=== PATIENT | female | born 1950 | race Caucasian/White ===

== ENCOUNTER 2017-08-03 01:41 | Emergency (ER) | payer MEDICARE, SELFPAY | END 2017-08-03 02:34 | disposition home or self-care (01) | PROVIDERS: Emergency Provider Emergency Medicine; Family Provider Family Medicine; Visit Provider Emergency Medicine | DX: R58 Hemorrhage, not elsewhere classified (principal); I83.892 Varicose veins of left lower extremity with other complications; I10 Essential (primary) hypertension | CPT/HCPCS: 12001; 99283 ==

== ENCOUNTER → 2017-08-07 | Outpatient (CLI) | payer MEDICARE, SELFPAY | PROVIDERS: Visit Provider Physician Assistant | DX: Z12.31 Encounter for screening mammogram for malignant neoplasm of breast (principal) | CPT/HCPCS: 77067; G0202 ==

== ENCOUNTER → 2018-08-25 15:16 | Outpatient (POV) | payer MEDICARE, SELFPAY | PROVIDERS: Visit Provider Dermatology | DX: Z00.00 Encounter for general adult medical examination without abnormal findings (principal) ==

== ENCOUNTER → 2018-10-20 08:19 | Outpatient (CLI) | payer MEDICARE, SELFPAY ==
--- NOTE | 2018-10-20 08:22 | MM_ITS ---
MM Dig screening mamm BI w/CAD CAD Screening COMPARISON: Digital mammograms with CAD 08/07/2017 and 08/01/2016 INDICATION: There is a history of breast cancer in patient's mother diagnosed after menopause. There has been previous biopsy left breast for benign disease. TECHNIQUE: Standard CC and MLO images were obtained. R2 CAD reviewed. FINDINGS: Moderate scattered fibroglandular densities are seen throughout both breasts. There are scattered benign-appearing microcalcifications in each breast. There is a possible area of architectural distortion right breast versus summation shadow. Recommend the patient return for spot compression views and ultrasound may be helpful as well. There is a biopsy clip left breast and there is a mole marker left breast. There are no suspicious microcalcifications. IMPRESSION: Moderate diffuse breast density with possible area of architectural distortion right breast BI-RADS Category: 0 Need Additional Imaging Evaluation RECOMMENDED FOLLOW-UP: IMM - IMMEDIATE FOLLOW-UP RECOMMENDED (A letter has been sent to the patient regarding results of the study.)
== END ==
PROVIDERS: PCP Physician Assistant; Visit Provider Physician Assistant
DX: Z12.31 Encounter for screening mammogram for malignant neoplasm of breast (principal)
CPT/HCPCS: 77067

== ENCOUNTER → 2018-11-17 13:46 | Outpatient (CLI) | payer MEDICARE, SELFPAY ==
--- NOTE | 2018-11-17 13:48 | US_ITS ---
US breast RT complete INDICATION: ORDERING PHYSICIAN: SHEELA Arana PATIENT AGE: 68 years COMPARISON: None NDICATION: Follow-up abnormal mammogram ORDERING PHYSICIAN: SHEELA Arana PATIENT AGE: 68 years COMPARISON: 10/20/2018, 08/07/2017 TECHNIQUE: Problem-solving views performed of the right breast along with right breast ultrasound FINDINGS: Multiple images performed of the right breast including spot compression views, rolled views, and focal spot compression views with smaller paddle is obtained. There was questionable persistent architectural distortion in the lateral aspect of the right breast with the larger field of view paddle . This area however appeared to dissipate with a smaller field of view paddle and was not readily apparent on the orthogonal plane or rolled views. Right breast ultrasound: No suspicious mass is apparent.. Small slightly hyperechoic nodule noted at 1:00 measuring 8 mm and may be due to small lipoma IMPRESSION: The area of asymmetric density is not reproducible on the focal spot compression views nor the ultrasound and may be due to an area of asymmetric fibroglandular tissue. Short-term follow-up is suggested however. Also please correlate with physical exam. BI-RADS Category: 3 Probably Benign Finding Short Term Follow-up RECOMMENDED FOLLOW-UP: 6M - 6 MONTH FOLLOW-UP (A letter has been sent to the patient regarding results of the study.)
== END ==
PROVIDERS: PCP Physician Assistant; Visit Provider Physician Assistant
DX: R92.8 Other abnormal and inconclusive findings on diagnostic imaging of breast (principal)
CPT/HCPCS: 76641; 77066

== ENCOUNTER → 2019-04-15 09:22 | Outpatient (CLI) | payer MEDICARE, SELFPAY ==
--- NOTE | 2019-04-15 09:34 | XR_ITS ---
PROCEDURE: XR FOOT LT MIN 3V CLINICAL INDICATION: PLANTAR FASCITIS Foot pain COMPARISON: FTL3 FOOT-LT-3 VIEWS from 12/19/2015 FINDINGS: Hammertoe deformity involves the 4th and 5th toes. Osteoarthritic changes are present at the metatarsal tarsal joints and at the talonavicular joint. There is pes planus with mild calcification noted along the lateral aspect of the hindfoot as seen on the AP view suggesting soft tissue calcification. There is a prominent os naviculare and there are osteoarthritic changes of the calcaneocuboid joint. Overall there has been no significant change compared to 12/19/2015. IMPRESSION: Osteoarthritic change with pes planus and hammertoe deformity. Prominent os naviculare. Calcification along the lateral aspect of the hindfoot possibly related to plantar calcification. Dictated by: Aleksandr Saenz MD 04/15/2019 11:17 Electronically signed by Aleksandr Saenz MD in [place] 04/15/2019 11:17
== END ==
PROVIDERS: PCP Physician Assistant; Visit Provider Physician Assistant
DX: M72.2 Plantar fascial fibromatosis (principal)
CPT/HCPCS: 73630

== ENCOUNTER 2019-06-01 09:00 | Outpatient (RCR) | payer MEDICARE, SELFPAY ==
--- NOTE | 2019-05-27 09:18 | HMH.PTOPWND ---
Rehab Outpt Wound Evaluation Rehab OP Wound Evaluation Start: 05/27/19 08:53 Freq: Status: Active Protocol: Document 05/27/19 09:09 MALIKA (Rec: 05/27/19 09:18 PHOLESTER [id number]) Electronically Signed By Carl Garduno, PT 05/27/19 09:09 Subjective/History History History Pt is 69 yowf who presents with several recent episodes of cellulitis and many yr hx of B LE edema, basically all my life. She reports no c/o pain at rest, but some intermittent pain in B LE. She also reports significant tenderness to palpation in certain areas. She presents with several small closed sores that are in various stages of healing, but none open. These sore have a clinical presentation that would suggest an underlying MRSA infection ans should be cultured if new sores arise. She has hx of intermittent vertigo, HTN, HL, morbid obesity, CCY, partial hysterectomy, L TKA x 1, and R TKA x 2 ( My first knee on the right wore out after 10 years ). She also shows clinical presentation of her edema that suggests Lipidema as her diagnosis. Subjective Subjective 0/10 pain at rest, 6/10 pain at worst. Lymphedema Eval Classification of Lymphedema Secondary Lymphedema Yes Other Lymphedema Cause Yes: Lipidema Stemmer's sign Stemmer's Sign no Stage of Lymphedema Lymphedema stages Stage II (Pitting edema, increased fibrosis w/ decreased pitting) Skin Changes Dry Skin Yes Skin Folds Yes Redness Yes Blisters Yes Discoloration of Skin Yes Other Changes Yes Pain Scale Pain Scale (0-10) 6 Affected Extremities Areas Affected by Lymphedema/Edema Abdomen,Right Lower Extremity, Left Lower Extremity Manual Lymphatic Drainage Treatment Area MLD Treatment Area Abdomen,Right Lower Extremity,
== END 2019-06-01 09:05 | disposition home or self-care (01) ==
LOC: PT 09:00
PROVIDERS: PCP Physician Assistant; Visit Provider Physician Assistant
DX: R60.0 Localized edema (principal); L03.90 Cellulitis, unspecified
CPT/HCPCS: 97140; 97162

== ENCOUNTER → 2019-06-08 14:30 | Outpatient (CLI) | payer MEDICARE, SELFPAY ==
--- NOTE | 2019-06-08 14:32 | MM_ITS ---
PROCEDURE: MM DIG MAMM DX UNILAT RT CAD CLINICAL INDICATION: 6 MO FU six-month follow-up abnormal mammogram and ultrasound COMPARISON: DMSB DIG MAMM-SCREEN FORD from 11/05/2013 DMDXUWAL DIG MAMM-DX UNI LT ADD VIEW from 11/24/2013 DMDXUL DIG MAMM-DX UNI-LT from 07/08/2014 [facility] DIG MAMM-SCREEN FORD from 07/21/2015 [facility]B DIG MAMM-SCREEN FORD from 08/01/2016 [facility] DIG MAMM-SCREEN FORD W/CAD from 08/07/2017 [facility] MM Dig screening mamm BI w/CAD from 10/20/2018 BREASTRT US breast RT complete from 11/17/2018 [facility] MM Dig mamm BI DX w/CAD from 11/17/2018 US BREAST RT COMPLETE from 06/08/2019 TECHNIQUE: Standard images performed along with spot compression views rolled views and right breast ultrasound. FINDINGS: There is average fibroglandular tissue. There is a persistent area of questionable architectural distortion in the outer aspect of the the right breast. There is some interspersed fat within this region and this area appears to partially efface with spot compression views. This does not appear significantly changed compared to the previous exam. Right breast ultrasound: On today's exam there is an area of heterogeneous echogenicity in the 9 o'clock region of the right breast which was not demonstrated on the previous exam. This area measures approximately 1.8 by 1.6 cm has a lobular contour with some posterior acoustical shadowing. This may correspond to the area of architectural distortion in the right breast. Ultrasound-guided mammotome biopsy recommended with clip placement with mammogram to follow to see if the sonographic and mammographic abnormalities are concordant IMPRESSION: BI-RAD Category: 4 Suspicious Abnormality - Biopsy Considered FOLLOW-UP: BIO Biopsy Recommended (A letter has been sent to the patient regarding results of the study.) The the the the the the the Dictated by: Aleksandr Saenz MD 06/15/2019 09:01 Electronically signed by Aleksandr Saenz MD in [place] 06/15/2019 09:01
--- NOTE | 2019-06-08 14:34 | US_ITS ---
PROCEDURE: US BREAST RT COMPLETE CLINICAL INDICATION: 6 MO FU Six-month follow-up COMPARISON: 11/17/2018 FINDINGS: BREASTRT US breast RT complete from 11/17/2018 FINDINGS: There is average fibroglandular tissue. There is a persistent area of questionable architectural distortion in the outer aspect of the the right breast. There is some interspersed fat within this region and this area appears to partially efface with spot compression views. This does not appear significantly changed compared to the previous exam. Right breast ultrasound: On today's exam there is an area of heterogeneous echogenicity in the 9 o'clock region of the right breast which was not demonstrated on the previous exam. This area measures approximately 1.8 by 1.6 cm has a lobular contour with some posterior acoustical shadowing. This may correspond to the area of architectural distortion in the right breast. Ultrasound-guided mammotome biopsy recommended with clip placement with mammogram to follow to see if the sonographic and mammographic abnormalities are concordant IMPRESSION: IMPRESSION: BI-RAD Category: 4 Suspicious Abnormality - Biopsy Considered FOLLOW-UP: BIO Biopsy Recommended (A letter has been sent to the patient regarding results of the study.) Dictated by: Aleksandr Saenz MD 06/15/2019 09:49 Electronically signed by Aleksandr Saenz MD in [place] 06/15/2019 09:49
== END ==
PROVIDERS: PCP Physician Assistant; Visit Provider Physician Assistant
DX: R92.8 Other abnormal and inconclusive findings on diagnostic imaging of breast (principal)
CPT/HCPCS: 76641; 77065

== ENCOUNTER → 2019-06-30 09:26 | Outpatient (CLI) | payer MEDICARE, SELFPAY | PROVIDERS: PCP Physician Assistant; Visit Provider Physician Assistant | DX: R92.8 Other abnormal and inconclusive findings on diagnostic imaging of breast (principal) ==

== ENCOUNTER → 2019-07-06 12:36 | Outpatient (CLI) | payer MEDICARE, SELFPAY ==
--- NOTE | 2019-07-06 12:39 | US_ITS ---
PROCEDURE: US MAMMOTOME BX RT CLINICAL INDICATION: RT BREAST ABNORMALITY Right breast mass COMPARISON: [facility] MM Dig mamm BI DX w/CAD from 11/17/2018 BREASTRT US breast RT complete from 11/17/2018 US BREAST RT COMPLETE from 06/08/2019 MM DIG MAMM DX UNILAT RT CAD from 06/08/2019 MM CLIP PLACEMENT RT from 07/06/2019 FINDINGS: Following obtaining informed consent and time-out procedure under aseptic conditions and local anesthesia with 1 percent buffered lidocaine and deeper anesthesia with lidocaine mixed with epinephrine, mammotome needle was inserted into the right breast at the 9 o'clock position and multiple mammotome cores obtained with sonographic guidance of the suspicious abnormality.. A non ferromagnetic clip was then placed the patient tolerated the procedure well without evidence of immediate complication.. Post biopsy mammogram demonstrates the clip in place within the outer aspect of the right breast at the 9 o'clock region.. Pathology: Invasive lobular carcinoma. Please see pathology report. Atypical lobular hyperplasia. IMPRESSION: Successful and uneventful ultrasound-guided mammotome biopsy of the right breast showing invasive lobular carcinoma as well as atypical lobular hyperplasia. Satisfactory clip placement. No immediate complications Dictated by: Aleksandr Saenz MD 07/20/2019 11:01 Electronically signed by Aleksandr Saenz MD in [place] 07/20/2019 11:01
== END ==
PROVIDERS: PCP Physician Assistant; Visit Provider Physician Assistant
DX: R92.8 Other abnormal and inconclusive findings on diagnostic imaging of breast (principal); N63.11 Unspecified lump in the right breast, upper outer quadrant; C50.911 Malignant neoplasm of unspecified site of right female breast; Z17.0 Estrogen receptor positive status [ER+]
CPT/HCPCS: 19083; 77065; 88305; 88342; 88360; C2618

== ENCOUNTER → 2019-08-18 15:19 | Outpatient (CLI) | payer MEDICARE, SELFPAY ==
--- NOTE | 2019-08-18 15:24 | XR_ITS ---
PROCEDURE: XR CHEST 2V CLINICAL HISTORY: SOA ON EXCERTION COMPARISON: No exams were available for comparison FINDINGS: The cardiomediastinal silhouette and pulmonary vascularity are within normal limits. There are slight increased markings in the right infrahilar region suggesting an area of infiltrate. This may be in the lower lobe. Left lung is clear. No acute bony abnormalities. IMPRESSION: Patchy right lower lobe infiltrate Dictated by: Aleksandr Saenz MD 08/18/2019 17:53 Electronically signed by Aleksandr Saenz MD in [place] 08/18/2019 17:53
--- NOTE | 2019-08-18 15:54 | ECG_ITS ---
APPROVED REPORT Exam: Resting ECG HR:88 bpm ECG Measurements Heart Rate 88 AXES QRSd 80 QRS -31 QT 380 T 52 QTc 459 <Conclusion> Atrial fibrillation Left axis deviation Low voltage QRS Inferior infarct, old Late r wave progression Abnormal ECG Electronically signed by : Ki Gonzalez, 08/18/2019 16:03:56
== END ==
PROVIDERS: PCP Physician Assistant; Visit Provider Physician Assistant
DX: Z01.818 Encounter for other preprocedural examination (principal)
CPT/HCPCS: 71046; 93005

== ENCOUNTER → 2019-08-19 13:56 | Outpatient (CLI) | payer MEDICARE, SELFPAY ==
[2019-08-19 14:36] LABS: Basophils # 0.1 K/mm3 (0-0.2); Basophils % 1.1 % (0.1-2.0); Eosinophils # 0.2 K/mm3 (0.0-0.4); Eosinophils % 3.2 % (0.1-12.0); Hematocrit 46.2 % (37.0-47.0); Hemoglobin 14.5 g/dL (12.2-16.2); Lymphocytes # 1.5 K/mm3 (0.7-4.5); Lymphocytes % 28.3 % (10-50); Mean Corpuscular HGB Conc 31.5 g/dL (31.8-35.4); Mean Corpuscular Hemoglobin 30.6 pg (27.0-31.2); Mean Corpuscular Volume 97.1 fl (81-99); Mean Platelet Volume 8.1 fl (7.4-10.4); Monocytes # 0.4 K/mm3 (0.1-1.0); Monocytes % 7.5 % (1.7-9.3); Neutrophils # 3.3 K/mm3 (1.8-7.8); Neutrophils % 59.9 % (37.0-80.0); Platelet Count 169 K/mm3 (142-424); Red Blood Count 4.76 M/mm3 (4.20-5.40); Red Cell Distribution Width 14.7 % (11.5-17.5); White Blood Count 5.4 K/mm3 (4.8-10.8)
[2019-08-19 15:39] LABS: Alanine Aminotransferase 15 U/L (12-78); Albumin Level 3.5 gm/dL (3.4-5.0); Albumin/Globulin Ratio 1.2 (1.1-1.8); Alkaline Phosphatase 83 U/L (46-116); Anion Gap 11.7 mEq/L (5-15); Aspartate Amino Transferase 19 U/L (15-37); Blood Urea Nitrogen 19 mg/dL (7-18); Calcium 8.9 mg/dL (8.5-10.1); Carbon Dioxide 28 mmol/L (21.0-32.0); Chloride 102 mmol/L (98-107); Creatinine,Serum 1.06 mg/dL (0.55-1.02); Estimated Glomerular Filt Rate 51 ml/min (>60); GFR (African American) 62 ML/MIN (>60); Glucose 119 mg/dL (74-106); Potassium 3.7 mmoL/L (3.5-5.1); Sodium 138 mmol/L (136-145); Thyroid Stimulating Hormone 2.33 uIU/ml (0.358-3.740); Total Protein,Serum 6.5 gm/dL (6.4-8.2)
== END ==
PROVIDERS: Visit Provider Physician Assistant
DX: I48.91 Unspecified atrial fibrillation (principal); R93.89 Abnormal findings on diagnostic imaging of other specified body structures
CPT/HCPCS: 36415; 80053; 84443; 85025

== ENCOUNTER → 2019-08-20 09:53 | Outpatient (CLI) | payer SELFPAY ==
--- NOTE | 2019-08-20 09:54 | CT_ITS ---
PROCEDURE: CT HEART W CALCIUM SCORE CLINICAL HISTORY: sob, pre op, new onset of a fib COMPARISON: No exams were available for comparison TECHNIQUE: Axial images obtained with sagittal and coronal reformats. All CT scans at the facility use one or more dose reduction, viz: automated exposure control, ma/kV adjustment per patient size (including targeted exams where dose is matched to indication, i.e. head), or iterative reconstruction technique. FINDINGS: Coronary artery calcium score is 506 indicating extensive calcific plaque burden with very high cardiovascular disease risk Incidental note is made degenerative changes of the thoracic spine and some mild aortic root calcification. Also mild calcification noted of the mitral valve annulus. There is a splenic artery aneurysm with peripheral calcification with aneurysm measuring 13 mm. IMPRESSION: 1. Very high cardiovascular disease risk with extensive calcific plaque burden. 2. 13 mm splenic artery aneurysm Dictated by: Aleksandr Saenz MD 08/20/2019 12:35 Electronically signed by Aleksandr Saenz MD in [place] 08/20/2019 12:35
== END ==
PROVIDERS: PCP Physician Assistant; Visit Provider Internal Medicine Cardiovascular Disease
DX: Z13.6 Encounter for screening for cardiovascular disorders (principal)
CPT/HCPCS: 75571

== ENCOUNTER → 2019-08-20 10:20 | Outpatient (CLI) | payer MEDICARE, SELFPAY ==
--- NOTE | 2019-08-20 10:25 | CA_ITS ---
APPROVED REPORT EXAM: Comprehensive 2D, Doppler, and color-flow Echocardiogram Floor Press Operator: Melanie Medrano RDCS Ht: 5 ft 7 in Wt: 378lbs BSA: 2.65 BP: 131/73 mmHg Indications: Obesity, Atrial Fibrillation (new onset), Hyperlipidemia, Hypertension/HDD M-Mode Dimensions RVDd 2.67 cm (0.9-2.6) LVDd 7.04 cm (3.5-5.7) LVDs 6.10 cm (3.5-5.7) IVSd 0.93 cm (0.6-1.1) PWd 1.06 cm (0.6-1.1) EF (Teich) 27.80% FS 13.40% EDV (Teich) 258.70 mL ESV (Teich) 186.90 mL Left Ventricle Left atrium is moderately enlarged, left ventricle is normal size, mild concentric left ventricular hypertrophy, visually estimated ejection fraction 55% with no regional wall motion abnormality. Endocardial surfaces are poorly visualized, diastolic parameters are inconclusive. Right Ventricle Right atrium and right ventricular mildly enlarged with normal contractility. Aortic Valve Aortic valve is thickened and calcified leaflet chordae display good mobility, there is no aortic stenosis or aortic insufficiency. Mitral Valve Mitral valve is grossly normal, there is mild mitral regurgitation. Tricuspid Valve Tricuspid valve is grossly normal, there is mild tricuspid regurgitation. Pulmonic Valve Pulmonic valve is poorly visualized. Great Vessels Aortic root is normal size. Pericardium No significant pericardial effusion noted. Conclusion 1. Biatrial enlargement, normal left ventricular size, mild concentric left ventricular hypertrophy, visually estimated ejection fraction 55% with no regional wall motion abnormality, diastolic parameters are inconclusive. 2. Mildly enlarged right ventricle with normal contractility. 3. Mild mitral and tricuspid regurgitation. 4. No significant pericardial effusion noted. Electronically signed by : Guanako Aldridge, 08/20/2019 14:42:19
== END ==
PROVIDERS: PCP Physician Assistant; Visit Provider Physician Assistant
DX: Z01.810 Encounter for preprocedural cardiovascular examination (principal); R06.00 Dyspnea, unspecified; I48.91 Unspecified atrial fibrillation
CPT/HCPCS: 93306

== ENCOUNTER → 2019-10-04 16:41 | Outpatient (CLI) | payer MEDICARE, SELFPAY ==
[2019-10-04 16:54] LABS: Basophils % 0.5 % (0.1-2.0); Eosinophils # 0.4 K/mm3 (0.0-0.4); Eosinophils % 6.4 % (0.1-12.0); Hematocrit 39.8 % (37.0-47.0); Hemoglobin 12.8 g/dL (12.2-16.2); Lymphocytes # 1.3 K/mm3 (0.7-4.5); Lymphocytes % 23.3 % (10-50); Mean Corpuscular HGB Conc 32.1 g/dL (31.8-35.4); Mean Corpuscular Hemoglobin 31.3 pg (27.0-31.2); Mean Corpuscular Volume 97.5 fl (81-99); Mean Platelet Volume 8.2 fl (7.4-10.4); Monocytes # 0.4 K/mm3 (0.1-1.0); Monocytes % 6.2 % (1.7-9.3); Neutrophils # 3.6 K/mm3 (1.8-7.8); Neutrophils % 63.6 % (37.0-80.0); Platelet Count 190 K/mm3 (142-424); Red Blood Count 4.08 M/mm3 (4.20-5.40); Red Cell Distribution Width 13.5 % (11.5-17.5); White Blood Count 5.7 K/mm3 (4.8-10.8)
[2019-10-04 17:02] LABS: Chloride 103 mmol/L (98-107); Potassium 3.9 mmoL/L (3.5-5.1); Sodium 138 mmol/L (136-145)
[2019-10-04 17:04] LABS: Blood Urea Nitrogen 15 mg/dl (7-17); Estimated Glomerular Filt Rate 49 ml/min (>60); GFR (African American) 59 ML/MIN (>60)
[2019-10-04 17:05] LABS: Alanine Aminotransferase 12 U/L (12-78); Albumin Level 3.5 g/dl (3.5-5.0); Albumin/Globulin Ratio 1.2 (1.1-1.8); Alkaline Phosphatase 73 U/L (38-126); Anion Gap 8.9 mEq/L (5-15); Aspartate Amino Transferase 25 U/L (14-36); Bilirubin,Total 1.4 mg/dl (0.2-1.3); Calcium 9.5 mg/dl (8.4-10.2); Carbon Dioxide 30 mmol/L (22.0-30.0); Globulin 2.9 g/dL (1.3-3.2); Glucose 111 mg/dl (74-100); Total Protein,Serum 6.4 g/dl (6.3-8.2)
== END ==
PROVIDERS: Visit Provider Internal Medicine Hematology & Oncology
DX: C50.911 Malignant neoplasm of unspecified site of right female breast (principal)
CPT/HCPCS: 36415; 80053; 85025

== ENCOUNTER → 2019-10-05 09:30 | Outpatient (CLI) | payer MEDICARE, SELFPAY ==
--- NOTE | 2019-10-05 09:35 | CT_ITS ---
PROCEDURE: CT CHEST W CON CLINCAL INDICATION: BREAST CANCER Breast cancer follow-up, staging evaluation COMPARISON: CT ABDOMEN PELVIS W CON from 10/05/2019 TECHNIQUE: IV Contrast: 75ml Optiray 350 Axial images obtained with sagittal and coronal reformats. All CT scans at the facility use one or more dose reduction, viz: automated exposure control, ma/kV adjustment per patient size (including targeted exams where dose is matched to indication, i.e. head), or iterative reconstruction technique. FINDINGS: HEART AND MEDIASTINAL STRUCTURES: There are coronary artery calcifications. There is normal heart size. No mediastinal or hilar mass or adenopathy is evident. There are coronary artery calcifications noted. Normal heart size. No evidence of pericardial effusion. LUNGS AND PLEURAL SPACES: No suspicious pulmonary nodules. There are minimal atelectatic or fibrotic changes in the left lung base. No central obstructing lesions. No pleural effusions. BONY STRUCTURES: There are degenerative changes of the thoracic spine. No bony destructive process. No lytic or blastic lesions. ADDITIONAL FINDINGS: Status post right mastectomy. A postsurgical drain is present in the mastectomy bed exiting in the lateral chest wall on the right. There is some increased soft tissue density in the subcutaneous tissues in may be related to spoke surgical fluid collection measuring approximately 4.6 x 1.4 cm. There is some stranding of the subcutaneous fat. No obvious axillary adenopathy. There is a fluid collection in the right axilla at approximately 3.4 cm consistent with postoperative seroma IMPRESSION: 1. Status post right mastectomy with postsurgical changes. Postoperative seroma noted in the right axillary region and in the mastectomy bed. 2. No convincing evidence of metastatic disease of the thorax. 3. Coronary artery calcifications Dictated by: Aleksandr Saenz MD 10/06/2019 06:25 Electronically signed by Aleksandr Saenz MD in [place] 10/06/2019 06:25
--- NOTE | 2019-10-05 09:35 | CT_ITS ---
PROCEDURE: CT ABDOMEN PELVIS W CON CLINICAL INDICATION: BREAST CANCER Follow-up breast cancer, evaluate for metastatic disease COMPARISON: ABDPELW CT ABD PELVIS W/ CONTRAST from 12/21/2015 TECHNIQUE: IV Contrast: 75ML OPTIRAY 350 Oral Contrast 450ml Redicat Axial images obtained with sagittal and coronal reformats. All CT scans at the facility use one or more dose reduction, viz: automated exposure control, ma/kV adjustment per patient size (including targeted exams where dose is matched to indication, i.e. head), or iterative reconstruction technique. FINDINGS: LOWER THORAX: Please see chest CT report ABDOMEN & PELVIS: There is some beam hardening artifact from the patient's arms. No obvious liver lesions. The liver, spleen, adrenal glands, have an unremarkable appearance. There is fatty infiltration of the pancreas. No obvious pancreatic mass. No renal or ureteral calculi or hydronephrosis. No renal mass. There is a small splenic artery aneurysm at 1.5 cm not significantly changed. No intra-abdominal mass or pelvic mass. No adenopathy apparent. There are post hysterectomy changes. Calcific density is present in the left pelvic region. This is not felt to be due to ureteral stone but likely vascular calcification as this was present on the previous study and unchanged. There is a small ventral abdominal wall hernia slightly to the left of midline containing fat not significantly changed the No bony destructive process. No lytic or blastic lesions evident. IMPRESSION: No acute finding. No evidence of metastatic disease. Dictated by: Aleksandr Saenz MD 10/06/2019 06:36 Electronically signed by Aleksandr Saenz MD in [place] 10/06/2019 06:36
== END ==
PROVIDERS: PCP Physician Assistant; Visit Provider Internal Medicine Hematology & Oncology
DX: C50.911 Malignant neoplasm of unspecified site of right female breast (principal); Z03.89 Encounter for observation for other suspected diseases and conditions ruled out
CPT/HCPCS: 71260; 74177; Q9967

== ENCOUNTER 2020-03-01 05:14 | Observation (INO) | payer MEDICARE, SELFPAY ==
[2020-03-01] VITALS (13 sets, daily range): BP systolic 96–128; BP diastolic 48–78; PULSE 63–99; RESP 16–20; TEMP 36.5–38.9; O2SAT 95–100; BMI 64.3; BMI 55.3
--- NOTE | 2020-03-01 05:24 | XR_ITS ---
PROCEDURE: XR CHEST PORTABLE CLINICAL HISTORY: fever COMPARISON: XR CHEST 2V from 08/18/2019 XR CHEST 2V from 08/23/2019 CT CHEST W CON from 10/05/2019 FINDINGS: Mild cardiomegaly with pulmonary venous congestion consistent with CHF. The lungs are clear without infiltrates, suspicious nodules, or pleural effusions. Surgical clips are present in the right axilla and over upper chest medially. No lobar consolidation or collapse. IMPRESSION: Mild CHF Dictated by: Aleksandr Saenz MD 03/01/2020 06:05 Electronically signed by Aleksandr Saenz MD in [facility] 03/01/2020 06:05
--- NOTE | 2020-03-01 05:25 | XR_ITS ---
PROCEDURE: XR KNEE LT 3V CLINICAL INDICATION: knee pain COMPARISON: No exams were available for comparison FINDINGS: Prior total knee replacement with good alignment and no acute fracture. Scattered soft tissue calcifications are present about the knee . No previous exams available for comparison. Other findings:None. IMPRESSION: Prior total knee replacement with nonspecific soft tissue calcifications Dictated by: Aleksandr Saenz MD 03/01/2020 06:07 Electronically signed by Aleksandr Saenz MD in [facility] 03/01/2020 06:07
[2020-03-01 06:19] LABS: Chloride 97 mmol/L (98-107); Potassium 3.6 mmoL/L (3.5-5.1); Sodium 136 mmol/L (136-145)
[2020-03-01 06:21] LABS: Microscopic, Urine URINE MICROSCOPIC (MICROSCOPIC)
[2020-03-01 06:22] LABS: Alanine Aminotransferase 15 U/L (12-78); Albumin Level 3.5 g/dl (3.5-5.0); Albumin/Globulin Ratio 1.1 (1.1-1.8); Alkaline Phosphatase 133 U/L (38-126); Anion Gap 12.6 mEq/L (5-15); Aspartate Amino Transferase 32 U/L (14-36); Basophils # 0.1 K/mm3 (0-0.2); Basophils % 0.8 % (0.1-2.0); Bilirubin,Total 1.9 mg/dl (0.2-1.3); Blood Urea Nitrogen 23 mg/dl (7-17); Carbon Dioxide 30 mmol/L (22.0-30.0); Creatinine Clearance Estimated 49 mL/min (50-200); Eosinophils # 0.2 K/mm3 (0.0-0.4); Eosinophils % 2.8 % (0.1-12.0); Estimated Glomerular Filt Rate 49 ml/min (>60); GFR (African American) 59 ML/MIN (>60); Globulin 3.3 g/dL (1.3-3.2); Hematocrit 33.9 % (37.0-47.0); Hemoglobin 12.1 g/dL (12.2-16.2); Lymphocytes # 0.9 K/mm3 (0.7-4.5); Lymphocytes % 14.9 % (10-50); Mean Corpuscular HGB Conc 35.7 g/dL (31.8-35.4); Mean Corpuscular Hemoglobin 32.9 pg (27.0-31.2); Mean Corpuscular Volume 92.2 fl (81-99); Mean Platelet Volume 8.5 fl (7.4-10.4); Monocytes # 0.5 K/mm3 (0.1-1.0); Monocytes % 8.4 % (1.7-9.3); Neutrophils # 4.5 K/mm3 (1.8-7.8); Neutrophils % 73.1 % (37.0-80.0); Platelet Count 141 K/mm3 (142-424); Red Blood Count 3.68 M/mm3 (4.20-5.40); Red Cell Distribution Width 13.8 % (11.5-17.5); Total Protein,Serum 6.8 g/dl (6.3-8.2); White Blood Count 6.1 K/mm3 (4.8-10.8)
[2020-03-01 06:23] LABS: Appearance,Urine CLEAR (Clear); Bilirubin,Urine Negative (Negative); Blood, Urine Negative (Negative); Calcium 9.2 mg/dl (8.4-10.2); Color,Urine YELLOW (Yellow); Glucose 134 mg/dl (74-100); Glucose,Urine (UA) Negative (Negative); Ketones,Urine Negative (Negative); Leukocyte Esterase,Urine Negative (Negative); Nitrate,Urine Negative (Negative); Protein,Urine Negative (Negative); Specific Gravity, Urine 1.025 (1.005-1.030)
[2020-03-01 06:25] LABS: Lactic Acid 1.2 mmol/L (0.7-2.1)
[2020-03-01 06:28] LABS: C-Reactive Protein 52.3 mg/L (0-4)
[2020-03-01 06:32] LABS: Bacteria,Urine Trace /lpf; RBC,Urine Occasional #/hpf (0-3)
[2020-03-01 06:33] LABS: Strep Scrn Group A (Rapid) Negative (Negative)
--- NOTE | 2020-03-01 06:59 | HMH.EDFEV ---
ED Disposition Clinical Impression: Febrile illness, acute, Renal insufficiency, Elevated C-reactive protein (CRP) Obesity Qualifiers: Obesity type: due to excess calories Obesity classification: adult class 3 (BMI >= 40) Serious obesity comorbidity presence: with serious comorbidity Body mass index: BMI 50.0-59.9 Qualified Code(s): E66.01 - Morbid (severe) obesity due to excess calories; Z68.43 - Body mass index (BMI) 50.0-59.9, adult Knee pain, acute Qualifiers: Laterality: right Qualified Code(s): M25.561 - Pain in right knee Disposition: Admitted as Observation Condition on Discharge: Good Referrals: Kalie Dobbs MD [Primary Care Provider] - - Critical Care Critical Care Time: No Attestation: On 03/01/20, the high probability of a clinically significant, sudden or life threatening deterioration of the following system(s) required my full and direct attention, intervention and personal management. The time I documented below is in addition to time spent performing reported procedures but includes the following listed in this critical care notation. Medical Decision Making - Medical Records Medical records reviewed: Yes: I reviewed the patient's medical records. - Richard Inquiry Pt receiving controlled substance: No Vital Signs: 03/01/20 05:25 03/01/20 07:14 Temperature 102.1 F H Temperature Source Oral Pulse Rate [Right Brachial] 81 87 Respiratory Rate 16 18 Blood Pressure [Right Arm] 119/52 L 113/60 Blood Pressure Mean [Right Arm] 74 77 Blood Pressure Source [Right Arm] Automatic Cuff Automatic Cuff Blood Pressure Position [Right Arm] Sitting Sitting 02 Sat by Pulse Oximetry 98 97 Oxygen Delivery Method Room Air Room Air - Lab Data Lab results reviewed: Yes: I reviewed the patient's lab results. Lab Results 03/01/20 05:18: WBC 6.1, RBC 3.68 L, Hgb 12.1 L, Hct 33.9 L, MCV 92.2, MCH 32.9 H, MCHC 35.7 H, RDW 13.8, Plt Count 141 L, MPV 8.5, Neut % (Auto) 73.1, Lymph % (Auto) 14.9, [place] % (Auto) 8.4, Eos % (Auto) 2.8, Baso % (Auto) 0.8, Neut # (Auto) 4.5, Lymph # (Auto) 0.9, [place] # (Auto) 0.5, Eos # (Auto) 0.2, Baso # (Auto) 0.1 03/01/20 05:18: Sodium 136, Potassium 3.6, Chloride 97 L, Carbon Dioxide 30, Anion Gap 12.6, BUN 23 H, Creatinine 1.10 H, Estimated Creat Clear 49, Estimated GFR 49 L, Est GFR ( Amer) 59, Glucose 134 H, Calcium 9.2, Total Bilirubin 1.9 H, AST 32, ALT 15, Alkaline Phosphatase 133 H, C-Reactive Protein 52.3 H, Total Protein 6.8, Albumin 3.5, Globulin 3.3 H, Albumin/Globulin Ratio 1.1 03/01/20 05:18: Urine Color Yellow, Urine Appearance Clear, Urine pH 6.0, Ur Specific [place] 1.025, Urine Protein Negative, Urine Glucose (UA) Negative, Urine Ketones Negative, Urine Blood Negative, Urine Nitrate Negative, Urine Bilirubin Negative, Urine Urobilinogen 1.0, Ur Leukocyte Esterase Negative, Urine RBC Occasional, Urine WBC 3-5, Ur Squamous Epith Cells 3-5, Urine Bacteria Trace 03/01/20 05:42: Lactate 1.2 03/01/20 05:42: Influenza Type A Ag Negative, Influenza Type B Ag Negative 03/01/20 05:42: Group A Strep Rapid Negative Result diagrams: 03/01/20 05:18 03/01/20 05:18 Orders (Tests/Meds): ORDERS Category Date Time Status Erythrocyte Sedimentation Rate Stat Lab 03/01/20 05:18 Received Rapid Coronavirus-19 IgG/IgM Stat Lab 03/01/20 05:18 Received Blood Culture Stat Micro 03/01/20 05:53 Received Strep Screen Confirmation Stat Micro 03/01/20 05:42 Received - Radiology Data #1 Image(s): Chest, Knee Image Reviewed: Yes I reviewed the patient's radiology image Preliminary Findings: No Fracture Seen - Physician Consults Physician Consulted: jessica Reason -: Admission Fever HPI - General Chief Complaint: Fever Stated Complaint: right knee pain Time Seen by Provider: 03/01/20 06:00 Mode of Arrival: EMS Source of Information: Patient, EMS, Medical Record Limitations: No Limitations Description of Symptoms (Recalled from ER Triage Doc. by RN): pt pre
--- NOTE | 2020-03-01 07:35 | PC.NURSE ---
Dr. Rinku stevens.
--- NOTE | 2020-03-01 07:39 | PC.NURSE ---
Dr. Jason speaking to Dr. Dobbs.
[2020-03-01 07:57] LABS: Coronavirus 19 IgG Antibody Negative (Negative); Coronavirus 19 IgM Antibody Negative (Negative)
[2020-03-01 08:07] LABS: Uric Acid 10.2 mg/dl (2.5-6.2)
[2020-03-01 08:07] LABS: Adenovirus,PCR Not Detected (NotDetected); Bordetella Pertussis Not Detected (NotDetected); Chlamydophila Pneumoniae, PCR Not Detected (NotDetected); Coronavirus 19, PCR Not Detected (NotDetected); Coronavirus 229E Not Detected (NotDetected); Coronavirus NL63 Not Detected (NotDetected); Coronavirus OC43 Not Detected (NotDetected); Coronovirus HKU1,PCR Not Detected (NotDetected); Human Metapneumovirus Not Detected (NotDetected); Influenza A, PCR Not Detected (NotDetected); Influenza AH1, 2009 Not Detected (NotDetected); Influenza AH1, PCR Not Detected (NotDetected); Influenza AH3,PCR Not Detected (NotDetected); Influenza B, PCR Not Detected (NotDetected); Mycoplasma Pneumoniae, PCR Not Detected (NotDected); Parainfluenza 1, PCR Not Detected (NotDetected); Parainfluenza 2, PCR Not Detected (NotDetected); Parainfluenza 3, PCR Not Detected (NotDetected); Parainfluenza 4, PCR Not Detected (NotDetected); Respiratory Syncytial Virus Not Detected (NotDetected); Rhinovirus/Enterovirus Not Detected (NotDetected)
--- NOTE | 2020-03-01 09:02 | PC.NURSE ---
awaiting results of covid test before getting patient admitted
--- NOTE | 2020-03-01 09:10 | PC.NURSE ---
called dietary for breakfast tray
--- NOTE | 2020-03-01 09:18 | PC.NURSE ---
pt eating breakfast
[2020-03-01 09:19] LABS: Erythrocyte Sedimentation Rate 58 mm/hr (0-30)
--- NOTE | 2020-03-01 10:36 | HMH.PHAVTE ---
[facility] Pharmacy VTE Monitoring - Patient Demographics Admission date: 03/01/20 Report Date: 03/01/20 Time: 10:36 Allergies/Adverse Reactions: Patient Allergies cephalexin [From KEFLEX] Allergy (Intermediate, Verified 03/01/20 10:16) I-RASH Sulfa (Sulfonamide Antibiotics) [SULFA (SULFONAMIDE ANTIBIOTICS)] Allergy (Intermediate, Verified 03/01/20 10:16) I-RASH doxycycline [DOXYCYCLINE] Allergy (Unknown, Verified 03/01/20 10:16) NA-NAUSEA Penicillins [PENICILLINS] Allergy (Unknown, Verified 03/01/20 10:16) LOCAL REACTION AT INJECTION SITE Height: 1.7 m Weight: 160.232 kg Patient Problems: Current Active Problems Febrile illness, acute (Acute) Obesity (Acute) Knee pain, acute (Acute) Renal insufficiency (Acute) Elevated C-reactive protein (CRP) (Acute) - VTE Risk Labs: VTE Related Lab Results Hgb 12.1 g/dL (12.2-16.2) L 03/01/20 05:18 Hct 33.9 % (37.0-47.0) L 03/01/20 05:18 Plt Count 141 K/mm3 (142-424) L 03/01/20 05:18 BUN 23 mg/dl (7-17) H 03/01/20 05:18 Creatinine 1.10 mg/dl (0.52-1.04) H 03/01/20 05:18 Estimated Creat Clear 49 mL/min (50-200) 03/01/20 05:18 - Prophylaxis VTE Prophylaxis Ordered?: Yes Types of VTE Prophylaxis: TEDS Knee High, Pharmacological Location of Applied Device: Bilateral Lower Extremeties Pharmacologic Type: Other (ELIQUIS) - VTE Diagnosis Confirmed Treatment or plan recommended: Continue Current Treatment
--- NOTE | 2020-03-01 10:58 | HMH.ACPN2 ---
Internal Medicine - PN: Subj *Date: 03/01/20 *Time: 10:58 Interval history: Admitted with severe right knee and ankle pain and fever. Normal WBC total. Hx breast Ca and mastectomy. URIC ACID 10.2. Exam Vital signs and Labs for Last 24 Hours: Temp Pulse Resp BP Pulse Ox 99.6 F 87 16 126/78 98 03/01/20 10:11 03/01/20 10:11 03/01/20 10:11 03/01/20 10:11 03/01/20 10:00 Laboratory Results - last 24 hr 03/01/20 05:18: WBC 6.1, RBC 3.68 L, Hgb 12.1 L, Hct 33.9 L, MCV 92.2, MCH 32.9 H, MCHC 35.7 H, RDW 13.8, Plt Count 141 L, MPV 8.5, Neut % (Auto) 73.1, Lymph % (Auto) 14.9, [place] % (Auto) 8.4, Eos % (Auto) 2.8, Baso % (Auto) 0.8, Neut # (Auto) 4.5, Lymph # (Auto) 0.9, [place] # (Auto) 0.5, Eos # (Auto) 0.2, Baso # (Auto) 0.1 03/01/20 05:18: Sodium 136, Potassium 3.6, Chloride 97 L, Carbon Dioxide 30, Anion Gap 12.6, BUN 23 H, Creatinine 1.10 H, Estimated Creat Clear 49, Estimated GFR 49 L, Est GFR ( Amer) 59, Glucose 134 H, Calcium 9.2, Total Bilirubin 1.9 H, AST 32, ALT 15, Alkaline Phosphatase 133 H, C-Reactive Protein 52.3 H, Total Protein 6.8, Albumin 3.5, Globulin 3.3 H, Albumin/Globulin Ratio 1.1 03/01/20 05:18: Urine Color Yellow, Urine Appearance Clear, Urine pH 6.0, Ur Specific [place] 1.025, Urine Protein Negative, Urine Glucose (UA) Negative, Urine Ketones Negative, Urine Blood Negative, Urine Nitrate Negative, Urine Bilirubin Negative, Urine Urobilinogen 1.0, Ur Leukocyte Esterase Negative, Urine RBC Occasional, Urine WBC 3-5, Ur Squamous Epith Cells 3-5, Urine Bacteria Trace 03/01/20 05:18: ESR 58 H 03/01/20 05:18: SARS-CoV-2 IgG Ab (Rapid) Negative, SARS-CoV-2 IgM Ab (Rapid) Negative 03/01/20 05:18: Uric Acid 10.2 H 03/01/20 05:42: Lactate 1.2 03/01/20 05:42: Influenza Type A Ag Negative, Influenza Type B Ag Negative 03/01/20 05:42: Group A Strep Rapid Negative 03/01/20 08:00: Chlamy pneumoniae PCR Not detected, Adenovirus (PCR) Not detected, B. pertussis DNA (PCR) Not detected, Coronavirus OC43 (PCR) Not detected, Coronavirus HKU1 (PCR) Not detected, Coronavirus 229E (PCR) Not detected, COVID-19 PCR Not detected, Coronavirus NL63 (PCR) Not detected, Human Metapneumovir PCR Not detected, Influenza A (H1) PCR Not detected, Influ A (H1N1/09) PCR Not detected, Influenza A (H3) PCR Not detected, Influenza Type A (PCR) Not detected, Influenza Type B (PCR) Not detected, M. pneumoniae (PCR) Not detected, Parainfluenza 1 (PCR) Not detected, Parainfluenza 2 (PCR) Not detected, Parainfluenza 3 (PCR) Not detected, Parainfluenza 4 (PCR) Not detected, RSV (PCR) Not detected, Entero/Rhino (PCR) Not detected I & O for Last 24 hours: Intake & Output 02/27/20 02/28/20 02/29/20 03/01/20 11:59 11:59 11:59 11:59 Weight 353 lb 4 oz Assessment and Plan (1) Ankle pain Current visit: Yes Status: Acute Category: Medical Code(s): M25.579 - Pain in unspecified ankle and joints of unspecified foot (2) Gout attack Current visit: Yes Status: Acute Category: Medical Code(s): M10.9 - Gout, unspecified - Assessment and plan all Dx Assessment and Plan for all problems:: IV Solumedrol, Ibuprofen ordered.
--- NOTE | 2020-03-01 12:57 | HMH.HP ---
*Admission Date: 03/01/20 *Chief complaint: right foot and knee pain *History of present illness: Ms Royal is a 70-year-old female with a history of hypertension, breast cancer, hypothyroidism and atrial fibrillation who presented to the Emergency room with complaints of right knee and foot pain. She states that the pain began last evening and she needed assistance with her bath. During the night she was unable to get out of bed even with assistance due to the pain and was brought to [facility] for evaluation. To note she does run a fever which she has done periodically since her mastectomy in August 2019. She has had a congested cough and was seen in the office of [facility] on 02/23/2020 at which time her chest was clear. Temp was 99.1 at this visit. She did have her Lasix increased due to persistent bilateral lower extremity edema. She has not had any direct covid exposure. She later states that she does sleep in a recliner every night. She awakened last night And her right leg was hanging off the recliner. With evaluation in the emergency room CBC showed a normal white blood cell count of 6100 with a hemoglobin of 12.1 and hematocrit of 33.9. ESR was elevated at 58. Blood chemistries revealed a BUN of 23 and the creatinine of 1.10; uric acid was elevated at 10.2: Alkaline phosphatase was elevated at 133. Urine was negative. COVID-19 PCR was also negative as was IgG and IgM. With evaluation in the emergency room x-ray of the right knee showed a prior total knee replacement with nonspecific soft tissue calcifications. Chest x-ray showed mild CHF. Temperature was found to be 102.1. She was then admitted for further evaluation and treatment. After admission she did receive 125 mg of Solu-Medrol which she says really did help her ankle/foot pain. Patient currently is resting in the bed and appears comfortable. States her foot is feeling much better. Temperature now is 99.6. [facility] History Medical History: Reports:: Atrial Fibrillation, Cancer (breast cancer), Depression, Gastroesophageal Reflux Disease(GERD), Hyperlipidemia, Hypertension Denies:: Internal Pacemaker, Seizures *Have you ever received a pneumonia vaccine?: Yes *Have you received a flu vaccine this season?: Yes Other Medical History: Reports: Fibromyalgia, Hypothyroidism, Thyroid Disease Laterality Cases: Right: Mastectomy, Bilateral: Tonsillectomy, Total Knee Replacement Other Surgeries: Yes: Cardiac Catheterization, Cholecystectomy, Dilation and Curettage, Hysterectomy-Partial, Tubal Ligation. No: Pacemaker Comment: hemorrhoidectomy - *Social History Last grade of school completed: High school graduate Smoking Status: Never smoker Alcohol Intake: never *Occupational Status:: retired, disabled Housing: house Household Members: spouse, family *Travel in the last 8 weeks: None - Psychiatric History Pschychiatric History:: Reports:: Depression Family Hx:: Cancer, Heart Attack, Hypertension, Alcoholism Review of Systems - Constitutional Reports fever(s) - Eyes Denies change in vision - ENT Denies ear pain, Denies sore throat - *Cardiovascular Reports shortness of breath with activity, Denies chest pain - *Respiratory Reports cough (Occasional), Denies coughing up blood - *Gastrointestinal Reports heartburn, Reports nausea (Rare), Denies abdominal pain, Denies change in bowel habits, Denies constipation, Denies vomiting - *Genitourinary Denies difficulty urinating, Denies painful urination - *Musculoskeletal Reports abnormal walking (Uses a cane for stability), Reports joint pain (Right knee and right ankle/foot), Reports limited joint movement - *Neurologic Denies abnormal speech, Denies localized weakness, Denies headache(s), Denies seizure-like activity, Denies dizziness Meds Home Medications Medication Instructions Recorded Confirmed Type Duloxetine HCl 30 mg PO DAILY 04/04/19 03/01/20 History Levothyroxine Sodium
--- NOTE | 2020-03-01 13:24 | HMH.PHAINT ---
MEDICATION RECONCILIATION COMPLETED ON PATIENT USING EXTERNAL FILL HISTORY FROM PHARMACY AND PATIENT'S OWN RX BOTTLES. -CHRISTOPHER IZAGUIRRED
--- NOTE | 2020-03-01 13:40 | XR_ITS ---
PROCEDURE: XR FOOT RT 2V CLINICAL INDICATION: right/ankle foot pain COMPARISON: FTL3 FOOT-LT-3 VIEWS from 12/19/2015 XR FOOT LT MIN 3V from 04/15/2019 XR ANKLE RT 2V from 03/01/2020 FINDINGS: No fracture or dislocation. No lytic or blastic change. There is normal mineralization. There osteoarthritic changes of the calcaneocuboid joint and of the talonavicular joint. There is a mildly prominent calcaneal spur. Other findings:None. IMPRESSION: Degenerative changes otherwise negative Dictated by: Aleksandr Saenz MD 03/01/2020 14:28 Electronically signed by Aleksandr Saenz MD in [place] 03/01/2020 14:30
--- NOTE | 2020-03-01 13:41 | XR_ITS ---
PROCEDURE: XR ANKLE RT 2V CLINICAL INDICATION: right foot/ankle pain COMPARISON: XR FOOT RT 2V from 03/01/2020 FINDINGS: No fracture or dislocation. No lytic or blastic change. There is normal mineralization. The joint spaces are well-preserved. No significant degenerative/arthritic changes. No erosive changes evident. Other findings:None. IMPRESSION: No acute findings. Dictated by: Aleksandr Saenz MD 03/01/2020 14:24 Electronically signed by Aleksandr Saenz MD in [place] 03/01/2020 14:27
--- NOTE | 2020-03-01 15:53 | PC.NURSE ---
pt has had c/o pain in right knee and foot. md aware of pain and warm to touch. iv patent. piña draining clear yellow urine. pt has been educated on new medications. call light in reach. will continue to monitor pt condition
--- NOTE | 2020-03-01 16:11 | PC.NURSE ---
Received report on pt from Azalea English RN
--- NOTE | 2020-03-01 19:08 | PC.NURSE ---
report given to ad
--- NOTE | 2020-03-02 03:07 | PC.NURSE ---
Dee Oliveros with pharmacy called and verified vancomycin for patient. Stated patient will need 3 grams in a 500mL NS over 3 hours every 24 hours. Repeated order. Faxed order over to pharmacy.
[2020-03-02 04:00] VITALS: BP 110/46; PULSE 62; RESP 18; TEMP 36.6; O2SAT 98
[2020-03-02 05:00] VITALS: BMI 55.4
--- NOTE | 2020-03-02 05:01 | PC.NURSE ---
A&OX4. PT HAS TOLERATED RA WELL THROUGHOUT SHIFT. RESPIRATIONS REGULAR AND UNLABORED. LUNG SOUNDS BILATERALLY CLEAR. NO COUGH NOTED. ACTIVE BOWEL SOUNDS HEARD IN ALL 4 QUADRANTS. SOFT AND NONTENDER ABDOMEN. NONPITTING +3 EDEMA NOTED TO BLE. FAMILY HAS REMAINED AT BEDSIDE THROUGHOUT SHIFT. NO REPORTS OF PAIN THROUGHOUT SHIFT. PT HAS REMAINED AFEBRILE. PT WAS PLACED IN CONTACT PRECAUTIONS AFTER BEING NOTIFIED OF PRELIMINARY RESULT OF STAPHYLOCOCOUS AUREUS MECA GRAM + COCCI. DR MOORE WAS NOTIFIED AND VANCOMYCIN WAS ORDERED. VANCOMYCIN IS CURRENTLY INFUSING AND PT IS TOLERATING WELL. PHARMACY WAS CONTACTED ON DOSAGE. VALDEZ CATH IN PLACE WITH YELLOW URINE FLOWING INTO DRAINAGE BAG. NO KINKS NOTED. HAND TURKEY PINNER EQUAL. PT IS RESTING IN BED AT THIS TIME. BED IN LOWEST POSITION. CALL LIGHT WITHIN REACH. VSS. NO CONCERNS AT THIS TIME. WILL CONTINUE TO MONITOR.
[2020-03-02 07:39] LABS: Basophils % 0.1 % (0.1-2.0); Eosinophils # 0.1 K/mm3 (0.0-0.4); Eosinophils % 1.3 % (0.1-12.0); Hematocrit 33.3 % (37.0-47.0); Hemoglobin 11.7 g/dL (12.2-16.2); Lymphocytes # 0.7 K/mm3 (0.7-4.5); Lymphocytes % 8.1 % (10-50); Mean Corpuscular HGB Conc 35.1 g/dL (31.8-35.4); Mean Corpuscular Hemoglobin 32.6 pg (27.0-31.2); Mean Corpuscular Volume 92.9 fl (81-99); Mean Platelet Volume 8.7 fl (7.4-10.4); Monocytes # 0.4 K/mm3 (0.1-1.0); Neutrophils # 7.6 K/mm3 (1.8-7.8); Neutrophils % 86.5 % (37.0-80.0); Platelet Count 130 K/mm3 (142-424); Red Blood Count 3.59 M/mm3 (4.20-5.40); Red Cell Distribution Width 13.7 % (11.5-17.5); White Blood Count 8.8 K/mm3 (4.8-10.8)
[2020-03-02 07:42] LABS: MANUAL DIFFERENTIAL MANUAL DIFFERENTIAL (MANUAL DIFF)
[2020-03-02 07:53] LABS: Chloride 103 mmol/L (98-107); Potassium 3.6 mmoL/L (3.5-5.1); Sodium 133 mmol/L (136-145)
[2020-03-02 07:56] LABS: Anion Gap 10.6 mEq/L (5-15); Blood Urea Nitrogen 31 mg/dl (7-17); Carbon Dioxide 23 mmol/L (22.0-30.0); Creatinine Clearance Estimated 40 mL/min (50-200); Estimated Glomerular Filt Rate 44 ml/min (>60); GFR (African American) 54 ML/MIN (>60)
[2020-03-02 07:57] LABS: Calcium 8.6 mg/dl (8.4-10.2); Glucose 153 mg/dl (74-100)
[2020-03-02 08:00] VITALS: BP 104/54; PULSE 63; RESP 18; TEMP 36.7; O2SAT 99
--- NOTE | 2020-03-02 08:15 | HMH.ACPN2 ---
Internal Medicine - PN: Subj *Date: 03/02/20 *Time: 08:15 Interval history: Patient states she has less pain in her foot and her knee today although they still hurt. She is able to move her knee slightly and can flex and extend her foot. The swelling has improved with the Solu-Medrol. She was able to sleep decently well last night and ate a good breakfast this morning. She is no longer running a fever. Exam Vital signs and Labs for Last 24 Hours: Temp Pulse Resp BP Pulse Ox 97.8 F 62 18 110/46 L 98 03/02/20 04:00 03/02/20 04:00 03/02/20 04:00 03/02/20 04:00 03/02/20 04:00 Laboratory Results - last 24 hr 03/01/20 05:18: ESR 58 H 03/01/20 08:00: Chlamy pneumoniae PCR Not detected, Adenovirus (PCR) Not detected, B. pertussis DNA (PCR) Not detected, Coronavirus OC43 (PCR) Not detected, Coronavirus HKU1 (PCR) Not detected, Coronavirus 229E (PCR) Not detected, COVID-19 PCR Not detected, Coronavirus NL63 (PCR) Not detected, Human Metapneumovir PCR Not detected, Influenza A (H1) PCR Not detected, Influ A (H1N1/09) PCR Not detected, Influenza A (H3) PCR Not detected, Influenza Type A (PCR) Not detected, Influenza Type B (PCR) Not detected, M. pneumoniae (PCR) Not detected, Parainfluenza 1 (PCR) Not detected, Parainfluenza 2 (PCR) Not detected, Parainfluenza 3 (PCR) Not detected, Parainfluenza 4 (PCR) Not detected, RSV (PCR) Not detected, Entero/Rhino (PCR) Not detected 03/02/20 07:28: WBC 8.8 D, RBC 3.59 L, Hgb 11.7 L, Hct 33.3 L, MCV 92.9, MCH 32.6 H, MCHC 35.1, RDW 13.7, Plt Count 130 L, MPV 8.7, Neut % (Auto) 86.5 H, Lymph % (Auto) 8.1 L, [place] % (Auto) 4.0, Eos % (Auto) 1.3, Baso % (Auto) 0.1, Neut # (Auto) 7.6, Lymph # (Auto) 0.7, [place] # (Auto) 0.4, Eos # (Auto) 0.1, Baso # (Auto) 0.0 03/02/20 07:28: Sodium 133 L, Potassium 3.6, Chloride 103, Carbon Dioxide 23 D, Anion Gap 10.6, BUN 31 H D, Creatinine 1.20 H, Estimated Creat Clear 40, Estimated GFR 44 L, Est GFR ( Amer) 54 L, Glucose 153 H, Calcium 8.6 I & O for Last 24 hours: Intake & Output 02/28/20 02/29/20 03/01/20 03/02/20 11:59 11:59 11:59 11:59 Intake Total 1282 / 1282 Output Total 200 / 200 Balance 1082 / 1082 Weight 353 lb 4 oz 353 lb 4 oz Microbiology Reports for the Last 24 Hours: Microbiology 03/01/20 05:42 Throat Group A Streptococcus Screen ([place]) - Final Negative for Group A Streptococcus. 03/01/20 05:53 Blood Blood Culture - Preliminary - Constitutional no acute distress - *Routine Respiratory Exam Present: CTA bilaterally - *Routine Cardiovascular Exam Present: RRR - *Routine Abdominal Exam Present: soft, normoactive bowel sounds. Absent: tenderness - *Routine Extremities Exam Present: edema (trace pretibial edema bilaterally, there is still some tenderness along the right calcaneous and along the right knee) - *Routine Skin Exam Present: warm. Absent: rash - *Routine Neurological Exam Present: alert, oriented X3 Assessment and Plan (1) Ankle pain Current visit: Yes Status: Acute Category: Medical Code(s): M25.579 - Pain in unspecified ankle and joints of unspecified foot (2) Gout attack Current visit: Yes Status: Acute Category: Medical Code(s): M10.9 - Gout, unspecified (3) Breast cancer Current visit: No Status: Chronic Qualifiers: Breast location: unspecified site of breast Estrogen receptor status: unspecified Patient sex: female Laterality: unspecified laterality Qualified Code(s): C50.919 - Malignant neoplasm of unspecified site of unspecified female breast Category: Medical Code(s): C50.919 - Malignant neoplasm of unspecified site of unspecified female breast (4) HTN (hypertension) Current visit: No Status: Chronic Qualifiers: Hypertension type: essential hypertension Qualified Code(s): I10 - Essential (primary) hypertension Category: Medical Code(s): I10 - Essential (primary) hypertension
[2020-03-02 08:20] LABS: Lymphocytes % 8 % (10-50); Monocytes % 1 % (2-9); Neutrophils % 90 % (42-76); Total Cells Counted 100
[2020-03-02 08:21] LABS: Platelet Estimate Normal; RBC Morphology Normal
--- NOTE | 2020-03-02 08:30 | HMH.PHACONS ---
- Pharmacy Consult Date: 03/02/20 Time: 08:30 Referring provider: DR. MOORE Reason for Consult:: VANCOMYCIN DOSING Allergies and ADEs:: Allergies Allergy/AdvReac Type Severity Reaction Status Date / Time cephalexin [From KEFLEX] Allergy Intermediate I-RASH Verified 03/01/20 10:16 Sulfa (Sulfonamide Allergy Intermediate I-RASH Verified 03/01/20 10:16 Antibiotics) [SULFA (SULFONAMIDE ANTIBIOTICS)] doxycycline [DOXYCYCLINE] Allergy Unknown NA-NAUSEA Verified 03/01/20 10:16 Penicillins [PENICILLINS] Allergy Unknown LOCAL Verified 03/01/20 10:16 REACTION AT INJECTION SITE Home Medications:: Home Medications Medication Instructions Recorded Confirmed Type Duloxetine HCl 30 mg PO DAILY 04/04/19 03/01/20 History Levothyroxine Sodium 75 mcg PO DAILY 04/04/19 03/01/20 History [Levothyroxine 75mcg (0.075mg) Tab] Lisinopril/Hydrochlorothiazide 1 tab PO DAILY 04/04/19 03/01/20 History [Lisinopril-Hctz 20-25 mg Tab] cholecalciferol (vitamin D3) 1,250 1,250 mcg PO HS 08/19/19 03/01/20 History mcg (50,000 unit) capsule furosemide 20 mg tablet 20 mg PO DAILY tab 08/19/19 03/01/20 History meclizine 25 mg chewable tablet 12.5 mg PO DAILY PRN tab 08/19/19 03/01/20 History oxybutynin chloride 5 mg tablet 5 mg PO BID tab 08/19/19 03/01/20 History pravastatin 20 mg tablet 20 mg PO HS tab 08/19/19 03/01/20 History Apixaban [Eliquis] 5 mg PO BID 03/01/20 03/01/20 History Dupilumab [Dupixent] 300 mg SQ DIRECTED 03/01/20 03/01/20 History Exemestane [Aromasin] 25 mg PO DAILY 03/01/20 03/01/20 History Metoprolol Succinate [Metoprolol 12.5 mg PO HS 03/01/20 03/01/20 History Succinate 25mg Tablet*] hydrOXYzine HCL [Hydroxyzine HCl] 25 mg PO Q6HP PRN 03/01/20 03/01/20 History Height: 1.7 m Weight: 160.232 kg Laboratory Results:: Laboratory Results - last 24 hr 03/01/20 05:18: ESR 58 H 03/01/20 08:00: Chlamy pneumoniae PCR Not detected, Adenovirus (PCR) Not detected, B. pertussis DNA (PCR) Not detected, Coronavirus OC43 (PCR) Not detected, Coronavirus HKU1 (PCR) Not detected, Coronavirus 229E (PCR) Not detected, COVID-19 PCR Not detected, Coronavirus NL63 (PCR) Not detected, Human Metapneumovir PCR Not detected, Influenza A (H1) PCR Not detected, Influ A (H1N1/09) PCR Not detected, Influenza A (H3) PCR Not detected, Influenza Type A (PCR) Not detected, Influenza Type B (PCR) Not detected, M. pneumoniae (PCR) Not detected, Parainfluenza 1 (PCR) Not detected, Parainfluenza 2 (PCR) Not detected, Parainfluenza 3 (PCR) Not detected, Parainfluenza 4 (PCR) Not detected, RSV (PCR) Not detected, Entero/Rhino (PCR) Not detected 03/02/20 07:28: WBC 8.8 D, RBC 3.59 L, Hgb 11.7 L, Hct 33.3 L, MCV 92.9, MCH 32.6 H, MCHC 35.1, RDW 13.7, Plt Count 130 L, MPV 8.7, Neut % (Auto) 86.5 H, Lymph % (Auto) 8.1 L, [place] % (Auto) 4.0, Eos % (Auto) 1.3, Baso % (Auto) 0.1, Neut # (Auto) 7.6, Lymph # (Auto) 0.7, [place] # (Auto) 0.4, Eos # (Auto) 0.1, Baso # (Auto) 0.0, Total Counted 100, Neutrophils % (Manual) 90 H, Band Neutrophils % 1.0, Lymphocytes % (Manual) 8 L, Monocytes % (Manual) 1 L, Platelet Estimate Normal, RBC Morphology Normal 03/02/20 07:28: Sodium 133 L, Potassium 3.6, Chloride 103, Carbon Dioxide 23 D, Anion Gap 10.6, BUN 31 H D, Creatinine 1.20 H, Estimated Creat Clear 40, Estimated GFR 44 L, Est GFR ( Amer) 54 L, Glucose 153 H, Calcium 8.6 Medical History: Reports:: Atrial Fibrillation, Cancer (breast cancer), Depression, Gastroesophageal Reflux Disease(GERD), Hyperlipidemia, Hypertension Denies:: Internal Pacemaker, Seizures Assessment and Plan (1) Ankle pain Current visit: Yes Status: Acute Category: Medical Code(s): M25.579 - Pain in unspecified ankle and joints of unspecified foot (2) Gout attack Current visit: Yes Status: Acute Category: Medical Code(s): M10.9 - Gout, unspecified (3) Breast cancer Current visit: No Status: Chronic Qualifiers: Breast location: unspeci
[2020-03-02 15:14] VITALS: BP 106/60; PULSE 60; RESP 18; TEMP 36.8; O2SAT 91
--- NOTE | 2020-03-02 17:12 | PC.NURSE ---
Pt has been stable all shift. No issues noted. Got OOB and to shower chair with 2 person assist. 3+ edema BLE. VSS.
[2020-03-02 20:00] VITALS: BP 120/72; PULSE 82; RESP 20; TEMP 36.6; O2SAT 99
[2020-03-02 21:45] VITALS: O2SAT 99
[2020-03-03 03:58] VITALS: BP 106/52; PULSE 76; RESP 18; TEMP 36.4; O2SAT 99
--- NOTE | 2020-03-03 04:47 | PC.NURSE ---
A&OX4. PT HAS TOLERATED ROOM AIR WELL THROUGHOUT SHIFT. RESPIRATIONS REGULAR AND UNLABORED. LUNG SOUNDS BILATERALLY CLEAR. NO COUGH NOTED. PT HAS BEEN IN CONTACT PRECAUTIONS THROUGHOUT SHIFT. ACTIVE BOWEL SOUNDS HEARD IN ALL 4 QUADRANTS. ABDOMEN SOFT AND NONTENDER. HAND CHEMICAL PROCESS ENGINEER EQUAL. NONPITTING EDEMA NOTED TO BLE. VALDEZ IN PLACE WITH YELLOW URINE FLOWUING FREELY INTO DRAINAGE BAG. NO KINKS NOTED. NO COMPLAINTS OF PAIN OR NAUSEA. PT HAS REMAINED AFEBRILE THROUGHOUT SHIFT. PT IS CURRENTLY RESTING IN BED WITH CALL LIGHT WITHIN REACH. BED IN LOWEST POSITION. VSS. NO CONCERNS AT THIS TIME. WILL CONTINUE TO MONITOR.
[2020-03-03 05:00] VITALS: BMI 55.4
--- NOTE | 2020-03-03 06:50 | PC.NURSE ---
BLOOD CULTURE SENSITIVITIES RESULTED MRSA, DOLORES PROVIDE PT WITH WRITTEN/VERBAL EDUCATION. CONTACT ISOLATION IS MAINTAINED. VANC IS NOTED PER MAR AND MRSA IS SENSITIVE TO THIS ANTIBIOTIC.
[2020-03-03 08:00] VITALS: BP 110/89; PULSE 78; RESP 18; TEMP 36.6; O2SAT 98
--- NOTE | 2020-03-03 08:30 | HMH.ACPN2 ---
Internal Medicine - PN: Subj *Date: 03/03/20 *Time: 08:30 Interval history: Patient is feeling better today. She states she had a difficult time sleeping last night and was restless. Her foot knee pain is improving slowly and she has better range of motion. She was able to stand up in the shower yesterday. She has remained afebrile but her cultures have grown out MRSA. Exam Vital signs and Labs for Last 24 Hours: Temp Pulse Resp BP Pulse Ox 97.5 F L 76 18 106/52 L 99 03/03/20 03:58 03/03/20 03:58 03/03/20 03:58 03/03/20 03:58 03/03/20 03:58 I & O for Last 24 hours: Intake & Output 02/29/20 03/01/20 03/02/20 03/03/20 11:59 11:59 11:59 11:59 Intake Total 1702 / 1702 720 / 720 Output Total 200 / 200 625 / 625 Balance 1502 / 1502 95 / 95 Weight 353 lb 4 oz 353 lb 4 oz 353 lb 4 oz Microbiology Reports for the Last 24 Hours: Microbiology 03/01/20 05:53 Blood Blood Culture - Preliminary Staphylococcus aureus 03/01/20 05:53 Blood Blood Culture - Preliminary NO GROWTH AFTER 48 HOURS 03/01/20 05:42 Throat Group A Streptococcus Screen ([place]) - Final Negative for Group A Streptococcus. - Constitutional no acute distress - *Routine Respiratory Exam Present: CTA bilaterally - *Routine Cardiovascular Exam Present: RRR - *Routine Abdominal Exam Present: soft, normoactive bowel sounds. Absent: tenderness - *Routine Extremities Exam Absent: cyanosis, clubbing, edema Comments: some tenderness along the calcaneous and dorsum of the foot, no edema or erythema, knee is less tender today - *Routine Skin Exam Present: warm. Absent: rash - *Routine Neurological Exam Present: alert, oriented X3 Assessment and Plan (1) Ankle pain Current visit: Yes Status: Acute Category: Medical Code(s): M25.579 - Pain in unspecified ankle and joints of unspecified foot (2) Gout attack Current visit: Yes Status: Acute Category: Medical Code(s): M10.9 - Gout, unspecified (3) Breast cancer Current visit: No Status: Chronic Qualifiers: Breast location: unspecified site of breast Estrogen receptor status: unspecified Patient sex: female Laterality: unspecified laterality Qualified Code(s): C50.919 - Malignant neoplasm of unspecified site of unspecified female breast Category: Medical Code(s): C50.919 - Malignant neoplasm of unspecified site of unspecified female breast (4) HTN (hypertension) Current visit: No Status: Chronic Qualifiers: Hypertension type: essential hypertension Qualified Code(s): I10 - Essential (primary) hypertension Category: Medical Code(s): I10 - Essential (primary) hypertension (5) Hypothyroidism Current visit: Yes Status: Chronic Category: Medical Code(s): E03.9 - Hypothyroidism, unspecified (6) MRSA bacteremia Current visit: Yes Status: Acute Category: Medical Code(s): R78.81 - Bacteremia; B95.62 - Methicillin resistant Staphylococcus aureus infection as the cause of diseases classified elsewhere - Assessment and plan all Dx Assessment and Plan for all problems:: Blood cultures have returned positive for MRSA. Patient is on vancomycin and is sensitive to this. Her gout is improving. Will discuss further care with Dr. Dobbs.
--- NOTE | 2020-03-03 11:58 | HMH.DCSUM ---
General - General Admission date:: 03/01/20 Discharge date: 03/03/20 HPI HPI: Ms Royal is a 70-year-old female with a history of hypertension, breast cancer, hypothyroidism and atrial fibrillation who presented to the Emergency room with complaints of right knee and foot pain. She states that the pain began last evening and she needed assistance with her bath. During the night she was unable to get out of bed even with assistance due to the pain and was brought to [facility] for evaluation. To note she does run a fever which she has done periodically since her mastectomy in August 2019. She has had a congested cough and was seen in the office of [facility] on 02/23/2020 at which time her chest was clear. Temp was 99.1 at this visit. She did have her Lasix increased due to persistent bilateral lower extremity edema. She has not had any direct covid exposure. She later states that she does sleep in a recliner every night. She awakened last night And her right leg was hanging off the recliner. With evaluation in the emergency room CBC showed a normal white blood cell count of 6100 with a hemoglobin of 12.1 and hematocrit of 33.9. ESR was elevated at 58. Blood chemistries revealed a BUN of 23 and the creatinine of 1.10; uric acid was elevated at 10.2: Alkaline phosphatase was elevated at 133. Urine was negative. COVID-19 PCR was also negative as was IgG and IgM. With evaluation in the emergency room x-ray of the right knee showed a prior total knee replacement with nonspecific soft tissue calcifications. Chest x-ray showed mild CHF. Temperature was found to be 102.1. She was then admitted for further evaluation and treatment. After admission she did receive 125 mg of Solu-Medrol which she says really did help her ankle/foot pain. Patient currently is resting in the bed and appears comfortable. States her foot is feeling much better. Temperature now is 99.6. Hospital Course Hospital Course: The patient was admitted and given 125 mg of Solu-Medrol, which did help her foot and ankle pain. Her temperature improved. She was started on ibuprofen 800 mg every 8 hours and colchicine twice a day. An x-ray was ordered of her right foot and ankle and she was saline locked due to mild CHF noted on a chest x-ray. Her knee x-ray showed a partial total knee replacement with some soft tissue calcifications but nothing acute. Her foot and ankle x-ray showed degenerative changes but was otherwise negative. The patient's pain continued to improve and she was able to get up and walk slowly to the bathroom. Her fever subsided. Her upper respiratory panel and Covid tests were both negative. One of her blood cultures did grow MRSA which was sensitive to vancomycin. She was started on vancomycin. PT was ordered and they felt home health would be beneficial. The patient was stable to be discharged home on Zyvox 600 mg twice daily with home health PT and she will follow-up in [facility] next week. Objective Vital signs: Temp Pulse Resp BP Pulse Ox 97.8 F 78 18 110/89 98 03/03/20 08:00 03/03/20 08:00 03/03/20 08:00 03/03/20 08:00 03/03/20 08:00 Narrative: - Constitutional no acute distress - *Routine HEENT Exam Head: Present: normocephalic, atraumatic Eye: Present: PERRL. Absent: conjunctival icterus, scleral injection ENT: Present: mucous membranes moist, oropharynx clear, dentition normal - *Routine Neck Exam Present: supple. Absent: carotid bruit, lymphadenopathy, thyromegaly - *Routine Respiratory Exam Present: CTA bilaterally (Anteriorly and posteriorly) - *Routine Cardiovascular Exam Present: RRR - *Routine Abdominal Exam Present: soft, normoactive bowel sounds, obese. Absent: tenderness, distended - *Routine Extremities Exam Present: edema. Absent: calf tenderness, palpable cord Comments: Tenderness over the heel. Right knee tender to palpation. - *Routine Neurological
[2020-03-03 11:59] LABS: Anion Gap 14.5 mEq/L (5-15); Blood Urea Nitrogen 47 mg/dl (7-17); Calcium 8.6 mg/dl (8.4-10.2); Carbon Dioxide 20 mmol/L (22.0-30.0); Chloride 104 mmol/L (98-107); Creatinine Clearance Estimated 25 mL/min (50-200); Estimated Glomerular Filt Rate 26 ml/min (>60); GFR (African American) 32 ML/MIN (>60); Glucose 145 mg/dl (74-100); Potassium 3.5 mmoL/L (3.5-5.1); Sodium 135 mmol/L (136-145)
--- NOTE | 2020-03-03 11:59 | HMH.PTEV ---
Physical Therapy Evaluation Rehab PT IP Evaluation Start: 03/03/20 09:12 Freq: ONCE Status: Active Protocol: Document 03/03/20 11:00 PHORNE (Rec: 03/03/20 11:58 PHORNE [id number]) Subjective/History History History 70 yowf adm to [facility] with significant LE pain and weakness, possible gout. Pt reports feeling much better, lives with family and has 6 steps to enter the home. At baseline, she ambulates independently with a cane. Subjective Subjective Pt with no c/o this am. Rehab PT IP Eval Objective Appearance Patient Behavior Appropriate Patient Orientation Person,Place,Time Difficulty following instructions none Speech Pattern Clear Ambulation Patient Able to Ambulate Yes Ambulation Observation IP General Gait Pattern Observation Wide Based Gait Ambulation Distance (feet) 25 Ambulation Assistive Device None Ambulation Ability Contact Guard/Hand Hold Balance Ability to Arise Able, uses arms to help Sitting Balance Steady, safe Standing Balance Steady, wide stance Dynamic Sitting Balance Ability Good Dynamic Standing Balance Ability Fair Transfers Bed Transfer Ability Contact Guard/Hand Hold Chair Transfer Ability Contact Guard/Hand Hold Sit to Stand Bed Transfer Ability Contact Guard/Hand Hold Sit to Stand Chair Transfer Ability Contact Guard/Hand Hold ROM All Extremities PT ROM Status WFL MMT All Extremities PT MMT WFL Rehab PT IP prob,goals,plan Problems Date of Evaluation: 03/03/20 PT IP Problems Bed Mobility,Transfers,Gait Rehab Potential Rehab Potential Good Equipment Needs Assistive Devices None / NA Plan PT Intervention Plan Bed Mobility,Transfers,Gait, Therapeutic Exercise PT Plan Frequency BID Duration LOS Discharge Goals Bed Transfer Ability Supervision/Stand by Sit to Stand Chair Transfer Ability Supervision/Stand by Ambulation Assistive Device Straight Cane Ambulation Distance (feet) 40 Discharge Plan PT Discharge Plan Pt is appropriate to return home once medically stable, may benefit from HH therapy. G -code Required No Eval Complexity Eval Charge Codes 75107 - Moderate Complexity PHYSICIAN CERTIFICATION: I certify the specified therapy service
--- NOTE | 2020-03-03 13:23 | SW/DCPLANNER ---
RECEIVED REFERRAL FOR THIS PATIENT FOR HOME HEALTH SERVICES: SPOKE WITH PATIENT AND SHE HAS DECLINED HOME HEALTH SERVICES AT THIS TIME STATING SHE DOES NOT WANT ANYONE IN HER HOME...DISCHARGE TO HOME WITH A FOLLOW UP WITH DR MOORE SET UP BY HER NURSE PRIOR TO DISCHARGE.
== END 2020-03-03 14:52 | disposition home health service (06) ==
LOC: ER 07:51 → 2ND 09:54
PROVIDERS: Admitting Provider Family Medicine; Emergency Provider Emergency Medicine; PCP Family Medicine; Visit Provider Family Medicine
DX: M10.9 Gout, unspecified (principal); M25.571 Pain in right ankle and joints of right foot; I48.91 Unspecified atrial fibrillation; I10 Essential (primary) hypertension; E03.9 Hypothyroidism, unspecified; Z88.0 Allergy status to penicillin; Z88.1 Allergy status to other antibiotic agents; Z88.2 Allergy status to sulfonamides; Z79.01 Long term (current) use of anticoagulants; Z79.899 Other long term (current) drug therapy; C50.911 Malignant neoplasm of unspecified site of right female breast; Z90.11 Acquired absence of right breast and nipple; R78.81 Bacteremia; Z96.651 Presence of right artificial knee joint
CPT/HCPCS: 36415; 71045; 73562; 73600; 73620; 80048; 80053; 81001; 83605; 84550; 85007; 85025; 85651; 86140; 86328; 87040; 87077; 87186; 87275; 87276; 87430; 87581; 87633; 87798; 97162; 99284; 99285; G0378; J3370

== ENCOUNTER → 2020-03-11 12:10 | Outpatient (CLI) | payer MEDICARE, SELFPAY ==
[2020-03-11 14:24] LABS: Chloride 98 mmol/L (98-107); Potassium 3.7 mmoL/L (3.5-5.1); Sodium 135 mmol/L (136-145)
[2020-03-11 14:27] LABS: Anion Gap 12.7 mEq/L (5-15); Blood Urea Nitrogen 31 mg/dl (7-17); Calcium 9.6 mg/dl (8.4-10.2); Carbon Dioxide 28 mmol/L (22.0-30.0); Estimated Glomerular Filt Rate 22 ml/min (>60); GFR (African American) 27 ML/MIN (>60); Glucose 98 mg/dl (74-100)
[2020-03-11 14:42] LABS: Uric Acid 12.3 mg/dl (2.5-6.2)
== END ==
PROVIDERS: Visit Provider Family Medicine
DX: N28.9 Disorder of kidney and ureter, unspecified (principal); M10.9 Gout, unspecified
CPT/HCPCS: 36415; 80048; 84550

== ENCOUNTER → 2020-03-13 14:57 | Outpatient (CLI) | payer MEDICARE, SELFPAY ==
--- NOTE | 2020-03-13 15:01 | CA_ITS ---
APPROVED REPORT Right Lower Extremity Venous Study for DVT. Roll Scale Man: QUENTNI AranaT Indications Lower Extremity Pain: Right Lower Extremity Edema: Right PAIN RT KNEE Risk Factors Obesity Medications PT ON ELIQUS Vein Imaging CFV (R): compressive, spontaneous, phasic, augmentation FEM (R): compressive, spontaneous, phasic, augmentation POP (R): compressive, spontaneous, phasic, augmentation PTV (R): Compressible GSV (R): Compressible Peroneals (R):Compressible GAS (R): Compressible Findings Study suggests no evidence of DVT of the right lower extremity. Study suggests no evidence of SVT of the right lower extremity. Conclusion Study suggests no evidence of DVT of the right lower extremity. Study suggests no evidence of SVT of the right lower extremity. Critical Notification Physician Notified Date: 03/13/2020 Time: 15:29 Physician Name: uCate Dobbs's office Electronically signed by : Aleksandr Saenz MD 03/15/2020 15:46:18
== END ==
PROVIDERS: PCP Family Medicine; Visit Provider Family Medicine
DX: M79.604 Pain in right leg (principal)
CPT/HCPCS: 93971

== ENCOUNTER 2020-04-22 02:47 | Observation (INO) | payer MEDICARE, SELFPAY ==
[2020-04-22] VITALS (9 sets, daily range): BP systolic 128–152; BP diastolic 54–68; PULSE 66–104; RESP 18–26; TEMP 36.6–37.1; O2SAT 98–100; BMI 58.7
--- NOTE | 2020-04-22 02:49 | XR_ITS ---
PROCEDURE: XR CHEST PORTABLE Referring Doctor: Silvia Lopez Patient Age:70Y CLINICAL HISTORY: cp. Nonsmoker. History of breast cancer with right mastectomy/radiation August 2019. Recent knee surgery 3 weeks ago COMPARISON: DX XR CHEST 2V from 08/18/2019 CR XR CHEST 2V from 08/23/[address] CHEST W CON from 10/05/2019 CR XR CHEST PORTABLE from 03/01/2020 FINDINGS: AP portable supine chest performed today, and compared to multiple previous chest films from this year Mild cardiomegaly again noted. Heart size perhaps slightly accentuated by the portable AP supine projection. As are the upper lobe vessels noted upper normal pulmonary vascularity.. . No pneumothorax, no pleural effusion.. No focal pneumonia Central line enters via the left subclavian at the distal most brachiocephalic vein and at its junction with with SVC.. What appears to be a vascular clip is noted to be projected over the medial RUL of this was evident anterior to the chest wall on September 2019 CT chest. More numerous vascular clips are again seen and more typical location towards right axilla related to previous right mastectomy. IMPRESSION: Lungs stable and clear with no active disease Mild cardiomegaly with upper normal pulmonary vascularity-accentuated by the portable supine projection . Central line enters from the left subclavian as in text Dictated by: Ghassan Shoemaker MD 04/22/2020 14:32 Ghassan Shoemaker MD in [place] 04/22/2020 14:32
--- NOTE | 2020-04-22 02:56 | HMH.EDGENADL ---
ED Disposition Clinical Impression: Dehydration, Intractable nausea and vomiting Disposition: Admitted As Inpatient Condition on Discharge: Good Referrals: Lisandro Dobbs [Referring] - - Critical Care Critical Care Time: No Attestation: On , the high probability of a clinically significant, sudden or life threatening deterioration of the following system(s) required my full and direct attention, intervention and personal management. The time I documented below is in addition to time spent performing reported procedures but includes the following listed in this critical care notation. Medical Decision Making - Medical Records Medical records reviewed: Yes: I reviewed the patient's medical records. - Richard Inquiry Pt receiving controlled substance: No Vital Signs: 04/22/20 02:51 04/22/20 03:20 04/22/20 04:00 Temperature 97.9 F Temperature Source Oral Pulse Rate [Right Brachial] 95 H 66 94 H Respiratory Rate 18 18 Blood Pressure [Right Arm] 145/59 H 128/54 L 139/67 Blood Pressure Mean [Right Arm] 87 78 91 Blood Pressure Source [Right Arm] Automatic Cuff Automatic Cuff Automatic Cuff Blood Pressure Position [Right Arm] Sitting Sitting Sitting 02 Sat by Pulse Oximetry 99 100 99 Oxygen Delivery Method Room Air Room Air 04/22/20 05:00 Temperature Temperature Source Pulse Rate [Right Brachial] 93 H Respiratory Rate 18 Blood Pressure [Right Arm] 152/68 H Blood Pressure Mean [Right Arm] 96 Blood Pressure Source [Right Arm] Automatic Cuff Blood Pressure Position [Right Arm] Sitting 02 Sat by Pulse Oximetry 100 Oxygen Delivery Method Room Air - Lab Data Lab Results 04/22/20 03:15: WBC 5.6, RBC 2.65 L, Hgb 8.0 L, Hct 24.6 L, MCV 92.7, MCH 30.3, MCHC 32.6, RDW 18.8 H, Plt Count 207, MPV 7.5, Neut % (Auto) 66.7, Lymph % (Auto) 19.8, Swisher % (Auto) 7.2, Eos % (Auto) 5.7, Baso % (Auto) 0.5, Neut # (Auto) 3.7, Lymph # (Auto) 1.1, Swisher # (Auto) 0.4, Eos # (Auto) 0.3, Baso # (Auto) 0.0 04/22/20 03:15: Sodium 136, Potassium 3.5, Chloride 101, Carbon Dioxide 29, Anion Gap 9.5, BUN 10, Creatinine 0.80, Estimated Creat Clear 50, Estimated GFR 71, Est GFR ( Amer) 86, Glucose 121 H, Calcium 8.8, Total Bilirubin 2.4 H, AST 45 H, ALT 12, Alkaline Phosphatase 201 H, Total Protein 5.8 L, Albumin 2.6 L, Globulin 3.2, Albumin/Globulin Ratio 0.8 L, Lipase 218 04/22/20 03:15: Lactate 1.6 04/22/20 03:15: Blood Type A Positive, Antibody Screen Negative 04/22/20 03:15: SARS-CoV-2 IgG Ab (Rapid) Negative, SARS-CoV-2 IgM Ab (Rapid) Negative Result diagrams: 04/22/20 03:15 04/22/20 03:15 Orders (Tests/Meds): ED MEDICATIONS Generic Name Dose Route Start Last Admin Trade Name Freq PRN Reason Stop Dose Admin Lactated Ringer's 1,000 mls @ 999 mls/hr 04/22/20 03:00 04/22/20 03:53 Lactated Ringer's 1000 Ml Bag IV 04/22/20 04:00 999 mls/hr .Q1H1M LARISSA Administration Discontinued Medications Generic Name Dose Route Start Last Admin Trade Name Freq PRN Reason Stop Dose Admin Ondansetron HCl 4 mg 04/22/20 02:50 04/22/20 03:54 Zofran 4mg/2ml Vial IV 04/22/20 02:51 4 mg ONCE ONE Administration Promethazine HCl 12.5 mg 04/22/20 04:59 Phenergan 25mg/Ml 1ml Vial IV 04/22/20 05:00 ONCE ONE Promethazine HCl 25 mg 04/22/20 05:03 04/22/20 05:22 Phenergan 25mg/Ml 1ml Vial IV 04/22/20 05:04 25 mg ONCE ONE Administration Sodium Chloride 25 ml 04/22/20 04:59 04/22/20 05:22 Sod Chlor 0.9% 25ml Bag IV 04/22/20 05:00 25 ml ONCE ONE Administration Sodium Chloride 25 ml 04/22/20 05:03 Sod Chlor 0.9% 25ml Bag IV 04/22/20 05:04 ONCE ONE ORDERS Category Date Time Status XR chest portable Stat Exams 04/22/20 02:49 Taken UA [Urinalysis and Microscopic] Stat Lab 04/22/20 02:51 Ordered Medical Decision Narrative: The patient is a 70 year old male with recent knee surgery for joint infection on IV abx who presents to the ED with N/V. She is awake, kathryn
--- NOTE | 2020-04-22 03:01 | PC.NURSE ---
lab called for blood work to be drawn.
[2020-04-22 03:28] LABS: Basophils % 0.5 % (0.1-2.0); Eosinophils # 0.3 K/mm3 (0.0-0.4); Eosinophils % 5.7 % (0.1-12.0); Lymphocytes # 1.1 K/mm3 (0.7-4.5); Lymphocytes % 19.8 % (10-50); Mean Corpuscular HGB Conc 32.6 g/dL (31.8-35.4); Mean Corpuscular Hemoglobin 30.3 pg (27.0-31.2); Mean Corpuscular Volume 92.7 fl (81-99); Mean Platelet Volume 7.5 fl (7.4-10.4); Monocytes # 0.4 K/mm3 (0.1-1.0); Monocytes % 7.2 % (1.7-9.3); Neutrophils # 3.7 K/mm3 (1.8-7.8); Neutrophils % 66.7 % (37.0-80.0); Platelet Count 207 K/mm3 (142-424); Red Blood Count 2.65 M/mm3 (4.20-5.40); Red Cell Distribution Width 18.8 % (11.5-17.5); White Blood Count 5.6 K/mm3 (4.8-10.8)
[2020-04-22 03:30] LABS: Hematocrit 24.6 % (37.0-47.0)
[2020-04-22 03:39] LABS: Alanine Aminotransferase 12 U/L (12-78); Albumin Level 2.6 g/dl (3.5-5.0); Albumin/Globulin Ratio 0.8 (1.1-1.8); Alkaline Phosphatase 201 U/L (38-126); Anion Gap 9.5 mEq/L (5-15); Aspartate Amino Transferase 45 U/L (14-36); Bilirubin,Total 2.4 mg/dl (0.2-1.3); Blood Urea Nitrogen 10 mg/dl (7-17); Calcium 8.8 mg/dl (8.4-10.2); Carbon Dioxide 29 mmol/L (22.0-30.0); Chloride 101 mmol/L (98-107); Creatinine Clearance Estimated 50 mL/min (50-200); Estimated Glomerular Filt Rate 71 ml/min (>60); GFR (African American) 86 ML/MIN (>60); Globulin 3.2 g/dL (1.3-3.2); Glucose 121 mg/dl (74-100); Lipase 218 U/L (23-300); Potassium 3.5 mmoL/L (3.5-5.1); Sodium 136 mmol/L (136-145); Total Protein,Serum 5.8 g/dl (6.3-8.2)
[2020-04-22 03:40] LABS: Lactic Acid 1.6 mmol/L (0.7-2.1)
[2020-04-22 03:51] LABS: Coronavirus 19 IgG Antibody Negative (Negative); Coronavirus 19 IgM Antibody Negative (Negative)
--- NOTE | 2020-04-22 06:51 | PC.NURSE ---
PT ARRIVED TO THE FLOOR VIA STRETCHER W/STAFF FROM ED AT 0650.
--- NOTE | 2020-04-22 06:55 | PC.NURSE ---
This RN brought pt from ER to unit and helped transfer to bed from stretcher. Daughter at bedside. Started IVF per mar. Gave report to Bela Aguayo RN at this time.
--- NOTE | 2020-04-22 09:35 | PC.NURSE ---
REPORT RECEIVED FROM NAPPING MACHINE OPERATOR RN. PATIENT HAD JUST RECENTLY BEEN ADMITTED TO FLOOR FROM ER. PATIENT IS ACCOMPANIED BY HER DAUGHTER. DAUGHTER STATES THAT SHE WILL BE LEAVING SOON TO GO HOME AND RETRIEVE PATIENTS MEDICATIONS PHARMACY CONTACTED AND AWARE. PATIENT IS HAVING MILD NAUSEA WITH NO VOMITING. NOT TIME FOR PRN PHENEGRAN AT THIS TIME WILL ADMINISTER WHEN ALLOWED. PATIENT STATES SHE HAS A HEADACHE AND IS REQUESTING MOTRIN, SAYS SHE CAN'T HAVE TYLENOL. PRN MOTRIN ADMIN PER MAR. PATIENT A&O. PATIENT HAS PICC TO [facility] DATED 04-19-2020 PATIENT RECEIVED PICC FROM [facility] FOR DAILY ABX THERAPY AT HOME-PICC IS CLAMPED STAFF IS NOT USING THIS ACCESS. PATIENT HAS A #20 TO LEFT WRIST WITH IVF INFUSING PER MAR. PATIENT AND DAUGHTER STATES THAT PT IS INCONTINENT OF URINE AND BOWEL, THE LAST TIME SHE WAS IN THE HOSPITAL SHE HAD A F/C. AN EXTERNAL F/C (PUREWICK SYSTEM) APPLIED TO PATIENT, DR MOORE AT BEDSIDE AND AWARE. SCDS/TEDS UNABLE TO BE PLACED TO PATIENTS BLE D/T UNAVAILABILITY OF SIZE NEEDED TO FIT PATIENT, MD ALSO AWARE OF THIS AND DOESNT WANT TO GO PHARMACOLOGICAL WAY INCASE OF POSSIBLE BLEEDING ULCER. PATIENT T&R, SAFETY MEASURES IN PLACE. NO ISSUES CURRENTLY. WILL CONTINUE TO MONITOR.
--- NOTE | 2020-04-22 09:49 | P.CONPHA_ITS ---
[facility] [place] Pharmacy VTE Monitoring - Patient Demographics Admission date: 04/22/20 Report Date: 04/22/20 Time: 09:49 Allergies/Adverse Reactions: Patient Allergies cephalexin [From KEFLEX] Allergy (Intermediate, Verified 04/22/20 02:57) I-RASH Sulfa (Sulfonamide Antibiotics) [SULFA (SULFONAMIDE ANTIBIOTICS)] Allergy (Intermediate, Verified 04/22/20 02:57) I-RASH doxycycline [DOXYCYCLINE] Allergy (Unknown, Verified 04/22/20 02:57) NA-NAUSEA Penicillins [PENICILLINS] Allergy (Unknown, Verified 04/22/20 02:57) LOCAL REACTION AT INJECTION SITE Height: 1.7 m Weight: 170.097 kg Patient Problems: Current Active Problems Dehydration (Acute) Intractable nausea and vomiting (Acute) - VTE Risk Labs: VTE Related Lab Results Hgb 8.0 g/dL (12.2-16.2) L 04/22/20 03:15 Hct 24.6 % (37.0-47.0) L 04/22/20 03:15 Plt Count 207 K/mm3 (142-424) 04/22/20 03:15 BUN 10 mg/dl (7-17) 04/22/20 03:15 Creatinine 0.80 mg/dl (0.52-1.04) 04/22/20 03:15 Estimated Creat Clear 50 mL/min (50-200) 04/22/20 03:15 Was VTE Risk Assessment Performed: Yes VTE Score: 5 VTE Risk Level: Low Risk - Prophylaxis Types of VTE Prophylaxis: IPCS Thigh High, IPCS Knee High (ICD'S ORDERED)
--- NOTE | 2020-04-22 09:56 | PC.NURSE ---
patient wishes to be a DNR daughter at bedside and agrees. DNR paper work filled out and DNR wrist band placed on patient
--- NOTE | 2020-04-22 10:59 | PC.NURSE ---
PATIENTS DAUGHTER BROUGHT HOME MEDS-RN GAVE MEDS TO PHARMACIST KAYLENE.
--- NOTE | 2020-04-22 13:05 | HMH.HP ---
*Admission Date: 04/22/20 *Chief complaint: Nausea and vomiting *History of present illness: 70 y.o. 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 Patient has been receiving antibiotic per PICC as outpatient. Since discharge fro hospital patient has experienced nausea and has had some vomiting of dark material. Dr. Dobbs was contacted yesterday by Dr. Servin's office stating that recent hgb was 6.9. Dr. Dobbs spoke with patient last night to arrange for follow-up 04/22 with possible transfusion. Patient, however, presented last night to ER with c/o of nausea and vomiting and was admitted. Patient was seen this AM and still suffers with N&V. In ER WBC was not elevated, electrolytes WNL. Afebrile. [facility] History Medical History: Reports:: Arrhythmia, Atrial Fibrillation, Cancer (breast cancer), Depression, Gastroesophageal Reflux Disease(GERD), Hyperlipidemia, Hypertension Denies:: Diabetes Mellitus Type 1, Diabetes Mellitus Type 2, Internal Pacemaker, Seizures *Have you ever received a pneumonia vaccine?: Yes *Have you received a flu vaccine this season?: No (not season) Other Medical History: Reports: Fibromyalgia, Hypothyroidism, Thyroid Disease Laterality Cases: Right: Mastectomy, Total Knee Replacement, Bilateral: Tonsillectomy Other Surgeries: Yes: Cardiac Catheterization, Cholecystectomy, Dilation and Curettage, Hysterectomy-Partial, Tubal Ligation. No: Pacemaker Amputation: No - *Social History Last grade of school completed: High school graduate Smoking Status: Never smoker Alcohol Intake: never *Occupational Status:: disabled Housing: house Household Members: spouse, children *Travel in the last 8 weeks: None - Psychiatric History Pschychiatric History:: Reports:: Depression Family Hx:: Cancer, Diabetes, Heart Attack, Hypertension, Thyroid Disorder, Substance abuse, Alcoholism, Mental illness Review of Systems - Constitutional Reports anorexia, Reports weakness, Denies fever(s) - Eyes Denies change in vision - ENT Denies nasal congestion - *Cardiovascular Denies chest pain, Denies rapid, pounding, or irregular heartbeat - *Respiratory Denies chest congestion - *Gastrointestinal Reports cramping, Reports nausea, Reports vomiting, Denies abdominal pain - *Genitourinary Denies painful urination - *Musculoskeletal Comments: as above - *Neurologic Denies abnormal speech - Hematologic/Lymphatic Reports easy bruising Meds Home Medications Medication Instructions Recorded Confirmed Type RX: Levothyroxine Sodium 75 mcg PO DAILY 04/04/19 04/22/20 History [Levothyroxine 75mcg (0.075mg) Tab] oxybutynin chloride 5 mg tablet 5 mg PO BID tab 08/19/19 04/22/20 History pravastatin 20 mg tablet 20 mg PO HS tab 08/19/19 04/22/20 History RX: Metoprolol Succinate 12.5 mg PO HS 03/01/20 04/22/20 History [Metoprolol Succinate 25mg Tablet*] Apixaban [Eliquis 5mg Tablet] 5 mg PO BID 04/22/20 04/22/20 History DAPTOmycin [Daptomycin] 500 mg IV DAILY 04/22/20 04/22/20 History Oxycodone HCl/Acetaminophen 1 each PO Q4HP PRN 04/22/20 04/22/20 History [Endocet 5-325 Tablet] RX: Acetaminophen 500 mg PO Q8 04/22/20 04/22/20 History RX: Docusate Sodium 100 mg PO BID 04/22/20 04/22/20 History RX: Duloxetine HCl 30 mg PO DAILY 04/22/20 04/22/20 History Allergies Allergy/AdvReac Type Severity Reaction Status Date / Time cephalexin [From KEFLEX] Allergy Intermediate I-RASH Verified 04/22/20 02:57 Sulfa (Sulfonamide Allergy Intermediate I-RASH Verified 04/22/20 02:57 Antibiotics) [SULFA (SULFONAMIDE ANTIBIOTICS)] doxycycline [DOXYCYCLINE] Allergy Unknown NA-NAUSEA Verified 04/22/20 02:57 Penicillins [PENICILLINS] Allergy Unknown LOCAL Verified 04/22/20 02:57 REACTION AT INJECTION SITE Exam Vital signs and Labs for Last 24 Hours: Temp Pulse Resp BP Pulse Ox 98.5
[2020-04-22 15:23] LABS: Microscopic, Urine URINE MICROSCOPIC (MICROSCOPIC)
[2020-04-22 15:34] LABS: Appearance,Urine CLOUDY (Clear); Blood, Urine 3+ (Negative); Color,Urine YELLOW (Yellow); Glucose,Urine (UA) Negative (Negative); Ketones,Urine TRACE (Negative); Leukocyte Esterase,Urine 2+ (Negative); Nitrate,Urine POSITIVE (Negative); PH,Urine 6.5 (5.0-8.5); Protein,Urine 1+ (Negative)
[2020-04-22 15:36] LABS: Bilirubin,Urine Negative (Negative)
[2020-04-22 15:42] LABS: Amorphous Sediment,Urine 1+ /lpf; Bacteria,Urine 4+ /lpf
[2020-04-22 16:41] LABS: Adenovirus F 40/41, stool Not Detected (NotDetected); Astrovirus Not Detected (NotDetected); Campylobacter Not Detected (NotDetected); Cryptosporidium Not Detected (NotDetected); Cyclospora Cayetanesis Not Detected (NotDetected); Entamoeba histolytica Not Detected (NotDetected); Enteroaggregative E coli Not Detected (NotDetected); Enteropathogenic E coli Not Detected (NotDetected); Enterotoxigenic E coli Not Detected (NotDetected); Giardia lamblia Not Detected (NotDetected); Norovirus Not Detected (NotDetected); Plesimonas Shigalloides, PCR Not Detected (NotDetected); Rotavirus A Not Detected (NotDetected); Salmonella, PCR Not Detected (NotDetected); Sapovirus Not Detected (NotDetected); Shiga-like toxin E coli Not Detected (NotDetected); Shigella Enterovasive E coli Not Detected (NotDetected); Vibrio Cholerae Not Detected (NotDetected); Vibrio, PCR Not Detected (NotDetected); Yersinia Entercolitica, PCR Not Detected (NotDetected)
--- NOTE | 2020-04-22 18:25 | PC.NURSE ---
Pt has had at least 4-5 loose dark bowel movements this shift. Did send an occult stool as well as a diarrhea panel to lab per protocol. CB in reach. Pt has refused to eat this shift and has drank very little. Have encouraged po fluids. Purewick in place and draining dark charles urine. Daughter at bedside. Pt in contact precautions at this time.
[2020-04-22 18:38] LABS: Clostridium Difficile A/B, PCR Detected (NotDetected)
--- NOTE | 2020-04-22 18:40 | PC.NURSE ---
PATIENT'S DAUGHTER INFORMED THIS RN THAT PATIENT RECEIVES DAPTOMYCIN NIGHTLY. THIS RN PAGED DR. MOORE TO NOTIFY MD THAT PATIENT HAS TESTED POSITIVE FOR C-DIFF AND FOR ORDERS.
[2020-04-22 19:16] LABS: Occult Blood,Stool Positive (Negative)
--- NOTE | 2020-04-22 19:25 | PC.NURSE ---
Did make RN in charge of pt of decreased u/o 50 ML- dark. Pt did also have at least one lg unmeasured void - incont.
[2020-04-22 19:40] LABS: Basophils # 0.1 K/mm3 (0-0.2); Basophils % 1.1 % (0.1-2.0); Eosinophils # 0.4 K/mm3 (0.0-0.4); Eosinophils % 4.5 % (0.1-12.0); Hematocrit 24.3 % (37.0-47.0); Hemoglobin 8.2 g/dL (12.2-16.2); Lymphocytes # 1.6 K/mm3 (0.7-4.5); Lymphocytes % 18.7 % (10-50); Mean Corpuscular HGB Conc 33.7 g/dL (31.8-35.4); Mean Corpuscular Hemoglobin 32.2 pg (27.0-31.2); Mean Corpuscular Volume 95.6 fl (81-99); Mean Platelet Volume 8.3 fl (7.4-10.4); Monocytes # 0.8 K/mm3 (0.1-1.0); Monocytes % 9.2 % (1.7-9.3); Neutrophils # 5.9 K/mm3 (1.8-7.8); Neutrophils % 67.6 % (37.0-80.0); Platelet Count 177 K/mm3 (142-424); Red Blood Count 2.54 M/mm3 (4.20-5.40); White Blood Count 8.8 K/mm3 (4.8-10.8)
[2020-04-23 04:00] VITALS: BP 138/50; PULSE 79; RESP 18; TEMP 36.8; O2SAT 98
[2020-04-23 05:00] VITALS: BMI 59.3
--- NOTE | 2020-04-23 06:43 | PC.NURSE ---
Pt is alert and oriented x4. Pt rested well this shift with eyes closed. No acute changes noted from previous shift. PERRLA. Bilateral hand toll bridge attendant noted equal and strong. Cap refill < 3 seconds. C/o mild nausea at beginning of shift. Pt drinking alexander kathryn and stated minimal relief. This RN offered Phenergan per oct to pt, refused at beginning of shift. States it's not that bad yet . Ice chips requested and given. No further c/o nausea or vomiting when asked t/o shift. Tolerated RA well with no c/o SOA. Bilateral lungs noted clear t/o upon auscultation. Active bowel sounds noted in all 4 quads. One episode of loose bm at beginning of shift, none since. Purwick in place for incontinence of urine. Urine noted dark yellow and cloudy in color this am. 150 ml out output noted total this shift. Edema noted to BLE, LLE noted with +2 pitting. VSS. Remains safe. Contact enteric precautions in place due to CDIFF and MRSA to RLE. Call light within reach. Will continue to monitor.
[2020-04-23 07:43] VITALS: BP 140/58; PULSE 89; RESP 17; TEMP 36.7; O2SAT 99
--- NOTE | 2020-04-23 13:14 | HMH.ACPN2 ---
Internal Medicine - PN: Alfonso *Date: 04/23/20 *Time: 13:14 Interval history: She is definitely feeling better. No diarrhea since last evening. PCR showed C. difficile and metronidazole has been initiated. She is not receiving daptomycin right now. Her regular medications were reordered with the exception of pravastatin which can cause some interaction with daptomycin. Exam Vital signs and Labs for Last 24 Hours: Temp Pulse Resp BP Pulse Ox 98.1 F 89 17 140/58 L 99 04/23/20 07:43 04/23/20 07:43 04/23/20 07:43 04/23/20 07:43 04/23/20 07:43 Laboratory Results - last 24 hr 04/22/20 15:05: Urine Color Yellow, Urine Appearance Cloudy, Urine pH 6.5, Ur Specific Terril 1.020, Urine Protein 1+, Urine Glucose (UA) Negative, Urine Ketones Trace, Urine Blood 3+, Urine Nitrate Positive, Urine Bilirubin Negative, Urine Urobilinogen 1.0, Ur Leukocyte Esterase 2+ A, Urine RBC 3-5, Urine WBC 5-10, Ur Squamous Epith Cells 10-20, Amorphous Sediment 1+, Urine Bacteria 4+ 04/22/20 16:21: Stool Occult Blood Positive A 04/22/20 16:21: Stl Aeromonas (PCR) Not detected, Stl C. cayetanensis PCR Not detected, Stool Rotavirus (PCR) Not detected, Stl Adenov F 40/41 PCR Not detected, Stool Astrovirus (PCR) Not detected, Stool Campylobacter PCR Not detected, Stl C.difficile Tox PCR Detected A, Stool Cryptosporidium PCR Not detected, Stl E.coli Shiga Tox PCR Not detected, Stool E coli O157 PCR Not detected, Stl Enterotoxigenic E PCR Not detected, Stool EPEC (PCR) Not detected, Stool EAEC (PCR) Not detected, Stl E. histolytica PCR Not detected, Stool Giardia Lamblia PCR Not detected, Stool Salmonella PCR Not detected, Stool Sapovirus (PCR) Not detected, Stl P. shigelloides PCR Not detected, Stl Shigella/EIEC PCR Not detected, St Y.enterocolitica PCR Not detected, Stool Vibrio (PCR) Not detected, Stl Vibrio cholerae PCR Not detected, Stl Norovirus GI/GII PCR Not detected 04/22/20 19:30: WBC 8.8 D, RBC 2.54 L, Hgb 8.2 L, Hct 24.3 L, MCV 95.6, MCH 32.2 H, MCHC 33.7, RDW 19.0 H, Plt Count 177, MPV 8.3, Neut % (Auto) 67.6, Lymph % (Auto) 18.7, [place] % (Auto) 9.2, Eos % (Auto) 4.5, Baso % (Auto) 1.1, Neut # (Auto) 5.9, Lymph # (Auto) 1.6, [place] # (Auto) 0.8, Eos # (Auto) 0.4, Baso # (Auto) 0.1 I & O for Last 24 hours: Intake & Output 04/21/20 04/22/20 04/23/20 04/24/20 11:59 11:59 11:59 11:59 Intake Total 1605 / 1605 240 / 240 Output Total 201 / 201 Balance - 1404 / 1404 240 / 240 Weight 375 lb 378 lb 4 oz Microbiology Reports for the Last 24 Hours: Microbiology 04/22/20 15:05 Urine,Clean Catch Urine Culture - Preliminary Gram Negative Rods - Constitutional no acute distress (Seems to feel better) - *Routine HEENT Exam Head: Present: normocephalic Eye: Present: PERRL ENT: Present: mucous membranes moist - *Routine Respiratory Exam Present: CTA bilaterally. Absent: respiratory distress - *Routine Cardiovascular Exam Present: irregular rhythm - *Routine Abdominal Exam Present: soft. Absent: normoactive bowel sounds (Hyperactive bowel sounds), tenderness - *Routine Extremities Exam Present: edema (The wound of the right knee is clean and without erythema) - *Routine Neurological Exam Present: alert, oriented X3 Assessment and Plan (1) Dehydration Current visit: Yes Status: Acute Category: Medical Code(s): E86.0 - Dehydration (2) Intractable nausea and vomiting Current visit: Yes Status: Acute Category: Medical Code(s): R11.2 - Nausea with vomiting, unspecified (3) Morbid obesity Current visit: No Status: Acute Category: Medical Code(s): E66.01 - Morbid (severe) obesity due to excess calories (4) Anemia Current visit: Yes Status: Acute Category: Medical Code(s): D64.9 - Anemia, unspecified (5) Atrial fibrillation Current visit: No Status: Chronic Qualifiers: Atrial fibrillation type: unspecified Qualified Code(s): I48.91
[2020-04-23 16:00] VITALS: BP 115/63; PULSE 87; RESP 18; TEMP 36.7; O2SAT 99
[2020-04-23 19:29] VITALS: BP 142/88; PULSE 90; RESP 18; TEMP 36.7; O2SAT 98
--- NOTE | 2020-04-23 19:49 | PC.NURSE ---
PATIENT A&O X4, LUNGS CLEAR, PULSES EQUAL. PATIENT ABLE TO EAT SMALL PIECE OF TOAST THIS AM. ABOUT 25% OF LUNCH AND WAS NOT HUNGRY FOR DINNER. PATIENT TOLERATED MEALS WELL, NO BOWEL MOVEMENT UNTIL THIS AFTERNOON. DURING AFTERNOON ASSESSMENT PATIENT INFORMED THIS RN THAT SHE NEEDED TO BE CLEANED UP AGAIN. THIS RN STATED OKAY LET ME GET HELP. PATIENT STATED NO, I DON'T WANT TO GET CLEANED UP UNTIL HE(SPOUSE)IS DONE EATING. THIS RN EXPLAINED THE IMPORTANCE OF NOT ALLOWING BOWEL TO SIT ON SKIN DUE TO BREAKDOWN. PATIENT STATED, IT IS OKAY, I WILL BE ALRIGHT.
[2020-04-24] VITALS (36 sets, daily range): BP systolic 104–146; BP diastolic 43–83; PULSE 81–100; RESP 16–22; TEMP 36.6–36.9; O2SAT 90–100; BMI 59.3; BMI 59.1
--- NOTE | 2020-04-24 03:52 | PC.NURSE ---
Pt is alert and oriented x4. Pt noted restless this shift thus far. No acute changes noted from previous shift. Denies pain when asked. PERRLA. Bilateral hand merchandise buyer noted equal and strong. Cap refill < 3 seconds. Tolerated RA well with no soa. Bilateral lung sounds noted clear t/o upon auscultation. Poor appetite noted. Multiple loose stools noted t/o shift. Adequate urine output noted per purwick catheter. Urine noted tea colored and cloudy. +2 pitting edema noted to LLE. BLE kept elevated on pillows. Encouraged pt to get OOB to chair this am. Pt states she doesn't want too, maybe tomorrow . VSS. Remains safe. Contact enteric precautions in place for CDIFF and MRSA. Call light within reach. Will continue to monitor.
[2020-04-24 06:38] LABS: Chloride 107 mmol/L (98-107); Potassium 3.2 mmoL/L (3.5-5.1); Sodium 136 mmol/L (136-145)
[2020-04-24 06:41] LABS: Alanine Aminotransferase 9 U/L (12-78); Albumin Level 1.9 g/dl (3.5-5.0); Albumin/Globulin Ratio 0.7 (1.1-1.8); Alkaline Phosphatase 125 U/L (38-126); Anion Gap 6.2 mEq/L (5-15); Aspartate Amino Transferase 26 U/L (14-36); Bilirubin,Total 1.3 mg/dl (0.2-1.3); Blood Urea Nitrogen 8 mg/dl (7-17); Carbon Dioxide 26 mmol/L (22.0-30.0); Creatinine Clearance Estimated 48 mL/min (50-200); Estimated Glomerular Filt Rate 82 ml/min (>60); GFR (African American) 100 ML/MIN (>60); Globulin 2.6 g/dL (1.3-3.2); Glucose 93 mg/dl (74-100); Total Protein,Serum 4.5 g/dl (6.3-8.2)
[2020-04-24 06:43] LABS: Basophils % 0.3 % (0.1-2.0); Eosinophils # 0.6 K/mm3 (0.0-0.4); Eosinophils % 10.9 % (0.1-12.0); Lymphocytes # 0.8 K/mm3 (0.7-4.5); Lymphocytes % 15.1 % (10-50); Mean Corpuscular HGB Conc 32.8 g/dL (31.8-35.4); Mean Corpuscular Hemoglobin 30.9 pg (27.0-31.2); Mean Corpuscular Volume 94.2 fl (81-99); Mean Platelet Volume 7.3 fl (7.4-10.4); Monocytes # 0.3 K/mm3 (0.1-1.0); Monocytes % 6.2 % (1.7-9.3); Neutrophils # 3.8 K/mm3 (1.8-7.8); Neutrophils % 67.6 % (37.0-80.0); Platelet Count 198 K/mm3 (142-424); White Blood Count 5.6 K/mm3 (4.8-10.8)
[2020-04-24 07:03] LABS: Hemoglobin 7.1 g/dL (12.2-16.2)
[2020-04-24 07:04] LABS: Hematocrit 21.7 % (37.0-47.0)
--- NOTE | 2020-04-24 08:17 | HMH.ACPN2 ---
Internal Medicine - PN: Subj *Date: 04/24/20 *Time: 08:31 Interval history: Patient states she does not feel well. She states she had diarrhea all night long. She denies vomiting but has some queasiness. He has no appetite and is not eating but is taking some fluids p.o. She has a pure wick. Denies chest pain and shortness of breath. She is worried about her left arm PICC line. Exam Vital signs and Labs for Last 24 Hours: Temp Pulse Resp BP Pulse Ox 98.3 F 84 17 112/52 L 99 04/24/20 07:53 04/24/20 07:53 04/24/20 07:53 04/24/20 07:53 04/24/20 07:53 Laboratory Results - last 24 hr 04/22/20 03:15: Crossmatch ([facility]) See Detail 04/24/20 05:48: WBC 5.6 D, RBC 2.30 L, Hgb 7.1 L*, Hct 21.7 L*, MCV 94.2, MCH 30.9, MCHC 32.8, RDW 19.0 H, Plt Count 198, MPV 7.3 L, Neut % (Auto) 67.6, Lymph % (Auto) 15.1, [place] % (Auto) 6.2, Eos % (Auto) 10.9, Baso % (Auto) 0.3, Neut # (Auto) 3.8, Lymph # (Auto) 0.8, [place] # (Auto) 0.3, Eos # (Auto) 0.6 H, Baso # (Auto) 0.0 04/24/20 05:48: Sodium 136, Potassium 3.2 L, Chloride 107, Carbon Dioxide 26, Anion Gap 6.2, BUN 8, Creatinine 0.70, Estimated Creat Clear 48, Estimated GFR 82, Est GFR ( Amer) 100, Glucose 93, Total Bilirubin 1.3, AST 26 D, ALT 9 L, Alkaline Phosphatase 125, Total Protein 4.5 L, Albumin 1.9 L, Globulin 2.6, Albumin/Globulin Ratio 0.7 L I & O for Last 24 hours: Intake & Output 04/21/20 04/22/20 04/23/20 04/24/20 11:59 11:59 11:59 11:59 Intake Total 1605 / 1605 1698 / 1698 Output Total 201 / 201 400 / 400 Balance - 1404 / 1404 1298 / 1298 Weight 375 lb 378 lb 4 oz 378 lb 1 oz Microbiology Reports for the Last 24 Hours: Microbiology 04/22/20 15:05 Urine,Clean Catch Urine Culture - Preliminary Gram Negative Rods - Constitutional no acute distress, cooperative - *Routine Respiratory Exam Present: CTA bilaterally (Anteriorly and posteriorly) - *Routine Cardiovascular Exam Present: RRR - *Routine Abdominal Exam Present: soft, normoactive bowel sounds, obese. Absent: tenderness - *Routine Extremities Exam Absent: calf tenderness Comments: Right knee postoperative wound is clean and healing. - *Routine Neurological Exam Present: alert, oriented X3 Assessment and Plan (1) Dehydration Current visit: Yes Status: Acute Category: Medical Code(s): E86.0 - Dehydration (2) Intractable nausea and vomiting Current visit: Yes Status: Acute Category: Medical Code(s): R11.2 - Nausea with vomiting, unspecified (3) Morbid obesity Current visit: No Status: Acute Category: Medical Code(s): E66.01 - Morbid (severe) obesity due to excess calories (4) Anemia Current visit: Yes Status: Acute Category: Medical Code(s): D64.9 - Anemia, unspecified (5) Atrial fibrillation Current visit: No Status: Chronic Qualifiers: Atrial fibrillation type: unspecified Qualified Code(s): I48.91 - Unspecified atrial fibrillation Category: Medical Code(s): I48.91 - Unspecified atrial fibrillation (6) Hypothyroidism Current visit: No Status: Chronic Category: Medical Code(s): E03.9 - Hypothyroidism, unspecified (7) Lymphedema Current visit: No Status: Chronic Category: Medical Code(s): I89.0 - Lymphedema, not elsewhere classified (8) C. difficile diarrhea Current visit: Yes Status: Acute Category: Medical Code(s): A04.72 - Enterocolitis due to Clostridium difficile, not specified as recurrent (9) H/O right knee surgery Current visit: Yes Status: Acute Category: Surgical Code(s): Z98.890 - Other specified postprocedural states - Assessment and plan all Dx Assessment and Plan for all problems:: GI to see patient today. Physical therapy consult. Continue treatment of C diff
[2020-04-24 09:27] LABS: Hematocrit 22.9 % (37.0-47.0); Hemoglobin 7.4 g/dL (12.2-16.2)
[2020-04-24 12:46] LABS: Calcium 7.6 mg/dl (8.4-10.2)
--- NOTE | 2020-04-24 15:21 | SUR.OPER ---
SEE ANESTHESIA RECORD FOR BLOOD VITALS. OCTAVIO BYRNE CRNA STOPPED BLOOD AT 1510 AND RESTARTED BLOOD AT 1521.
--- NOTE | 2020-04-24 15:24 | HMH.PROC ---
[facility] Procedure Note Procedure Note:: Upper Endoscopy Procedure Report: Esophagogastroduodenoscopy with cold biopsies Endoscopost: Liang Whaley II, MD Referring Physician: Kapil Dobbs MD Date of Procedure: April 24, 2020 Equipment: Olympus GIF 180 standard upper endoscope Sedation: MAC sedation Indications: Mrs. Royal is a 70-year-old female with diarrhea, nausea and vomiting. She has had weakness and failure to thrive. 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 Erwin Servin?[facility]). The patient was having diarrhea and her stool studies showed C. difficile. She is on metronidazole. The patient does have some ongoing diarrhea. She has had nausea. She reports no melena but does think that her stools have been dark. She reports no abdominal pain. Procedure: Prior to the procedure, a history and physical exam was performed, and patient's medications and allergies were reviewed. The risks, benefits and alternatives of the sedation and procedure were discussed with the patient. All questions were answered and informed consent was obtained. The patient was brought to the procedure room. Patient identification and proposed procedure were verified by the physician and the nurse. The patient was placed in a left lateral decubitus position and the scope was passed under direct vision. Throughout the procedure, the patient's blood pressure, pulse, and oxygen saturations were monitored continuously. The upper GI endoscopy was accomplished without difficulty. The patient tolerated the procedure well. Findings: The scope was passed directly into the upper esophagus and advanced to the third portion of the duodenum. The post bulbar duodenum and duodenal bulb were normal with normal mucosa and conniventes. Cold biopsies were taken from the post bulbar duodenum to rule out celiac disease. The scope was withdrawn through a normal duodenal bulb and pylorus into the stomach. There was some bile reflux with linear reactive gastropathy of the antrum and body of the stomach. The remainder of the antrum, body and fundus of the stomach were grossly normal. Upon retroflexion there was a small 2 cm hiatal hernia. 2 biopsies were taken in the antrum and along the lesser curvature for histology to rule out gastritis and/or H pylori. The scope was then withdrawn into the esophagus. There was an insignificant Schatzki's ring. There was no evidence of reflux esophagitis or Loera's. The remainder of the esophageal mucosa was normal. Impression: 1. Nonerosive GERD with small (2 cm) hiatal hernia and insignificant Schatzki's ring 2. Linear reactive gastropathy Plan: I will follow-up the biopsies. I would consider adding metoclopramide. Additionally, I would switch from metronidazole to vancomycin. Metronidazole is no longer a recommended primary therapy for C. difficile colitis because of the significant metronidazole resistance with Clostridium difficile. I would recommend vancomycin 125 mg by mouth 4 times daily for 14 days. I would also recommend a probiotic. If she fails to respond clinically, I would consider Dificid.
--- NOTE | 2020-04-24 18:59 | PC.NURSE ---
ALERT AND ORIENTED X4. FAMILY AT BEDSIDE. NO COMPLAINTS VOICED. VSS. LUNGS ARE CLEAR. O2 100 ON RA. ABDOMEN IS LARGE, ROUND, SOFT AND NON-TENDER WITH HYPERACTIVE BS IN ALL QUADS. PT HAS HAD SEVERAL EPISODES OF DIARRHEA. DIET CHANGED TO LOW FIBER BY DR MENDES FOR DINNER, PT HAD APPROXIMATELY 50%, NO COMPLAINTS OF N/V. PT REMAINS IN BED, REFUSED TO GET OOB OR USE BSC. PURWICK IN PLACE. WILL CONTINUE TO MONITOR
--- NOTE | 2020-04-24 19:13 | PC.NURSE ---
report given to yang
[2020-04-24 22:03] LABS: Hematocrit 28.1 % (37.0-47.0)
[2020-04-24 22:16] LABS: Hemoglobin 9.5 g/dL (12.2-16.2)
--- NOTE | 2020-04-25 03:06 | PC.NURSE ---
A&OX4. PT TOLERATING RA WELL. PT FINISHED RECEIVING BLOOD THIS SHIFT, TOLERATED WELL. PT HAS HAD X1 EPISODE OF LOOSE STOOL THUS FAR. PT BELEN AREA VERY RED AND TENDER. AREA CLEANED AND KEPT DRY T/O SHIFT. PT IN CONTACT ENTERIC PRECAUTIONS. PT HAS BEEN ENCOURAGED TO MOVE LEGS AND FEET WHILE LAYING IN BED. PT DEMONSTRATES BEING ABLE TO DO SO. PT HAS REMAINED IN BED T/O SHIFT, NEEDING X2-3 ASSISTANCE MOVING IN BED. PT HAS C/O HER STOMACH CRAMPING AT TIMES TOWARDS BEGINNING OF SHIFT. NO MORE C/O AFTER ADMINISTRATION OF ORDERED MEDS. BOWEL SOUNDS ACTIVE IN ALL QUADRANTS. PT HAS HAD NO OTHER C/O THUS FAR. VSS WILL CONTINUE TO MONITOR.
[2020-04-25 05:00] VITALS: BMI 59.5
[2020-04-25 05:26] VITALS: BP 132/51; PULSE 94; RESP 16; TEMP 36.7; O2SAT 97
[2020-04-25 06:44] LABS: Basophils % 0.4 % (0.1-2.0); Eosinophils # 0.5 K/mm3 (0.0-0.4); Eosinophils % 9.5 % (0.1-12.0); Hematocrit 26.5 % (37.0-47.0); Hemoglobin 8.7 g/dL (12.2-16.2); Lymphocytes # 0.6 K/mm3 (0.7-4.5); Lymphocytes % 11.3 % (10-50); Mean Corpuscular HGB Conc 32.7 g/dL (31.8-35.4); Mean Corpuscular Hemoglobin 31.2 pg (27.0-31.2); Mean Corpuscular Volume 95.4 fl (81-99); Mean Platelet Volume 7.7 fl (7.4-10.4); Monocytes # 0.4 K/mm3 (0.1-1.0); Monocytes % 7.8 % (1.7-9.3); Neutrophils # 3.8 K/mm3 (1.8-7.8); Platelet Count 168 K/mm3 (142-424); Red Blood Count 2.77 M/mm3 (4.20-5.40); Red Cell Distribution Width 18.3 % (11.5-17.5); White Blood Count 5.3 K/mm3 (4.8-10.8)
[2020-04-25 06:48] LABS: Chloride 106 mmol/L (98-107); Potassium 3.6 mmoL/L (3.5-5.1); Sodium 135 mmol/L (136-145)
--- NOTE | 2020-04-25 06:54 | PC.NURSE ---
PT HAD ONE MORE LARGE, DARK BROWN AND SEEDY BM THIS MORNING. PT KEPT CLEAN AND DRY AFTER BM. WILL CONTINUE TO MONITOR.
[2020-04-25 07:50] VITALS: BP 129/60; PULSE 69; RESP 18; TEMP 36.5; O2SAT 92
[2020-04-25 08:02] LABS: Anion Gap 7.6 mEq/L (5-15); Blood Urea Nitrogen 7 mg/dl (7-17); Carbon Dioxide 25 mmol/L (22.0-30.0); Creatinine Clearance Estimated 48 mL/min (50-200); Estimated Glomerular Filt Rate 82 ml/min (>60); GFR (African American) 100 ML/MIN (>60); Glucose 92 mg/dl (74-100)
--- NOTE | 2020-04-25 08:17 | HMH.ACPN2 ---
Internal Medicine - PN: Subj *Date: 04/25/20 *Time: 08:17 Interval history: Patient feels about the same today. She did have diarrhea during the night. Is trying to eat a little bit more. She had an EGD by Dr. Whaley yesterday who noted nonerosive GERD with small 2 cm hiatal hernia. Metronidazole was changed to p.o. vancomycin and she was started on IV Reglan. She was also started on IV Levaquin for Klebsiella UTI yesterday as recommended by pharmacist. Daptomycin was restarted as well which she was on for MR ANDREW in her right being area as per infectious disease MD. Laboratory data this morning noted potassium normal at 3.6, sodium at 135, and normal renal function. H&H after receiving blood 01/05.1. CBC this morning revealed hemoglobin of 8.7 and hematocrit of 26.5. Exam Vital signs and Labs for Last 24 Hours: Temp Pulse Resp BP Pulse Ox 97.7 F 69 18 129/60 92 L 04/25/20 07:50 04/25/20 07:50 04/25/20 07:50 04/25/20 07:50 04/25/20 07:50 Laboratory Results - last 24 hr 04/22/20 03:15: Blood Type A Positive, Antibody Screen Negative, Crossmatch ([facility]) See Detail 04/24/20 05:48: Calcium 7.6 L D 04/24/20 09:12: Hgb 7.4 L*, Hct 22.9 L* 04/24/20 11:20: Blood Type Confirm A Positive 04/24/20 21:49: Hgb 9.5 L D, Hct 28.1 L 04/25/20 06:30: WBC 5.3, RBC 2.77 L, Hgb 8.7 L, Hct 26.5 L, MCV 95.4, MCH 31.2, MCHC 32.7, RDW 18.3 H, Plt Count 168, MPV 7.7, Neut % (Auto) 71.0, Lymph % (Auto) 11.3, [place] % (Auto) 7.8, Eos % (Auto) 9.5, Baso % (Auto) 0.4, Neut # (Auto) 3.8, Lymph # (Auto) 0.6 L, [place] # (Auto) 0.4, Eos # (Auto) 0.5 H, Baso # (Auto) 0.0 04/25/20 06:30: Sodium 135 L, Potassium 3.6, Chloride 106, Carbon Dioxide 25, Anion Gap 7.6, BUN 7, Creatinine 0.70, Estimated Creat Clear 48, Estimated GFR 82, Est GFR ( Amer) 100, Glucose 92, Calcium 8.0 L I & O for Last 24 hours: Intake & Output 04/22/20 04/23/20 04/24/20 04/25/20 11:59 11:59 11:59 11:59 Intake Total 1605 / 1605 1698 / 1698 1182 / 1182 Output Total 201 / 201 400 / 400 Balance - 1404 / 1404 1298 / 1298 1181 / 1181 Weight 375 lb 378 lb 4 oz 376 lb 15.847 oz 379 lb 1 oz Microbiology Reports for the Last 24 Hours: Microbiology 04/22/20 15:05 Urine,Clean Catch Urine Culture - Final Klebsiella pneumoniae - Constitutional no acute distress, morbidly obese - *Routine Respiratory Exam Present: CTA bilaterally (Anteriorly and posteriorly) - *Routine Cardiovascular Exam Present: RRR - *Routine Abdominal Exam Present: soft, normoactive bowel sounds, obese. Absent: tenderness - *Routine Extremities Exam Present: edema (Of bilateral ankle). Absent: calf tenderness - *Routine Neurological Exam Present: alert, oriented X3 Assessment and Plan (1) Dehydration Current visit: Yes Status: Acute Category: Medical Code(s): E86.0 - Dehydration (2) Intractable nausea and vomiting Current visit: Yes Status: Acute Category: Medical Code(s): R11.2 - Nausea with vomiting, unspecified (3) Morbid obesity Current visit: No Status: Acute Category: Medical Code(s): E66.01 - Morbid (severe) obesity due to excess calories (4) Anemia Current visit: Yes Status: Acute Category: Medical Code(s): D64.9 - Anemia, unspecified (5) Atrial fibrillation Current visit: No Status: Chronic Qualifiers: Atrial fibrillation type: unspecified Qualified Code(s): I48.91 - Unspecified atrial fibrillation Category: Medical Code(s): I48.91 - Unspecified atrial fibrillation (6) Hypothyroidism Current visit: No Status: Chronic Category: Medical Code(s): E03.9 - Hypothyroidism, unspecified (7) Lymphedema Current visit: No Status: Chronic Category: Medical Code(s): I89.0 - Lymphedema, not elsewhere classified (8) C. difficile diarrhea Current visit: Yes Status: Acute Category: Medical Code(s): A04.72 - Enterocolitis due to Clostridium difficile,
--- NOTE | 2020-04-25 12:33 | HMH.PTEV ---
Physical Therapy Evaluation Rehab PT IP Evaluation Start: 04/24/20 08:30 Freq: ONCE Status: Active Protocol: Document 04/25/20 12:17 ADAMS (Rec: 04/25/20 12:33 ADAMS [id number]) Subjective/History History History 70 y.o. 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 Servin [place]. Patient has been receiving antibiotic per PICC as outpatient. Since discharge fro hospital patient has experienced nausea and has had some vomiting of dark material. Subjective Subjective Pt. reports that everytime she moves she has a bowel movement . She also reported that she was able to ambulate 3 steps prior to admission with home health PT. Rehab PT IP Eval Objective Appearance Patient Behavior Appropriate,Cooperative Patient Orientation Person,Place,Time,Name, Birthday Difficulty following instructions none Speech Pattern Clear,Appropriate,Coherent Ambulation Patient Able to Ambulate No Balance Ability to Arise Able, uses arms to help Sitting Balance Steady, safe Standing Balance Unsteady Dynamic Sitting Balance Ability Fair Dynamic Standing Balance Ability Poor Transfers Bed Transfer Ability Contact Guard/Hand Hold Sit to Stand Bed Transfer Ability Moderate x 2 (50% assist) ROM RLE PT ROM Status ABN Abnormal ROM Comment Limitation due to knee imobilizer. MMT RLE PT MMT ABN Abnormal MMT Grade 3/5 gross LE Rehab PT IP prob,goals,plan Problems Date of Evaluation: 04/25/20 PT IP Problems Bed Mobility,Transfers,Gait, Balance Rehab Potential Rehab Potential Fair Equipment Needs Assistive Devices Standard Walker,Rolling / Wheeled Walker Plan PT Intervention Plan Bed Mobility,Transfers,Gait, Balance,Therapeutic Exercise PT Plan Frequency BID Duration LOS Discharge Goals Bed Transfer Ability Contact Guard/Hand Hold Sit to Stand Chair Transfer Ability Minimal x
--- NOTE | 2020-04-25 12:58 | SW/DCPLANNER ---
Addendum entered by Jackie Coleman 04/28/20 11:15: I have spoke with Lashaun with [facility] to confirm patient information was received and services will begin tomorrow for this patient. I will inform patient at this time. Addendum entered by Jackie Coleman 04/28/20 09:37: Order was faxed to [facility] for rolling walker and Samra with [facility] has confirmed patient information has been received and walker will be delivered to patients home once she returns home. I have also faxed patient information and order to resume home health services to [facility]. I will follow up with [facility] once patient information is reviewed. Central Intake Central Intake Addendum entered by Jackie Coleman 04/27/20 14:10: Patient is with [facility] [phone] and patient is receiving [facility] (same phone number). Addendum entered by Jackie Coleman 04/27/20 14:05: Magalie from [facility] has stated they can not accept this patient at this time due to insurance not approving acute side and they do not have beds on [facility] side. Anayeli with [facility] has also followed up with me to inform me referral is still being reviewed however with cost of antibiotics they may not be able to accept. Currently waiting air support operations operator back from Anayeli. I have spoke with patient regarding issues with placement. Patient stated that if she needed to return home with home health services that is an option. Patient stated that she has a hospital bed, BSC, wheel chair but would need an oversized walker. I have spoke with Samra at [facility] that stated patient would qualify for this walker. I will follow up with Anayeli prior to speak with home health services regarding resumption and ordering a rolling walker. Discharge date is unknown at this time. Home Health worker Avelina: [phone] Addendum entered by Jackie Coleman 04/27/20 11:21: Patient information has also been faxed to Magalie at [facility]. Patient is aware of plan. I have also informed patient that due to expensive IV antibiotic placement could be difficult. Addendum entered by Jackie Coleman 09/17/20 10:53: [facility] in [place] is currently reviewing patient information. Addendum entered by Jackie Coleman 04/27/20 09:47: I have followed up with this patient regarding placement again this morning. Patient has expressed that she is now interested in [facility] and if no beds the [facility]. Patient also stated a facility on [facility] in [place] which I am unable to find but will ask patient for the name. Patient information has been faxed to Meena at [facility]: [facility] has no beds but will work up referral for [place] facility. Addendum entered by Gwen Mitchell 04/26/20 13:28: PATIENT WAS DECLINED AT [facility] PER EDGAR, SHE STATED THE BED WAS OFFERED TO SOMEONE ELSE BEFORE THIS REFERRAL AND FAMILY ELECTED TO TAKE IT SO THEY DO NOT HAVE A BED. Addendum entered by Gwen Mitchell 04/26/20 09:41: FOLLOWED UP WITH EDGAR AND WAITING ON HER TO CONFIRM TO WHETHER OR NOT SHE IS GOING TO ACCEPT HER....PATIENT IS NOT READY TODAY BUT COULD BE SOON [facility]..(TH) Addendum entered by Jackie Coleman 04/25/20 17:17: Deepthi from [place] has stated they are unable to accept this patient at this time. Patient is not interested in [facility]. I did speak with patient again after she spoke with her family and she expressed an interest in [facility]. [facility] stated she may have a bed open and referral has been faxed. CM will follow up with [facility] and patient tomorrow. Patient had no other needs at this time. Original Note: I have spoke with this patient regarding discharge plans. Patient stated that prior to [facility] admission she was receiving services from [facility] for IV antibiotics and PT. Patient stated that her and daughter ass
[2020-04-25 14:54] VITALS: BP 120/64; PULSE 97; RESP 18; TEMP 36.7; O2SAT 95
[2020-04-25 20:00] VITALS: BP 163/67; PULSE 88; RESP 17; TEMP 36.6; O2SAT 97
--- NOTE | 2020-04-25 20:37 | PC.NURSE ---
A&O x 4 and able to make needs known. RR even and unlabored. No complaints. BS x 4. has continued to have loose bms this shift. S1,S2. No acute changes. Lungs cta. VSS. CB in reach.
--- NOTE | 2020-04-26 03:00 | PC.NURSE ---
Pt is alert and oriented x4. Pt rested well with eyes closed this shift. No acute changes noted from previous shift. PERRLA. Bilateral hand pv installer tech noted equal and strong. Cap refill < 3 seconds. Pt's skin noted pallor/light pink. Bilateral breath sounds noted clear t/o upon auscultation. Tolerated RA well with no c/o SOA. Hyperactive bowel sounds noted in all 4 quads upon auscultation. Continues to have loose watery stools. Remains incontinent of bowel and bladder. Refuses to get OOB with assistance of staff and walker when offered. Pt able to shift herself while lying in bed independently. Pitting edema noted to LLE. Elevated BLE on pillows while lying in bed. Remains in contact enteric precautions. VSS. Call light within reach. Remains safe. Will continue to monitor.
[2020-04-26 04:00] VITALS: BP 135/62; PULSE 84; RESP 19; TEMP 36.9; O2SAT 96
[2020-04-26 05:00] VITALS: BMI 59.7
[2020-04-26 06:23] LABS: Basophils % 0.7 % (0.1-2.0); Eosinophils # 0.5 K/mm3 (0.0-0.4); Eosinophils % 11.4 % (0.1-12.0); Hematocrit 25.7 % (37.0-47.0); Hemoglobin 8.3 g/dL (12.2-16.2); Lymphocytes # 0.8 K/mm3 (0.7-4.5); Lymphocytes % 17.1 % (10-50); Mean Corpuscular HGB Conc 32.3 g/dL (31.8-35.4); Mean Corpuscular Hemoglobin 30.7 pg (27.0-31.2); Mean Corpuscular Volume 94.9 fl (81-99); Monocytes # 0.4 K/mm3 (0.1-1.0); Monocytes % 8.7 % (1.7-9.3); Neutrophils # 2.8 K/mm3 (1.8-7.8); Platelet Count 172 K/mm3 (142-424); Red Blood Count 2.71 M/mm3 (4.20-5.40); Red Cell Distribution Width 18.4 % (11.5-17.5); White Blood Count 4.4 K/mm3 (4.8-10.8)
[2020-04-26 06:28] LABS: Chloride 107 mmol/L (98-107); Potassium 3.4 mmoL/L (3.5-5.1); Sodium 136 mmol/L (136-145)
[2020-04-26 06:31] LABS: Anion Gap 6.4 mEq/L (5-15); Blood Urea Nitrogen 7 mg/dl (7-17); Carbon Dioxide 26 mmol/L (22.0-30.0); Creatinine Clearance Estimated 48 mL/min (50-200); Estimated Glomerular Filt Rate 82 ml/min (>60); GFR (African American) 100 ML/MIN (>60)
[2020-04-26 06:32] LABS: Glucose 103 mg/dl (74-100)
--- NOTE | 2020-04-26 07:58 | HMH.ACPN2 ---
<Genoveva Nunes - Last Filed: 04/26/20 07:58> Internal Medicine - PN: Subj *Date: 04/26/20 *Time: 07:58 Interval history: Patient states she slept at intervals between diarrhea stools. She states she had about 5 stools for small to larger amounts. She is somewhat nauseated this morning. She was able to eat a little breakfast. She denies abdominal pain, chest pain, and shortness of breath. She did work with physical therapy yesterday and was able to stand at the bedside. Patient's labs this morning reveal potassium of 3.4. Hemoglobin is 8.3 and hematocrit of 25.2. White blood cell count is 4.4. Exam Vital signs and Labs for Last 24 Hours: Temp Pulse Resp BP Pulse Ox 98.4 F 84 19 135/62 96 04/26/20 04:00 04/26/20 04:00 04/26/20 04:00 04/26/20 04:00 04/26/20 04:00 Laboratory Results - last 24 hr 04/25/20 06:30: Carbon Dioxide 25, Anion Gap 7.6, BUN 7, Creatinine 0.70, Estimated Creat Clear 48, Estimated GFR 82, Est GFR ( Amer) 100, Glucose 92, Calcium 8.0 L 04/26/20 06:08: WBC 4.4 L, RBC 2.71 L, Hgb 8.3 L, Hct 25.7 L, MCV 94.9, MCH 30.7, MCHC 32.3, RDW 18.4 H, Plt Count 172, MPV 8.0, Neut % (Auto) 62.0, Lymph % (Auto) 17.1, [place] % (Auto) 8.7, Eos % (Auto) 11.4, Baso % (Auto) 0.7, Neut # (Auto) 2.8, Lymph # (Auto) 0.8, [place] # (Auto) 0.4, Eos # (Auto) 0.5 H, Baso # (Auto) 0.0 04/26/20 06:08: Sodium 136, Potassium 3.4 L, Chloride 107, Carbon Dioxide 26, Anion Gap 6.4, BUN 7, Creatinine 0.70, Estimated Creat Clear 48, Estimated GFR 82, Est GFR ( Amer) 100, Glucose 103 H, Calcium 8.0 L I & O for Last 24 hours: Intake & Output 04/23/20 04/24/20 04/25/20 04/26/20 11:59 11:59 11:59 11:59 Intake Total 1605 / 1605 1698 / 1698 1182 / 1182 2054 Output Total 201 / 201 400 / 400 4 / 4 2 / 2 Balance 1404 / 1404 1298 / 1298 1178 / 1178 2052 Weight 378 lb 4 oz 376 lb 15.847 oz 379 lb 1 oz 380 lb 7 oz - Constitutional no acute distress, obese - *Routine Respiratory Exam Present: CTA bilaterally - *Routine Cardiovascular Exam Present: RRR - *Routine Abdominal Exam Present: soft, normoactive bowel sounds, obese. Absent: tenderness - *Routine Extremities Exam Present: edema (Trace to 1+.) Comments: Right knee postoperative wound clean and healing - *Routine Neurological Exam Present: alert, oriented X3 Assessment and Plan (1) Dehydration Current visit: Yes Status: Acute Category: Medical Code(s): E86.0 - Dehydration (2) Intractable nausea and vomiting Current visit: Yes Status: Acute Category: Medical Code(s): R11.2 - Nausea with vomiting, unspecified (3) Morbid obesity Current visit: No Status: Acute Category: Medical Code(s): E66.01 - Morbid (severe) obesity due to excess calories (4) Anemia Current visit: Yes Status: Acute Category: Medical Code(s): D64.9 - Anemia, unspecified (5) Atrial fibrillation Current visit: No Status: Chronic Qualifiers: Atrial fibrillation type: unspecified Qualified Code(s): I48.91 - Unspecified atrial fibrillation Category: Medical Code(s): I48.91 - Unspecified atrial fibrillation (6) Hypothyroidism Current visit: No Status: Chronic Category: Medical Code(s): E03.9 - Hypothyroidism, unspecified (7) Lymphedema Current visit: No Status: Chronic Category: Medical Code(s): I89.0 - Lymphedema, not elsewhere classified (8) C. difficile diarrhea Current visit: Yes Status: Acute Category: Medical Code(s): A04.72 - Enterocolitis due to Clostridium difficile, not specified as recurrent (9) H/O right knee surgery Current visit: Yes Status: Acute Category: Surgical Code(s): Z98.890 - Other specified postprocedural states - Assessment and plan all Dx Assessment and Plan for all problems:: Diarrhea persists. Potassium has decreased and will increase p.o. potassium. Physical therapy will continue to work with patient. Patient started on probiotic. We
[2020-04-26 08:00] VITALS: BP 113/51; PULSE 80; RESP 17; TEMP 36.9; O2SAT 97
--- NOTE | 2020-04-26 09:55 | DIET.NUTRFU ---
Pt continues with poor intakes dt decreased appetite/nausea-25%. Denies offer snacks/supplements but encouraged to request if desired. Weight is stable. Pt has received diet edu for C.diff (bland, low fiber diet) and encouraged to follow up with any questions post dc.
[2020-04-26 16:00] VITALS: BP 86/59; PULSE 95; RESP 17; TEMP 36.9; O2SAT 93
--- NOTE | 2020-04-26 17:45 | PC.NURSE ---
PATIENT A&O X4, LUNGS CLEAR, PULSES EQUAL. PATIENT HAS HAD NO COMPLAINT OF PAIN OR NAUSEA THUS FAR. PATIENT RECEIVED SHOWER TODAY, WHEN DONE, PATIENT STATED THAT SHE COULD NOT GET UP OUT OF SHOWER CHAIR, THAT SHE WAS TOO WEAK. THIS RN ALONG WITH SRNA ENCOURAGED PATIENT TO TRY. PATIENT WAS ABLE TO STAND UP AND SIT ON BED. PATIENT DID NOT EAT DINNER, THIS RN INQUIRED TO WHY. PATIENT STATED THAT SHE DID NOT LIKE THE FOOD. THIS RN OFFERED OTHER VARIETIES, PATIENT CONTINUED TO REFUSE.
[2020-04-26 17:51] VITALS: BP 100/58
--- NOTE | 2020-04-26 19:11 | PC.NURSE ---
report given to ad
[2020-04-26 20:00] VITALS: BP 108/54; PULSE 89; RESP 18; TEMP 36.9; O2SAT 98
--- NOTE | 2020-04-27 03:09 | PC.NURSE ---
Pt is alert and oriented x4. Pt rested well this shift with eyes closed and no complaints. No acute changes noted from previous shift. Denies pain when asked. PERRLA. Bilateral hand design release engineer noted equal and strong. Cap refill < 3 seconds. Bilateral breath sounds noted clear t/o upon auscultation. Tolerated RA well with no c/o SOA. Active bowel sounds noted in all 4 quads upon auscultation. Denies nausea and vomiting. States her appetite has been poor since lunch yesterday due to decrease in hunger. Frequent diarrhea noted t/o shift. Remains incontinent of bowel and bladder. +2 pitting edema noted to LLE. +2 non-pitting edema noted to RLE. Kept BLE elevated on pillows while lying in bed. VSS. Remains safe. Call light within reach. Will continue to monitor.
[2020-04-27 03:49] VITALS: BP 108/54; PULSE 94; RESP 18; TEMP 37.2; O2SAT 95
--- NOTE | 2020-04-27 04:20 | PC.NURSE ---
Spoke with MD Clair mergers and acquisitions consultant. Pt states she has eczema and has generalized itching, requesting Benadryl as she takes this when at home with flareups. New order given for Benadryl 25 mg PO tab Q6H PRN for itching.
[2020-04-27 05:00] VITALS: BMI 60.2
[2020-04-27 06:44] LABS: Basophils % 0.3 % (0.1-2.0); Eosinophils # 0.5 K/mm3 (0.0-0.4); Eosinophils % 12.3 % (0.1-12.0); Hematocrit 25.1 % (37.0-47.0); Hemoglobin 8.3 g/dL (12.2-16.2); Lymphocytes # 0.8 K/mm3 (0.7-4.5); Lymphocytes % 17.3 % (10-50); Mean Corpuscular Hemoglobin 31.2 pg (27.0-31.2); Mean Corpuscular Volume 94.4 fl (81-99); Mean Platelet Volume 7.9 fl (7.4-10.4); Monocytes # 0.3 K/mm3 (0.1-1.0); Monocytes % 7.8 % (1.7-9.3); Neutrophils # 2.8 K/mm3 (1.8-7.8); Neutrophils % 62.2 % (37.0-80.0); Platelet Count 173 K/mm3 (142-424); Red Blood Count 2.66 M/mm3 (4.20-5.40); Red Cell Distribution Width 18.6 % (11.5-17.5); White Blood Count 4.4 K/mm3 (4.8-10.8)
[2020-04-27 06:49] LABS: Anion Gap 7.7 mEq/L (5-15); Blood Urea Nitrogen 6 mg/dl (7-17); Calcium 8.2 mg/dl (8.4-10.2); Carbon Dioxide 26 mmol/L (22.0-30.0); Chloride 105 mmol/L (98-107); Creatinine Clearance Estimated 48 mL/min (50-200); Estimated Glomerular Filt Rate 99 ml/min (>60); GFR (African American) 119 ML/MIN (>60); Glucose 99 mg/dl (74-100); Potassium 3.7 mmoL/L (3.5-5.1); Sodium 135 mmol/L (136-145)
--- NOTE | 2020-04-27 07:02 | PC.NURSE ---
Pt c/o edema to left hand and arm below PICC line with SOA. RA noted at 97% at this time. No respiratory distress noted. Paused IVF and elevated LUE on pillow. Notified MD concrete finishing machine operator, Clair. Gave okay to pause IVF until Sae rounds this am for further evaluation. Keep LUE elevated. Will continue to monitor.
[2020-04-27 08:00] VITALS: BP 122/47; PULSE 100; RESP 22; TEMP 36.9; O2SAT 96
--- NOTE | 2020-04-27 08:10 | HMH.ACPN2 ---
Internal Medicine - PN: Subj *Date: 04/27/20 *Time: 08:10 Interval history: Pt is resting in bed. She reports some SOBOE this morning. She has continued with diarrheal stools overnight. She denies any pain, nausea, or vomiting. Exam Vital signs and Labs for Last 24 Hours: Temp Pulse Resp BP Pulse Ox 98.9 F 94 H 18 108/54 L 95 04/27/20 03:49 04/27/20 03:49 04/27/20 03:49 04/27/20 03:49 04/27/20 03:49 Laboratory Results - last 24 hr 04/27/20 06:00: WBC 4.4 L, RBC 2.66 L, Hgb 8.3 L, Hct 25.1 L, MCV 94.4, MCH 31.2, MCHC 33.0, RDW 18.6 H, Plt Count 173, MPV 7.9, Neut % (Auto) 62.2, Lymph % (Auto) 17.3, [place] % (Auto) 7.8, Eos % (Auto) 12.3 H, Baso % (Auto) 0.3, Neut # (Auto) 2.8, Lymph # (Auto) 0.8, [place] # (Auto) 0.3, Eos # (Auto) 0.5 H, Baso # (Auto) 0.0 04/27/20 06:00: Sodium 135 L, Potassium 3.7, Chloride 105, Carbon Dioxide 26, Anion Gap 7.7, BUN 6 L, Creatinine 0.60, Estimated Creat Clear 48, Estimated GFR 99, Est GFR ( Amer) 119, Glucose 99, Calcium 8.2 L I & O for Last 24 hours: Intake & Output 04/24/20 04/25/20 04/26/20 04/27/20 11:59 11:59 11:59 11:59 Intake Total 1698 / 1698 1182 / 1182 2054 1155 / 1155 Output Total 400 / 400 4 / 4 2 / Balance 1298 / 1298 1178 / 1178 2052 1155 / 1155 Weight 376 lb 15.847 oz 379 lb 1 oz 380 lb 7 oz 384 lb - Constitutional no acute distress, morbidly obese - *Routine HEENT Exam Head: Present: normocephalic ENT: Present: mucous membranes moist - *Routine Respiratory Exam Present: CTA bilaterally - *Routine Cardiovascular Exam Present: RRR - *Routine Abdominal Exam Present: soft, normoactive bowel sounds, obese. Absent: tenderness, distended, guarding, rigid - *Routine Extremities Exam Present: pulses intact Comments: right anterior knee surgical incision healing without erythema or warmth; trace BLE edema; trace LUE edema - *Routine Neurological Exam Present: alert, oriented X3, normal speech Assessment and Plan (1) Dehydration Current visit: Yes Status: Acute Category: Medical Code(s): E86.0 - Dehydration (2) Intractable nausea and vomiting Current visit: Yes Status: Acute Category: Medical Code(s): R11.2 - Nausea with vomiting, unspecified (3) Morbid obesity Current visit: No Status: Acute Category: Medical Code(s): E66.01 - Morbid (severe) obesity due to excess calories (4) Anemia Current visit: Yes Status: Acute Category: Medical Code(s): D64.9 - Anemia, unspecified (5) Atrial fibrillation Current visit: No Status: Chronic Qualifiers: Atrial fibrillation type: unspecified Qualified Code(s): I48.91 - Unspecified atrial fibrillation Category: Medical Code(s): I48.91 - Unspecified atrial fibrillation (6) Hypothyroidism Current visit: No Status: Chronic Category: Medical Code(s): E03.9 - Hypothyroidism, unspecified (7) Lymphedema Current visit: No Status: Chronic Category: Medical Code(s): I89.0 - Lymphedema, not elsewhere classified (8) C. difficile diarrhea Current visit: Yes Status: Acute Category: Medical Code(s): A04.72 - Enterocolitis due to Clostridium difficile, not specified as recurrent (9) H/O right knee surgery Current visit: Yes Status: Acute Category: Surgical Code(s): Z98.890 - Other specified postprocedural states (10) Hypokalemia Current visit: Yes Status: Acute Category: Medical Code(s): E87.6 - Hypokalemia - Assessment and plan all Dx Assessment and Plan for all problems:: H&H stable. Potassium has normalized. Will continue current treatment. Further per Dr. Quevedo/Dr. Dobbs.
--- NOTE | 2020-04-27 09:19 | PC.NURSE ---
during med passing, pt explains that she brought her bottle of Aromasin 25mg tab with her to hospital and that it's locked in the drawer. She takes 1tab daily for hx breast cancer and has not been getting it while here. Called pharmacy ([facility]) and explained things to him. He asked that I contact Dr. Dobbs. Called Dr. Dobbs's office ([place]) and gave update. She will notify Dr. Dobbs of the need to reorder this med, if this is his wish. Update pt.
--- NOTE | 2020-04-27 09:33 | PC.NURSE ---
during my assessment, LR @ 50mL/hr is infusing in left PICC line. Nightshift RN informed me that she had stopped it during her shift around 0630 due to edema in that extremity. I stopped LR and saline locked PICC. PICC line has great blood return and flushes great. No edema noted in left arm. Called Dr. Dobbs's office ([place]) and updated her on PICC line. She will update Dr. Dobbs and call back with orders. Dr. Dobbs rounded this AM and encouraged PIV insertion based on nightshift RN relaying that left arm had edema last night. This AM, left arm is without edema, redness or pain. It appears that PICC line was not the issue. Pt reports that she does have swelling @ times secondary to her hx of breast cancer.
--- NOTE | 2020-04-27 09:42 | PC.NURSE ---
received call back from Tabitha in Dr. Dobbs's office. She relays that Dr. Dobbs has ordered a CXR to confirm placement of PICC line and to restart home med of Aromasin 25mg tab daily. Tabitha informs me that I will have to enter orders on his behalf.
--- NOTE | 2020-04-27 10:08 | XR_ITS ---
PROCEDURE: XR CHEST PORTABLE PICC PLAC CLINICAL HISTORY: confirmation of PICC line COMPARISON: CR XR CHEST 2V from 08/23/[address] CHEST W CON from 10/05/2019 CR XR CHEST PORTABLE from 03/01/2020 CR XR CHEST PORTABLE from 04/22/2020 FINDINGS: Left upper extremity PICC line has been inserted. The tip is at the region of the junction of the left brachiocephalic vein and SVC.. Unremarkable cardiovascular structures with clear lungs. Multiple surgical clips are present in the right axillary region. IMPRESSION: PICC line tip in good position at the junction of the left brachiocephalic vein and SVC Dictated by: Aleksandr Saenz MD 04/27/2020 12:08 Aleksandr Saenz MD in [facility] 04/27/2020 12:08
--- NOTE | 2020-04-27 11:25 | HMH.ACPN ---
Internal Medicine - PN: Subj *Date: 04/27/20 *Time: 11:25 Exam Vital signs and Labs for Last 24 Hours: Temp Pulse Resp BP Pulse Ox 98.5 F 100 H 22 122/47 L 96 04/27/20 08:00 04/27/20 08:00 04/27/20 08:00 04/27/20 08:00 04/27/20 08:00 Laboratory Results - last 24 hr 04/27/20 06:00: WBC 4.4 L, RBC 2.66 L, Hgb 8.3 L, Hct 25.1 L, MCV 94.4, MCH 31.2, MCHC 33.0, RDW 18.6 H, Plt Count 173, MPV 7.9, Neut % (Auto) 62.2, Lymph % (Auto) 17.3, [place] % (Auto) 7.8, Eos % (Auto) 12.3 H, Baso % (Auto) 0.3, Neut # (Auto) 2.8, Lymph # (Auto) 0.8, [place] # (Auto) 0.3, Eos # (Auto) 0.5 H, Baso # (Auto) 0.0 04/27/20 06:00: Sodium 135 L, Potassium 3.7, Chloride 105, Carbon Dioxide 26, Anion Gap 7.7, BUN 6 L, Creatinine 0.60, Estimated Creat Clear 48, Estimated GFR 99, Est GFR ( Amer) 119, Glucose 99, Calcium 8.2 L I & O for Last 24 hours: Intake & Output 04/24/20 04/25/20 04/26/20 04/27/20 23:59 23:59 23:59 23:59 Intake Total 1578 / 1578 2021 1095 / 1095 1115 / 1115 Output Total 400 / 400 6 / 6 Balance 1178 / 1178 2015 1095 / 1095 1115 / 1115 Weight 171 kg 171.94 kg 172.564 kg 174.179 kg Assessment and Plan (1) Dehydration Current visit: Yes Status: Acute Category: Medical Code(s): E86.0 - Dehydration (2) Intractable nausea and vomiting Current visit: Yes Status: Acute Category: Medical Code(s): R11.2 - Nausea with vomiting, unspecified (3) Morbid obesity Current visit: No Status: Acute Category: Medical Code(s): E66.01 - Morbid (severe) obesity due to excess calories (4) Anemia Current visit: Yes Status: Acute Category: Medical Code(s): D64.9 - Anemia, unspecified (5) Atrial fibrillation Current visit: No Status: Chronic Qualifiers: Atrial fibrillation type: unspecified Qualified Code(s): I48.91 - Unspecified atrial fibrillation Category: Medical Code(s): I48.91 - Unspecified atrial fibrillation (6) Hypothyroidism Current visit: No Status: Chronic Category: Medical Code(s): E03.9 - Hypothyroidism, unspecified (7) Lymphedema Current visit: No Status: Chronic Category: Medical Code(s): I89.0 - Lymphedema, not elsewhere classified (8) C. difficile diarrhea Current visit: Yes Status: Acute Category: Medical Code(s): A04.72 - Enterocolitis due to Clostridium difficile, not specified as recurrent (9) H/O right knee surgery Current visit: Yes Status: Acute Category: Surgical Code(s): Z98.890 - Other specified postprocedural states (10) Hypokalemia Current visit: Yes Status: Acute Category: Medical Code(s): E87.6 - Hypokalemia The patient's infection will respond to the chosen ABx?: Yes Is the patient receiving the right drug, dose, and route?: Yes Could a more targeted ABx be ordered?: No (VANCOMYCIN PO - C. DIFF, LEVAQUIN SENSITIVE TO KLEBSIELLA IN URINE)
--- NOTE | 2020-04-27 13:55 | HMH.OTEV ---
OT Inpatient Evaluation Rehab OT IP Evaluation Start: 04/27/20 11:21 Freq: ONCE Status: Complete Protocol: Document 04/27/20 13:50 [facility] (Rec: 04/27/20 13:55 [facility] [id number]) Rehab OT IP Assessment Subjective History Pt was oriented x 3 on arrival . Pt agreeable to engage in evaluation. 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 Pt was admitted via ED on 04.22.20 due to nausea and vomiting. Pt has a past medical history of A-fib, breast CA, GERD, Hyperlipidemia, and HTN. Prior to having surgery she lived at home with her . Pt claims she was independent with all ADL's and IADL's. Pt did not require a walker during ambulation. Subjective I was doing good. Objective Patient Orientation Person,Place,Birthday Upper Extremity Gross ROM WFL Bed Mobility bed mobility-scooting,bed mobility - supine/sit,bed mobility - rolling Assist Level Minimal x 2 (25% assist) Rehab OT IP prob,goals,plan Problems Date of Evaluation: 04/27/20 OT IP Problems Bed Mobility,Transfers,Gait, Balance,Self care,Safety Rehab Potential Rehab Potential Good Equipment Needs Assistive Devices Rolling / Wheeled Walker Plan OT intervention Plan Bed Mobility,Transfers,Gait, Balance,Self care,Safety, Therapeutic Exercise OT Plan Frequency Daily Duration LOS Discharge Goals Bed Mobility Ability Standby Assistance Sit to Stand Chair Transfer Ability Minimal x 2 (25% assist) Chair Transfer Ability Minimal x 2 (25% assist) Chair Transfer Technique Sit to/from Ambulatory Chair Transfer Assistive Devices Rolling Walker Feeding Ability Independent Lower Body Dressing Ability Assistance X1 Upper Body Dressing Ability Standby Assistance Bathing Ability Assistance x1 Performing Toilet Hygiene
--- NOTE | 2020-04-27 15:24 | PC.NURSE ---
pt will need a rolling walker rather than a cane due to gait immobility issues
[2020-04-27 15:40] VITALS: BP 142/52; PULSE 90; RESP 20; TEMP 36.7; O2SAT 97
--- NOTE | 2020-04-27 17:11 | PC.NURSE ---
pt has had multiple episodes of diarrhea today. Is incontinent of B and B. Redness/excoriation noted in groin and vaginal/labia area. Barrier cream has been applied with every change. Pt is unable to reposition herself in bed. Is a 2 person assist. Remains in contact enteric isoloation secondary to Cdiff, MRSA, CRE and Klebsiella. No vomiting episodes today. Appetite remains poor. CXR confirmed left arm PICC line is in correct place. LR infusing @ 50mL/hr. Left arm without edema this shift.
[2020-04-27 19:53] VITALS: BP 133/64; PULSE 85; RESP 19; TEMP 37.2; O2SAT 98
[2020-04-27 20:00] VITALS: RESP 19; O2SAT 98
[2020-04-27 22:00] VITALS: PULSE 90; PULSE 94
--- NOTE | 2020-04-28 03:00 | PC.NURSE ---
Pt is A&Ox4 and has turned and repositioned several times during shift and pt tolerated well. Wheezing t/o on lung auscultation and audible wheezes noted. Pt also reports to have been SOB several times today. It is also noted pt needs to take a break after speaking several words. Contacted on-call MD Quevedo and received new order for 1x dose of Albuterol neb tx. Pt reported it did make her feel a little anxious but it quickly subsided, wheezing and SOB improved on reassessment. Pt is on room air with SaO2 98% t/o shift. ABD is soft, non-tender with active BS t/o. Pt has had 2 loose BM's thus far. Pt is also incontinent of bladder and chux/brief are utilized. Redness and light excoriation noted to nina-area, generous barrier cream applied each chux/brief change. No pitting edema noted, although edema to LUE was present from previous shift and L arm elevated on pillow. At this time, edema is greatly improved to LUE. PICC in place to MILES, patent and infusing LR @ 50ml/hr. Contact/Enteric precautions in place and utilized during whole shift. VSS, call light within reach, will continue to monitor.
[2020-04-28 04:05] VITALS: BP 120/59; PULSE 86; RESP 19; TEMP 36.6; O2SAT 99
[2020-04-28 04:52] VITALS: BMI 59.2
[2020-04-28 07:47] VITALS: BP 132/68; PULSE 91; RESP 20; TEMP 36.9; O2SAT 95
[2020-04-28 08:00] VITALS: O2SAT 95
--- NOTE | 2020-04-28 08:12 | HMH.ACPN2 ---
Internal Medicine - PN: Subj *Date: 04/28/20 *Time: 08:12 Interval history: Pt is feeling better this morning. She reports resting very well overnight after receiving a breathing treatment. She was able to eat some breakfast. She denies any nausea or vomiting. She denies pain or SOB. Her bowel movements have decreased in frequency and remain loose. Her weight is down 7lbs after lasix dose yesterday. Exam Vital signs and Labs for Last 24 Hours: Temp Pulse Resp BP Pulse Ox 98.4 F 91 H 20 132/68 95 04/28/20 07:47 04/28/20 07:47 04/28/20 07:47 04/28/20 07:47 04/28/20 07:47 I & O for Last 24 hours: Intake & Output 04/25/20 04/26/20 04/27/20 04/28/20 11:59 11:59 11:59 11:59 Intake Total 1182 / 1182 2054 1355 / 1355 1210 / 1210 Output Total 4 / 4 2 / 2 Balance 1178 / 1178 2052 1355 / 1355 1210 / 1210 Weight 379 lb 1 oz 380 lb 7 oz 384 lb 377 lb 4 oz - Constitutional no acute distress, morbidly obese - *Routine HEENT Exam Head: Present: normocephalic ENT: Present: mucous membranes moist - *Routine Respiratory Exam Comments: CTAB A&P - *Routine Cardiovascular Exam Present: RRR - *Routine Abdominal Exam Present: soft, normoactive bowel sounds, obese. Absent: tenderness, guarding, firm - *Routine Extremities Exam Present: pulses intact. Absent: calf tenderness Comments: trace BLE edema; right anterior knee surgical incision healing well without erythema or warmth - *Routine Neurological Exam Present: alert, oriented X3, normal speech Assessment and Plan (1) Dehydration Current visit: Yes Status: Acute Category: Medical Code(s): E86.0 - Dehydration (2) Intractable nausea and vomiting Current visit: Yes Status: Acute Category: Medical Code(s): R11.2 - Nausea with vomiting, unspecified (3) Morbid obesity Current visit: No Status: Acute Category: Medical Code(s): E66.01 - Morbid (severe) obesity due to excess calories (4) Anemia Current visit: Yes Status: Acute Category: Medical Code(s): D64.9 - Anemia, unspecified (5) Atrial fibrillation Current visit: No Status: Chronic Qualifiers: Atrial fibrillation type: unspecified Qualified Code(s): I48.91 - Unspecified atrial fibrillation Category: Medical Code(s): I48.91 - Unspecified atrial fibrillation (6) Hypothyroidism Current visit: No Status: Chronic Category: Medical Code(s): E03.9 - Hypothyroidism, unspecified (7) Lymphedema Current visit: No Status: Chronic Category: Medical Code(s): I89.0 - Lymphedema, not elsewhere classified (8) C. difficile diarrhea Current visit: Yes Status: Acute Category: Medical Code(s): A04.72 - Enterocolitis due to Clostridium difficile, not specified as recurrent (9) H/O right knee surgery Current visit: Yes Status: Acute Category: Surgical Code(s): Z98.890 - Other specified postprocedural states (10) Hypokalemia Current visit: Yes Status: Acute Category: Medical Code(s): E87.6 - Hypokalemia - Assessment and plan all Dx Assessment and Plan for all problems:: Further per Dr. Dobbs
--- NOTE | 2020-04-28 10:35 | HMH.ACPN ---
Internal Medicine - PN: Subj *Date: 04/28/20 *Time: 10:35 Exam Vital signs and Labs for Last 24 Hours: Temp Pulse Resp BP Pulse Ox 98.4 F 91 H 20 132/68 95 04/28/20 07:47 04/28/20 07:47 04/28/20 07:47 04/28/20 07:47 04/28/20 07:47 I & O for Last 24 hours: Intake & Output 04/25/20 04/26/20 04/27/20 04/28/20 23:59 23:59 23:59 23:59 Intake Total 2021 1095 / 1095 2084 / 2084 240 / 240 Output Total Balance 2015 1095 / 1095 2084 240 / 240 Weight 171.94 kg 172.564 kg 174.179 kg 171.118 kg Assessment and Plan (1) Dehydration Current visit: Yes Status: Acute Category: Medical Code(s): E86.0 - Dehydration (2) Intractable nausea and vomiting Current visit: Yes Status: Acute Category: Medical Code(s): R11.2 - Nausea with vomiting, unspecified (3) Morbid obesity Current visit: No Status: Acute Category: Medical Code(s): E66.01 - Morbid (severe) obesity due to excess calories (4) Anemia Current visit: Yes Status: Acute Category: Medical Code(s): D64.9 - Anemia, unspecified (5) Atrial fibrillation Current visit: No Status: Chronic Qualifiers: Atrial fibrillation type: unspecified Qualified Code(s): I48.91 - Unspecified atrial fibrillation Category: Medical Code(s): I48.91 - Unspecified atrial fibrillation (6) Hypothyroidism Current visit: No Status: Chronic Category: Medical Code(s): E03.9 - Hypothyroidism, unspecified (7) Lymphedema Current visit: No Status: Chronic Category: Medical Code(s): I89.0 - Lymphedema, not elsewhere classified (8) C. difficile diarrhea Current visit: Yes Status: Acute Category: Medical Code(s): A04.72 - Enterocolitis due to Clostridium difficile, not specified as recurrent (9) H/O right knee surgery Current visit: Yes Status: Acute Category: Surgical Code(s): Z98.890 - Other specified postprocedural states (10) Hypokalemia Current visit: Yes Status: Acute Category: Medical Code(s): E87.6 - Hypokalemia The patient's infection will respond to the chosen ABx?: Yes Is the patient receiving the right drug, dose, and route?: Yes Could a more targeted ABx be ordered?: No (MD INDICATES CONTINUING DAPTOMYCIN FOR 6 WEEKS DUE TO KNEE JOINT INFECTION.)
--- NOTE | 2020-04-30 08:34 | HMH.DCSUM ---
General - General Admission date:: 04/22/20 Discharge date: 04/28/20 HPI HPI: 70 y.o. 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 Patient had been receiving antibiotic per PICC as outpatient. Since discharge from the hospital patient experienced nausea and had some vomiting of dark material. Dr. Dobbs was contacted yesterday by Dr. Servin's office stating that recent hgb was 6.9. Dr. Dobbs spoke with patient to arrange for follow-up 04/22 for possible transfusion. The patient, however, presented last night to the ER with c/o of nausea and vomiting and was admitted. Patient was seen the following AM and continued with N&V. In ER WBC was not elevated, and electrolytes were WNL. She was afebrile. Hospital Course Hospital Course: On admission patient's H&H was 7.1 and 21.7. She initially required 2 units of packed red blood cells but then required an additional 2 units after which H&H stabilized at 8.3?25.1. Patient did initially feel better but continued with diarrhea. PCR showed C. difficile and metronidazole was initiated and then changed to p.o. vancomycin. She was seen by Dr. Ayala who performed an EGD with cold biopsies which revealed nonerosive GERD with 2 centimeter hiatal hernia and linear reactive gastropathy. She was started on a probiotic. She also had a Klebsiella UTI which required the addition of Levaquin due to sensitivities. PICC line remained intact and she was started back on her daptomycin for her MRSA in her knee. She received p.o. potassium. She was incontinent of stool and urine. Physical therapy was consulted and eventually patient was gotten out of the bed. She was very weak and even had difficulty with changing her position in the bed. She had a very poor appetite due to ongoing nausea and ate very little. She did deny abdominal pain She did have some difficulty with shortness of breath which resolved with a DuoNeb treatment. She was also given 20 mg of Lasix due to her weight gain and some peripheral edema. Dr. Dobbs did talk with her infectious disease MD, Dr. Delgado. He stated she would need 6 total weeks of IV daptomycin. Care management worked on disposition and after much planning in consultation with several rehab facilities, patient decided to go home with home health. On 04/28 her bowel movements had decreased in frequency. Her weight was down 7 pounds after the Lasix dose. She was stable to be discharged. 04/28/2020,Patient was discharged home in stable and satisfactory condition. She was to continue with IV daptomycin and the p.o. vancomycin as well as home meds. [facility] was to provide services for the patient to include administration of her IV antibiotics. A rolling walker was obtained for the patient. Diet was to be continued as in the hospital. Medications as per medication reconciliation sheet. She was to follow-up with Dr. Dobbs on 05/03/2020 Objective Vital signs: Temp Pulse Resp BP Pulse Ox 98.4 F 91 H 20 132/68 95 04/28/20 07:47 04/28/20 07:47 04/28/20 07:47 04/28/20 07:47 04/28/20 08:00 Narrative: Exam Vital signs and Labs for Last 24 Hours: Temp Pulse Resp BP Pulse Ox 98.4 F 91 H 20 132/68 95 04/28/20 07:47 04/28/20 07:47 04/28/20 07:47 04/28/20 07:47 04/28/20 07:47 I & O for Last 24 hours: Intake & Output 04/25/20 04/26/20 04/27/20 04/28/20 11:59 11:59 11:59 11:59 Intake Total 1182 / 1182 2054 1355 / 1355 1210 / 1210 Output Total 4 / 4 2 / 2 Balance 1178 / 1178 2052 1355 / 1355 1210 / 1210 Weight 379 lb 1 oz 380 lb 7 oz 384 lb 377 lb 4 oz - Constitutional no acute distress, morbidly obese - *Routine HEENT Exam Head: Present: normocephalic ENT: Present: mucous membranes moist - *Routine Respiratory Exam Comments: CTAB A&P - *Routine Cardiovascular Exam
== END 2020-04-28 13:12 | disposition home health service (06) ==
LOC: ER 03:06 → 2ND 06:12
PROVIDERS: Internal Medicine Gastroenterology; Nurse Practitioner Family; Admitting Provider Family Medicine; Emergency Provider Emergency Medicine; PCP Family Medicine; Visit Provider Family Medicine
PROC: 0DJ08ZZ Inspection of Upper Intestinal Tract, Via Natural or Artificial Opening Endoscopic (ICD-10-PCS; CPT 43235; principal; 2020-04-24 14:30)
DX: E86.0 Dehydration (principal); A04.72 Enterocolitis due to Clostridium difficile, not specified as recurrent; E03.9 Hypothyroidism, unspecified; I48.91 Unspecified atrial fibrillation; I89.0 Lymphedema, not elsewhere classified; Z70.1 Counseling related to patient's sexual behavior and orientation; Z79.899 Other long term (current) drug therapy; E66.01 Morbid (severe) obesity due to excess calories; Z68.43 Body mass index [BMI] 50.0-59.9, adult; I10 Essential (primary) hypertension; R11.2 Nausea with vomiting, unspecified; K31.9 Disease of stomach and duodenum, unspecified; N39.0 Urinary tract infection, site not specified; B96.1 Klebsiella pneumoniae [K. pneumoniae] as the cause of diseases classified elsewhere; D64.9 Anemia, unspecified; Z85.3 Personal history of malignant neoplasm of breast
CPT/HCPCS: 36430; 43239; 36415; 71045; 80048; 80053; 81001; 82272; 83605; 83690; 85014; 85018; 85025; 86328; 86850; 87086; 87088; 87186; 87507; 88305; 88342; 94640; 96365; 96375; 97110; 97161; 97166; 97530; 97535; 99284; G0328; G0378; J0878; J1956; J2405; J3370; P9016

== ENCOUNTER → 2020-08-08 10:00 | Outpatient (CLI) | payer MEDICARE, SELFPAY ==
--- NOTE | 2020-08-08 10:04 | MM_ITS ---
PROCEDURE: MM DIG SC MAMM UNILAT LT CAD Digital Breast Tomosynthesis Included CLINICAL INDICATION: SCREENING There has been a previous right mastectomy. There is a history of breast cancer patient's mother diagnosed in her 40s. COMPARISON: MG DXBI MM Dig mamm BI DX w/CAD from 11/17/2018 MG MM DIG MAMM DX UNILAT RT CAD from 06/08/2019 MG MM CLIP PLACEMENT RT from 07/06/2019 TECHNIQUE: Standard CC and MLO images and 3D Tomosynthesis was obtained. R2 CAD reviewed. FINDINGS: Fibroglandular densities are seen the central portion of the breast. There are few scattered benign-appearing microcalcifications. There are couple of benign-appearing nodular densities upper outer quadrant. There is no suspicious lesion and no suspicious microcalcifications. IMPRESSION: Moderate diffuse breast density with no suspicious lesions seen BI-RAD Category: 2 Benign Finding(s) FOLLOW-UP: 1YR 1 Year Follow-up (A letter has been sent to the patient regarding results of the study.) Dictated by: Dr. Wagner Chaparro MD 08/19/2020 21:54 Dr. Wagner Chaparro MD in [place] 08/19/2020 21:54
== END ==
PROVIDERS: PCP Family Medicine; Visit Provider Family Medicine
DX: Z12.31 Encounter for screening mammogram for malignant neoplasm of breast (principal)
CPT/HCPCS: 77063; 77067

== ENCOUNTER → 2020-11-07 18:03 | Outpatient (CLI) | payer MEDICARE, SELFPAY ==
[2020-11-07 18:30] LABS: Basophils % 0.7 % (0.1-2.0); Eosinophils # 0.3 K/mm3 (0.0-0.4); Eosinophils % 5.9 % (0.1-12.0); Hematocrit 41.4 % (37.0-47.0); Hemoglobin 12.8 g/dL (12.2-16.2); Lymphocytes # 1.1 K/mm3 (0.7-4.5); Lymphocytes % 22.3 % (10-50); Mean Corpuscular HGB Conc 30.9 g/dL (31.8-35.4); Mean Corpuscular Hemoglobin 28.8 pg (27.0-31.2); Mean Corpuscular Volume 93.3 fl (81-99); Mean Platelet Volume 8.4 fl (7.4-10.4); Monocytes # 0.4 K/mm3 (0.1-1.0); Neutrophils # 3.1 K/mm3 (1.8-7.8); Platelet Count 152 K/mm3 (142-424); Red Blood Count 4.44 M/mm3 (4.20-5.40); Red Cell Distribution Width 16.5 % (11.5-17.5); White Blood Count 4.8 K/mm3 (4.8-10.8)
[2020-11-07 19:33] LABS: Erythrocyte Sedimentation Rate 31 mm/hr (0-30)
[2020-11-07 19:36] LABS: Alanine Aminotransferase 12 U/L (12-78); Albumin Level 3.1 g/dl (3.5-5.0); Alkaline Phosphatase 199 U/L (38-126); Aspartate Amino Transferase 39 U/L (14-36); Bilirubin,Total 1.6 mg/dl (0.2-1.3); Blood Urea Nitrogen 17 mg/dl (7-17); Calcium 9.3 mg/dl (8.4-10.2); Carbon Dioxide 27 mmol/L (22.0-30.0); Chloride 106 mmol/L (98-107); Estimated Glomerular Filt Rate 62 ml/min (>60); GFR (African American) 75 ML/MIN (>60); Glucose 103 mg/dl (74-100); Sodium 138 mmol/L (136-145); Total Protein,Serum 6.1 g/dl (6.3-8.2)
[2020-11-07 19:41] LABS: C-Reactive Protein 6.1 mg/L (0-4)
== END ==
PROVIDERS: Visit Provider Internal Medicine Infectious Disease
DX: D72.819 Decreased white blood cell count, unspecified (principal); Z88.1 Allergy status to other antibiotic agents; A04.72 Enterocolitis due to Clostridium difficile, not specified as recurrent; A41.02 Sepsis due to Methicillin resistant Staphylococcus aureus; B95.62 Methicillin resistant Staphylococcus aureus infection as the cause of diseases classified elsewhere; T84.53XD Infection and inflammatory reaction due to internal right knee prosthesis, subsequent encounter
CPT/HCPCS: 36415; 80053; 85025; 85651; 86140

== ENCOUNTER → 2021-02-17 13:14 | Outpatient (CLI) | payer MEDICARE, SELFPAY ==
[2021-02-17 14:26] LABS: Erythrocyte Sedimentation Rate 14 mm/hr (0-30)
[2021-02-17 15:11] LABS: C-Reactive Protein 4.7 mg/L (0-4)
== END ==
PROVIDERS: Visit Provider Orthopaedic Surgery
DX: M25.561 Pain in right knee (principal); Z96.651 Presence of right artificial knee joint; L03.115 Cellulitis of right lower limb
CPT/HCPCS: 85651; 86140

== ENCOUNTER → 2021-08-06 16:12 | Outpatient (CLI) | payer MEDICARE, SELFPAY | PROVIDERS: PCP Family Medicine; Visit Provider Nurse Practitioner | DX: Z20.822 Contact with and (suspected) exposure to COVID-19 (principal) | CPT/HCPCS: C9803; U0003; U0005 ==

== ENCOUNTER → 2021-09-04 16:08 | Outpatient (CLI) | payer MEDICARE, SELFPAY ==
--- NOTE | 2021-09-04 16:14 | MM_ITS ---
PROCEDURE INFORMATION: Exam: MG Left Screening 3D Mammography Exam date and time: 09/04/2021 4:14 PM Age: 71 years old Clinical indication: Encounter for screening mammogram for malignant neoplasm of breast . Strong family history of premenopausal breast carcinoma. TECHNIQUE: Imaging protocol: Left Screening tomosynthesis and 2D mammography including computer-aided detection (CAD) when performed. COMPARISON: 1. MG MM DIG SC MAMM UNILAT LT CAD 08/08/2020 10:20 AM 2. MG DXBI MM Dig mamm BI DX w/CAD 11/17/2018 2:02 PM 3. MG SCBI MM Dig screening mamm BI w/CAD 10/20/2018 8:38 AM FINDINGS: MAMMOGRAPHY: Breast composition: The breasts are heterogeneously dense, which may obscure small masses. Mass: No suspicious masses. Architectural distortion: No suspicious distortion. Calcifications: No suspicious calcifications. Asymmetric density: None. Skin thickening: None. Axillary adenopathy: None. IMPRESSION: No mammographic evidence of malignancy. Annual screening is recommended unless otherwise clinically indicated. Given the reported risk factors coupled with the patient's breast density, a breast cancer risk assessment may prove useful for further evaluation. ASSESSMENT: BI-RADS Category 1: Negative
== END ==
PROVIDERS: PCP Family Medicine; Visit Provider Family Medicine
DX: Z12.31 Encounter for screening mammogram for malignant neoplasm of breast (principal)
CPT/HCPCS: 77063; 77067

== ENCOUNTER → 2021-11-17 10:59 | Outpatient (CLI) | payer MEDICARE, SELFPAY ==
--- NOTE | 2021-11-17 11:05 | XR_ITS ---
PROCEDURE INFORMATION: Exam: XR Lumbosacral Spine Exam date and time: 11/17/2021 11:07 AM Age: 71 years old Clinical indication: Low back pain and sciatica; Bilateral; Additional info: Acute sciatica pain TECHNIQUE: Imaging protocol: XR of the lumbosacral spine. Views: 2 or 3 views. COMPARISON: CT ABDOMEN PELVIS W CON 10/05/2019 9:54 AM FINDINGS: Bones/joints: No acute fracture or malalignment. Trace degenerative retrolisthesis of L1 on L2. Moderate to severe degenerative disc disease in the lumbar spine, worst at L4-L5. Moderate facet hypertrophy at L3-L4, L4-L5 and L5-S1. Osteopenia. Soft tissues: Unremarkable. IMPRESSION: 1. No acute fracture or malalignment. 2. Moderate to severe degenerative changes as detailed above.
== END ==
PROVIDERS: PCP Family Medicine; Visit Provider Family Medicine
DX: M54.50 Low back pain, unspecified (principal)
CPT/HCPCS: 72100

== ENCOUNTER 2022-04-12 14:29 | Emergency (ER) | payer MEDICARE, SELFPAY ==
[2022-04-12 15:25] VITALS: BP 146/89; PULSE 83; RESP 24; TEMP 36.7; O2SAT 98; BMI 56.3
--- NOTE | 2022-04-12 15:29 | XR_ITS ---
PROCEDURE INFORMATION: Exam: XR Chest Exam date and time: 04/12/2022 3:26 PM Age: 72 years old Clinical indication: Shortness of breath; Additional info: Congestion and SOB TECHNIQUE: Imaging protocol: Radiologic exam of the chest. Views: 2 views. COMPARISON: CR XR CHEST PORTABLE PICC PLAC 04/27/2020 12:03 PM FINDINGS: Tubes, catheters and devices: There are surgical clips projected over the right chest and axilla. Lungs: No consolidation. Pleural spaces: No pleural effusion. No pneumothorax. Heart/Mediastinum: No cardiomegaly. Bones/joints: There are degenerative changes of the spine. IMPRESSION: No evidence of active pulmonary disease.
--- NOTE | 2022-04-12 15:49 | EXP.UTC ---
Discharge Plan Disposition Patient Disposition: Home, Self-Care Condition: Good Prescriptions Prescriptions: New levofloxacin 500 mg tablet 500 mg PO DAILY 7 Days Qty: 7 0RF No Action potassium chloride 20 mEq tablet,ER particles/crystals 20 meq PO ONCE doxepin 10 mg capsule 10 mg PO TID PRN meclizine 12.5 mg tablet 12.5 mg PO BID triamcinolone acetonide 0.1 % cream TP furosemide 20 mg tablet 20 mg PO DAILY exemestane 25 mg tablet 25 mg PO DAILY metoprolol succinate 25 mg tablet extended release 24 hr 25 mg PO DAILY Qty: 90 2RF Eliquis 5 mg tablet See Rx Instructions .ROUTE .COMPLEX Qty: 180 1RF Dose Instruction: TAKE 1 TABLET TWICE DAILY Rx Instructions: TAKE 1 TABLET TWICE DAILY atorvastatin 20 mg tablet See Rx Instructions .ROUTE .COMPLEX Qty: 90 2RF Dose Instruction: TAKE 1 TABLET EVERY DAY Rx Instructions: TAKE 1 TABLET EVERY DAY duloxetine 30 MG capsule,delayed release(DR/EC) 30 mg PO DAILY pantoprazole 40 MG tablet,delayed release (DR/EC) 40 mg PO DAILY Qty: 30 3RF acetaminophen 500 mg tablet 500 mg PO Q8 PRN (Reason: Pain) levothyroxine 75 MCG tablet 75 mcg PO DAILY oxybutynin chloride 5 mg tablet 5 mg PO BID Referrals Follow up/Referrals: Kalie Dobbs MD [Primary Care Provider] - See instructions Activity Restrictions/Add. Instructions Additional Instructions/Restrictions: Start antibiotic today. Be sure to complete entire prescription even if feeling better Monitor temp. Tylenol every 4 hours as needed and / or ibuprofen every 6 hours as needed ( As long as your primary care physician has told you that it ok to take both. For fever/aches/pains ER if no less than 101 despite Tylenol or Motrin Humidifier/vaporizer or hot steamy shower Inhaler every 4-6 hours as needed like we discussed. If unsure how to use it, ask pharmacist to demonstrate how. Should help open airways and improve cough, wheezing, and shortness of breath Continue cough medication as prescribed Follow up IMMEDIATELY for new or worsening of symptoms OR no noticeable improvement over the next 48-72 hours. 911 immediately for any life threatening symptoms such as chest pain or difficulty breathing Clinical Impressions Clinical Impression: Bronchitis Instructions Patient Instructions: Acute Bronchitis, Levofloxacin Discharge ED Provider: Juanita Hernandez [facility] [place] HPI General Stated complaint: cough Mode of Arrival: Ambulatory Source of Information: Patient Limitations: No Limitations Time Seen by Provider: 04/12/22 15:49 Description of Symptoms (Recalled from Triage Doc. by RN): PATIENT C/O COUGH, CONGESTION, AND SOA SINCE FRIDAY HEENT Symptoms (Recalled from RN notes): No Resp Symptoms (Recalled from RN notes): Yes Skin Symptoms (Recalled from RN notes): No MS Symptoms (Recalled from RN notes): No Functional Status (Recalled from RN notes): WNL History of Present Illness Provider Complaint: Patient states that she has been having cough and congestion for about a week States that it has continued to get worse States that she isnt coughing anything up but feels like it is in her chest/ throat area States that she gets a little SOA after coughing at times Denies fever Related Data Home Medications Medication Instructions Recorded Confirmed levothyroxine 75 mcg tablet 75 mcg PO DAILY THYROID 04/04/19 02/18/22 oxybutynin chloride 5 mg tablet 5 mg PO BID BLADDER 08/19/19 02/18/22 duloxetine 30 mg capsule,delayed 30 mg PO DAILY Depression 04/22/20 02/18/22 release acetaminophen 500 mg tablet 500 mg PO Q8 PRN Pain 11/28/20 02/18/22 doxepin 10 mg capsule 10 mg PO TID PRN 06/18/21 02/18/22 potassium chloride 20 mEq 20 meq PO ONCE 06/18/21 02/18/22 tablet,extended release(part/cryst) exemestane 25 mg tablet 25 mg PO DAILY 02/18/22
[2022-04-12 16:19] VITALS: BP 146/89; PULSE 83; RESP 24; TEMP 36.7; O2SAT 98
== END 2022-04-12 16:53 | disposition home or self-care (01) ==
PROVIDERS: Emergency Provider Nurse Practitioner; PCP Family Medicine
DX: R06.02 Shortness of breath (principal); R05.9 Cough, unspecified; R94.31 Abnormal electrocardiogram [ECG] [EKG]; I10 Essential (primary) hypertension; I25.119 Atherosclerotic heart disease of native coronary artery with unspecified angina pectoris; I48.91 Unspecified atrial fibrillation; K21.9 Gastro-esophageal reflux disease without esophagitis; E78.5 Hyperlipidemia, unspecified; E66.9 Obesity, unspecified; Z79.01 Long term (current) use of anticoagulants; Z79.1 Long term (current) use of non-steroidal anti-inflammatories (NSAID); Z79.899 Other long term (current) drug therapy; Z88.0 Allergy status to penicillin; Z88.2 Allergy status to sulfonamides; Z88.8 Allergy status to other drugs, medicaments and biological substances; Z68.43 Body mass index [BMI] 50.0-59.9, adult; Z85.3 Personal history of malignant neoplasm of breast
CPT/HCPCS: 71046; 96372; 99213; G0463

== ENCOUNTER → 2022-07-05 12:53 | Outpatient (CLI) | payer MEDICARE, SELFPAY ==
--- NOTE | 2022-07-05 13:04 | XR_ITS ---
FINAL REPORT CLINICAL HISTORY: WHEEZING, COUGH X SEVERAL MONTHS COMPARISON: 04/12/2022 FINDINGS: 2 views of the chest were obtained. The heart size is enlarged. There is stable, mild pulmonary vascular congestion. There is no acute pulmonary abnormality. There are no pleural effusions. There is no pneumothorax. There is no acute osseous abnormality. IMPRESSION: Mild pulmonary vascular congestion, stable. Reviewed, Interpreted and Dictated by Lionel Judd III, MD Transcribed by Oly Montgomery Authenticated and [facility]
[2022-07-05 13:50] LABS: Basophils # 0.1 K/mm3 (0-0.2); Basophils % 1.1 % (0.1-2.0); Eosinophils # 0.2 K/mm3 (0.0-0.4); Eosinophils % 5.3 % (0.1-12.0); Hematocrit 44.4 % (37.0-47.0); Hemoglobin 13.6 g/dL (12.2-16.2); Lymphocytes # 1.3 K/mm3 (0.7-4.5); Lymphocytes % 29.4 % (10-50); Mean Corpuscular HGB Conc 30.6 g/dL (31.8-35.4); Mean Corpuscular Hemoglobin 28.8 pg (27.0-31.2); Mean Platelet Volume 8.1 fl (7.4-10.4); Monocytes # 0.3 K/mm3 (0.1-1.0); Neutrophils # 2.5 K/mm3 (1.8-7.8); Neutrophils % 57.2 % (37.0-80.0); Platelet Count 166 K/mm3 (142-424); Red Blood Count 4.72 M/mm3 (4.20-5.40); Red Cell Distribution Width 14.5 % (11.5-17.5); White Blood Count 4.3 K/mm3 (4.8-10.8)
== END ==
PROVIDERS: PCP Physician Assistant; Visit Provider Physician Assistant
DX: J06.9 Acute upper respiratory infection, unspecified (principal); R06.2 Wheezing
CPT/HCPCS: 36415; 71046; 85025

== ENCOUNTER → 2022-07-16 15:14 | Outpatient (CLI) | payer MEDICARE, SELFPAY ==
[2022-07-16 17:59] LABS: Erythrocyte Sedimentation Rate 19 mm/hr (0-30)
[2022-07-16 19:45] LABS: C-Reactive Protein 5.2 mg/L (0-4)
== END ==
PROVIDERS: PCP Family Medicine; Referring Provider Orthopaedic Surgery; Visit Provider Nurse Practitioner Family
DX: E66.01 Morbid (severe) obesity due to excess calories (principal); E78.2 Mixed hyperlipidemia; I10 Essential (primary) hypertension; I25.10 Atherosclerotic heart disease of native coronary artery without angina pectoris; I48.20 Chronic atrial fibrillation, unspecified; R06.09 Other forms of dyspnea; R60.9 Edema, unspecified; R94.31 Abnormal electrocardiogram [ECG] [EKG]; Z68.43 Body mass index [BMI] 50.0-59.9, adult
CPT/HCPCS: 36415; 85651; 86140

== ENCOUNTER → 2022-09-06 15:34 | Outpatient (CLI) | payer MEDICARE, SELFPAY ==
--- NOTE | 2022-09-06 15:37 | MM_ITS ---
PROCEDURE INFORMATION: Exam: MG Left Screening 3D Mammography Exam date and time: 09/06/2022 3:28 PM Age: 72 years old Clinical indication: Screening. Personal history of right breast cancer, status post right mastectomy. TECHNIQUE: Imaging protocol: Left Screening tomosynthesis and 2D mammography including computer-aided detection (CAD) when performed. COMPARISON: 1. MG MM DIG SC MAMM UNILAT LT CAD 09/04/2021 4:26 PM 2. MG MM DIG SC MAMM UNILAT LT CAD 08/08/2020 10:20 AM 3. MG DXBI MM Dig mamm BI DX w/CAD 11/17/2018 2:02 PM 4. MG SCBI MM Dig screening mamm BI w/CAD 10/20/2018 8:38 AM FINDINGS: MAMMOGRAPHY: Breast composition: The breast is heterogeneously dense, which may obscure small masses. Mass: No suspicious mass Architectural distortion: None. Calcifications: No suspicious calcifications. Asymmetric density: None. Skin thickening: None. Axillary adenopathy: None. IMPRESSION: No mammographic evidence of malignancy. Annual screening is recommended unless otherwise clinically indicated. ASSESSMENT: BI-RADS Category 1: Negative
== END ==
PROVIDERS: PCP Physician Assistant; Visit Provider Family Medicine
DX: Z12.31 Encounter for screening mammogram for malignant neoplasm of breast (principal)
CPT/HCPCS: 77063; 77067

== ENCOUNTER → 2022-11-11 16:37 | Outpatient (CLI) | payer MEDICARE, SELFPAY ==
[2022-11-11 16:57] LABS: Basophils # 0.2 K/mm3 (0-0.2); Basophils % 3.6 % (0.1-2.0); Eosinophils # 0.2 K/mm3 (0.0-0.4); Eosinophils % 3.8 % (0.1-12.0); Hematocrit 46.1 % (37.0-47.0); Hemoglobin 14.9 g/dL (12.2-16.2); Lymphocytes # 1.2 K/mm3 (0.7-4.5); Mean Corpuscular HGB Conc 32.4 g/dL (31.8-35.4); Mean Corpuscular Hemoglobin 29.8 pg (27.0-31.2); Mean Corpuscular Volume 91.9 fl (81-99); Mean Platelet Volume 8.2 fl (7.4-10.4); Monocytes # 0.4 K/mm3 (0.1-1.0); Monocytes % 7.9 % (1.7-9.3); Neutrophils # 3.1 K/mm3 (1.8-7.8); Neutrophils % 61.7 % (37.0-80.0); Platelet Count 180 K/mm3 (142-424); Red Blood Count 5.02 M/mm3 (4.20-5.40); Red Cell Distribution Width 14.5 % (11.5-17.5)
[2022-11-11 17:03] LABS: Chloride 107 mmol/L (98-107); Potassium 4.4 mmoL/L (3.5-5.1); Sodium 139 mmol/L (136-145)
[2022-11-11 17:05] LABS: Blood Urea Nitrogen 16 mg/dl (7-17); Estimated Glomerular Filt Rate 61 ml/min (>60); GFR (African American) 74 ML/MIN (>60)
[2022-11-11 17:06] LABS: Alanine Aminotransferase 17 U/L (12-78); Alkaline Phosphatase 142 U/L (38-126); Anion Gap 10.4 mEq/L (5-15); Aspartate Amino Transferase 33 U/L (14-36); Bilirubin,Total 2.1 mg/dl (0.2-1.3); Calcium 8.8 mg/dl (8.4-10.2); Carbon Dioxide 26 mmol/L (22.0-30.0); Glucose 141 mg/dl (74-100); Total Protein,Serum 6.4 g/dl (6.3-8.2)
[2022-11-11 17:54] LABS: Albumin Level 3.8 g/dl (3.5-5.0); Albumin/Globulin Ratio 1.5 (1.1-1.8); Globulin 2.6 g/dL (1.3-3.2)
== END ==
PROVIDERS: PCP Physician Assistant; Visit Provider Internal Medicine Hematology & Oncology
DX: C50.911 Malignant neoplasm of unspecified site of right female breast (principal)
CPT/HCPCS: 36415; 80053; 85025

== ENCOUNTER → 2023-03-22 08:47 | Outpatient (CLI) | payer MEDICARE, SELFPAY ==
[2023-03-22 10:03] LABS: Basophils # 0.1 K/mm3 (0-0.2); Basophils % 1.2 % (0.1-2.0); Eosinophils # 0.1 K/mm3 (0.0-0.4); Eosinophils % 2.4 % (0.1-12.0); Hematocrit 47.8 % (37.0-47.0); Hemoglobin 15.2 g/dL (12.2-16.2); Lymphocytes # 1.7 K/mm3 (0.7-4.5); Lymphocytes % 32.4 % (10-50); Mean Corpuscular HGB Conc 31.8 g/dL (31.8-35.4); Mean Corpuscular Hemoglobin 29.5 pg (27.0-31.2); Mean Corpuscular Volume 92.7 fl (81-99); Mean Platelet Volume 8.4 fl (7.4-10.4); Monocytes # 0.4 K/mm3 (0.1-1.0); Monocytes % 7.4 % (1.7-9.3); Neutrophils % 56.6 % (37.0-80.0); Platelet Count 168 K/mm3 (142-424); Red Blood Count 5.15 M/mm3 (4.20-5.40); Red Cell Distribution Width 14.6 % (11.5-17.5); White Blood Count 5.3 K/mm3 (4.8-10.8)
[2023-03-22 10:11] LABS: Hemoglobin A1C 5.7 % (4.0-6.0)
[2023-03-22 10:16] LABS: Chloride 106 mmol/L (98-107); Sodium 141 mmol/L (136-145)
[2023-03-22 10:17] LABS: Potassium 4.2 mmoL/L (3.5-5.1)
[2023-03-22 10:19] LABS: Alanine Aminotransferase 17 U/L (12-78); Albumin Level 3.6 g/dl (3.5-5.0); Albumin/Globulin Ratio 1.3 (1.1-1.8); Alkaline Phosphatase 148 U/L (38-126); Anion Gap 11.2 mEq/L (5-15); Aspartate Amino Transferase 30 U/L (14-36); Blood Urea Nitrogen 17 mg/dl (7-17); Carbon Dioxide 28 mmol/L (22.0-30.0); Cholesterol 107 mg/dl (140-200); Estimated Glomerular Filt Rate 61 ml/min (>60); GFR (African American) 74 ML/MIN (>60); Globulin 2.7 g/dL (1.3-3.2); Total Protein,Serum 6.3 g/dl (6.3-8.2); Triglycerides 92 mg/dl (30-150); VLDL Cholesterol 18 mg/dL (0-40)
[2023-03-22 10:20] LABS: Calcium 9.6 mg/dl (8.4-10.2); Chol/HDL Ratio 2.8 (1-3.5); Glucose 101 mg/dl (74-100); HDL Cholesterol 38 mg/dl (40-60)
[2023-03-22 10:32] LABS: Direct LDL Cholesterol 53.51 mg/dL (100-129)
[2023-03-22 10:36] LABS: Free T4 (Free Thyroxine) 0.94 ng/dl (0.78-2.19)
[2023-03-22 10:51] LABS: Thyroid Stimulating Hormone 4.23 uIU/mL (0.465-4.68)
[2023-03-22 11:04] LABS: 25-OH Vitamin D, Total 44.4 ng/mL (30-100)
== END ==
PROVIDERS: PCP Internal Medicine; Visit Provider Internal Medicine
DX: I20.8 Other forms of angina pectoris (principal); I48.20 Chronic atrial fibrillation, unspecified; L03.115 Cellulitis of right lower limb; Z00.00 Encounter for general adult medical examination without abnormal findings; E66.01 Morbid (severe) obesity due to excess calories; Z68.43 Body mass index [BMI] 50.0-59.9, adult; Z79.899 Other long term (current) drug therapy
CPT/HCPCS: 36415; 80053; 80061; 82306; 83036; 84439; 84443; 85025

== ENCOUNTER → 2023-04-15 16:51 | Outpatient (CLI) | payer MEDICARE, SELFPAY ==
[2023-04-15 16:37] LABS: Microscopic, Urine URINE MICROSCOPIC (MICROSCOPIC)
[2023-04-15 19:36] LABS: Appearance,Urine SL CLOUDY (Clear); Bilirubin,Urine Negative (Negative); Blood, Urine 2+ (Negative); Color,Urine YELLOW (Yellow); Glucose,Urine (UA) Negative (Negative); Ketones,Urine Negative (Negative); Leukocyte Esterase,Urine 2+ (Negative); Nitrate,Urine Negative (Negative); Protein,Urine 1+ (Negative)
[2023-04-15 19:45] LABS: Bacteria,Urine 1+ /lpf
== END ==
PROVIDERS: PCP Internal Medicine; Visit Provider Internal Medicine
DX: R30.0 Dysuria (principal); N39.0 Urinary tract infection, site not specified; B96.29 Other Escherichia coli [E. coli] as the cause of diseases classified elsewhere
CPT/HCPCS: 81001; 87086; 87088; 87186

== ENCOUNTER → 2023-07-28 10:55 | Outpatient (CLI) | payer MEDICARE, SELFPAY ==
[2023-07-28 12:05] LABS: Erythrocyte Sedimentation Rate 6 mm/hr (0-30)
[2023-07-28 12:43] LABS: C-Reactive Protein 2.4 mg/L (0-4)
== END ==
PROVIDERS: PCP Internal Medicine; Visit Provider Orthopaedic Surgery
DX: T84.84XA Pain due to internal orthopedic prosthetic devices, implants and grafts, initial encounter (principal); T84.53XA Infection and inflammatory reaction due to internal right knee prosthesis, initial encounter
CPT/HCPCS: 36415; 85651; 86140

== ENCOUNTER 2023-09-02 13:39 | Emergency (ER) | payer MEDICARE, SELFPAY ==
[2023-09-02] VITALS (7 sets, daily range): BP systolic 117–144; BP diastolic 64–83; PULSE 77–92; RESP 18–20; TEMP 36.9; O2SAT 97–100; BMI 58.7
--- NOTE | 2023-09-02 13:41 | HMH.EDGENADL ---
Discharge Plan Disposition Patient Disposition: Home, Self-Care Chief Complaint: Fall Prescriptions Prescriptions: No Action Dupixent Pen 300 mg/2 mL pen injector 300 mg SQ Q2W doxepin 10 mg capsule 10 mg PO TID PRN exemestane 25 mg tablet 25 mg PO DAILY meclizine 12.5 mg tablet 12.5 mg PO BID PRN triamcinolone acetonide 0.1 % cream 1 applic TP DAILY Eliquis 5 mg tablet 5 mg PO BID bumetanide 1 mg tablet 1 mg PO DAILY Qty: 90 0RF Ozempic 0.25 mg or 0.5 mg (2 mg/3 mL) pen injector 0.25 mg SQ WEEKLY Qty: 3 0RF Rx Instructions: for 4 weeks metoprolol succinate 25 mg tablet extended release 24 hr See Rx Instructions .ROUTE .COMPLEX Qty: 90 1RF Dose Instruction: TAKE 1 TABLET EVERY DAY Rx Instructions: TAKE 1 TABLET EVERY DAY nitrofurantoin macrocrystal 100 mg capsule 100 mg PO BID Qty: 10 0RF Rx Instructions: must administer with a meal/food oxybutynin chloride 5 mg tablet 5 mg PO BID Qty: 180 1RF potassium chloride 20 mEq tablet,ER particles/crystals 20 meq PO DAILY Qty: 90 1RF levothyroxine 75 mcg tablet 75 mcg PO DAILY Qty: 90 1RF atorvastatin 20 mg tablet 20 mg PO DAILY Qty: 90 1RF duloxetine 30 mg capsule,delayed release(DR/EC) 30 mg PO DAILY Qty: 90 1RF pantoprazole 40 mg tablet,delayed release (DR/EC) 40 mg PO DAILY Qty: 90 3RF acetaminophen 500 mg tablet 500 mg PO Q8 PRN (Reason: Pain) Referrals Follow up/Referrals: Brennan Calloway DO [Primary Care Provider] - See instructions Activity Restrictions/Add. Instructions Additional Instructions/Restrictions: Call your family doctor to establish care for this visit to the emergency department and schedule follow-up within 48 hours to ensure improvement. If you have any worsening of your condition or any other concerning signs or symptoms, return to the emergency department or your primary care doctor for further evaluation. Clinical Impressions Clinical Impression: Fall, Lower extremity pain, right Discharge ED Provider: Jonathan Beasley General Adult HPI <Zulma Bell DO - Last Filed: 09/02/23 15:33> General Chief complaint: Fall Stated complaint: Fall Time Seen by Provider: 09/02/23 13:47 Mode of Arrival: EMS Source of Information: Patient Limitations: No Limitations Description of Symptoms (Recalled from ER Triage Doc. by RN): Patient fell at home 1 hour ago, was standing up from chair and tripped over her feet. Patient denies LOC. Patient reports pain 8/10 in right leg. History of Present Illness HPI narrative: This patient is a 73-year-old female with a history of morbid obesity, lymphedema, CAD, chronic right lower extremity neuropathy, ambulatory difficulty, hypertension, hypothyroidism, and renal insufficiency presenting to the emergency department for evaluation with concern for fall. Patient reports that she frequently falls because of her neuropathy to her right leg. After her fall, she has had pain from her right knee down. She states she was feeling well prior to the fall and simply tripped over her feet. She did not hit her head or lose consciousness. She denies any other concerns or complaints at this time. Of note, she is on Eliquis. Related Data Home Medications Medication Instructions Recorded Confirmed acetaminophen 500 mg tablet 500 mg PO Q8 PRN Pain 11/28/20 03/25/23 doxepin 10 mg capsule 10 mg PO TID PRN 06/18/21 03/25/23 exemestane 25 mg tablet 25 mg PO DAILY 02/18/22 03/25/23 dupilumab 300 mg/2 mL subcutaneous 300 mg SQ Q2W 06/18/22 03/25/23 pen injector (Dupixent) apixaban 5 mg tablet (Eliquis) 5 mg PO BID 03/14/23 03/25/23 meclizine 12.5 mg tablet 12.5 mg PO BID PRN 03/14/23 03/25/23 triamcinolone acetonide 0.1 % 1 applic topical DAILY 03/14/23 03/25/23 topical cream Previous Rx's Medication Instructions Recorded bumetanide 1 mg tablet 1 mg PO DAILY #90 tabs 03/14/23 semaglutide 0.25 mg or 0.5 mg (2 0.25 mg (0.368 mL) SQ WEEKLY #3 mL 03/26/23 mg/3 mL) subcutaneous pen injector (Ozempic) metoprolol succinate 25 mg See Rx Instructions .Route 04/07/23 tablet,extended release 24 hr .COMPLEX #90 tabs nitrofurantoin macrocrystal 100 mg 100 mg PO BID #10 caps 04/15/23 capsule atorvastatin 20 mg tablet 20 mg PO DAILY #90 tabs 07/23/23 duloxetine 30 mg capsule,delayed 30 mg PO DAILY Depression #90 caps 07/23/23 release levothyroxine 75 mcg tablet 75 mcg PO DAILY THYROID #90 tabs 07/23/23 oxybutynin chloride 5 mg tablet 5 mg PO BID BLADDER #180 tabs 07/23/23 pantoprazole 40 mg tablet,delayed 40 mg PO DAILY #90 tabs 07/23/23 release potassium chloride 20 mEq 20 meq PO DAILY #90 tabs 07/23/23 tablet,extended release(part/cryst) Allergies Allergy/AdvReac Type Severity Reaction Status Date / Time cephalexin [From KEFLEX] Allergy Intermediate I-RASH Verified 03/25/23 14:41 Sulfa (Sulfonamide Allergy Intermediate I-RASH Verified 03/25/23 14:41 Antibiotics) [SULFA (SULFONAMIDE ANTIBIOTICS)] doxycycline [DOXYCYCLINE] Allergy Unknown NA-NAUSEA Verified 03/25/23 14:41 Penicillins [PENICILLINS] Allergy Unknown LOCAL Verified 03/25/23 14:41 REACTION AT INJECTION SITE PFS <Zulma Bell DO - Last Filed: 09/02/23 15:33> [facility] Disclaimer: The information contained in this section may have been updated after the patient was seen, as this information can be updated by other users. Medical History (Updated 09/02/23 @ 15:33 by Zulma Bell DO) Abnormal EKG Atrial fibrillation Atypical angina Breast cancer Dyspnea Edema Elevated coronary artery calcium score History of gastroesophageal reflux (GERD) HTN (hypertension) Hyperlipidemia Metabolic syndrome Morbid obesity Preoperative clearance Thyroid disease Urinary tract infection Surgical History History of colonoscopy History of knee surgery History of mastectomy Family History Father Heart attack Social History Smoking Status: Never smoker second hand exposure: No alcohol intake: never current occupational status: disabled Travel in the last 8 weeks: None household members: spouse and children housing: house <Zulma Bell DO - Last Filed: 09/02/23 15:33> ROS Obtained: Yes All systems reviewed & no additional complaints except as documented Physical Exam <Zulma Bell DO - Last Filed: 09/02/23 15:33> General General appearance: alert and in no apparent distress Head Head exam: atraumatic and normocephalic Eye Eye exam: Present normal appearance, PERRL and EOMI ENT ENT exam: Present normal exam, normal oropharynx, mucous membranes moist and normal external ear exam Neck Neck exam: Present normal inspection, full ROM and trachea midline; Absent tenderness Chest Chest inspection: Present normal inspection and symmetric chest wall rise; Absent tenderness Respiratory Respiratory exam: Present normal lung sounds bilaterally; Absent respiratory distress, wheezes, stridor or accessory muscle use Cardiovascular Cardiovascular exam: Present regular rate and normal rhythm Abdominal Exam Abdominal exam: Present soft; Absent distention, tenderness or guarding Extremities Exam Extremities exam: Present full ROM, tenderness (R lower leg tenderness, all compartments soft, NVI aside from chronic neuropathy) and normal capillary refill; Absent edema Back Exam Back exam: Present normal inspection and full ROM; Absent tenderness Neurological Exam Neurological exam: Present alert, oriented X3, CN II-XII intact and normal gait; Absent motor sensory deficit Psychiatric Psychiatric exam: Present normal affect and normal mood Skin Skin exam: Present warm and dry Medical Decision Making <Zulma Bell DO - Last Filed: 09/02/23 15:33> Medical Records Medical records reviewed: Yes I reviewed the patient's medical records. Richard Inquiry Pt receiving controlled substance: No Vital Signs: 09/02/23 13:36 09/02/23 14:01 09/02/23 15:01 Temperature 98.5 F Temperature Source Oral Pulse Rate 78 78 Pulse Rate [Right Radial] 82 Respiratory Rate 20 20 18 Blood Pressure 134/83 133/68 Blood Pressure [Right Arm] 140/74 Blood Pressure Mean 90 92 Blood Pressure Mean [Right Arm] 96 Blood Pressure Source [Right Arm] Automatic Cuff Blood Pressure Position [Right Arm] Sitting 02 Sat by Pulse Oximetry 100 97 99 Oxygen Delivery Method Room Air 09/02/23 15:31 09/02/23 16:01 09/02/23 16:31 Temperature Temperature Source Pulse Rate 77 82 79 Pulse Rate [Right Radial] Respiratory Rate 20 20 20 Blood Pressure 144/78 H 118/71 117/64 Blood Pressure [Right Arm] Blood Pressure Mean 93 86 83 Blood Pressure Mean [Right Arm] Blood Pressure Source [Right Arm] Blood Pressure Position [Right Arm] 02 Sat by Pulse Oximetry 99 100 99 Oxygen Delivery Method Lab Data Lab results reviewed: Yes I reviewed the patient's lab results. Orders (Tests/Meds): ED MEDICATIONS Discontinued Medications Generic Name Dose Route Start Last Admin Trade Name Deniz PRN Reason Stop Dose Admin Acetaminophen 1,000 mg 09/02/23 14:17 09/02/23 14:23 Acetaminophen 500mg Tab PO 09/02/23 14:18 1,000 mg ONCE ONE Administration ORDERS Category Date Time Status CT cervical spine wo con Stat Cat Scan 09/02/23 14:[address] head/brain wo con Stat Cat Scan 09/02/23 14:02 Completed XR ankle RT min 3V Stat Exams 09/02/23 14:02 Completed XR femur RT 2V Stat Exams 09/02/23 14:02 Completed XR knee RT 3V Stat Exams 09/02/23 14:02 Completed XR tibia fibula RT 2V Stat Exams 09/02/23 14:02 Completed Medical Decision Narrative: In summary, this patient is a 73-year-old female presenting to the Emergency Department for evaluation of right lower leg pain after mechanical ground-level fall. Differential diagnoses considered include but are not limited to fracture, contusion, strain/sprain, polytrauma. Ruling out the most morbid conditions drove assessment. On exam, the patient is well-appearing with no obvious deformities. She does have mild tenderness of the right lower leg. Given her age, CTs of the head and C-spine as well as x-rays of the injured right lower extremity were ordered. For pain, Tylenol was administered orally. Patient care signed out to the oncoming provider, Dr. Beasley, pending results and disposition. <Jonathan Beasley MD - Last Filed: 09/02/23 16:48> Vital Signs: 09/02/23 13:36 09/02/23 14:01 09/02/23 15:01 Temperature 98.5 F Temperature Source Oral Pulse Rate 78 78 Pulse Rate [Right Radial] 82 Respiratory Rate 20 20 18 Blood Pressure 134/83 133/68 Blood Pressure [Right Arm] 140/74 Blood Pressure Mean 90 92 Blood Pressure Mean [Right Arm] 96 Blood Pressure Source [Right Arm] Automatic Cuff Blood Pressure Position [Right Arm] Sitting 02 Sat by Pulse Oximetry 100 97 99 Oxygen Delivery Method Room Air 09/02/23 15:31 09/02/23 16:01 09/02/23 16:31 Temperature Temperature Source Pulse Rate 77 82 79 Pulse Rate [Right Radial] Respiratory Rate 20 20 20 Blood Pressure 144/78 H 118/71 117/64 Blood Pressure [Right Arm] Blood Pressure Mean 93 86 83 Blood Pressure Mean [Right Arm] Blood Pressure Source [Right Arm] Blood Pressure Position [Right Arm] 02 Sat by Pulse Oximetry 99 100 99 Oxygen Delivery Method Orders (Tests/Meds): ED MEDICATIONS Discontinued Medications Generic Name Dose Route Start Last Admin Trade Name Ambroseq PRN Reason Stop Dose Admin Acetaminophen 1,000 mg 09/02/23 14:17 09/02/23 14:23 Acetaminophen 500mg Tab PO 09/02/23 14:18 1,000 mg ONCE ONE Administration ORDERS Category Date Time Status CT cervical spine wo con Stat Cat Scan 09/02/23 14:[address] head/brain wo con Stat Cat Scan 09/02/23 14:02 Completed XR ankle RT min 3V Stat Exams 09/02/23 14:02 Completed XR femur RT 2V Stat Exams 09/02/23 14:02 Completed XR knee RT 3V Stat Exams 09/02/23 14:02 Completed XR tibia fibula RT 2V Stat Exams 09/02/23 14:02 Completed Medical Decision Narrative: In summary, this patient is a 73-year-old female presenting to the Emergency Department for evaluation of right lower leg pain after mechanical ground-level fall. Differential diagnoses considered include but are not limited to fracture, contusion, strain/sprain, polytrauma. Ruling out the most morbid conditions drove assessment. On exam, the patient is well-appearing with no obvious deformities. She does have mild tenderness of the right lower leg. Given her age, CTs of the head and C-spine as well as x-rays of the injured right lower extremity were ordered. For pain, Tylenol was administered orally. Patient care signed out to the oncoming provider, Dr. Beasley, pending results and disposition. Gale: I assume primary responsibility for this patient after signout from previous physician. Independent interpretation of results demonstrated negative CT head and CT C-spine. Patient also had no acute findings on imaging of the right lower extremity. Because patient at baseline without signs or symptoms of clinical decompensation, deemed appropriate for discharge. Results were relayed to patient who voiced understanding and were agreeable to outpatient management and follow up. At the time of discharge the patient was hemodynamically stable, tolerating PO, and mobilizing appropriately. Critical Care <Zulma Bell, DO - Last Filed: 09/02/23 15:33> Critical Care Time Critical Care Time: No
--- NOTE | 2023-09-02 14:02 | CT_ITS ---
FINAL REPORT TECHNIQUE: Axial images were obtained of the cervical spine by computed tomography. Coronal and sagittal reconstruction process performed. This study was performed with techniques to keep radiation doses as low as reasonably achievable (ALARA). Individualized dose reduction techniques using automated exposure control or adjustment of mA and/or kV according to the patient''s size were employed. CLINICAL HISTORY: fall, age >65 COMPARISON: None FINDINGS: Cervical vertebrae show normal height. There is moderate degenerative disc disease present from the C4-5 level through the C6-7 level. There are prominent posterior osteophytes present at the C5-6 level. On axial images there is moderate canal compromise secondary to the prominent posterior osteophytes at the C5-6 level, best seen on images #30 and 31 of series 6. At the C6-7 level there is mild endplate hypertrophy, with mild to moderate bilateral neural foraminal narrowing. No acute bony abnormality is identified, specifically no evidence of fracture or dislocation is seen. IMPRESSION: No acute bony abnormality identified. Moderate degenerative change in the lower cervical spine as described. Reviewed, Interpreted and Dictated by Jordon Moser MD Transcribed by Riya Bradford Authenticated and [facility]
--- NOTE | 2023-09-02 14:02 | XR_ITS ---
FINAL REPORT CLINICAL HISTORY: fall, pain FINDINGS: Right knee Three views were obtained. There is no acute fracture or dislocation. Total knee prosthesis is identified. No soft tissue abnormality is identified. IMPRESSION: No acute process. Reviewed, Interpreted and Dictated by Jordon Moser MD Transcribed by Genoveva Ahuja Authenticated and [facility]
--- NOTE | 2023-09-02 14:02 | XR_ITS ---
FINAL REPORT CLINICAL HISTORY: fall, pain FINDINGS: Right ankle Three views were obtained. There is no acute fracture or dislocation. The joint spaces appear normal. The mortise is intact. There is prominent soft tissue at the level of the ankle. IMPRESSION: Prominent soft tissue without acute bony abnormality. Reviewed, Interpreted and Dictated by Jordon Moser MD Transcribed by Genoveva Ahuja Authenticated and [facility]
--- NOTE | 2023-09-02 14:02 | XR_ITS ---
FINAL REPORT CLINICAL HISTORY: fall, pain FINDINGS: Right femur Two views were obtained. There is no acute fracture or dislocation. There is mild to moderate hip joint space narrowing. There are hypertrophic changes at the acetabular margin. Total knee prosthesis is identified. No soft tissue abnormality is identified. IMPRESSION: No acute process. Reviewed, Interpreted and Dictated by Jordon Moser MD Transcribed by Genoveva Ahuja Authenticated and [facility]
--- NOTE | 2023-09-02 14:02 | CT_ITS ---
FINAL REPORT TECHNIQUE: multiple axial CT images were performed from the foramen magnum to the vertex without enhancement. CLINICAL HISTORY: fall, age >65 COMPARISON: None FINDINGS: There is diffuse moderate atrophy. There is periventricular white matter change likely related to moderate small vessel disease. There is no evidence of hemorrhage. No masses are identified. No extra-axial fluid is seen. There is a retention cyst or polyp present in the medial aspect of the right maxillary sinus. IMPRESSION: Atrophy and chronic changes without acute process. Reviewed, Interpreted and Dictated by Jordon Moser MD Transcribed by Riya Bradford Authenticated and . [facility]
--- NOTE | 2023-09-02 14:02 | XR_ITS ---
FINAL REPORT CLINICAL HISTORY: fall, pain FINDINGS: Right tibia fibula Two views were obtained. There is no acute fracture or dislocation. Total knee prosthesis is identified. No soft tissue abnormality is identified. IMPRESSION: No acute process. Reviewed, Interpreted and Dictated by Jordon Moser MD Transcribed by Genoveva Ahuja Authenticated and [facility]
[2023-09-02] MEDS: ACETAMINOPHEN 500MG TAB 1000 MG PO (14:23)
== END 2023-09-02 17:35 | disposition home or self-care (01) ==
PROVIDERS: Emergency Provider Emergency Medicine; PCP Internal Medicine
DX: M79.604 Pain in right leg (principal); I25.118 Atherosclerotic heart disease of native coronary artery with other forms of angina pectoris; G62.9 Polyneuropathy, unspecified; I10 Essential (primary) hypertension; E03.9 Hypothyroidism, unspecified; N28.9 Disorder of kidney and ureter, unspecified; R29.6 Repeated falls; I48.91 Unspecified atrial fibrillation; E78.5 Hyperlipidemia, unspecified; W01.0XXA Fall on same level from slipping, tripping and stumbling without subsequent striking against object, initial encounter
CPT/HCPCS: 70450; 72125; 73552; 73562; 73590; 73610; 99285

== ENCOUNTER 2023-10-21 14:28 | Emergency (ER) | payer MEDICARE, SELFPAY ==
[2023-10-21] VITALS (7 sets, daily range): BP systolic 110–153; BP diastolic 60–107; PULSE 70–92; RESP 16; TEMP 36.7–36.9; O2SAT 98–100; BMI 57.2
--- NOTE | 2023-10-21 14:34 | [facility].EDGENADL ---
Discharge Plan Disposition Patient Disposition: Home, Self-Care Condition: Good Prescriptions Prescriptions: New nitrofurantoin monohyd/m-cryst 100 mg capsule 100 mg PO BID 5 Days Qty: 10 0RF Rx Instructions: must administer with a meal/food oxycodone 5 mg tablet 5 mg PO .q6 prn PRN (Reason: pain) 1 Days Qty: 3 0RF No Action omeprazole 20 mg capsule,delayed release(DR/EC) PO doxepin 10 mg capsule 10 mg PO TID PRN exemestane 25 mg tablet 25 mg PO DAILY meclizine 12.5 mg tablet 12.5 mg PO BID PRN triamcinolone acetonide 0.1 % cream 1 applic TP DAILY bumetanide 1 mg tablet 1 mg PO DAILY Qty: 90 0RF metoprolol succinate 25 mg tablet extended release 24 hr See Rx Instructions .ROUTE .COMPLEX Qty: 90 1RF Dose Instruction: TAKE 1 TABLET EVERY DAY Rx Instructions: TAKE 1 TABLET EVERY DAY nitrofurantoin macrocrystal 100 mg capsule 100 mg PO BID Qty: 10 0RF Rx Instructions: must administer with a meal/food oxybutynin chloride 5 mg tablet 5 mg PO BID Qty: 180 1RF potassium chloride 20 mEq tablet,ER particles/crystals 20 meq PO DAILY Qty: 90 1RF levothyroxine 75 mcg tablet 75 mcg PO DAILY Qty: 90 1RF atorvastatin 20 mg tablet 20 mg PO DAILY Qty: 90 1RF duloxetine 30 mg capsule,delayed release(DR/EC) 30 mg PO DAILY Qty: 90 1RF pantoprazole 40 mg tablet,delayed release (DR/EC) 40 mg PO DAILY Qty: 90 3RF Eliquis 5 mg tablet 5 mg PO BID Qty: 60 3RF acetaminophen 500 mg tablet 500 mg PO Q8 PRN (Reason: Pain) Referrals Follow up/Referrals: Brennan Calloway DO [Primary Care Provider] - See instructions Activity Restrictions/Add. Instructions Additional Instructions/Restrictions: Please follow-up with your primary care doctor for your elevated bilirubin. Please call make an appointment tomorrow. Return to the ER for any change in level of consciousness or worsening signs or symptoms. Clinical Impressions Clinical Impression: Hyperbilirubinemia Fall Qualifiers: Encounter type: initial encounter Qualified Code(s): W19.XXXA - Unspecified fall, initial encounter Urinary tract infectious disease Qualifiers: Urinary tract infection type: site unspecified Hematuria presence: with hematuria Qualified Code(s): N39.0 - Urinary tract infection, site not specified Discharge ED Provider: Xavi Vang General Adult HPI <SHEELA Sanchez - Last Filed: 10/21/23 16:55> General Chief complaint: Fall Stated complaint: fall Time Seen by Provider: 10/21/23 14:34 History of Present Illness HPI narrative: Patient presents for an unwitnessed fall at her home. Patient states that she has difficulty walking at baseline and sometimes stumbles over her carpet. That indeed happened today and she landed flat on her back striking the back of her head. She did not lose consciousness. She denies chest pain shortness of breath fever chills hemoptysis hematochezia melena nausea vomiting diarrhea double vision. Patient complains of pain across my low back and pain to the back of her head. Related Data Home Medications Medication Instructions Recorded Confirmed acetaminophen 500 mg tablet 500 mg PO Q8 PRN Pain 11/28/20 09/30/23 doxepin 10 mg capsule 10 mg PO TID PRN 06/18/21 09/30/23 exemestane 25 mg tablet 25 mg PO DAILY 02/18/22 09/30/23 meclizine 12.5 mg tablet 12.5 mg PO BID PRN 03/14/23 09/30/23 triamcinolone acetonide 0.1 % 1 applic topical DAILY 03/14/23 09/30/23 topical cream omeprazole 20 mg capsule,delayed mg PO 09/30/23 09/30/23 release Previous Rx's Medication Instructions Recorded bumetanide 1 mg tablet 1 mg PO DAILY #90 tabs 03/14/23 metoprolol succinate 25 mg See Rx Instructions .Route 04/07/23 tablet,extended release 24 hr .COMPLEX #90 tabs nitrofurantoin macrocrystal 100 mg 100 mg PO BID #10 caps 04/15/23 capsule atorvastatin 20 mg tablet 20 mg PO DAILY #90 tabs 07/23/23 duloxetine 30 mg capsule,delayed 30 mg PO DAILY Depression #90 caps 07/23/23 release levothyroxine 75 mcg tablet 75 mcg PO DAILY THYROID #90 tabs 07/23/23 oxybutynin chloride 5 mg tablet 5 mg PO BID BLADDER #180 tabs 07/23/23 pantoprazole 40 mg tablet,delayed 40 mg PO DAILY #90 tabs 07/23/23 release potassium chloride 20 mEq 20 meq PO DAILY #90 tabs 07/23/23 tablet,extended release(part/cryst) apixaban 5 mg tablet (Eliquis) 5 mg PO BID #60 tabs 10/17/23 nitrofurantoin 100 mg PO BID 5 days #10 caps 10/21/23 monohydrate/macrocrystals 100 mg capsule oxycodone 5 mg tablet 5 mg PO .q6 prn PRN pain 1 day #3 10/21/23 tabs Allergies Allergy/AdvReac Type Severity Reaction Status Date / Time cephalexin [From KEFLEX] Allergy Intermediate I-RASH Verified 09/30/23 15:09 Sulfa (Sulfonamide Allergy Intermediate I-RASH Verified 09/30/23 15:09 Antibiotics) [SULFA (SULFONAMIDE ANTIBIOTICS)] doxycycline [DOXYCYCLINE] Allergy Unknown NA-NAUSEA Verified 09/30/23 15:09 Penicillins [PENICILLINS] Allergy Unknown LOCAL Verified 09/30/23 15:09 REACTION AT INJECTION SITE PFSH <SHEELA Sanchez - Last Filed: 10/21/23 16:55> FOR[facility], LAT[facility] Disclaimer: The information contained in this section may have been updated after the patient was seen, as this information can be updated by other users. Medical History Abnormal EKG Atrial fibrillation Atypical angina Breast cancer Dyspnea Edema Elevated coronary artery calcium score History of gastroesophageal reflux (GERD) HTN (hypertension) Hyperlipidemia Metabolic syndrome Morbid obesity Preoperative clearance Thyroid disease Urinary tract infection Surgical History History of colonoscopy History of knee surgery History of mastectomy Family History Father Heart attack Social History Smoking Status: Never smoker second hand exposure: No alcohol intake: never current occupational status: disabled Travel in the last 8 weeks: None household members: spouse and children housing: house <SHEELA Sanchez - Last Filed: 10/21/23 16:55> ROS Obtained: Yes Systems reviewed as appropriate & no additional complaints except as documented Physical Exam <SHEELA Sanchez - Last Filed: 10/21/23 16:55> General General appearance: alert, in no apparent distress and other (Patient is morbidly obese with a BMI of 57 but otherwise is in no acute distress) Head Head exam: normocephalic, normal inspection and other (Patient has tenderness to palpation at the occiput however no bony deformity is noted. No hematoma or laceration is noted.) Eye Eye exam: Present normal appearance, PERRL and EOMI ENT ENT exam: Present normal exam, normal oropharynx and mucous membranes moist Neck Neck exam: Present normal inspection, full ROM and trachea midline; Absent tenderness or lymphadenopathy Chest Chest inspection: Present normal inspection and symmetric chest wall rise Respiratory Respiratory exam: Present normal lung sounds bilaterally; Absent respiratory distress, wheezes, stridor or accessory muscle use Cardiovascular Cardiovascular exam: Present irregular rhythm and other (Patient has an irregularly irregular controlled rate and rhythm about murmurs gallops rubs or thrills.) Abdominal Exam Abdominal exam: Present soft (Grossly obese) and normal bowel sounds; Absent tenderness, guarding or rebound Extremities Exam Extremities exam: Present normal inspection, full ROM, tenderness, edema (Patient has bilateral lower extremity lymphedema without evidence of redness swelling or infection.) and other (Bilateral lower extremities are tender to palpation in the circumferentially but no palpable cords.) Back Exam Back exam: Present normal inspection and other (Patient has no tenderness of the entire dorsal spine including CT and L-spine however she is tender to palpation in the lumbar spine musculature bilaterally) Neurological Exam Neurological exam: Present alert, oriented X3, CN II-XII intact, reflexes normal and other (Glascow coma score is 15); Absent normal gait (Antalgic gait) or motor sensory deficit Psychiatric Psychiatric exam: Present normal affect and normal mood Skin Skin exam: Present warm, dry and normal color Medical Decision Making <SHEELA Sanchez - Last Filed: 10/21/23 16:55> Medical Records Medical records reviewed: Yes I reviewed the patient's medical records. Richard Inquiry Pt receiving controlled substance: No Vital Signs: 10/21/23 14:29 10/21/23 14:45 10/21/23 15:30 Temperature 98.0 F Temperature Source Oral Pulse Rate 81 92 H Pulse Rate [Radial] 86 Respiratory Rate 16 Blood Pressure 130/107 H Blood Pressure [Right Arm] 110/60 Blood Pressure Mean 113 Blood Pressure Mean [Right Arm] 76 Blood Pressure Source [Right Arm] Automatic Cuff Blood Pressure Position [Right Arm] Supine 02 Sat by Pulse Oximetry 98 100 100 Oxygen Delivery Method Room Air 10/21/23 16:00 10/21/23 16:30 10/21/23 17:00 Temperature Temperature Source Pulse Rate 79 79 71 Pulse Rate [Radial] Respiratory Rate Blood Pressure 153/90 H 144/93 H 145/80 H Blood Pressure [Right Arm] Blood Pressure Mean Blood Pressure Mean [Right Arm] Blood Pressure Source [Right Arm] Blood Pressure Position [Right Arm] 02 Sat by Pulse Oximetry 100 100 100 Oxygen Delivery Method Room Air Room Air Room Air 10/21/23 17:39 Temperature 98.4 F Temperature Source Pulse Rate 70 Pulse Rate [Radial] Respiratory Rate 16 Blood Pressure 145/80 H Blood Pressure [Right Arm] Blood Pressure Mean Blood Pressure Mean [Right Arm] Blood Pressure Source [Right Arm] Blood Pressure Position [Right Arm] 02 Sat by Pulse Oximetry Oxygen Delivery Method Room Air Lab Data Lab results reviewed: Yes I reviewed the patient's lab results. Lab Results 10/21/23 14:50: WBC 4.5 L, RBC 4.94, Hgb 15.8, Hct 48.5 H, MCV 98.1, MCH 32.0 H, MCHC 32.6, RDW 14.1, Plt Count 145, MPV 8.4, Neut % (Auto) 63.0, Lymph % (Auto) 25.8, [place] % (Auto) 7.7, Eos % (Auto) 2.1, Baso % (Auto) 1.4, Neut # (Auto) 2.8, Lymph # (Auto) 1.2, [place] # (Auto) 0.3, Eos # (Auto) 0.1, Baso # (Auto) 0.1, PT 12.6 H, INR 1.18 H, APTT 25.6, Sodium 138, Potassium 3.9, Chloride 106, Carbon Dioxide 28, Anion Gap 7.9, BUN 15, Creatinine 0.90, Estimated Creat Clear 48, Estimated GFR 61, Est GFR ( Amer) 74, Glucose 133 H, Calcium 9.2, Magnesium 2.1, Total Bilirubin 3.8 H, AST 44 H, ALT 27, Alkaline Phosphatase 147 H, Troponin I < 0.01, Total Protein 6.2 L, Albumin 3.5, Globulin 2.7, Albumin/Globulin Ratio 1.3 10/21/23 15:53: Urine Color Yellow, Urine Appearance Clear, Urine pH 6.5, Ur Specific [place] 1.020, Urine Protein Negative, Urine Glucose (UA) Negative, Urine Ketones Negative, Urine Blood 1+, Urine Nitrate Positive, Urine Bilirubin Negative, Urine Urobilinogen 2.0, Ur Leukocyte Esterase 2+ A, Urine RBC 3-5, Urine WBC 3-5, Ur Squamous Epith Cells Occasional, Urine Bacteria 4+ 10/21/23 14:50 10/21/23 14:50 Orders (Tests/Meds): ED MEDICATIONS Discontinued Medications Generic Name Dose Route Start Last Admin Trade Name Freq PRN Reason Stop Dose Admin Acetaminophen 1,000 mg 10/21/23 14:35 10/21/23 15:02 Acetaminophen 1,000mg/100ml Vial IV 10/21/23 14:36 1,000 mg ONCE ONE Administration Ketorolac Tromethamine 15 mg 10/21/23 14:35 10/21/23 15:02 Ketorolac 30mg/Ml Vial IV 10/21/23 14:36 15 mg ONCE ONE Administration Sodium Chloride 10 ml 10/21/23 14:35 Sodium Chloride 0.9% 10ml Flush Syringe IV 11/20/23 14:34 NEEDED PRN Maintain IV Site ORDERS Category Date Time Status CT bony pelvis Stat Cat Scan 10/21/23 14:[address] cervical spine wo con Stat Cat Scan 10/21/23 14:[address] head/brain wo con Stat Cat Scan 10/21/23 14:[address] lumbar spine wo con Stat Cat Scan 10/21/23 14:[address] thoracic spine wo con Stat Cat Scan 10/21/23 14:37 Completed XR chest portable Stat Exams 10/21/23 14:36 Completed XR pelvis 1-2V Stat Exams 10/21/23 14:36 Completed Activated Partial Thrombo Time Stat Lab 10/21/23 14:50 Completed CBC w/Auto Diff [Complete Blood Count Auto Diff] Stat Lab 10/21/23 14:50 Completed CMP [Comprehensive Metabolic Panel] Stat Lab 10/21/23 14:50 Completed INR [Prothrombin Time INR] Stat Lab 10/21/23 14:50 Completed Magnesium Stat Lab 10/21/23 14:50 Completed Trop I [Troponin I] Stat Lab 10/21/23 14:50 Completed UA [Urinalysis and Microscopic] Stat Lab 10/21/23 15:53 Completed Urine Culture Stat Micro 10/21/23 15:53 Received Medical Decision Narrative: In summary patient is a 73-year-old female who presents to the emergency department for evaluation of accidental fall. Patient is on Eliquis for atrial fibrillation. Patient is hemodynamically stable upon arrival, and afebrile. Physical exam shows a morbidly obese, with a BMI 57, 73-year-old female who otherwise is in no acute distress. Patient is tender to palpation in the posterior occiput, lumbar spinal musculature, dorsal spine is nontender to palpation and no bony deformity noted, pelvis is stable but tender to compression, lower extremity long bones are intact with no deformity but she does have bilateral lower extremity tenderness to palpation of the soft tissues however patient reports this is chronic. The remainder of the patient's physical exam reveals no other trauma and no other focal findings. Differential diagnosis includes intracranial hemorrhage versus bony fracture of the skull spine or pelvis etc. Initial workup will be conducted with twelve-lead EKG, plain film imaging and CT imaging and hematologic labs. Initial interventions include Tylenol and Toradol. Initial workup reviewed by me significant for labs that show bilirubin of 3.8, urinary tract infection and my informal interpretation of her plain film x-rays and CT scan shows no acute bony fracture or other acute process.. Upon repeat evaluation patient has full range of motion although she is very tender from landing on her back. Via shared decision making I discussed with the patient whether she had the support she would need at home and if she felt like she was safe enough to go home. Patient verbalized that she was and did have the support that she needed. Given this patient is appropriate for discharge home with close follow-up with her PCP for recheck of her bilirubin. I have sent in a prescription for nitrofurantoin for her urinary tract infection. Patient to take Tylenol or Motrin alternating every 4 hours for her constitutional symptoms. Patient to return to ER for any change in mental status headache change in level of consciousness. Patient verbalized understanding and agreement. EKG independently interpreted and demonstrated low voltage QRS A-fib [address] or T wave changes concerning for acute ischemia. QR mass and QT intervals within normal limits leftward axis. I was consulted by the LUCIANA, and we discussed the complexity of the problems being addressed. I approved the treatment and management plan for this patient?s care in the Emergency Department, thus performing a substantive portion of the medical decision making. Xavi Vang DO <Jonathan Beasley MD - Last Filed: 10/21/23 15:39> Vital Signs: 10/21/23 14:29 10/21/23 14:45 10/21/23 15:30 Temperature 98.0 F Temperature Source Oral Pulse Rate 81 92 H Pulse Rate [Radial] 86 Respiratory Rate 16 Blood Pressure 130/107 H Blood Pressure [Right Arm] 110/60 Blood Pressure Mean 113 Blood Pressure Mean [Right Arm] 76 Blood Pressure Source [Right Arm] Automatic Cuff Blood Pressure Position [Right Arm] Supine 02 Sat by Pulse Oximetry 98 100 100 Oxygen Delivery Method Room Air 10/21/23 16:00 10/21/23 16:30 10/21/23 17:00 Temperature Temperature Source Pulse Rate 79 79 71 Pulse Rate [Radial] Respiratory Rate Blood Pressure 153/90 H 144/93 H 145/80 H Blood Pressure [Right Arm] Blood Pressure Mean Blood Pressure Mean [Right Arm] Blood Pressure Source [Right Arm] Blood Pressure Position [Right Arm] 02 Sat by Pulse Oximetry 100 100 100 Oxygen Delivery Method Room Air Room Air Room Air 10/21/23 17:39 Temperature 98.4 F Temperature Source Pulse Rate 70 Pulse Rate [Radial] Respiratory Rate 16 Blood Pressure 145/80 H Blood Pressure [Right Arm] Blood Pressure Mean Blood Pressure Mean [Right Arm] Blood Pressure Source [Right Arm] Blood Pressure Position [Right Arm] 02 Sat by Pulse Oximetry Oxygen Delivery Method Room Air Lab Data Lab Results 10/21/23 14:50: WBC 4.5 L, RBC 4.94, Hgb 15.8, Hct 48.5 H, MCV 98.1, MCH 32.0 H, MCHC 32.6, RDW 14.1, Plt Count 145, MPV 8.4, Neut % (Auto) 63.0, Lymph % (Auto) 25.8, [place] % (Auto) 7.7, Eos % (Auto) 2.1, Baso % (Auto) 1.4, Neut # (Auto) 2.8, Lymph # (Auto) 1.2, [place] # (Auto) 0.3, Eos # (Auto) 0.1, Baso # (Auto) 0.1, PT 12.6 H, INR 1.18 H, APTT 25.6, Sodium 138, Potassium 3.9, Chloride 106, Carbon Dioxide 28, Anion Gap 7.9, BUN 15, Creatinine 0.90, Estimated Creat Clear 48, Estimated GFR 61, Est GFR ( Amer) 74, Glucose 133 H, Calcium 9.2, Magnesium 2.1, Total Bilirubin 3.8 H, AST 44 H, ALT 27, Alkaline Phosphatase 147 H, Troponin I < 0.01, Total Protein 6.2 L, Albumin 3.5, Globulin 2.7, Albumin/Globulin Ratio 1.3 10/21/23 15:53: Urine Color Yellow, Urine Appearance Clear, Urine pH 6.5, Ur Specific [place] 1.020, Urine Protein Negative, Urine Glucose (UA) Negative, Urine Ketones Negative, Urine Blood 1+, Urine Nitrate Positive, Urine Bilirubin Negative, Urine Urobilinogen 2.0, Ur Leukocyte Esterase 2+ A, Urine RBC 3-5, Urine WBC 3-5, Ur Squamous Epith Cells Occasional, Urine Bacteria 4+ Orders (Tests/Meds): ED MEDICATIONS Discontinued Medications Generic Name Dose Route Start Last Admin Trade Name Freq PRN Reason Stop Dose Admin Acetaminophen 1,000 mg 10/21/23 14:35 10/21/23 15:02 Acetaminophen 1,000mg/100ml Vial IV 10/21/23 14:36 1,000 mg ONCE ONE Administration Ketorolac Tromethamine 15 mg 10/21/23 14:35 10/21/23 15:02 Ketorolac 30mg/Ml Vial IV 10/21/23 14:36 15 mg ONCE ONE Administration Sodium Chloride 10 ml 10/21/23 14:35 Sodium Chloride 0.9% 10ml Flush Syringe IV 11/20/23 14:34 NEEDED PRN Maintain IV Site ORDERS Category Date Time Status CT bony pelvis Stat Cat Scan 10/21/23 14:[address] cervical spine wo con Stat Cat Scan 10/21/23 14:[address] head/brain wo con Stat Cat Scan 10/21/23 14:[address] lumbar spine wo con Stat Cat Scan 10/21/23 14:[address] thoracic spine wo con Stat Cat Scan 10/21/23 14:37 Completed XR chest portable Stat Exams 10/21/23 14:36 Completed XR pelvis 1-2V Stat Exams 10/21/23 14:36 Completed Activated Partial Thrombo Time Stat Lab 10/21/23 14:50 Completed CBC w/Auto Diff [Complete Blood Count Auto Diff] Stat Lab 10/21/23 14:50 Completed CMP [Comprehensive Metabolic Panel] Stat Lab 10/21/23 14:50 Completed INR [Prothrombin Time INR] Stat Lab 10/21/23 14:50 Completed Magnesium Stat Lab 10/21/23 14:50 Completed Trop I [Troponin I] Stat Lab 10/21/23 14:50 Completed UA [Urinalysis and Microscopic] Stat Lab 10/21/23 15:53 Completed Urine Culture Stat Micro 10/21/23 15:53 Received Medical Decision Narrative: In summary patient is a [age, sex] who presents to the emergency department for evaluation of [complaint]. Patient is [hemodynamically stable/unstable] upon arrival, [febrile/afebrile]. [Unremarkable physical exam, nonfocal exam versus focal remarkable exam]. Differential diagnosis includes [DDx]. Initial workup will be conducted with [hematologic labs, imaging, respiratory swab, describe workup]. Initial interventions include [crystalloid bolus, medications, p.o. challenge, etc.] initial workup reviewed by me [hematologic labs are remarkable for... Imaging remarkable for... Urinalysis remarkable for]. Upon repeat evaluation [patient had acceptable resolution of symptoms, had persistent pain for which additional interventions were conducted (describe interventions), tolerated p.o., was ambulatory, etc.]. Given this [patient is appropriate for discharge at this time and will be discharged with a prescription for... The case was discussed with hospital medicine regarding management and they will admit the patient their service for continued evaluation at this time... Etc.] Places where you can increase complexity: I informally interpreted the patient's chest x-ray or CT read and is remarkable for... Documenting what the monitoring engineer shows with rate and rhythm Consideration of test but deferring. Ex: I considered chest x-ray on this patient however given that they have no oxygen requirement and are clear to auscultation all lung alexander will be deferred. Social determinants of health: Given that patient is undomiciled increases complexity. Given that patient has polysubstance abuse compounds all aspects of care EKG independently interpreted and demonstrated low voltage QRS A-fib [address] or T wave changes concerning for acute ischemia. QR mass and QT intervals within normal limits leftward axis. I was consulted by the LUCIANA, and we discussed the complexity of the problems being addressed. I approved the treatment and management plan for this patient?s care in the Emergency Department, thus performing a substantive portion of the medical decision making. Xavi Vang MD <Xavi Vang, DO - Last Filed: 10/22/23 15:39> Vital Signs: 10/21/23 14:29 10/21/23 14:45 10/21/23 15:30 Temperature 98.0 F Temperature Source Oral Pulse Rate 81 92 H Pulse Rate [Radial] 86 Respiratory Rate 16 Blood Pressure 130/107 H Blood Pressure [Right Arm] 110/60 Blood Pressure Mean 113 Blood Pressure Mean [Right Arm] 76 Blood Pressure Source [Right Arm] Automatic Cuff Blood Pressure Position [Right Arm] Supine 02 Sat by Pulse Oximetry 98 100 100 Oxygen Delivery Method Room Air 10/21/23 16:00 10/21/23 16:30 10/21/23 17:00 Temperature Temperature Source Pulse Rate 79 79 71 Pulse Rate [Radial] Respiratory Rate Blood Pressure 153/90 H 144/93 H 145/80 H Blood Pressure [Right Arm] Blood Pressure Mean Blood Pressure Mean [Right Arm] Blood Pressure Source [Right Arm] Blood Pressure Position [Right Arm] 02 Sat by Pulse Oximetry 100 100 100 Oxygen Delivery Method Room Air Room Air Room Air 10/21/23 17:39 Temperature 98.4 F Temperature Source Pulse Rate 70 Pulse Rate [Radial] Respiratory Rate 16 Blood Pressure 145/80 H Blood Pressure [Right Arm] Blood Pressure Mean Blood Pressure Mean [Right Arm] Blood Pressure Source [Right Arm] Blood Pressure Position [Right Arm] 02 Sat by Pulse Oximetry Oxygen Delivery Method Room Air Lab Data Lab Results 10/21/23 14:50: WBC 4.5 L, RBC 4.94, Hgb 15.8, Hct 48.5 H, MCV 98.1, MCH 32.0 H, MCHC 32.6, RDW 14.1, Plt Count 145, MPV 8.4, Neut % (Auto) 63.0, Lymph % (Auto) 25.8, [place] % (Auto) 7.7, Eos % (Auto) 2.1, Baso % (Auto) 1.4, Neut # (Auto) 2.8, Lymph # (Auto) 1.2, [place] # (Auto) 0.3, Eos # (Auto) 0.1, Baso # (Auto) 0.1, PT 12.6 H, INR 1.18 H, APTT 25.6, Sodium 138, Potassium 3.9, Chloride 106, Carbon Dioxide 28, Anion Gap 7.9, BUN 15, Creatinine 0.90, Estimated Creat Clear 48, Estimated GFR 61, Est GFR ( Amer) 74, Glucose 133 H, Calcium 9.2, Magnesium 2.1, Total Bilirubin 3.8 H, AST 44 H, ALT 27, Alkaline Phosphatase 147 H, Troponin I < 0.01, Total Protein 6.2 L, Albumin 3.5, Globulin 2.7, Albumin/Globulin Ratio 1.3 10/21/23 15:53: Urine Color Yellow, Urine Appearance Clear, Urine pH 6.5, Ur Specific [place] 1.020, Urine Protein Negative, Urine Glucose (UA) Negative, Urine Ketones Negative, Urine Blood 1+, Urine Nitrate Positive, Urine Bilirubin Negative, Urine Urobilinogen 2.0, Ur Leukocyte Esterase 2+ A, Urine RBC 3-5, Urine WBC 3-5, Ur Squamous Epith Cells Occasional, Urine Bacteria 4+ Orders (Tests/Meds): ED MEDICATIONS Discontinued Medications Generic Name Dose Route Start Last Admin Trade Name Freq PRN Reason Stop Dose Admin Acetaminophen 1,000 mg 10/21/23 14:35 10/21/23 15:02 Acetaminophen 1,000mg/100ml Vial IV 10/21/23 14:36 1,000 mg ONCE ONE Administration Ketorolac Tromethamine 15 mg 10/21/23 14:35 10/21/23 15:02 Ketorolac 30mg/Ml Vial IV 10/21/23 14:36 15 mg ONCE ONE Administration Sodium Chloride 10 ml 10/21/23 14:35 Sodium Chloride 0.9% 10ml Flush Syringe IV 11/20/23 14:34 NEEDED PRN Maintain IV Site ORDERS Category Date Time Status CT bony pelvis Stat Cat Scan 10/21/23 14:[address] cervical spine wo con Stat Cat Scan 10/21/23 14:[address] head/brain wo con Stat Cat Scan 10/21/23 14:[address] lumbar spine wo con Stat Cat Scan 10/21/23 14:[address] thoracic spine wo con Stat Cat Scan 10/21/23 14:37 Completed XR chest portable Stat Exams 10/21/23 14:36 Completed XR pelvis 1-2V Stat Exams 10/21/23 14:36 Completed Activated Partial Thrombo Time Stat Lab 10/21/23 14:50 Completed CBC w/Auto Diff [Complete Blood Count Auto Diff] Stat Lab 10/21/23 14:50 Completed CMP [Comprehensive Metabolic Panel] Stat Lab 10/21/23 14:50 Completed INR [Prothrombin Time INR] Stat Lab 10/21/23 14:50 Completed Magnesium Stat Lab 10/21/23 14:50 Completed Trop I [Troponin I] Stat Lab 10/21/23 14:50 Completed UA [Urinalysis and Microscopic] Stat Lab 10/21/23 15:53 Completed Urine Culture Stat Micro 10/21/23 15:53 Received Medical Decision Narrative: In summary patient is a [age, sex] who presents to the emergency department for evaluation of [complaint]. Patient is [hemodynamically stable/unstable] upon arrival, [febrile/afebrile]. [Unremarkable physical exam, nonfocal exam versus focal remarkable exam]. Differential diagnosis includes [DDx]. Initial workup will be conducted with [hematologic labs, imaging, respiratory swab, describe workup]. Initial interventions include [crystalloid bolus, medications, p.o. challenge, etc.] initial workup reviewed by me [hematologic labs are remarkable for... Imaging remarkable for... Urinalysis remarkable for]. Upon repeat evaluation [patient had acceptable resolution of symptoms, had persistent pain for which additional interventions were conducted (describe interventions), tolerated p.o., was ambulatory, etc.]. Given this [patient is appropriate for discharge at this time and will be discharged with a prescription for... The case was discussed with hospital medicine regarding management and they will admit the patient their service for continued evaluation at this time... Etc.] Places where you can increase complexity: I informally interpreted the patient's chest x-ray or CT read and is remarkable for... Documenting what the monitoring engineer shows with rate and rhythm Consideration of test but deferring. Ex: I considered chest x-ray on this patient however given that they have no oxygen requirement and are clear to auscultation all lung alexander will be deferred. Social determinants of health: Given that patient is undomiciled increases complexity. Given that patient has polysubstance abuse compounds all aspects of care EKG independently interpreted and demonstrated low voltage QRS A-fib [address] or T wave changes concerning for acute ischemia. QR mass and QT intervals within normal limits leftward axis. I was consulted by the LUCIANA, and we discussed the complexity of the problems being addressed. I approved the treatment and management plan for this patient?s care in the Emergency Department, thus performing a substantive portion of the medical decision making. Xavi Vang, DO Critical Care <SHEELA Sanchez - Last Filed: 10/21/23 16:55> Critical Care Time Critical Care Time: Yes Attestation: On 10/21/23, the high probability of a clinically significant, sudden or life threatening deterioration of the following system(s) required my full and direct attention, intervention and personal management. The time I documented below is in addition to time spent performing reported procedures but includes the following listed in this critical care notation. Total Time Total Critical Care Time: 30
--- NOTE | 2023-10-21 14:36 | XR_ITS ---
FINAL REPORT CLINICAL HISTORY: Fall COMPARISON: None FINDINGS: SINGLE VIEW PELVIS: A single view of the pelvis was obtained. Suboptimal radiograph. There is no definite acute fracture or dislocation. There is degenerative change of the spine and hips. Soft tissues are unremarkable. IMPRESSION: No definite acute bony abnormality. If pain persist or is severe, CT may be helpful. Reviewed, Interpreted and Dictated by Lionel Judd III, MD Transcribed by Gwen Weinberg Authenticated and [facility]
--- NOTE | 2023-10-21 14:36 | XR_ITS ---
FINAL REPORT CLINICAL HISTORY: Fall COMPARISON: None FINDINGS: A single portable view of the chest was obtained. Cardiomegaly is noted. Pulmonary vascularity is within normal limits. The mediastinum is within normal limits. There is mild linear atelectasis or scar at the left lung base. There is postoperative change in the right chest wall. There is degenerative change of the right shoulder. IMPRESSION: Mild linear atelectasis or scar left lung base. No acute cardiopulmonary process. Reviewed, Interpreted and Dictated by Lionel Judd III, MD Transcribed by Gwen Weinberg Authenticated and [facility][1]
--- NOTE | 2023-10-21 14:37 | CT_ITS ---
PROCEDURE INFORMATION: Exam: CT Pelvis Without Contrast; Skeletal Exam date and time: 10/21/2023 3:14 PM Age: 73 years old Clinical indication: Injury or trauma; Fall; Additional info: Trauma, critical injury suspected TECHNIQUE: Imaging protocol: Computed tomography of the pelvis without contrast. Exam focused on the skeleton. Radiation optimization: All CT scans at this facility use at least one of these dose optimization techniques: automated exposure control; mA and/or kV adjustment per patient size (includes targeted exams where dose is matched to clinical indication); or iterative reconstruction. COMPARISON: CR XR PELVIS 1-2V 10/21/2023 2:54 PM FINDINGS: Reproductive: Hysterectomy. Vasculature: Atherosclerosis. Bones/joints: Osteopenia. Mild osteoarthritis and moderate spondylosis. Chronic ossifications adjacent to both greater trochanters. No acute fracture or subluxation. If there is continued unexplained symptomatology consider MRI to assess for stress response. Soft tissues: Small midline ventral hernias containing fat. IMPRESSION: No acute fracture or subluxation. If there is continued unexplained symptomatology consider MRI to assess for stress response.
--- NOTE | 2023-10-21 14:37 | CT_ITS ---
PROCEDURE INFORMATION: Exam: CT Lumbar Spine Without Contrast Exam date and time: 10/21/2023 3:12 PM Age: 73 years old Clinical indication: Injury or trauma; Fall; Additional info: Trauma, critical injury suspected TECHNIQUE: Imaging protocol: Computed tomography of the lumbar spine without contrast. Radiation optimization: All CT scans at this facility use at least one of these dose optimization techniques: automated exposure control; mA and/or kV adjustment per patient size (includes targeted exams where dose is matched to clinical indication); or iterative reconstruction. COMPARISON: CR XR LUMBAR SPINE 2-3V 11/17/2021 11:07 AM FINDINGS: Bones/joints: Osteopenia. No lumbar fracture or subluxation. Moderate facet arthropathy and spondylosis. No CT evidence of critical central canal stenosis. Soft tissues: Duodenal diverticulum. Calcified 12 mm splenic artery aneurysm. IMPRESSION: No lumbar fracture or subluxation.
--- NOTE | 2023-10-21 14:37 | CT_ITS ---
PROCEDURE INFORMATION: Exam: CT Head Without Contrast Exam date and time: 10/21/2023 3:04 PM Age: 73 years old Clinical indication: Injury or trauma; Fall; Additional info: Trauma, critical injury suspected TECHNIQUE: Imaging protocol: Computed tomography of the head without contrast. Radiation optimization: All CT scans at this facility use at least one of these dose optimization techniques: automated exposure control; mA and/or kV adjustment per patient size (includes targeted exams where dose is matched to clinical indication); or iterative reconstruction. COMPARISON: CT HEAD/BRAIN WO CON 09/02/2023 2:28 PM FINDINGS: Limitations: The study is mildly limited due to patient motion artifact. Brain: There is no acute intracranial hemorrhage, cerebral edema, or midline shift. Chronic microvascular ischemic changes are seen in the periventricular white matter. Age-related cerebral and cerebellar volume loss is present. Cerebral ventricles: No hydrocephalus. Paranasal sinuses: There is no acute sinusitis. A tiny mucous retention cyst is present in the right maxillary sinus. Mastoid air cells: The mastoid air cells are clear. Orbital cavities: The included orbital structures are unremarkable. Bones/joints: No acute fracture. Soft tissues: A right parietal scalp hematoma is noted. Vasculature: Atherosclerotic calcifications are seen involving the cavernous carotid arteries. IMPRESSION: 1. No acute intracranial abnormality. 2. Atrophy and chronic deep white matter ischemic changes.
--- NOTE | 2023-10-21 14:37 | CT_ITS ---
PROCEDURE INFORMATION: Exam: CT Cervical Spine Without Contrast Exam date and time: 10/21/2023 3:07 PM Age: 73 years old Clinical indication: Injury or trauma; Fall; Additional info: Trauma, critical injury suspected TECHNIQUE: Imaging protocol: Computed tomography of the cervical spine without contrast. Radiation optimization: All CT scans at this facility use at least one of these dose optimization techniques: automated exposure control; mA and/or kV adjustment per patient size (includes targeted exams where dose is matched to clinical indication); or iterative reconstruction. COMPARISON: CT CERVICAL SPINE WO CON 09/02/2023 2:28 PM FINDINGS: Bones/joints: No acute cervical spine fracture is identified. There is mild reversal of the normal cervical lordosis. Moderate degenerative changes of the cervical spine are present. 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 This is causing moderate/severe spinal canal stenosis at this level. Lungs: The lung apices are clear. Soft tissues: Unremarkable. IMPRESSION: 1. No acute abnormality. 2. Chronic findings as discussed above.
--- NOTE | 2023-10-21 14:37 | CT_ITS ---
PROCEDURE INFORMATION: Exam: CT Thoracic Spine Without Contrast Exam date and time: 10/21/2023 3:09 PM Age: 73 years old Clinical indication: Injury or trauma; Fall; Additional info: Trauma, critical injury suspected TECHNIQUE: Imaging protocol: Computed tomography of the thoracic spine without contrast. Radiation optimization: All CT scans at this facility use at least one of these dose optimization techniques: automated exposure control; mA and/or kV adjustment per patient size (includes targeted exams where dose is matched to clinical indication); or iterative reconstruction. COMPARISON: CT CERVICAL SPINE WO CON 10/21/2023 3:07 PM FINDINGS: Bones/joints: No thoracic fracture or subluxation. Limited degenerative change thoracic spine with primarily anterior osteophytosis. No critical stenosis. Soft tissues: Unremarkable. Vasculature: Heavily calcified 12 mm splenic artery aneurysm. IMPRESSION: No thoracic fracture or subluxation.
--- NOTE | 2023-10-21 14:50 | ECG_ITS ---
APPROVED REPORT Exam: Resting ECG HR:84 bpm ECG Measurements Heart Rate 84 AXES QRSd 86 QRS -45 QT 369 T 54 QTc 410 Conclusion ATRIAL FIBRILLATION POSSIBLE ANTERIOR MYOCARDIAL INFARCTION , PROBABLY OLD [30 ms Q WAVE IN V3/V4, OR R < 0.2 mV IN V4] INFERIOR MYOCARDIAL INFARCTION , PROBABLY OLD [40+ ms Q WAVE AND/OR ST/T ABNORMALITY IN II/aVF] ABNORMAL ECG UNCONFIRMED REPORT Electronically signed by : SANDER CARRERA, 10/21/2023 23:48:27
--- NOTE | 2023-10-21 14:58 | PC.NURSE ---
pt gone to ct scan
[2023-10-21] MEDS: KETOROLAC 30MG/ML VIAL 15 MG IV (15:02)
[2023-10-21] MEDS: ACETAMINOPHEN 1,000MG/100ML VIAL 1000 MG IV (15:02)
[2023-10-21 15:10] LABS: Chloride 106 mmol/L (98-107); Potassium 3.9 mmoL/L (3.5-5.1); Sodium 138 mmol/L (136-145)
[2023-10-21 15:12] LABS: Blood Urea Nitrogen 15 mg/dl (7-17)
[2023-10-21 15:13] LABS: Alanine Aminotransferase 27 U/L (12-78); Albumin Level 3.5 g/dl (3.5-5.0); Albumin/Globulin Ratio 1.3 (1.1-1.8); Alkaline Phosphatase 147 U/L (38-126); Anion Gap 7.9 mEq/L (5-15); Aspartate Amino Transferase 44 U/L (14-36); Bilirubin,Total 3.8 mg/dl (0.2-1.3); Calcium 9.2 mg/dl (8.4-10.2); Carbon Dioxide 28 mmol/L (22.0-30.0); Creatinine Clearance Estimated 48 mL/min (50-200); Estimated Glomerular Filt Rate 61 ml/min (>60); GFR (African American) 74 ML/MIN (>60); Globulin 2.7 g/dL (1.3-3.2); Glucose 133 mg/dl (74-100); Total Protein,Serum 6.2 g/dl (6.3-8.2)
--- NOTE | 2023-10-21 15:13 | PC.NURSE ---
pt arrived back to room from ct
[2023-10-21 15:14] LABS: Basophils # 0.1 K/mm3 (0-0.2); Basophils % 1.4 % (0.1-2.0); Eosinophils # 0.1 K/mm3 (0.0-0.4); Eosinophils % 2.1 % (0.1-12.0); Hematocrit 48.5 % (37.0-47.0); Hemoglobin 15.8 g/dL (12.2-16.2); Lymphocytes # 1.2 K/mm3 (0.7-4.5); Lymphocytes % 25.8 % (10-50); Mean Corpuscular HGB Conc 32.6 g/dL (31.8-35.4); Mean Corpuscular Volume 98.1 fl (81-99); Mean Platelet Volume 8.4 fl (7.4-10.4); Monocytes # 0.3 K/mm3 (0.1-1.0); Monocytes % 7.7 % (1.7-9.3); Neutrophils # 2.8 K/mm3 (1.8-7.8); Platelet Count 145 K/mm3 (142-424); Red Blood Count 4.94 M/mm3 (4.20-5.40); Red Cell Distribution Width 14.1 % (11.5-17.5); White Blood Count 4.5 K/mm3 (4.8-10.8)
[2023-10-21 15:16] LABS: Activated Partial Thrombo Time 25.6 seconds (22.8-30.6); INR 1.18 (0.9-1.1); Prothrombin Time 12.6 seconds (10.1-12.5)
[2023-10-21 15:22] LABS: Magnesium 2.1 mg/dl (1.6-2.3)
--- NOTE | 2023-10-21 15:24 | PC.NURSE ---
Rounded on patient no needs at this time.
[2023-10-21 15:34] LABS: Troponin I < 0.01 ng/ml (0.00-0.034)
[2023-10-21 15:57] LABS: Microscopic, Urine URINE MICROSCOPIC (MICROSCOPIC)
[2023-10-21 16:00] LABS: Appearance,Urine CLEAR (Clear); Bilirubin,Urine Negative (Negative); Blood, Urine 1+ (Negative); Color,Urine YELLOW (Yellow); Glucose,Urine (UA) Negative (Negative); Ketones,Urine Negative (Negative); Leukocyte Esterase,Urine 2+ (Negative); Nitrate,Urine POSITIVE (Negative); PH,Urine 6.5 (5.0-8.5); Protein,Urine Negative (Negative)
--- NOTE | 2023-10-21 16:09 | PC.NURSE ---
Rounded on pt to see if they had any needs. No needs at this time.
[2023-10-21 16:40] LABS: Bacteria,Urine 4+ /lpf; Squamous Epithelial Cell,Urine Occasional #/hpf (0-5)
--- NOTE | 2023-10-26 07:55 | PC.NURSE ---
Reviewed urine culture results with , pt dc with nitrofurantoin, NTD
== END 2023-10-21 17:42 | disposition home or self-care (01) ==
PROVIDERS: Physician Assistant; Emergency Provider Emergency Medicine; PCP Internal Medicine
DX: S09.90XA Unspecified injury of head, initial encounter (principal); N39.0 Urinary tract infection, site not specified; R51.9 Headache, unspecified; M54.50 Low back pain, unspecified; E80.6 Other disorders of bilirubin metabolism; W19.XXXA Unspecified fall, initial encounter; I48.91 Unspecified atrial fibrillation; I20.9 Angina pectoris, unspecified; I10 Essential (primary) hypertension; E78.5 Hyperlipidemia, unspecified; E07.9 Disorder of thyroid, unspecified; Z85.3 Personal history of malignant neoplasm of breast; Z79.01 Long term (current) use of anticoagulants
CPT/HCPCS: 70450; 71045; 72125; 72128; 72131; 72170; 72192; 80053; 81001; 83735; 84484; 85025; 85610; 85730; 87086; 93005; 96374; 96375; 99285; J0131

== ENCOUNTER 2023-11-03 15:43 | Observation (INO) | payer MEDICARE, SELFPAY ==
[2023-11-03] VITALS (11 sets, daily range): BP systolic 100–174; BP diastolic 45–85; PULSE 1–92; RESP 16–18; TEMP 36.3–37.4; O2SAT 96–98; BMI 56.8; BMI 54.4
--- NOTE | 2023-11-03 15:51 | PC.NURSE ---
I called the pts daughter, Armida to notify of the pts arrival.
--- NOTE | 2023-11-03 16:11 | ED_ITS ---
Discharge Plan Disposition Patient Disposition: Admitted Condition: Fair Clinical Impressions Clinical Impression: Multiple falls, Adult failure to thrive Discharge ED Provider: Sergey Bravo General Adult HPI <SHEELA Sanchez - Last Filed: 11/03/23 23:06> General Chief complaint: Fall Stated complaint: Fall Time Seen by Provider: 11/03/23 16:10 Mode of Arrival: EMS Source of Information: Patient Limitations: No Limitations Description of Symptoms (Recalled from ER Triage Doc. by RN): pt states her foot came out from under her when she was walking out of the bathroom. pt states her R shoulder is hurting slightly more than her baseline pain. pt denies LOC. History of Present Illness HPI narrative: Presents after a ground-level fall at her home. Patient has dropfoot of the right foot and frequently has falls. I last evaluated her on 10/22/2023 for similar complaints. At that time she suffered no acute bony injury and had multiple contusions. Patient again had a tripping episode with her right foot this time she landed face forward slightly on her right side. She cannot arise from from the floor. Patient did not lose consciousness or suffer head trauma. On arrival patient complains of neck pain right hip pain right knee pain but denies chest pain loss of consciousness fever chills hemoptysis hematochezia melena nausea vomit diarrhea. Related Data Home Medications Medication Instructions Recorded Confirmed acetaminophen 500 mg tablet 500 mg PO Q8 PRN Pain 11/28/20 11/03/23 doxepin 10 mg capsule 10 mg PO TID PRN Anxiety 06/18/21 09/30/23 exemestane 25 mg tablet 25 mg PO DAILY 02/18/22 11/03/23 meclizine 12.5 mg tablet 12.5 mg PO BID PRN 03/14/23 09/30/23 triamcinolone acetonide 0.1 % 1 applic topical DAILY 03/14/23 09/30/23 topical cream omeprazole 20 mg capsule,delayed 20 mg PO DAILY 09/30/23 11/03/23 release cholecalciferol (vitamin D3) 125 125 mcg PO DAILY 11/03/23 11/03/23 mcg (5,000 unit) tablet (Vitamin D3) metoprolol succinate 25 mg 25 mg PO DAILY 11/03/23 11/03/23 tablet,extended release 24 hr oxybutynin chloride 5 mg tablet 5 mg PO TID BLADDER 11/03/23 11/03/23 Previous Rx's Medication Instructions Recorded bumetanide 1 mg tablet 1 mg PO DAILY #90 tabs 03/14/23 atorvastatin 20 mg tablet 20 mg PO DAILY #90 tabs 07/23/23 duloxetine 30 mg capsule,delayed 30 mg PO DAILY Depression #90 caps 07/23/23 release levothyroxine 75 mcg tablet 75 mcg PO DAILY THYROID #90 tabs 07/23/23 pantoprazole 40 mg tablet,delayed 40 mg PO DAILY #90 tabs 07/23/23 release potassium chloride 20 mEq 20 meq PO DAILY #90 tabs 07/23/23 tablet,extended release(part/cryst) apixaban 5 mg tablet (Eliquis) 5 mg PO BID #60 tabs 10/17/23 oxycodone 5 mg tablet 5 mg PO .q6 prn PRN pain 1 day #3 10/21/23 tabs Allergies Allergy/AdvReac Type Severity Reaction Status Date / Time cephalexin [From KEFLEX] Allergy Intermediate I-RASH Verified 11/03/23 16:05 Sulfa (Sulfonamide Allergy Intermediate I-RASH Verified 11/03/23 16:05 Antibiotics) [SULFA (SULFONAMIDE ANTIBIOTICS)] doxycycline [DOXYCYCLINE] Allergy Unknown NA-NAUSEA Verified 11/03/23 16:05 Penicillins [PENICILLINS] Allergy Unknown LOCAL Verified 11/03/23 16:05 REACTION AT INJECTION SITE [facility] <SHEELA Sanchez - Last Filed: 11/03/23 23:06> [facility] Disclaimer: The information contained in this section may have been updated after the patient was seen, as this information can be updated by other users. Medical History Metabolic syndrome Thyroid disease Urinary tract infection History of gastroesophageal reflux (GERD) Hyperlipidemia Atrial fibrillation Morbid obesity Atypical angina Breast cancer Edema HTN (hypertension) Elevated coronary artery calcium score Abnormal EKG Preoperative clearance Dyspnea Surgical History History of colonoscopy History of mastectomy History of knee surgery Family History Father Heart attack Social History (Updated 11/03/23 @ 21:52 by Sofia Nichols RN) Smoking Status: Never smoker second hand exposure: No alcohol intake: never current occupational status: disabled Travel in the last 8 weeks: None household members: spouse and children housing: house <SHEELA Sanchez - Last Filed: 11/03/23 23:06> ROS Obtained: Yes Systems reviewed as appropriate & no additional complaints except as documented Physical Exam <SHEELA Sanchez - Last Filed: 11/03/23 23:06> General General appearance: alert, in no apparent distress and other (Morbidly obese with a BMI of 57) Head Head exam: atraumatic and normal inspection Eye Eye exam: Present normal appearance, PERRL and EOMI ENT ENT exam: Present normal exam, normal oropharynx and mucous membranes moist Neck Neck exam: Present normal inspection, full ROM, trachea midline and tenderness (Has posterior cervical tenderness without any bony deformity contusions edema erythema.); Absent lymphadenopathy Chest Chest inspection: Present normal inspection and symmetric chest wall rise; Absent tenderness Respiratory Respiratory exam: Present normal lung sounds bilaterally; Absent respiratory distress Cardiovascular Cardiovascular exam: Present regular rate, normal rhythm and normal heart sounds; Absent +S1 or +S2 Abdominal Exam Abdominal exam: Present soft (Morbidly obese) and normal bowel sounds (Distant but normal); Absent tenderness, guarding or rebound Extremities Exam Extremities exam: Present normal inspection; Absent full ROM or tenderness (Has tenderness of both lower extremities to palpation however body habitus prevents true assessment of bony deformity on palpation.) Back Exam Back exam: Present normal inspection Neurological Exam Neurological exam: Present alert, oriented X3 and CN II-XII intact Psychiatric Psychiatric exam: Present normal affect and normal mood Skin Skin exam: Present warm, dry and normal color Lymphatic Lymphatic Findings: no adenopathy Medical Decision Making <SHEELA Sanchez - Last Filed: 11/03/23 23:06> Medical Records Medical records reviewed: Yes I reviewed the patient's medical records. Richard Inquiry Pt receiving controlled substance: No Vital Signs: 11/03/23 15:45 11/03/23 15:58 11/03/23 16:00 Temperature 99.4 F Temperature Source Oral Pulse Rate 91 H 92 H Pulse Rate [Left] 64 Respiratory Rate 16 Blood Pressure 111/45 L 114/85 Blood Pressure [Right Arm] 111/45 L Blood Pressure Mean Blood Pressure Mean [Right Arm] 67 Blood Pressure Source [Right Arm] 02 Sat by Pulse Oximetry 96 96 96 Oxygen Delivery Method Room Air Room Air Room Air 11/03/23 16:31 11/03/23 17:19 11/03/23 18:12 Temperature Temperature Source Pulse Rate 81 79 84 Pulse Rate [Left] Respiratory Rate Blood Pressure 174/83 H 116/63 100/60 L Blood Pressure [Right Arm] Blood Pressure Mean Blood Pressure Mean [Right Arm] Blood Pressure Source [Right Arm] 02 Sat by Pulse Oximetry 96 96 97 Oxygen Delivery Method Room Air Room Air Room Air 11/03/23 18:31 11/03/23 19:00 11/03/23 19:30 Temperature Temperature Source Pulse Rate 83 67 80 Pulse Rate [Left] Respiratory Rate 18 18 Blood Pressure 134/64 133/54 L 134/63 Blood Pressure [Right Arm] Blood Pressure Mean 80 Blood Pressure Mean [Right Arm] Blood Pressure Source [Right Arm] 02 Sat by Pulse Oximetry 96 97 98 Oxygen Delivery Method Room Air Room Air Room Air 11/03/23 20:50 Temperature 97.4 F L Temperature Source Oral Pulse Rate Pulse Rate [Left] 73 Respiratory Rate 17 Blood Pressure Blood Pressure [Right Arm] 121/68 Blood Pressure Mean Blood Pressure Mean [Right Arm] 85 Blood Pressure Source [Right Arm] Automatic Cuff 02 Sat by Pulse Oximetry 98 Oxygen Delivery Method Lab Data Lab results reviewed: Yes I reviewed the patient's lab results. Lab Results 11/03/23 17:00: WBC 10.2, RBC 4.65, Hgb 15.0, Hct 44.5, MCV 95.7, MCH 32.2 H, MCHC 33.7, RDW 14.1, Plt Count 147, MPV 8.2, Neut % (Auto) 87.9 H, Lymph % (Auto) 5.3 L, Cuming % (Auto) 5.0, Eos % (Auto) 1.0, Baso % (Auto) 0.7, Neut # (Auto) 9.0 H, Lymph # (Auto) 0.6 L, Cuming # (Auto) 0.5, Eos # (Auto) 0.1, Baso # (Auto) 0.1, Total Counted 100, Neutrophils % (Manual) 87 H, Band Neutrophils % 1.0, Lymphocytes % (Manual) 11, Monocytes % (Manual) 1 L, Platelet Estimate Slight decrease, RBC Morphology Normal, Sodium 136, Potassium 4.0, Chloride 105, Carbon Dioxide 26, Anion Gap 9.0, BUN 17, Creatinine 0.80, Estimated Creat Clear 48, Estimated GFR 70, Est GFR ( Amer) 85, Glucose 136 H, Calcium 9.3 11/03/23 17:00 11/03/23 17:00 Orders (Tests/Meds): ED MEDICATIONS Generic Name Dose Route Start Last Admin Trade Name Deniz PRN Reason Stop Dose Admin Acetaminophen 650 mg 11/03/23 20:46 Acetaminophen 325mg Tab PO 12/03/23 20:45 Q4HP PRN Fever or Mild Pain (1-3) Al Hydrox/Mg Hydrox/Simethicone 30 ml 11/03/23 20:46 Aluminum/Magnesium/Simethicone 30ml Udc PO 12/03/23 20:45 QIDP PRN Dyspepsia Docusate Sodium 100 mg 11/03/23 21:00 11/03/23 21:24 Docusate Sodium 100 Mg Capsule PO 12/03/23 20:59 Not Given DAILY LARISSA Heparin Sodium (Porcine) 5,000 unit 11/03/23 21:00 11/03/23 21:19 Heparin Sodium 5,000 Unit/Ml Vial SQ 12/03/23 20:59 5,000 unit Q8H LARISSA Administration Morphine Sulfate 2 mg 11/03/23 20:46 Morphine 2mg/Ml Syringe IV 12/03/23 20:45 Q2HP PRN Severe Pain (7-10) Ondansetron HCl 4 mg 11/03/23 20:46 Ondansetron 4mg/2ml Vial IV 12/03/23 20:45 Q8HP PRN Nausea Discontinued Medications Generic Name Dose Route Start Last Admin Trade Name Deniz PRN Reason Stop Dose Admin Acetaminophen 1,000 mg 11/03/23 16:36 11/03/23 16:58 Acetaminophen 1,000mg/100ml Vial IV 11/03/23 16:37 1,000 mg ONCE ONE Administration Iopamidol 100 ml 11/03/23 18:20 11/03/23 18:22 Iopamidol-370 (76%);100ml Bottle IV 11/03/23 18:21 100 ml ONCE ONE Administration Ketorolac Tromethamine 15 mg 11/03/23 16:36 11/03/23 16:58 Ketorolac 30mg/Ml Vial IV 11/03/23 16:37 15 mg ONCE ONE Administration Sodium Chloride 50 ml 11/03/23 18:20 11/03/23 18:21 0.9 % Sodium Chloride 50 Ml Vial IV 11/03/23 18:21 50 ml ONCE ONE Administration Sodium Chloride 10 ml 11/03/23 18:20 11/03/23 18:22 Sodium Chloride 0.9% 10ml Syr (Rad Only) IV 12/03/23 18:19 10 ml NEEDED PRN Administration Maintain IV Site ORDERS Category Date Time Status CT angio abdomen pelvis Stat Cat Scan 11/03/23 16:[address] angio chest - dissection Stat Cat Scan 11/03/23 16:[address] bony pelvis Stat Cat Scan 11/03/23 16:[address] cervical spine wo con Stat Cat Scan 11/03/23 16:[address] head/brain wo con Stat Cat Scan 11/03/23 16:[address] lumbar spine wo con Stat Cat Scan 11/03/23 16:[address] thoracic spine wo con Stat Cat Scan 11/03/23 16:47 Taken Shoulder XR right miminum 2 views [XR shoulder RT min Exams 11/03/23 16:51 Completed 2V] Stat BMP [Basic Metabolic Panel] Stat Lab 11/03/23 17:00 Completed CBC w/Auto Diff [Complete Blood Count Auto Diff] Stat Lab 11/03/23 17:00 Completed Complete Blood Count Auto Diff AMLAB Lab 11/04/23 06:00 Ordered Comprehensive Metabolic Panel AMLAB Lab 11/04/23 06:00 Ordered Magnesium AMLAB Lab 11/04/23 06:00 Ordered Medical Decision Narrative: In summary patient is a 73-year-old female who presents to the emergency department for evaluation of ground-level fall. Patient is hemodynamically stable upon arrival, febrile. Physical exam is remarkable for pain in multiple locations including the neck right hip right knee chest without evidence of contusions abrasions ecchymosis or bony deformity. Patient is morbidly obese and body habitus precludes a reliable physical exam for bony deformity.. Differential diagnosis includes contusion versus fracture versus PE versus bleed given the patient is on Eliquis etc. Initial workup will be conducted with hematologic labs and a trauma CT trauma scan series minus CT angio of the head and neck. Initial interventions include Toradol Tylenol. Initial workup reviewed by me shows nonactionable hematologic labs and my informal review of her CT scan imaging and plain film imaging shows no acute fractures. Upon repeat evaluation patient reports that she is unable to ambulate due to pain, has chronic right-sided dropfoot which predisposes her to falls, and family is unable to get the patient in the house under their own assistance and likely will be unable to follow-up closely with her PCP in the a.m. Given this I discussed admission with hospital medicine and patient management of same. Patient likely needs PT OT evaluation for acute rehab versus long-term placement and will be admitted by hospital medicine for further workup. <Sergey Bravo MD - Last Filed: 11/04/23 00:41> Vital Signs: 11/03/23 15:45 11/03/23 15:58 11/03/23 16:00 Temperature 99.4 F Temperature Source Oral Pulse Rate 91 H 92 H Pulse Rate [Left] 64 Respiratory Rate 16 Blood Pressure 111/45 L 114/85 Blood Pressure [Right Arm] 111/45 L Blood Pressure Mean Blood Pressure Mean [Right Arm] 67 Blood Pressure Source [Right Arm] 02 Sat by Pulse Oximetry 96 96 96 Oxygen Delivery Method Room Air Room Air Room Air 11/03/23 16:31 11/03/23 17:19 11/03/23 18:12 Temperature Temperature Source Pulse Rate 81 79 84 Pulse Rate [Left] Respiratory Rate Blood Pressure 174/83 H 116/63 100/60 L Blood Pressure [Right Arm] Blood Pressure Mean Blood Pressure Mean [Right Arm] Blood Pressure Source [Right Arm] 02 Sat by Pulse Oximetry 96 96 97 Oxygen Delivery Method Room Air Room Air Room Air 11/03/23 18:31 11/03/23 19:00 11/03/23 19:30 Temperature Temperature Source Pulse Rate 83 67 80 Pulse Rate [Left] Respiratory Rate 18 18 Blood Pressure 134/64 133/54 L 134/63 Blood Pressure [Right Arm] Blood Pressure Mean 80 Blood Pressure Mean [Right Arm] Blood Pressure Source [Right Arm] 02 Sat by Pulse Oximetry 96 97 98 Oxygen Delivery Method Room Air Room Air Room Air 11/03/23 20:50 Temperature 97.4 F L Temperature Source Oral Pulse Rate Pulse Rate [Left] 73 Respiratory Rate 17 Blood Pressure Blood Pressure [Right Arm] 121/68 Blood Pressure Mean Blood Pressure Mean [Right Arm] 85 Blood Pressure Source [Right Arm] Automatic Cuff 02 Sat by Pulse Oximetry 98 Oxygen Delivery Method Lab Data Lab Results 11/03/23 17:00: WBC 10.2, RBC 4.65, Hgb 15.0, Hct 44.5, MCV 95.7, MCH 32.2 H, MCHC 33.7, RDW 14.1, Plt Count 147, MPV 8.2, Neut % (Auto) 87.9 H, Lymph % (Auto) 5.3 L, Cuming % (Auto) 5.0, Eos % (Auto) 1.0, Baso % (Auto) 0.7, Neut # (Auto) 9.0 H, Lymph # (Auto) 0.6 L, Cuming # (Auto) 0.5, Eos # (Auto) 0.1, Baso # (Auto) 0.1, Total Counted 100, Neutrophils % (Manual) 87 H, Band Neutrophils % 1.0, Lymphocytes % (Manual) 11, Monocytes % (Manual) 1 L, Platelet Estimate Slight decrease, RBC Morphology Normal, Sodium 136, Potassium 4.0, Chloride 105, Carbon Dioxide 26, Anion Gap 9.0, BUN 17, Creatinine 0.80, Estimated Creat Clear 48, Estimated GFR 70, Est GFR ( Amer) 85, Glucose 136 H, Calcium 9.3 Orders (Tests/Meds): ED MEDICATIONS Generic Name Dose Route Start Last Admin Trade Name Freq PRN Reason Stop Dose Admin Acetaminophen 650 mg 11/03/23 20:46 Acetaminophen 325mg Tab PO 12/03/23 20:45 Q4HP PRN Fever or Mild Pain (1-3) Al Hydrox/Mg Hydrox/Simethicone 30 ml 11/03/23 20:46 Aluminum/Magnesium/Simethicone 30ml Udc PO 12/03/23 20:45 QIDP PRN Dyspepsia Docusate Sodium 100 mg 11/03/23 21:00 11/03/23 21:24 Docusate Sodium 100 Mg Capsule PO 12/03/23 20:59 Not Given DAILY LARISSA Heparin Sodium (Porcine) 5,000 unit 11/03/23 21:00 11/03/23 21:19 Heparin Sodium 5,000 Unit/Ml Vial SQ 12/03/23 20:59 5,000 unit Q8H LARISSA Administration Morphine Sulfate 2 mg 11/03/23 20:46 Morphine 2mg/Ml Syringe IV 12/03/23 20:45 Q2HP PRN Severe Pain (7-10) Ondansetron HCl 4 mg 11/03/23 20:46 Ondansetron 4mg/2ml Vial IV 12/03/23 20:45 Q8HP PRN Nausea Discontinued Medications Generic Name Dose Route Start Last Admin Trade Name Freq PRN Reason Stop Dose Admin Acetaminophen 1,000 mg 11/03/23 16:36 11/03/23 16:58 Acetaminophen 1,000mg/100ml Vial IV 11/03/23 16:37 1,000 mg ONCE ONE Administration Iopamidol 100 ml 11/03/23 18:20 11/03/23 18:22 Iopamidol-370 (76%);100ml Bottle IV 11/03/23 18:21 100 ml ONCE ONE Administration Ketorolac Tromethamine 15 mg 11/03/23 16:36 11/03/23 16:58 Ketorolac 30mg/Ml Vial IV 11/03/23 16:37 15 mg ONCE ONE Administration Sodium Chloride 50 ml 11/03/23 18:20 11/03/23 18:21 0.9 % Sodium Chloride 50 Ml Vial IV 11/03/23 18:21 50 ml ONCE ONE Administration Sodium Chloride 10 ml 11/03/23 18:20 11/03/23 18:22 Sodium Chloride 0.9% 10ml Syr (Rad Only) IV 12/03/23 18:19 10 ml NEEDED PRN Administration Maintain IV Site ORDERS Category Date Time Status CT angio abdomen pelvis Stat Cat Scan 11/03/23 16:[address] angio chest - dissection Stat Cat Scan 11/03/23 16:[address] bony pelvis Stat Cat Scan 11/03/23 16:[address] cervical spine wo con Stat Cat Scan 11/03/23 16:[address] head/brain wo con Stat Cat Scan 11/03/23 16:[address] lumbar spine wo con Stat Cat Scan 11/03/23 16:[address] thoracic spine wo con Stat Cat Scan 11/03/23 16:47 Taken Shoulder XR right miminum 2 views [XR shoulder RT min Exams 11/03/23 16:51 Completed 2V] Stat BMP [Basic Metabolic Panel] Stat Lab 11/03/23 17:00 Completed CBC w/Auto Diff [Complete Blood Count Auto Diff] Stat Lab 11/03/23 17:00 Completed Complete Blood Count Auto Diff AMLAB Lab 11/04/23 06:00 Ordered Comprehensive Metabolic Panel AMLAB Lab 11/04/23 06:00 Ordered Magnesium AMLAB Lab 11/04/23 06:00 Ordered Medical Decision Narrative: In summary patient is a 73-year-old female who presents to the emergency department for evaluation of ground-level fall. Patient is hemodynamically stable upon arrival, febrile. Physical exam is remarkable for pain in multiple locations including the neck right hip right knee chest without evidence of contusions abrasions ecchymosis or bony deformity. Patient is morbidly obese and body habitus precludes a reliable physical exam for bony deformity.. Differential diagnosis includes contusion versus fracture versus PE versus bleed given the patient is on Eliquis etc. Initial workup will be conducted with hematologic labs and a trauma CT trauma scan series minus CT angio of the head and neck. Initial interventions include Toradol Tylenol. Initial workup reviewed by me shows nonactionable hematologic labs and my informal review of her CT scan imaging and plain film imaging shows no acute fractures. Upon repeat evaluation patient reports that she is unable to ambulate due to pain, has chronic right-sided dropfoot which predisposes her to falls, and family is unable to get the patient in the house under their own assistance and likely will be unable to follow-up closely with her PCP in the a.m. Given this I discussed admission with hospital medicine and patient management of same. Patient likely needs PT OT evaluation for acute rehab versus long-term placement and will be admitted by hospital medicine for further workup. Sergey Bravo: Above is LUCIANA documentation. I agree with the above. Patient unfortunately has significant lymphedema precluding her from completing her activities of daily living. Patient is unable to get transferred to her vehicle to even make her family doctor appointment in the morning. Given this she likely requires evaluation for placement and is unsafe to go home. Patient is appropriate for admission I was consulted by the LUCIANA, and we discussed the complexity of the problems being addressed. I approved the treatment and management plan for this patient's care in the emergency department, thus performing a substantive portion of the medical decision making. Sergey Bravo MD. Critical Care <SHEELA Sanchez - Last Filed: 11/03/23 23:06> Critical Care Time Critical Care Time: No
--- NOTE | 2023-11-03 16:47 | CT_ITS ---
PROCEDURE INFORMATION: Exam: CT Lumbar Spine Without Contrast Exam date and time: 11/03/2023 5:55 PM Age: 73 years old Clinical indication: Injury or trauma; Fall; Blunt trauma (contusions or hematomas); Additional info: Trauma, critical injury suspected TECHNIQUE: Imaging protocol: Computed tomography of the lumbar spine without contrast. Total images: 325 Radiation optimization: All CT scans at this facility use at least one of these dose optimization techniques: automated exposure control; mA and/or kV adjustment per patient size (includes targeted exams where dose is matched to clinical indication); or iterative reconstruction. COMPARISON: CT LUMBAR SPINE WO CON 10/21/2023 3:12 PM FINDINGS: Bones/joints: 5 mm retrolisthesis of L5 on S1. The lumbar spine demonstrates moderate degenerative changes at multiple levels. 3 mm retrolisthesis L1 on L2. Disc space narrowing and bilateral neural foraminal narrowing noted at all visualized levels. No evidence of acute fracture. Sclerotic density present within the left iliac crest. Vasculature: Mild atherosclerotic disease. Soft tissues: Unremarkable. IMPRESSION: 1. 5 mm retrolisthesis of L5 on S1. 2. The lumbar spine demonstrates moderate degenerative changes at multiple levels. 3. 3 mm retrolisthesis L1 on L2. 4. No evidence of acute fracture.
--- NOTE | 2023-11-03 16:47 | CT_ITS ---
PROCEDURE INFORMATION: Exam: CT Cervical Spine Without Contrast Exam date and time: 11/03/2023 5:48 PM Age: 73 years old Clinical indication: Injury or trauma; Fall; Additional info: Trauma, critical injury suspected TECHNIQUE: Imaging protocol: Computed tomography of the cervical spine without contrast. Total images: 280 Radiation optimization: All CT scans at this facility use at least one of these dose optimization techniques: automated exposure control; mA and/or kV adjustment per patient size (includes targeted exams where dose is matched to clinical indication); or iterative reconstruction. COMPARISON: CT CERVICAL SPINE WO CON 10/21/2023 3:07 PM FINDINGS: Bones/joints: The cervical spine demonstrates mild degenerative changes at multiple levels. There is a nonspecific reversal of the normal cervical lordosis. No evidence of acute fracture. Disc space narrowing and bilateral neural foraminal narrowing noted C4-C5, C5-C6 and C6-C7. 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 Prevertebral and retropharyngeal spaces: Prevertebral soft tissues are within normal limits. Lungs: Lung apices are normal. Soft tissues: Unremarkable. IMPRESSION: 1. The cervical spine demonstrates mild degenerative changes at multiple levels. 2. There is a nonspecific reversal of the normal cervical lordosis. 3. No evidence of acute fracture. 4. Prevertebral soft tissues are within normal limits.
--- NOTE | 2023-11-03 16:47 | CT_ITS ---
PROCEDURE INFORMATION: Exam: CT Pelvis Without Contrast; Skeletal Exam date and time: 11/03/2023 5:57 PM Age: 73 years old Clinical indication: Injury or trauma; Fall; Blunt trauma (contusions or hematomas); Bilateral; Pelvic region; Additional info: Trauma, critical injury suspected TECHNIQUE: Imaging protocol: Computed tomography of the pelvis without contrast. Exam focused on the skeleton. Total images: 1122 Radiation optimization: All CT scans at this facility use at least one of these dose optimization techniques: automated exposure control; mA and/or kV adjustment per patient size (includes targeted exams where dose is matched to clinical indication); or iterative reconstruction. COMPARISON: CT BONY PELVIS 10/21/2023 3:14 PM FINDINGS: Bones/joints: [id number] degenerative changes of both hips. No evidence of acute fracture. Degenerative changes of the lower lumbar spine. Soft tissues: No soft tissue swelling. IMPRESSION: 1. [id number] degenerative changes of both hips. 2. No evidence of acute fracture.
--- NOTE | 2023-11-03 16:47 | CT_ITS ---
PROCEDURE INFORMATION: Exam: CT Thoracic Spine Without Contrast Exam date and time: 11/03/2023 5:51 PM Age: 73 years old Clinical indication: Injury or trauma; Fall; Blunt trauma (contusions or hematomas); Additional info: Trauma, critical injury suspected TECHNIQUE: Imaging protocol: Computed tomography of the thoracic spine without contrast. Total images: 409 Radiation optimization: All CT scans at this facility use at least one of these dose optimization techniques: automated exposure control; mA and/or kV adjustment per patient size (includes targeted exams where dose is matched to clinical indication); or iterative reconstruction. COMPARISON: CT THORACIC SPINE WO CON 10/21/2023 3:09 PM FINDINGS: Bones/joints: No evidence of acute fracture. 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 Soft tissues: Unremarkable. IMPRESSION: 1. No evidence of acute fracture. 2. 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
--- NOTE | 2023-11-03 16:47 | CT_ITS ---
PROCEDURE INFORMATION: Exam: CT Head Without Contrast Exam date and time: 11/03/2023 5:46 PM Age: 73 years old Clinical indication: Injury or trauma; Fall; Additional info: Trauma, critical injury suspected TECHNIQUE: Imaging protocol: Computed tomography of the head without contrast. Total images: 294 Radiation optimization: All CT scans at this facility use at least one of these dose optimization techniques: automated exposure control; mA and/or kV adjustment per patient size (includes targeted exams where dose is matched to clinical indication); or iterative reconstruction. COMPARISON: CT HEAD/BRAIN WO CON 10/21/2023 3:04 PM FINDINGS: Brain: Age-related atrophy and chronic white matter ischemic changes, with no evidence of an acute intracranial abnormality. No hemorrhage, mass effect or midline shift. Cerebral ventricles: No ventriculomegaly. Paranasal sinuses: Mucosal thickening right maxillary sinus. Small mucous retention cyst right maxillary sinus. Mastoid air cells: Visualized mastoid air cells are well aerated. Bones/joints: No acute fracture. Soft tissues: No acute changes Vasculature: Mild atherosclerotic disease. IMPRESSION: 1. Age-related atrophy and chronic white matter ischemic changes, with no evidence of an acute intracranial abnormality. 2. No hemorrhage, mass effect or midline shift.
--- NOTE | 2023-11-03 16:47 | CT_ITS ---
PROCEDURE INFORMATION: Exam: CTA Chest With Contrast Exam date and time: 11/03/2023 6:01 PM Age: 73 years old Clinical indication: Injury or trauma; Fall; Blunt trauma (contusions or hematomas); Additional info: Trauma, critical injury suspected TECHNIQUE: Imaging protocol: Computed tomographic angiography of the chest with contrast. Exam focused on the arteries. 3D rendering (Not supervised by radiologist): MIP and/or 3D reconstructed images were created by the technologist. Total images: 400 Radiation optimization: All CT scans at this facility use at least one of these dose optimization techniques: automated exposure control; mA and/or kV adjustment per patient size (includes targeted exams where dose is matched to clinical indication); or iterative reconstruction. Contrast material: ISOVUE; Contrast volume: 100 ml; Contrast route: INTRAVENOUS (IV); COMPARISON: CT CHEST W CON 10/05/2019 9:54 AM FINDINGS: Pulmonary arteries: No evidence of pulmonary embolism. Aorta: No evidence of aortic dissection. Lungs: Unremarkable. No consolidation. No masses. Pleural spaces: No focal pneumonia or pneumothorax. No pleural effusions. Heart: Unremarkable. No cardiomegaly. No pericardial effusion. Coronary arteries: There is mild atherosclerotic calcification of the coronary arteries. Lymph nodes: Unremarkable. No enlarged lymph nodes. Diaphragm: There is nonspecific elevation of the right hemidiaphragm. Bones/joints: The thoracic spine demonstrates mild degenerative changes at multiple levels. Soft tissues: Unremarkable. IMPRESSION: 1. No evidence of pulmonary embolism. 2. No evidence of aortic dissection. 3. No focal pneumonia or pneumothorax. 4. No pleural effusions.
--- NOTE | 2023-11-03 16:47 | CT_ITS ---
PROCEDURE INFORMATION: Exam: CTA Abdomen and Pelvis With Contrast Exam date and time: 11/03/2023 6:01 PM Age: 73 years old Clinical indication: Injury or trauma; Fall; Blunt trauma; Lower abdominal or back area; Bilateral; Additional info: Trauma, critical injury suspected TECHNIQUE: Imaging protocol: Computed tomographic angiography of the abdomen and pelvis with contrast. Exam focused on the arteries. 3D rendering (Not supervised by radiologist): MIP and/or 3D reconstructed images were created by the technologist. Total images: 400 Radiation optimization: All CT scans at this facility use at least one of these dose optimization techniques: automated exposure control; mA and/or kV adjustment per patient size (includes targeted exams where dose is matched to clinical indication); or iterative reconstruction. Contrast material: ISOVUE; Contrast volume: 100 ml; Contrast route: INTRAVENOUS (IV); COMPARISON: CT BONY PELVIS 11/03/2023 5:57 PM FINDINGS: Aorta: No aortic aneurysm. No aortic dissection. Celiac trunk and mesenteric arteries: No occlusion or significant stenosis. Renal arteries: No occlusion or significant stenosis. Right iliac arteries: No occlusion or significant stenosis. Left iliac arteries: No occlusion or significant stenosis. Liver: No mass. Gallbladder and bile ducts: Status post cholecystectomy. Pancreas: Unremarkable. No mass. No ductal dilation. Spleen: Unremarkable. No splenomegaly. Adrenal glands: Unremarkable. No mass. Kidneys and ureters: Punctate calcification within the left kidney without obstructive uropathy. Stomach and bowel: Moderate diverticulosis is present in the distal colon. Large amount of stool is present throughout the colon. Appendix: No evidence of appendicitis. Intraperitoneal space: Unremarkable. No free air. No significant fluid collection. Lymph nodes: Unremarkable. No enlarged lymph nodes. Urinary bladder: Unremarkable. No mass. Reproductive: Hysterectomy noted. Bones/joints: The lumbar spine demonstrates moderate degenerative changes at multiple levels. Soft tissues: Unremarkable. IMPRESSION: 1. Moderate diverticulosis is present in the distal colon. 2. Punctate calcification within the left kidney without obstructive uropathy. 3. The lumbar spine demonstrates moderate degenerative changes at multiple levels. 4. Large amount of stool is present throughout the colon.
--- NOTE | 2023-11-03 16:51 | XR_ITS ---
PROCEDURE INFORMATION: Exam: XR Right Shoulder Exam date and time: 11/03/2023 6:02 PM Age: 73 years old Clinical indication: Injury or trauma; Fall; Blunt trauma (contusions or hematomas); Shoulder; Right; Additional info: Ground level fall TECHNIQUE: Imaging protocol: Radiologic exam of the right shoulder. Views: 2 or more views. Total images: 3 COMPARISON: CT ANGIO CHEST 11/03/2023 6:01 PM FINDINGS: Bones/joints: Degenerative changes of the glenohumeral and acromioclavicular joints. No evidence of acute fracture or dislocation. Soft tissues: Soft tissues are within normal limits. Surgical clips noted within the right axilla. IMPRESSION: 1. Degenerative changes of the glenohumeral and acromioclavicular joints. 2. No evidence of acute fracture or dislocation.
[2023-11-03] MEDS: ACETAMINOPHEN 1,000MG/100ML VIAL 1000 MG IV (16:58)
[2023-11-03] MEDS: KETOROLAC 30MG/ML VIAL 15 MG IV (16:58)
[2023-11-03 17:12] LABS: Basophils # 0.1 K/mm3 (0-0.2); Basophils % 0.7 % (0.1-2.0); Eosinophils # 0.1 K/mm3 (0.0-0.4); Hematocrit 44.5 % (37.0-47.0); Lymphocytes # 0.6 K/mm3 (0.7-4.5); Lymphocytes % 5.3 % (10-50); Mean Corpuscular HGB Conc 33.7 g/dL (31.8-35.4); Mean Corpuscular Hemoglobin 32.2 pg (27.0-31.2); Mean Corpuscular Volume 95.7 fl (81-99); Mean Platelet Volume 8.2 fl (7.4-10.4); Monocytes # 0.5 K/mm3 (0.1-1.0); Neutrophils % 87.9 % (37.0-80.0); Platelet Count 147 K/mm3 (142-424); Red Blood Count 4.65 M/mm3 (4.20-5.40); Red Cell Distribution Width 14.1 % (11.5-17.5); White Blood Count 10.2 K/mm3 (4.8-10.8)
[2023-11-03 17:18] LABS: Chloride 105 mmol/L (98-107); Sodium 136 mmol/L (136-145)
[2023-11-03 17:21] LABS: Blood Urea Nitrogen 17 mg/dl (7-17); Calcium 9.3 mg/dl (8.4-10.2); Carbon Dioxide 26 mmol/L (22.0-30.0); Creatinine Clearance Estimated 48 mL/min (50-200); Estimated Glomerular Filt Rate 70 ml/min (>60); GFR (African American) 85 ML/MIN (>60); Glucose 136 mg/dl (74-100)
[2023-11-03 17:30] LABS: MANUAL DIFFERENTIAL MANUAL DIFFERENTIAL (MANUAL DIFF)
[2023-11-03 17:57] LABS: Lymphocytes % 11 % (10-50); Monocytes % 1 % (2-9); Neutrophils % 87 % (42-76); Platelet Estimate Slight Decrease; RBC Morphology Normal; Total Cells Counted 100
[2023-11-03] MEDS: 0.9 % SODIUM CHLORIDE 50 ML VIAL IV (18:21)
[2023-11-03] MEDS: IOPAMIDOL-370 (76%);100ML BOTTLE 100 ML IV (18:22)
[2023-11-03] MEDS: SODIUM CHLORIDE 0.9% 10ML SYR (RAD ONLY) 10 ML IV (18:22)
--- NOTE | 2023-11-03 20:20 | PC.NURSE ---
Report to [facility]; awaiting bed to be cleaned and transport will be here
--- NOTE | 2023-11-03 20:48 | PC.NURSE ---
Patient arrived to floor via stretcher from ED at 20:47.
--- NOTE | 2023-11-03 20:49 | EXP.HP ---
History of Present Illness *Admission Date: 11/03/23 *Reason for visit:: fall. shoulder pain *History of present illness: This is a 73 F morbid obese, with multiples comorbidities. Presents after a ground-level fall at her home. Patient has dropfoot of the right foot and has recurrent falls, with frequent ED visit for evaluation. Last visit earlier this month. At that time she suffered no acute bony injury and had multiple contusions. Patient again had a tripping episode with her right foot this time she landed face forward slightly on her right side. She cannot arise from from the floor. Patient did not lose consciousness or suffer head trauma. On arrival patient complains of neck pain right hip pain right knee pain but denies chest pain loss of consciousness fever chills hemoptysis hematochezia melena nausea vomit diarrhea. admitted for further management. [facility] Disclaimer: The information contained in this section may have been updated after the patient was seen, as this information can be updated by other users. Medical History (Updated 11/04/23 @ 05:52 by Moreno King APRN) Metabolic syndrome Thyroid disease Urinary tract infection History of gastroesophageal reflux (GERD) Hyperlipidemia Atrial fibrillation Morbid obesity Atypical angina Breast cancer Edema HTN (hypertension) Elevated coronary artery calcium score Abnormal EKG Preoperative clearance Dyspnea Surgical History History of colonoscopy History of mastectomy History of knee surgery Family History Father Heart attack Social History (Updated 11/03/23 @ 21:52 by Sofia Nichols RN) Smoking Status: Never smoker second hand exposure: No alcohol intake: never current occupational status: disabled Travel in the last 8 weeks: None household members: spouse and children housing: house Review of Systems Review of Systems Review of systems:: pertinent systems reviewed and negative unless documented below Meds Home Medications and Allergies Home Medications Medication Instructions Recorded Confirmed Type acetaminophen 500 mg tablet 500 mg PO Q8 PRN Pain 11/28/20 11/03/23 History doxepin 10 mg capsule 10 mg PO TID PRN Anxiety 06/18/21 11/04/23 History exemestane 25 mg tablet 25 mg PO DAILY 02/18/22 11/03/23 History bumetanide 1 mg tablet 1 mg PO DAILY #90 tabs 03/14/23 11/04/23 Rx meclizine 12.5 mg tablet 12.5 mg PO BID PRN Nausea 03/14/23 11/04/23 History triamcinolone acetonide 0.1 % 1 applic topical DAILY 03/14/23 11/04/23 History topical cream atorvastatin 20 mg tablet 20 mg PO DAILY #90 tabs 07/23/23 11/03/23 Rx duloxetine 30 mg capsule,delayed 30 mg PO DAILY Depression #90 caps 07/23/23 11/03/23 Rx release levothyroxine 75 mcg tablet 75 mcg PO DAILY THYROID #90 tabs 07/23/23 11/03/23 Rx pantoprazole 40 mg tablet,delayed 40 mg PO DAILY #90 tabs 07/23/23 11/03/23 Rx release potassium chloride 20 mEq 20 meq PO DAILY #90 tabs 07/23/23 11/03/23 Rx tablet,extended release(part/cryst) apixaban 5 mg tablet (Eliquis) 5 mg PO BID #60 tabs 10/17/23 11/03/23 Rx cholecalciferol (vitamin D3) 125 125 mcg PO DAILY 11/03/23 11/03/23 History mcg (5,000 unit) tablet (Vitamin D3) metoprolol succinate 25 mg 25 mg PO DAILY 11/03/23 11/03/23 History tablet,extended release 24 hr oxybutynin chloride 5 mg tablet 5 mg PO BID BLADDER 11/03/23 11/04/23 History New Prescriptions to Start Prescriptions: Allergies Allergy/AdvReac Type Severity Reaction Status Date / Time cephalexin [From [facility]] Allergy Intermediate I-RASH Verified 11/03/23 16:05 Sulfa (Sulfonamide Allergy Intermediate I-RASH Verified 11/03/23 16:05 Antibiotics) [SULFA (SULFONAMIDE ANTIBIOTICS)] doxycycline [DOXYCYCLINE] Allergy Unknown NA-NAUSEA Verified 11/03/23 16:05 Penicillins [PENICILLINS] Allergy Unknown LOCAL Verified 11/03/23 16:05 REACTION AT INJECTION SITE Exam Data for Last 24 hours Vital signs and Labs for Last 24 Hours: Temp Pulse Resp BP Pulse Ox O2 Del Method 99.4 F 80 18 134/63 98 Room Air 11/03/23 15:58 11/03/23 19:30 11/03/23 19:30 11/03/23 19:30 11/03/23 19:30 11/03/23 19:30 Laboratory Results - last 24 hr 11/03/23 17:00: WBC 10.2, RBC 4.65, Hgb 15.0, Hct 44.5, MCV 95.7, MCH 32.2 H, MCHC 33.7, RDW 14.1, Plt Count 147, MPV 8.2, Neut % (Auto) 87.9 H, Lymph % (Auto) 5.3 L, [place] % (Auto) 5.0, Eos % (Auto) 1.0, Baso % (Auto) 0.7, Neut # (Auto) 9.0 H, Lymph # (Auto) 0.6 L, [place] # (Auto) 0.5, Eos # (Auto) 0.1, Baso # (Auto) 0.1, Total Counted 100, Neutrophils % (Manual) 87 H, Band Neutrophils % 1.0, Lymphocytes % (Manual) 11, Monocytes % (Manual) 1 L, Platelet Estimate Slight decrease, RBC Morphology Normal, Sodium 136, Potassium 4.0, Chloride 105, Carbon Dioxide 26, Anion Gap 9.0, BUN 17, Creatinine 0.80, Estimated Creat Clear 48, Estimated GFR 70, Est GFR ( Amer) 85, Glucose 136 H, Calcium 9.3 I & O for Last 24 hours: Intake & Output 10/31/23 11/01/23 11/02/23 11/03/23 23:59 23:59 23:59 23:59 Weight 164.654 kg Constitutional Constitutional: moderate distress, morbidly obese and cooperative *Routine HEENT Exam Head: Present normocephalic Eye: Present EOMI and PERRL ENT: Present mucous membranes moist *Routine Neck Exam Neck: Present supple; Absent lymphadenopathy *Routine Respiratory Exam Respiratory: Present CTA bilaterally *Routine Cardiovascular Exam Cardiovascular: Present RRR *Routine Abdominal Exam Abdominal: Present soft and normoactive bowel sounds; Absent tenderness *Routine Rectal Exam Rectal:: deferred *Routine Genitalia Exam Genitalia:: deferred *Routine Extremities Exam Extremities: Absent cyanosis, clubbing or edema *Routine Skin Exam Skin: Present warm; Absent rash *Routine Neurological Exam Neurological: Present alert and oriented X3 H&P: Result Imaging and Cardiology EKG: Status: image reviewed by me, Preliminary report and final report Shoulder X ray: Status: image reviewed by me, Preliminary report and final report CT scan - head: Status: image reviewed by me and Preliminary report Assessment and Plan *Assessment and plan (1) Multiple falls: Status: Acute Category: Medical Code(s): R29.6 - Repeated falls (2) Lymphedema: Status: Chronic Category: Medical Code(s): I89.0 - Lymphedema, not elsewhere classified (3) H/O right knee surgery: Status: Acute Category: Surgical Code(s): Z98.890 - Other specified postprocedural states (4) HLD (hyperlipidemia): Status: Acute Qualifiers: Hyperlipidemia type: mixed hyperlipidemia Qualified Code(s): E78.2 - Mixed hyperlipidemia Category: Medical Code(s): E78.5 - Hyperlipidemia, unspecified (5) Atrial fibrillation: Status: Chronic Qualifiers: Atrial fibrillation type: unspecified chronic Qualified Code(s): I48.20 - Chronic atrial fibrillation, unspecified Category: Medical Code(s): I48.91 - Unspecified atrial fibrillation (6) CAD (coronary artery disease): Status: Chronic Qualifiers: Associated angina: without angina Coronary Disease-Associated Artery/Lesion type: [place] artery [place] vs. transplanted heart: [place] heart Qualified Code(s): I25.10 - Atherosclerotic heart disease of [place] coronary artery without angina pectoris Category: Medical Code(s): I25.10 - Atherosclerotic heart disease of [place] coronary artery without angina pectoris (7) HTN (hypertension): Status: Chronic Qualifiers: Hypertension type: essential hypertension Qualified Code(s): I10 - Essential (primary) hypertension Category: Medical Code(s): I10 - Essential (primary) hypertension (8) Hypothyroidism: Status: Chronic Qualifiers: Hypothyroidism type: unspecified Qualified Code(s): E03.9 - Hypothyroidism, unspecified Category: Medical Code(s): E03.9 - Hypothyroidism, unspecified (9) Morbid obesity: Status: Acute Category: Medical Code(s): E66.01 - Morbid (severe) obesity due to excess calories Plan 73 F morbid obese, with multiples comorbidities. Presents after a ground-level fall at her home. Patient has dropfoot of the right foot and has recurrent falls, with frequent ED visit for evaluation. Due to excessive body weight, patient is unable to ambulate by herself. On arrival to ED, she was complaining of shoulder pain. Head to toe trauma screening was conducted. There were negative for acute process. Patient unable to walk due to pain and weakness associated with her large BMI. Of note, patient has been sure about for long period of time, being continuously declining. Findings discussed with the ED. agree with information. Medicine agreed to admit for further management. Patient will need an comprehensive physical therapy evaluation for treatment and management. Plan as follow: -Multiple fall, in the setting of excessive BMI, due to chronic lymphedema and versus excessive calorie intake: History of chronic right knee pain and right foot drop, that predisposes impaired her mobility: Admit patient for further management and treatment. Patient will need a comprehensive physical therapy evaluation, being chair bound at least for the last 3 months Physical deconditioning, generalized muscle wasting. Currently patient is unable to transfer by herself. Plan discussed with patient and family about permanent placement versus 24-hour nursing care with the assistance of equipments for transfer. -All insidious comorbidities include: Hypertension A-fib hyperlipidemia coronary artery disease hypothyroidism This condition was reviewed and seems to be stable. Resume and reconcile home medication Heparin every 8 for DVT prophylaxis. On Protonix Full code Rounded on patient after nurse practitioner. Personally examined and interviewed patient. Agree with exam findings and care plan as documented.
[2023-11-03] MEDS: HEPARIN SODIUM 5,000 UNIT/ML VIAL 5000 UNIT SQ (21:19)
[2023-11-04 04:00] VITALS: BP 159/83; PULSE 71; RESP 16; TEMP 36.6; O2SAT 98; BMI 54.6
[2023-11-04] MEDS: MORPHINE 2MG/ML SYRINGE 2 MG IV ×2 (04:18→22:12)
[2023-11-04] MEDS: HEPARIN SODIUM 5,000 UNIT/ML VIAL 5000 UNIT SQ (05:43)
[2023-11-04 07:24] LABS: Basophils # 0.1 K/mm3 (0-0.2); Basophils % 1.8 % (0.1-2.0); Eosinophils # 0.1 K/mm3 (0.0-0.4); Eosinophils % 1.1 % (0.1-12.0); Hematocrit 42.4 % (37.0-47.0); Lymphocytes # 0.8 K/mm3 (0.7-4.5); Lymphocytes % 17.2 % (10-50); Mean Corpuscular HGB Conc 33.1 g/dL (31.8-35.4); Mean Corpuscular Hemoglobin 31.7 pg (27.0-31.2); Monocytes # 0.5 K/mm3 (0.1-1.0); Neutrophils # 3.4 K/mm3 (1.8-7.8); Neutrophils % 69.9 % (37.0-80.0); Platelet Count 131 K/mm3 (142-424); Red Blood Count 4.42 M/mm3 (4.20-5.40); Red Cell Distribution Width 14.1 % (11.5-17.5); White Blood Count 4.9 K/mm3 (4.8-10.8)
[2023-11-04 07:45] VITALS: BP 131/65; PULSE 83; RESP 18; TEMP 36.6; O2SAT 96
[2023-11-04 07:50] LABS: Alanine Aminotransferase 19 U/L (12-78); Albumin/Globulin Ratio 1.2 (1.1-1.8); Alkaline Phosphatase 155 U/L (38-126); Anion Gap 8.6 mEq/L (5-15); Aspartate Amino Transferase 34 U/L (14-36); Bilirubin,Total 4.5 mg/dl (0.2-1.3); Blood Urea Nitrogen 19 mg/dl (7-17); Calcium 9.1 mg/dl (8.4-10.2); Carbon Dioxide 25 mmol/L (22.0-30.0); Chloride 105 mmol/L (98-107); Creatinine Clearance Estimated 46 mL/min (50-200); Estimated Glomerular Filt Rate 70 ml/min (>60); GFR (African American) 85 ML/MIN (>60); Globulin 2.5 g/dL (1.3-3.2); Glucose 102 mg/dl (74-100); Magnesium 2.1 mg/dl (1.6-2.3); Potassium 3.6 mmoL/L (3.5-5.1); Sodium 135 mmol/L (136-145); Total Protein,Serum 5.5 g/dl (6.3-8.2)
[2023-11-04] MEDS: DOCUSATE SODIUM 100 MG CAPSULE PO (07:56)
--- NOTE | 2023-11-04 08:23 | HMH.PHAINT1 ---
Pharmacy Intervention Comments: home medications verified via outside pharmacy/office visit
--- NOTE | 2023-11-04 08:44 | PC.NURSE ---
Pt denied any needs or questions/concerns at this time. Friend at bedside.
--- NOTE | 2023-11-04 09:50 | HMH.OTEV ---
OT Inpatient Evaluation Rehab OT IP Evaluation Start: 11/03/23 22:59 Freq: ONCE Status: Active Protocol: Document 11/04/23 09:45 [facility] (Rec: 11/04/23 09:49 [facility] [id number]) Rehab OT IP Assessment Subjective History Pt oriented x 3 on arrival. Pt agreeable to engage in therapy evaluation. Pt admitted on 11/03/23 due to fall at home and impaired mobility. History and physical report: This is a 73 F morbid obese, with multiples comorbidities. Presents after a ground-level fall at her home. Patient has dropfoot of the right foot and has recurrent falls, with frequent ED visit for evaluation. Last visit earlier this month. At that time she suffered no acute bony injury and had multiple contusions. Patient again had a tripping episode with her right foot this time she landed face forward slightly on her right side. She cannot arise from from the floor. Patient did not lose consciousness or suffer head trauma. On arrival patient complains of neck pain right hip pain right knee pain but denies chest pain loss of consciousness fever chills hemoptysis hematochezia melena nausea vomit diarrhea. admitted for further management. Subjective I am going to need help. Prior to being in the hospital , pt lived at home with her , daughter, and grandson. Pt claims normally she is independent with ADLS such as dressing, sponge baths , and feeding. However, she is dependent upon family for completion of all IADLs. Pt does use a rolling walker during functional transfers. Objective Patient Orientation Person,Place,Birthday Right Upper Extremity Gross ROM WFL Left Upper Extremity Gross ROM WFL Bed Mobility bed mobility-scooting,bed mobility - supine/sit Assist Level Maximum x 2 (75% assist) Transfer Training Sit/Stand Transfer Assist Level Moderate x 2 (50% assist) Rehab OT IP prob,goals,plan Problems Date of Evaluation: 11/04/23 OT IP Problems Bed Mobility,Transfers,Balance ,Self care,Safety Rehab Potential Rehab Potential Good Equipment Needs Assistive Devices Rolling / Wheeled Walker Plan OT intervention Plan Bed Mobility,Transfers,Balance ,Self care,Safety,Therapeutic Exercise OT Plan Frequency Daily Duration LOS Discharge Goals Bed Mobility Ability Assistance x1 Sit to Stand Chair Transfer Ability Moderate x 1 (50% assist) Chair Transfer Ability Moderate x 1 (50% assist) Chair Transfer Technique Sit to/from Ambulatory Chair Transfer Assistive Devices Rolling Walker Feeding Ability Assist with Tray Set Up Lower Body Dressing Ability Moderate Assistance Upper Body Dressing Ability Minimal Assistance Bathing Ability Moderate Assistance Performing Toilet Hygiene Ability Moderate Assistance Overall Commode/Toilet Transfer Ability Moderate Assistance Commode/Toilet Transfer Technique Sit to/from Ambulatory Commode/Toilet Transfer Assistive Grab Bars Devices Oral Care Assist Minimal Assistance Decrease in Endurance Yes Discharge Plan OT Discharge Plan Pt will continue to be seen for OT services while at [facility]. Pt would benefit most from short term rehab at SNF following discharge from hospital. Continued skilled therapy is important for patient to improve strength, safety, endurance, ADL independence, and functional transfers to reach PLOF and PLOI. Eval Complexity Eval Charge Codes 65762 - High Complexity PHYSICIAN CERTIFICATION: I certify the specified therapy services for Hannah Royal are required, authorized, and reviewed every 30 days.
--- NOTE | 2023-11-04 10:16 | SW/DCPLANNER ---
Addendum entered by [facility] 11/05/23 14:35: Meena w/ [facility] stated this patient has been approved SNF level of care. Patient will discharge to [facility] today. Addendum entered by [facility] 11/05/23 11:57: Patient prefers [facility] rather than [facility]. Addendum entered by [facility] 11/05/23 07:40: Meena chen/ [facility] stated that precert was started later yesterday afternoon. Addendum entered by [facility] 11/04/23 15:35: I am waiting to hear back from Meena at [facility]: she did an onsite evaluation this afternoon. Zulma w/ [facility] is able to accept patient and start a precert. Patient is not interested in [facility] after speaking w/ her other daughter this afternoon. Original Note: I spoke w/ this patient and her daughter regarding plans once medically stable for discharge. PT/OT evaluated patient and recommended SNF level of care. Patient is agreeable to short term placement at this time and prefers [facility], [facility] or [facility]. I will fax patient information once available in computer and continue to follow up w/ patient and facilities. Discharge date is unknown at this time.
--- NOTE | 2023-11-04 10:29 | XR_ITS ---
FINAL REPORT CLINICAL HISTORY: pain in right knee, previous replacement COMPARISON: 09/02/2023 FINDINGS: There is no acute fracture or dislocation. The patient has undergone a prior right knee arthroplasty. There is no evidence of resorption or loosening of the orthopedic hardware. The patella is not seen on this examination and may have been surgically resected. No acute bony abnormality is identified. No significant changes noted since the prior films of September 02. IMPRESSION: No acute fracture Right knee arthroplasty, with no evidence of resorption or loosening of the orthopedic hardware. Reviewed, Interpreted and Dictated by Jordon Moser MD Transcribed by Riya Bradford Authenticated and [facility]
--- NOTE | 2023-11-04 10:32 | CA_ITS ---
FINAL REPORT TECHNIQUE: extremity venous duplex was performed with augmentation and compression. CLINICAL HISTORY: eval for DVT, cellulitits COMPARISON: None FINDINGS: RIGHT LOWER LEG VENOUS DOPPLER: Proper flow is seen throughout the deep venous system. There is no evidence of deep venous thrombosis. IMPRESSION: No deep venous thrombosis right lower extremity. Reviewed, Interpreted and Dictated by Jordon Moser MD Transcribed by Riya Bradford Authenticated and [facility]
--- NOTE | 2023-11-04 11:30 | HMH.PTEV ---
Physical Therapy Evaluation Rehab PT IP Evaluation Start: 11/03/23 22:59 Freq: ONCE Status: Active Protocol: Document 11/04/23 11:24 BOBBY (Rec: 11/04/23 11:30 BOBBY [email or web address]) Subjective/History History History Per H&P: This is a 73 F morbid obese, with multiples comorbidities. Presents after a ground-level fall at her home. Patient has dropfoot of the right foot and has recurrent falls, with frequent ED visit for evaluation. Last visit earlier this month. At that time she suffered no acute bony injury and had multiple contusions. Patient again had a tripping episode with her right foot this time she landed face forward slightly on her right side. She cannot arise from from the floor. Patient did not lose consciousness or suffer head trauma. On arrival patient complains of neck pain right hip pain right knee pain but denies chest pain loss of consciousness fever chills hemoptysis hematochezia melena nausea vomit diarrhea. admitted for further management. Subjective Subjective PLOF per pt report: Ambulating using rollator. Living with daughter, , and grandson in single story home with no ALIYAH. IND with dressing and mobility. Takes sponge baths. New diagnosis of cancer in past 12 No months? Rehab PT IP Eval Objective Appearance Patient Behavior Appropriate,Cooperative Patient Orientation Person,Place Difficulty following instructions none Speech Pattern Clear Ambulation Patient Able to Ambulate No Balance Ability to Arise Unable Sitting Balance Steady, safe Standing Balance Unsteady Transfers Bed Transfer Ability Moderate x 2 (50% assist) Sit to Stand Bed Transfer Ability Moderate x 2 (50% assist) Rehab PT IP prob,goals,plan Problems Date of Evaluation: 11/04/23 PT IP Problems Bed Mobility,Transfers,Gait, Balance,Self care,Safety Rehab Potential Rehab Potential Good Equipment Needs Assistive Devices Rolling / Wheeled Walker Plan PT Intervention Plan Bed Mobility,Transfers,Gait, Balance,Safety,Therapeutic Exercise Other Intervention Plan 1-2 times daily PT Plan Frequency Daily Duration LOS Discharge Goals Bed Transfer Ability Moderate x 1 (50% assist) Sit to Stand Chair Transfer Ability Moderate x 1 (50% assist) Discharge Plan PT Discharge Plan Pt not safe to return home at this time d/t current level of functional mobility. PT recommending short-term rehabilitation stay upon d/c from [facility]. Pt would benefit from skilled PT while at [facility] to prevent further functional decline and maximize safety with mobility. Eval Complexity Eval Charge Codes 06804 - High Complexity PHYSICIAN CERTIFICATION: I certify the specified therapy services for Hannah Royal are required, authorized, and reviewed every 30 days.
[2023-11-04] MEDS: BUMETANIDE 1 MG TABLET PO (11:46)
[2023-11-04] MEDS: LEVOTHYROXINE 75MCG (0.075MG) TAB 75 MCG PO (11:46)
[2023-11-04] MEDS: OXYBUTYNIN 5MG TAB 5 MG PO ×2 (11:46→21:45)
[2023-11-04] MEDS: PANTOPRAZOLE 40MG TABLET 40 MG PO (11:46)
[2023-11-04] MEDS: POTASSIUM CHLORIDE 20MEQ TAB 20 MEQ PO (11:47)
[2023-11-04] MEDS: DULOXETINE 30MG CAPSULE.DR 30 MG PO (11:47)
[2023-11-04] MEDS: DOXEPIN HCL 10 MG CAPSULE PO (11:47)
[2023-11-04] MEDS: METOPROLOL SUCCINATE XL 25MG TABLET 25 MG PO (11:47)
[2023-11-04] MEDS: APIXABAN 5MG TABLET 5 MG PO (11:47)
[2023-11-04 13:27] VITALS: BMI 54.6
[2023-11-04 16:00] VITALS: BP 123/59; PULSE 76; RESP 18; TEMP 36.5; O2SAT 97
--- NOTE | 2023-11-04 18:45 | P.PN_ITS ---
Subjective *Date: 11/04/23 *Time: 18:45 Interval history: No acute events overnight. Family at bedside. Stable on room. Therapy. Has chest pain, nausea, vomiting or diarrhea. Complaining of right knee pain. Medical Exam Vital signs and Labs for Last 24 Hours: Vital Signs Temp Pulse Pulse Resp BP BP Pulse Ox 11/04/23 18:20 11/04/23 17:00 11/04/23 16:00 97.7 F 76 18 123/59 L 97 11/04/23 15:00 11/04/23 13:00 11/04/23 11:00 11/04/23 09:00 11/04/23 08:00 11/04/23 07:45 97.9 F 83 18 131/65 96 11/04/23 06:42 11/04/23 05:00 11/04/23 04:00 97.9 F 71 16 159/83 H 98 11/04/23 03:00 11/04/23 01:00 11/03/23 23:51 11/03/23 23:00 11/03/23 21:12 98.2 F 1 L 17 121/68 11/03/23 21:00 11/03/23 20:50 97.4 F L 73 17 121/68 98 11/03/23 19:30 80 18 134/63 98 11/03/23 19:00 67 18 133/54 L 97 O2 Del Method 11/04/23 18:20 Room Air 11/04/23 17:00 Room Air 11/04/23 16:00 Room Air 11/04/23 15:00 Room Air 11/04/23 13:00 Room Air 11/04/23 11:00 Room Air 11/04/23 09:00 Room Air 11/04/23 08:00 Room Air 11/04/23 07:45 Room Air 11/04/23 06:42 Room Air 11/04/23 05:00 Room Air 11/04/23 04:00 Room Air 11/04/23 03:00 Room Air 11/04/23 01:00 Room Air 11/03/23 23:51 Room Air 11/03/23 23:00 Room Air 11/03/23 21:12 Room Air 11/03/23 21:00 Room Air 11/03/23 20:50 11/03/23 19:30 Room Air 11/03/23 19:00 Room Air Intake and Output 11/04/23 11/04/23 11/04/23 07:59 15:59 23:59 Intake Total 440 / 680 240 / 680 Output Total 400 / 700 300 / 700 0 / 700 Balance -400 / -20 140 / -20 240 / -20 Intake: Intake, Oral Amount 440 / 680 240 / 680 Output: Output, Urine Amount 400 / 700 300 / 700 0 / 700 Other: Number of Unmeasured Voids 0 0 0 Weight 157.896 kg 157.89 kg Patient Weight 11/04/23 23:59 Weight 157.89 kg Laboratory Results - last 24 hr 11/04/23 07:05: WBC 4.9 D, RBC 4.42, Hgb 14.0, Hct 42.4, MCV 96.0, MCH 31.7 H, MCHC 33.1, RDW 14.1, Plt Count 131 L, MPV 8.0, Neut % (Auto) 69.9, Lymph % (Auto) 17.2, [place] % (Auto) 10.0 H, Eos % (Auto) 1.1, Baso % (Auto) 1.8, Neut # (Auto) 3.4, Lymph # (Auto) 0.8, [place] # (Auto) 0.5, Eos # (Auto) 0.1, Baso # (Auto) 0.1, Sodium 135 L, Potassium 3.6, Chloride 105, Carbon Dioxide 25, Anion Gap 8.6, BUN 19 H, Creatinine 0.80, Estimated Creat Clear 46, Estimated GFR 70, Est GFR ( Amer) 85, Glucose 102 H D, Calcium 9.1, Magnesium 2.1, Total Bilirubin 4.5 H, AST 34, ALT 19, Alkaline Phosphatase 155 H, Total Protein 5.5 L , Albumin 3.0 L, Globulin 2.5, Albumin/Globulin Ratio 1.2 I & O for Labs for Last 24 Hours: Intake & Output 11/01/23 11/02/23 11/03/23 11/04/23 23:59 23:59 23:59 23:59 Intake Total 680 / 680 Output Total 0 / 0 700 / 700 Balance 0 / 0 -20 / -20 Weight 157.351 kg 157.89 kg Constitutional: Present no acute distress, morbidly obese, chronically ill appearing and cooperative Head: Present atraumatic and normocephalic ENT: Present normal exam Neck: Present normal inspection Respiratory: Present distant breath sounds and normal respiratory effort; Absent rhonchi, wheezes or crackles Cardiac: Present Reg Rate and Rhythm GI: Present soft and normal bowel sounds; Absent distention or tenderness Extremities: Present normal inspection, full ROM and edema (Chronic lymphedema, nonpitting) Comment:: Bilateral scars from knee replacement, right knee tender to palpation. No warmth or redness. Skin: Present intact; Absent erythema Neuro: Present Grossly Intact, alert, awake, oriented x 3 and moves all extremities Assessment and Plan *Assessment and plan (1) Multiple falls: Status: Acute Category: Medical Code(s): R29.6 - Repeated falls (2) Lymphedema: Status: Chronic Category: Medical Code(s): I89.0 - Lymphedema, not elsewhere classified (3) H/O right knee surgery: Status: Acute Category: Surgical Code(s): Z98.890 - Other specified postprocedural states (4) HLD (hyperlipidemia): Status: Acute Qualifiers: Hyperlipidemia type: mixed hyperlipidemia Qualified Code(s): E78.2 - Mixed hyperlipidemia Category: Medical Code(s): E78.5 - Hyperlipidemia, unspecified (5) Atrial fibrillation: Status: Chronic Qualifiers: Atrial fibrillation type: unspecified chronic Qualified Code(s): I48.20 - Chronic atrial fibrillation, unspecified Category: Medical Code(s): I48.91 - Unspecified atrial fibrillation (6) CAD (coronary artery disease): Status: Chronic Qualifiers: Associated angina: without angina Coronary Disease-Associated Artery/Lesion type: [place] artery [place] vs. transplanted heart: [place] heart Qualified Code(s): I25.10 - Atherosclerotic heart disease of [place] coronary artery without angina pectoris Category: Medical Code(s): I25.10 - Atherosclerotic heart disease of [place] coronary artery without angina pectoris (7) HTN (hypertension): Status: Chronic Qualifiers: Hypertension type: essential hypertension Qualified Code(s): I10 - Essential (primary) hypertension Category: Medical Code(s): I10 - Essential (primary) hypertension (8) Hypothyroidism: Status: Chronic Qualifiers: Hypothyroidism type: unspecified Qualified Code(s): E03.9 - Hypoth yroidism, unspecified Category: Medical Code(s): E03.9 - Hypothyroidism, unspecified (9) Morbid obesity: Status: Acute Category: Medical Code(s): E66.01 - Morbid (severe) obesity due to excess calories Plan 73 F morbid obese, with multiples comorbidities. Presents after a ground-level fall at her home. Patient has dropfoot of the right foot and has recurrent falls, with frequent ED visit for evaluation. Due to excessive body weight, patient is unable to ambulate by herself. On arrival to ED, she was complaining of shoulder pain. Head to toe trauma screening was conducted. There were negative for acute process. Patient unable to walk due to pain and weakness associated with her large BMI. Of note, patient has been sure about for long period of time, being continuously declining. Findings discussed with the ED. agree with information. Patient will need an comprehensive physical therapy evaluation for treatment and management. Plan as follow: -Multiple fall, in the setting of excessive BMI, due to chronic lymphedema and versus excessive calorie intake: History of chronic right knee pain and right foot drop, that predisposes impaired her mobility: X-ray of right knee obtained, no effusion on personal review. Venous Doppler obtained bilateral lower extremities, on personal review, vessels appear c ompressible. Awaiting formal read. Evaluated by physical therapy and Occupational Therapy, would benefit from placement for rehab and to work on ambulation and transferring. Patient is a functional paraplegic as she is essentially bedbound or chair bound and has use of only her arms. Labs show normal white count 4.9, hemoglobin 14. Kidney function normal with BUN 19, creatinine 0.8. Chronic conditions: Continue Bumex 1 mg daily for edema Continue docusate 100 mg daily for constipation Continue doxepin 10 mg 3 times a day as needed for anxiety along with Cymbalta 30 mg daily. Continue levothyroxine 75 mcg daily for hypothyroid Continue oxybutynin 5 mg twice daily for overactive bladder Continue metoprolol 25 mg daily for hypertension Continue Eliquis 5 mg twice daily for history of blood clots. Eliquis twice daily On Protonix Regular diet Full code
[2023-11-04 20:00] VITALS: BP 135/73; PULSE 76; RESP 17; TEMP 36.6; O2SAT 99
[2023-11-04] MEDS: PT OWN MED *ELIQUIS 5 MG TAB 1 EACH PO (21:45)
[2023-11-05] MEDS: ALUMINUM/MAGNESIUM/SIMETHICONE 30ML UDC 30 ML PO (02:07)
[2023-11-05] MEDS: ONDANSETRON 4MG/2ML VIAL 4 MG IV (02:08)
[2023-11-05] MEDS: MORPHINE 2MG/ML SYRINGE 2 MG IV (02:08)
[2023-11-05 04:00] VITALS: BP 116/66; PULSE 83; RESP 16; TEMP 36.6; O2SAT 99; BMI 55.0
[2023-11-05] MEDS: LEVOTHYROXINE 75 MCG 1 EACH PO (06:58)
[2023-11-05 07:34] LABS: Basophils # 0.1 K/mm3 (0-0.2); Basophils % 1.4 % (0.1-2.0); Chloride 104 mmol/L (98-107); Eosinophils # 0.1 K/mm3 (0.0-0.4); Eosinophils % 2.9 % (0.1-12.0); Hematocrit 44.3 % (37.0-47.0); Hemoglobin 14.4 g/dL (12.2-16.2); Lymphocytes # 1.4 K/mm3 (0.7-4.5); Lymphocytes % 32.9 % (10-50); Mean Corpuscular HGB Conc 32.5 g/dL (31.8-35.4); Mean Corpuscular Hemoglobin 31.4 pg (27.0-31.2); Mean Corpuscular Volume 96.7 fl (81-99); Mean Platelet Volume 7.9 fl (7.4-10.4); Monocytes # 0.4 K/mm3 (0.1-1.0); Monocytes % 9.4 % (1.7-9.3); Neutrophils # 2.2 K/mm3 (1.8-7.8); Neutrophils % 53.4 % (37.0-80.0); Platelet Count 140 K/mm3 (142-424); Potassium 4.2 mmoL/L (3.5-5.1); Red Blood Count 4.58 M/mm3 (4.20-5.40); Red Cell Distribution Width 14.1 % (11.5-17.5); Sodium 136 mmol/L (136-145); White Blood Count 4.1 K/mm3 (4.8-10.8)
[2023-11-05 07:37] LABS: Alanine Aminotransferase 21 U/L (12-78); Albumin Level 3.1 g/dl (3.5-5.0); Albumin/Globulin Ratio 1.2 (1.1-1.8); Alkaline Phosphatase 163 U/L (38-126); Anion Gap 3.2 mEq/L (5-15); Aspartate Amino Transferase 40 U/L (14-36); Bilirubin,Total 3.1 mg/dl (0.2-1.3); Blood Urea Nitrogen 18 mg/dl (7-17); Calcium 8.9 mg/dl (8.4-10.2); Carbon Dioxide 33 mmol/L (22.0-30.0); Creatinine Clearance Estimated 46 mL/min (50-200); Estimated Glomerular Filt Rate 61 ml/min (>60); GFR (African American) 74 ML/MIN (>60); Globulin 2.6 g/dL (1.3-3.2); Glucose 97 mg/dl (74-100); Total Protein,Serum 5.7 g/dl (6.3-8.2)
[2023-11-05 07:38] LABS: Magnesium 2.1 mg/dl (1.6-2.3)
[2023-11-05 08:00] VITALS: BP 112/60; PULSE 79; RESP 18; TEMP 36.7; O2SAT 98
[2023-11-05] MEDS: PT OWN MED *ELIQUIS 5 MG TAB 1 EACH PO (08:34)
[2023-11-05] MEDS: METOPROLOL SUCC 25 MG 1 EACH PO (08:35)
[2023-11-05] MEDS: POTASSIUM CL 20 MEQ 1 EACH PO (08:35)
[2023-11-05] MEDS: DULOXETINE 30 MG 1 EACH PO (08:35)
[2023-11-05] MEDS: PT OWN MED *PANTOPRAZOLE DR 40 MG TAB 1 EACH PO (08:35)
[2023-11-05] MEDS: OXYBUTYNIN 5MG TAB 5 MG PO (08:36)
[2023-11-05] MEDS: DOCUSATE SODIUM 100 MG CAPSULE PO (08:36)
[2023-11-05] MEDS: BUMETANIDE 1 MG TABLET PO (08:36)
--- NOTE | 2023-11-05 14:56 | P.DS_ITS ---
General Admission date:: 11/03/23 Discharge date: 11/05/23 HPI HPI HPI: This is a 73 F morbid obese, with multiples comorbidities. Presents after a ground-level fall at her home. Patient has dropfoot of the right foot and has recurrent falls, with frequent ED visit for evaluation. Last visit earlier this month. At that time she suffered no acute bony injury and had multiple contusions. Patient again had a tripping episode with her right foot this time she landed face forward slightly on her right side. She cannot arise from from the floor. Patient did not lose consciousness or suffer head trauma. On arrival patient complains of neck pain right hip pain right knee pain but denies chest pain loss of consciousness fever chills hemoptysis hematochezia melena nausea vomit diarrhea. admitted for further management. Hospital Course Hospital Course Hospital Course: 73 F morbid obese, with multiples comorbidities. Presents after a ground-level fall at her home. Patient has dropfoot of the right foot and has recurrent falls, with frequent ED visit for evaluation. Due to excessive body weight, [place] is unable to ambulate by herself. On arrival to ED, she was complaining of shoulder pain. Head to toe trauma screening was conducted. There were negative for acute process. Patient unable to walk due to pain and weakness associated with her BMI and debility from her knees. Medicine admitted for further management. Patient was evaluated by PT. Recommend placement due to her debility. [place] graciously accepted for further management. Problems addressed as follows: -Multiple fall, in the setting of excessive BMI, due to chronic lymphedema and versus excessive calorie intake: History of chronic right knee pain and right foot drop, that predisposes impaired her mobility: X-ray of right knee obtained, no effusion on personal review. Venous Doppler obtained bilateral lower extremities, on personal review, vessels appear compressible. Evaluated by physical therapy and Occupational Therapy, would benefit from placement for rehab and to work on ambulation and transferring. Patient is a functional paraplegic as she is essentially bedbound or chair bound and has use of only her arms. Labs during admission showed clinical stability with white count of 4.1, hemoglobin 14.4. Electrolytes stable with appropriate kidney function with BUN of 18 and creatinine of 0.9. Chronic conditions: Continue Bumex 1 mg daily for edema Continue docusate 100 mg daily for constipation Continue doxepin 10 mg 3 times a day as needed for anxiety along with Cymbalta 30 mg daily. Continue levothyroxine 75 mcg daily for hypothyroid Continue oxybutynin 5 mg twice daily for overactive bladder Continue metoprolol 25 mg daily for hypertension Continue Eliquis 5 mg twice daily for history of blood clots. History of breast cancer: Continue suppressive therapy with exemestane Total time spent on discharge 32 minutes in counseling, documentation, chart review, and direct care with patient. Exam Data for Last 24 hours Vital signs and Labs for Last 24 Hours: Temp Pulse Resp BP Pulse Ox O2 Del Method 98.0 F 79 18 112/60 98 Room Air 11/05/23 08:00 11/05/23 08:00 11/05/23 08:00 11/05/23 08:00 11/05/23 08:00 11/05/23 13:15 Laboratory Results - last 24 hr 11/05/23 07:10: WBC 4.1 L, RBC 4.58, Hgb 14.4, Hct 44.3, MCV 96.7, MCH 31.4 H, MCHC 32.5, RDW 14.1, Plt Count 140 L, MPV 7.9, Neut % (Auto) 53.4, Lymph % (A uto) 32.9, [place] % (Auto) 9.4 H, Eos % (Auto) 2.9, Baso % (Auto) 1.4, Neut # (Auto) 2.2, Lymph # (Auto) 1.4, [place] # (Auto) 0.4, Eos # (Auto) 0.1, Baso # (Auto) 0.1, Sodium 136, Potassium 4.2, Chloride 104, Carbon Dioxide 33 H, Anion Gap 3.2 L, BUN 18 H, Creatinine 0.90, Estimated Creat Clear 46, Estimated GFR 61, Est GFR ( Amer) 74, Glucose 97, Calcium 8.9, Magnesium 2.1, Total Bilirubin 3.1 H, AST 40 H, ALT 21, Alkaline Phosphatase 163 H, Total Protein 5.7 L, Albumin 3.1 L, Globulin 2.6, Albumin/Globulin Ratio 1.2 I & O for Last 24 hours: Intake & Output 11/02/23 11/03/23 11/04/23 11/05/23 23:59 23:59 23:59 23:59 Intake Total 680 / 920 480 / 480 Output Total 0 / 0 1600 / 1600 850 / 850 Balance 0 / 0 -920 / -680 -370 / -370 Weight 157.351 kg 157.89 kg 159.029 kg Constitutional Constitutional: no acute distress, morbidly obese and cooperative *Routine HEENT Exam Head: Present normocephalic Eye: Present EOMI and PERRL ENT: Present mucous membranes moist *Routine Neck Exam Neck: Present supple; Absent lymphadenopathy *Routine Respiratory Exam Respiratory: Present CTA bilaterally, distant breath sounds and diminished air movement; Absent rhonchi, wheezes or crackles *Routine Cardiovascular Exam Cardiovascular: Present RRR *Routine Abdominal Exam Abdominal: Present soft and normoactive bowel sounds; Absent tenderness *Routine Rectal Exam Patient deferred: visual exam *Routine Exam Patient deferred: external exam *Routine Extremities Exam Extremities: Present edema (Chronic lymphedema); Absent cyanosis or clubbing *Routine Skin Exam Skin: Present intact, warm and rash (Lesions on lower legs, no active concern for infection.) *Routine Neurological Exam Neurological: Present alert, oriented X3 and moving all extremities; Absent altered mental status Comments: Limited strength in bilateral lower extremities Routine Psychiatric Exam Psychiatric: Present normal affect Results Data Completed and Pending Labs on day of discharge: Labs from last 24 hours 11/05/23 07:10 WBC 4.1 L RBC 4.58 Hgb 14.4 Hct 44.3 MCV 96.7 MCH 31.4 H MCHC 32.5 RDW 14.1 Plt Count 140 L MPV 7.9 Neut % (Auto) 53.4 Lymph % (Auto) 32.9 [place] % (Auto) 9.4 H Eos % (Auto) 2.9 Baso % (Auto) 1.4 Neut # (Auto) 2.2 Lymph # (Auto) 1.4 [place] # (Auto) 0.4 Eos # (Auto) 0.1 Baso # (Auto) 0.1 Sodium 136 Potassium 4.2 Chloride 104 Carbon Dioxide 33 H Anion Gap 3.2 L BUN 18 H Creatinine 0.90 Estimated Creat Clear 46 Estimated GFR 61 Est GFR ( Amer) 74 Glucose 97 Calcium 8.9 Magnesium 2.1 Total Bilirubin 3.1 H AST 40 H ALT 21 Alkaline Phosphatase 163 H Total Protein 5.7 L Albumin 3.1 L Globulin 2.6 Albumin/Globulin Ratio 1.2 DS: Diagnosis Discharge Diagnosis (1) Multiple falls: Status: Acute Code(s): R29.6 - Repeated falls (2) Lymphedema: Status: Chronic Code(s): I89.0 - Lymphedema, not elsewhere classified (3) H/O right knee surgery: Status: Acute Code(s): Z98.890 - Other specified postprocedural states (4) HLD (hyperlipidemia): Status: Acute Code(s): E78.5 - Hyperlipidemia, unspecified Qualifiers: Hyperlipidemia type: mixed hyperlipidemia Qualified Code(s): E78.2 - Mixed hyperlipidemia (5) Atrial fibrillation: Status: Chronic Code(s): I48.91 - Unspecified atrial fibrillation Qualifiers: Atrial fibrillation type: unspecified chronic Qualified Code(s): I48.20 - Chronic atrial fibrillation, unspecified (6) CAD (coronary artery disease): Status: Chronic Code(s): I25.10 - Atherosclerotic heart disease of [place] coronary artery without angina pectoris Qualifiers: Associated angina: without angina Coronary Disease-Associated Artery/Lesion type: [place] artery [place] vs. transplanted heart: [place] heart Qualified Code(s): I25.10 - Atherosclerotic heart disease of [place] coronary artery without angina pectoris (7) HTN (hypertension): Status: Chronic Code(s): I10 - Essential (primary) hypertension Qualifiers: Hypertension type: essential hypertension Qualified Code(s): I10 - Essential (primary) hypertension (8) Hypothyroidism: Status: Chronic Code(s): E03.9 - Hypothyroidism, unspecified Qualifiers: Hypothyroidism type: unspecified Qualified Code(s): E03.9 - Hypothyroidism, unspecified (9) Morbid obesity: Status: Acute Code(s): E66.01 - Morbid (severe) obesity due to excess calories Meds Home Medications and Allergies Home Medications Medication Instructions Recorded Confirmed Type acetaminophen 500 mg tablet 500 mg PO Q8 PRN Pain 11/28/20 11/03/23 History doxepin 10 mg capsule 10 mg PO TID PRN Anxiety 06/18/21 11/04/23 History exemestane 25 mg tablet 25 mg PO DAILY 02/18/22 11/03/23 History bumetanide 1 mg tablet 1 mg PO DAILY #90 tabs 03/14/23 11/04/23 Rx triamcinolone acetonide 0.1 % 1 applic topical DAILY 03/14/23 11/04/23 History topical cream atorvastatin 20 mg tablet 20 mg PO DAILY #90 tabs 07/23/23 11/03/23 Rx duloxetine 30 mg capsule,delayed 30 mg PO DAILY Depression #90 caps 07/23/23 11/03/23 Rx release levothyroxine 75 mcg tablet 75 mcg PO DAILY THYROID #90 tabs 07/23/23 11/03/23 Rx pantoprazole 40 mg tablet,delayed 40 mg PO DAILY #90 tabs 07/23/23 11/03/23 Rx release potassium chloride 20 mEq 20 meq PO DAILY #90 tabs 07/23/23 11/03/23 Rx tablet,extended release(part/cryst) apixaban 5 mg tablet (Eliquis) 5 mg PO BID #60 tabs 10/17/23 11/03/23 Rx cholecalciferol (vitamin D3) 125 125 mcg PO DAILY 11/03/23 11/03/23 History mcg (5,000 unit) tablet (Vitamin D3) metoprolol succinate 25 mg 25 mg PO DAILY 11/03/23 11/03/23 History tablet,extended release 24 hr oxybutynin chloride 5 mg tablet 5 mg PO BID BLADDER 11/03/23 11/04/23 History docusate sodium 100 mg capsule 100 mg PO DAILY #0 caps 11/05/23 Rx New Prescriptions to Start Prescriptions: Allergies Allergy/AdvReac Type Severity Reaction Status Date / Time cephalexin [From KEFLEX] Allergy Intermediate I-RASH Verified 11/03/23 16:05 Sulfa (Sulfonamide Allergy Intermediate I-RASH Verified 11/03/23 16:05 Antibiotics) [SULFA (SULFONAMIDE ANTIBIOTICS)] doxycycline [DOXYCYCLINE] Allergy Unknown NA-NAUSEA Verified 11/03/23 16:05 Penicillins [PENICILLINS] Allergy Unknown LOCAL Verified 11/03/23 16:05 REACTION AT INJECTION SITE Discharge Plan Disposition Patient Disposition: [facility] Condition: Fair Discharge Order Discharge Orders: Discharge Order (Routine); Ordered 11/05/23 Ordered By: Lenny Jules Follow up Plan Prescriptions/Medication Reconciliation: New docusate sodium 100 mg Capsule 100 mg PO DAILY Qty: 0 0RF Continued doxepin 10 mg capsule 10 mg PO TID PRN (Reason: Anxiety) exemestane 25 mg tablet 25 mg PO DAILY triamcinolone acetonide 0.1 % cream 1 applic TP DAILY bumetanide 1 mg tablet 1 mg PO DAILY Qty: 90 0RF potassium chloride 20 mEq tablet,ER particles/crystals 20 meq PO DAILY Qty: 90 1RF levothyroxine 75 mcg tablet 75 mcg PO DAILY Qty: 90 1RF atorvastatin 20 mg tablet 20 mg PO DAILY Qty: 90 1RF duloxetine 30 mg capsule,delayed release(DR/EC) 30 mg PO DAILY Qty: 90 1RF pantoprazole 40 mg tablet,delayed release (DR/EC) 40 mg PO DAILY Qty: 90 3RF Eliquis 5 mg tablet 5 mg PO BID Qty: 60 3RF acetaminophen 500 mg tablet 500 mg PO Q8 PRN (Reason: Pain) cholecalciferol (vitamin D3) [Vitamin D3] 125 mcg (5,000 unit) Tablet 125 mcg PO DAILY metoprolol succinate 25 mg tablet extended release 24 hr 25 mg PO DAILY oxybutynin chloride 5 mg tablet 5 mg PO BID Discontinued meclizine 12.5 mg tablet 12.5 mg PO BID PRN (Reason: Nausea) Problem Reconciliation Problems Reviewed?: Yes Patient Discharge Instructions ACTIVITY: Continue current activity DIET: continue same diet Patient Instructions: How to Prevent Falls, DI for Failure to Thrive, DI for Muscle Weakness Providers Primary Care Provider: Brennan Calloway Admit Provider: Lenny Jules Attending Provider: Lenny Jules
== END 2023-11-05 17:31 ==
LOC: ER 20:05 → 2ND 20:17 → ER 21:29
PROVIDERS: Nurse Practitioner Family; Physician Assistant; Admitting Provider Internal Medicine Adolescent Medicine; Emergency Provider Emergency Medicine; PCP Internal Medicine; Visit Provider Internal Medicine Adolescent Medicine
DX: M21.371 Foot drop, right foot (principal); M25.561 Pain in right knee; R29.6 Repeated falls; I89.0 Lymphedema, not elsewhere classified; Z98.890 Other specified postprocedural states; E78.2 Mixed hyperlipidemia; I48.20 Chronic atrial fibrillation, unspecified; I25.10 Atherosclerotic heart disease of native coronary artery without angina pectoris; I10 Essential (primary) hypertension; E03.9 Hypothyroidism, unspecified; E66.01 Morbid (severe) obesity due to excess calories; Z74.09 Other reduced mobility; Z68.43 Body mass index [BMI] 50.0-59.9, adult; Z79.899 Other long term (current) drug therapy; E88.810 Metabolic syndrome; F44.4 Conversion disorder with motor symptom or deficit; M79.604 Pain in right leg
CPT/HCPCS: 36415; 70450; 71275; 72125; 72128; 72131; 72192; 73030; 73560; 74174; 80048; 80053; 83735; 85007; 85025; 85027; 93971; 97110; 97163; 97167; 97530; 99285; G0378; J0131; J2405; Q9967

== ENCOUNTER 2023-12-01 13:08 | Emergency (ER) | payer MEDICARE, SELFPAY ==
[2023-12-01 13:09] VITALS: BP 143/58; PULSE 92; RESP 20; TEMP 36.7; O2SAT 98; BMI 65.7
--- NOTE | 2023-12-01 13:17 | PC.NURSE ---
pure wick placed on pt for urine collection
[2023-12-01 13:31] VITALS: BP 126/74; PULSE 73; O2SAT 100
--- NOTE | 2023-12-01 13:50 | PC.NURSE ---
SPOKE WITH LAURNE IN CM. ADVISED LILIAM WOULD BE DOWN TO SEE PT.
--- NOTE | 2023-12-01 13:54 | ED_ITS ---
Discharge Plan Disposition Patient Disposition: Still a Patient Prescriptions Prescriptions: No Action doxepin 10 mg capsule 10 mg PO TID PRN (Reason: Anxiety) exemestane 25 mg tablet 25 mg PO DAILY triamcinolone acetonide 0.1 % cream 1 applic TP DAILY bumetanide 1 mg tablet 1 mg PO DAILY Qty: 90 0RF potassium chloride 20 mEq tablet,ER particles/crystals 20 meq PO DAILY Qty: 90 1RF levothyroxine 75 mcg tablet 75 mcg PO DAILY Qty: 90 1RF atorvastatin 20 mg tablet 20 mg PO DAILY Qty: 90 1RF duloxetine 30 mg capsule,delayed release(DR/EC) 30 mg PO DAILY Qty: 90 1RF pantoprazole 40 mg tablet,delayed release (DR/EC) 40 mg PO DAILY Qty: 90 3RF Eliquis 5 mg tablet 5 mg PO BID Qty: 60 3RF metoprolol succinate 25 mg tablet extended release 24 hr See Rx Instructions .ROUTE .COMPLEX Qty: 90 3RF Dose Instruction: TAKE 1 TABLET EVERY DAY Rx Instructions: TAKE 1 TABLET EVERY DAY acetaminophen 500 mg tablet 500 mg PO Q8 PRN (Reason: Pain) cholecalciferol (vitamin D3) [Vitamin D3] 125 mcg (5,000 unit) Tablet 125 mcg PO DAILY oxybutynin chloride 5 mg tablet 5 mg PO BID docusate sodium 100 mg Capsule 100 mg PO DAILY Qty: 0 0RF Referrals Follow up/Referrals: Brennan Calloway DO [Primary Care Provider] - See instructions Activity Restrictions/Add. Instructions Additional Instructions/Restrictions: After discussion with her physical therapist occupational therapist case management and financial team it was deemed that you are safe to go home with home health. Please return to the emergency department with any significant worsening of your symptoms. Clinical Impressions Clinical Impression: Morbid obesity, Unable to care for self, Generalized weakness Discharge ED Provider: Chance Isaacs General Adult HPI General Chief complaint: Weakness Stated complaint: weakness Time Seen by Provider: 12/01/23 13:32 Mode of Arrival: EMS Source of Information: Patient and EMS Limitations: No Limitations Description of Symptoms (Recalled from ER Triage Doc. by RN): Patient arrived via EMS. EMS reports they were called due to patient being unable to get off toilet by herself. When they arrived home health nurse there and states patients blood pressure was elevated and she may have a UTI so she recommended her to come to ER for evaluation. Patient states she was just released from rehab on Friday but doesn't feel like it helped her. patient denies pain and any other symptoms at this time. History of Present Illness HPI narrative: Patient is a 73-year-old female who is morbidly obese who presents today with inability to get herself off of her toilet. Her home health provider actually found her and called 911. Specifically her home health provider stated that she should not be trying to care for herself at home. The patient does have a at home but states that he is not in any condition to help anyone else either. The patient was recently in the hospital about a month ago for similar reasons was ultimately discharged to a rehab facility, [place] where she and the family states she did not have any improvement and ultimately sent home with home health. She states she cannot care for herself and wishes to be in a halfway. Related Data Home Medications Medication Instructions Recorded Confirmed acetaminophen 500 mg tablet 500 mg PO Q8 PRN Pain 11/28/20 11/03/23 doxepin 10 mg capsule 10 mg PO TID PRN Anxiety 06/18/21 11/04/23 exemestane 25 mg tablet 25 mg PO DAILY 02/18/22 11/03/23 triamcinolone acetonide 0.1 % 1 applic topical DAILY 03/14/23 11/04/23 topical cream cholecalciferol (vitamin D3) 125 125 mcg PO DAILY 11/03/23 11/03/23 mcg (5,000 unit) tablet (Vitamin D3) oxybutynin chloride 5 mg tablet 5 mg PO BID BLADDER 11/03/23 11/04/23 Previous Rx's Medication Instructions Recorded bumetanide 1 mg tablet 1 mg PO DAILY #90 tabs 03/14/23 atorvastatin 20 mg tablet 20 mg PO DAILY #90 tabs 07/23/23 duloxetine 30 mg capsule,delayed 30 mg PO DAILY Depression #90 caps 07/23/23 release levothyroxine 75 mcg tablet 75 mcg PO DAILY THYROID #90 tabs 07/23/23 pantoprazole 40 mg tablet,delayed 40 mg PO DAILY #90 tabs 07/23/23 release potassium chloride 20 mEq 20 meq PO DAILY #90 tabs 07/23/23 tablet,extended release(part/cryst) apixaban 5 mg tablet (Eliquis) 5 mg PO BID #60 tabs 10/17/23 docusate sodium 100 mg capsule 100 mg PO DAILY #0 caps 11/05/23 metoprolol succinate 25 mg See Rx Instructions .Route 12/01/23 tablet,extended release 24 hr .COMPLEX #90 tabs Allergies Allergy/AdvReac Type Severity Reaction Status Date / Time cephalexin [From KEFLEX] Allergy Intermediate I-RASH Verified 11/03/23 16:05 Sulfa (Sulfonamide Allergy Intermediate I-RASH Verified 11/03/23 16:05 Antibiotics) [SULFA (SULFONAMIDE ANTIBIOTICS)] doxycycline [DOXYCYCLINE] Allergy Unknown NA-NAUSEA Verified 11/03/23 16:05 Penicillins [PENICILLINS] Allergy Unknown LOCAL Verified 11/03/23 16:05 REACTION AT INJECTION SITE [facility] Disclaimer: The information contained in this section may have been updated after the patient was seen, as this information can be updated by other users. Medical History (Updated 12/01/23 @ 15:04 by Chance Isaacs MD) MRSA bacteremia Staphylococcus aureus bacteremia Gout attack Metabolic syndrome Thyroid disease Urinary tract infection History of gastroesophageal reflux (GERD) Hyperlipidemia Atrial fibrillation Morbid obesity Atypical angina Breast cancer Edema HTN (hypertension) Elevated coronary artery calcium score Abnormal EKG Preoperative clearance Dyspnea Surgical History (Updated 11/09/23 @ 00:00 by Lashay Weeks) History of colonoscopy History of mastectomy History of knee surgery Family History Father Heart attack Social History (Updated 11/03/23 @ 21:52 by Sofia Nichols RN) Smoking Status: Never smoker second hand exposure: No alcohol intake: never current occupational status: disabled Travel in the last 8 weeks: None household members: spouse and children housing: house ROS Obtained: Yes All systems reviewed & no additional complaints except as documented Physical Exam General General appearance: alert Respiratory Respiratory exam: Present normal lung sounds bilaterally and respiratory distress Cardiovascular Cardiovascular exam: Present regular rate Neurological Exam Neurological exam: Present alert and oriented X3 Medical Decision Making Richard Inquiry Pt receiving controlled substance: No Vital Signs: 12/01/23 13:09 12/01/23 13:31 12/01/23 14:01 Temperature 98.1 F Temperature Source Oral Pulse Rate 73 75 Pulse Rate [Right] 92 H Respiratory Rate 20 Blood Pressure 126/74 123/60 Blood Pressure [Right Arm] 143/58 H Blood Pressure Mean [Right Arm] 86 Blood Pressure Source [Right Arm] Automatic Cuff 02 Sat by Pulse Oximetry 98 100 99 Oxygen Delivery Method Room Air Room Air Room Air Medical Decision Narrative: 73-year-old female morbidly obese with above history and physical. She has no acute injuries or no other symptoms just progressive decline in overall function and inability to care for herself at home. Will get a PT OT evaluation and case management see this patient. At the moment it does not appear that she can go home in the current state with the resources she has that she is unable to walk and even get herself up off the toilet at this point. She also states that her is unable to do help her. And that her daughters to work are unable to help regularly. Will reassess after these evaluations are performed. PT OT evaluated the patient and deemed that she was actually able to stand without any significant problems and has all the resources at home that she needs at the moment does not need to be admitted to rehab facility. Additionally she has used all of her skilled days and does not want to do self- pay. Our pillowcase cutter was actively involved in the case and also spoke with our financial team to see if she could be a candidate for Medicaid. At that point more resources would be opened up. The patient's daughter and [id number] are at the bedside and everyone is in agreement for her to go back home. No other emergent medical condition identified. Critical Care Critical Care Time Critical Care Time: No
[2023-12-01 14:01] VITALS: BP 123/60; PULSE 75; O2SAT 99
--- NOTE | 2023-12-01 14:01 | PC.NURSE ---
Nigel in rehab aware of ot/pt leida
[2023-12-01 14:31] VITALS: BP 107/48; PULSE 66; O2SAT 100
--- NOTE | 2023-12-01 14:42 | PC.NURSE ---
PT/OT AT BEDSIDE ALONG WITH CARE MANAGEMENT
--- NOTE | 2023-12-01 14:49 | PC.NURSE ---
Jackie in [place] is at bs with family
[2023-12-01 15:00] VITALS: BP 130/67; PULSE 71; O2SAT 100
--- NOTE | 2023-12-01 15:16 | SW/DCPLANNER ---
I spoke w/ patient, daughter, daughter in law, ER MD and PT/OT. Patient was discharged from [facility] level of care on Friday11/28/23. Patient was not able to stand up from toilet this AM and contacted EMS for assistance. Patient is currently established w/ [facility]. I discussed different discharge plans w/ patient and family: placement under private pay ([facility] w/ [facility] is verifying that she used all skilled days) or returning home w/ home health services/private sitters/family assistance. Patient is not interested in placement under private pay at this time. Patient and family stated that patient does have the following DME at home: rolling walker, rollator and BSC. PT/OT stated that patient did well and could either do placement or home w/ home health. Patient has decided to return home w/ home health services. I will contact [facility] regarding discharge from ED. I have provided patient w/ a private sitters list. I have also spoke w/ Financial Counselor (Anayeli) and she will speak w/ patient while in ED regarding Medicaid application. Patient/family did not have any further questions at this time.
--- NOTE | 2023-12-01 15:38 | HMH.OTEV ---
OT Inpatient Evaluation Rehab OT IP Evaluation Start: 12/01/23 13:53 Freq: ONCE Status: Active [facility]: [facility]Rec[facility] 12[facility]01/23 15:37 [facility] [id number]) Rehab OT IP Assessment Subjective History Pt oriented x 3 on arrival. Pt agreeable to engage in therapy evaluation. Pt's daughter's present during therapy evaluation. Pt came to [facility] ER due to inability to get up off the toilet; EMS was called. History and Physical report: Patient is a 73-year-old female who is morbidly obese who presents today with inability to get herself off of her toilet. Her home health provider actually found her and called 911. Specifically her home health provider stated that she should not be trying to care for herself at home. The patient does have a at home but states that he is not in any condition to help anyone else either. The patient was recently in the hospital about a month ago for similar reasons was ultimately discharged to a rehab facility, [place] where she and the family states she did not have any improvement and ultimately sent home with home health. She states she cannot care for herself and wishes to be in a usp. Subjective I can't get my legs out of the bed by myself. Pt was recently discharged from SNF this past friday. Pt claims since she has been home she has been independent with most ADLs such as dressing, feeding, and sponge bathing. Pt used a rolling walker during functional transfers. Pt does live with her , but he is unable to assist her because he is not in good health. Objective Patient Orientation Person,Place,Birthday Right Upper Extremity Gross ROM WFL Left Upper Extremity Gross ROM WFL Bed Mobility bed mobility-scooting,bed mobility - supine/sit Assist Level Minimal x 2 (25% assist) Transfer Training Sit/Stand Transfer Assist Level Contact Guard/Hand Hold Rehab OT IP prob,goals,plan Problems Date of Evaluation: 12/01/23 OT IP Problems Bed Mobility,Transfers,Balance ,Self care,Safety Rehab Potential Rehab Potential Good Equipment Needs Assistive Devices Rolling / Wheeled Walker Plan OT intervention Plan Bed Mobility,Transfers,Balance ,Self care,Safety,Therapeutic Exercise OT Plan Frequency Daily Duration LOS Discharge Goals Bed Mobility Ability Assistance x1 Sit to Stand Chair Transfer Ability Supervision/Stand by Chair Transfer Ability Supervision/Stand by Chair Transfer Technique Sit to/from Ambulatory Chair Transfer Assistive Devices Rolling Walker Feeding Ability Assist with Tray Set Up Lower Body Dressing Ability Minimal Assistance Upper Body Dressing Ability Standby Assistance Bathing Ability Minimal Assistance Performing Toilet Hygiene Ability Minimal Assistance Overall Commode/Toilet Transfer Ability Standby Assistance Commode/Toilet Transfer Technique Sit to/from Ambulatory Commode/Toilet Transfer Assistive Raised Toilet Seat,Grab Bars Devices Oral Care Assist Standby Assistance Decrease in Endurance No Discharge Plan OT Discharge Plan Pt appears to be close to her baseline with functional transfers and ADL independence at this time. Pt can return home once medically stable per physician. Therapist recommends OT evaluation upon returning home for continued skilled therapy. Eval Complexity Eval Charge Codes 87210 - Moderate Complexity PHYSICIAN CERTIFICATION: I certify the specified therapy services for Hannah Royal are required, authorized, and reviewed every 30 days.
[2023-12-01 15:59] VITALS: BP 112/62; PULSE 89; RESP 20; TEMP 36.7; O2SAT 98
--- NOTE | 2023-12-01 16:02 | HMH.PTEV ---
Physical Therapy Evaluation Rehab PT IP Evaluation Start: 12/01/23 13:53 Freq: ONCE Status: Active Protocol: Document 12/01/23 15:54 MALIKA (Rec: 12/01/23 16:01 MALIKA [id number]) Subjective/History History History This is the initial evaluation for Hannah Royal, who is a 73 yowf, who presents to the ED with primary complaints of weakness. She recently discharged from the hospital to [place] and returned home on Friday11/28/2023. This morning, she went to the bathroom and was unable to get off of the commode. EMS was called. She came to the ED for further examination. Subjective Subjective The patient is in supine in bed upon arrival with family present. She is agreeable to PT and is oriented x4. She reports that she lives with her who is unable to help with her care. She reports that her dtrs are able to check on her but cannot be there all the time. The patient reports that the biggest difficulty is standing up and moving in the bed. Once she is standing, she can walk fine. New diagnosis of cancer in past 12 No months? Rehab PT IP Eval Objective Appearance Patient Behavior Appropriate,Patient Baseline Patient Orientation Person,Place,Time,Birthday Difficulty following instructions none Speech Pattern Clear,Patient Baseline Ambulation Patient Able to Ambulate Yes Ambulation Observation IP General Gait Pattern Observation No Deviations/Normal Ambulation Distance (feet) 20 Ambulation Assistive Device Rolling Walker Ambulation Ability Contact Guard/Hand Hold Balance Ability to Arise Able, uses arms to help Sitting Balance Steady, safe Standing Balance Narrow stance w/o support Dynamic Sitting Balance Ability Good Dynamic Standing Balance Ability Good Transfers Bed Transfer Ability Moderate x 2 (50% assist) Sit to Stand Bed Transfer Ability Contact Guard/Hand Hold Rehab PT IP prob,goals,plan Problems Date of Evaluation: 12/01/23 Discharge Plan PT Discharge Plan The patient presents for initial evaluation and presents at baseline for functional mobility and transfers. Skilled PT is not indicated during her stay. The patient may be most appropriate for discharge to home with home health, presently. Eval Complexity Eval Charge Codes 75725 - High Complexity PHYSICIAN CERTIFICATION: I certify the specified therapy services for Hannah Jasmina Sowder are required, authorized, and reviewed every 30 days.
== END 2023-12-01 16:02 | disposition home or self-care (01) ==
PROVIDERS: Emergency Provider Student in an Organized Health Care Education/Training Program; PCP Internal Medicine
DX: R53.1 Weakness (principal); E66.01 Morbid (severe) obesity due to excess calories; Z68.44 Body mass index [BMI] 60.0-69.9, adult; I10 Essential (primary) hypertension; E03.9 Hypothyroidism, unspecified; E78.5 Hyperlipidemia, unspecified; I20.9 Angina pectoris, unspecified; K21.9 Gastro-esophageal reflux disease without esophagitis
CPT/HCPCS: 99283

== ENCOUNTER 2024-01-06 11:43 | Emergency (ER) | payer MEDICARE, SELFPAY ==
[2024-01-06] VITALS (11 sets, daily range): BP systolic 125–151; BP diastolic 64–79; PULSE 72–96; RESP 18; TEMP 36.7; O2SAT 98–100; BMI 47.0
--- NOTE | 2024-01-06 11:39 | ECG_ITS ---
APPROVED REPORT Exam: Resting ECG HR:91 bpm ECG Measurements Heart Rate 91 AXES QRSd 82 QRS -17 QT 370 T 53 QTc 419 Conclusion ATRIAL FIBRILLATION LOW QRS VOLTAGE IN PRECORDIAL LEADS [QRS DEFLECTION < 1.0 mV IN CHEST LEADS] POSSIBLE ANTERIOR MYOCARDIAL INFARCTION , PROBABLY OLD [30 ms Q WAVE IN V3/V4, OR R < 0.2 mV IN V4] Electronically signed by : ALMAZ CORONADO, 01/06/2024 16:24:03
--- NOTE | 2024-01-06 11:44 | XR_ITS ---
FINAL REPORT CLINICAL HISTORY: Shortness of breath and cough COMPARISON: 10/21/2023 FINDINGS: The heart size is normal. The mediastinum is normal. There is scarring and fibrosis noted in the lung bases. There are no pleural effusions. There is no pneumothorax. Surgical clips are noted in the right axilla. There are well-corticated ossific densities in the right shoulder joint space, probably due to loose bodies. IMPRESSION: Scarring and fibrosis. Probable loose bodies right shoulder joint. Reviewed, Interpreted and Dictated by Jordon Moser MD Transcribed by Gwen Weinberg Authenticated and [facility]
--- NOTE | 2024-01-06 11:49 | ED_ITS ---
Discharge Plan Disposition Patient Disposition: Home, Self-Care Condition: Good Prescriptions Prescriptions: No Action doxepin 10 mg capsule 10 mg PO TID PRN (Reason: Anxiety) exemestane 25 mg tablet 25 mg PO DAILY triamcinolone acetonide 0.1 % cream 1 applic TP DAILY potassium chloride 20 mEq tablet,ER particles/crystals 20 meq PO DAILY Qty: 90 1RF pantoprazole 40 mg tablet,delayed release (DR/EC) 40 mg PO DAILY Qty: 90 3RF Eliquis 5 mg tablet 5 mg PO BID Qty: 60 3RF metoprolol succinate 25 mg tablet extended release 24 hr See Rx Instructions .ROUTE .COMPLEX Qty: 90 3RF Dose Instruction: TAKE 1 TABLET EVERY DAY Rx Instructions: TAKE 1 TABLET EVERY DAY duloxetine 30 mg capsule,delayed release(DR/EC) See Rx Instructions .ROUTE .COMPLEX Qty: 90 3RF Dose Instruction: TAKE 1 CAPSULE EVERY DAY FOR DEPRESSION Rx Instructions: TAKE 1 CAPSULE EVERY DAY FOR DEPRESSION levothyroxine 75 mcg tablet See Rx Instructions .ROUTE .COMPLEX Qty: 90 3RF Dose Instruction: TAKE 1 TABLET EVERY DAY FOR THYROID Rx Instructions: TAKE 1 TABLET EVERY DAY FOR THYROID bumetanide 1 mg tablet 1 mg PO DAILY Qty: 90 0RF acetaminophen 500 mg tablet 500 mg PO Q8 PRN (Reason: Pain) meclizine 12.5 mg Tablet 12.5 mg PO NEEDED PRN (Reason: Dizziness) oxybutynin chloride 5 mg tablet 5 mg PO BID Referrals Follow up/Referrals: Brennan Calloway DO [Primary Care Provider] - See instructions Activity Restrictions/Add. Instructions Additional Instructions/Restrictions: You were evaluated in the emergency department today. Please follow-up closely with your certified marine mechanic as well as your primary care provider. Continue home health treatments. Keep your legs elevated to help reduce swelling. Return to the emergency department for new or worsening symptoms. Clinical Impressions Clinical Impression: Lymphedema, Shortness of breath, Apnea, sleep Instructions Patient Instructions: DI for Shortness of Breath, DI for Lymphedema, DI for Obstructive Sleep Apnea -- Adult Discharge ED Provider: Zulma Bell General Chief Complaint: Shortness of Breath/Dyspnea Stated Complaint: SOA, BLE Edema increased Time Seen by Provider: 01/06/24 11:44 Mode of Arrival: EMS Source of Information: Patient Limitations: No Limitations Description of Symptoms (Recalled from ER Triage Doc. by RN): Patient brought to the ED via [facility] with c/o bilateral lower leg swelling and increased shortness of breath over the last week. History of Present Illness HPI narrative: This patient is a 73-year-old female with a history of atrial fibrillation on Eliquis, hypertension, hyperlipidemia, morbid obesity, hypothyroidism, lymphedema, CAD, renal insufficiency, failure to thrive, and general weakness presenting to the emergency department for evaluation with concern for bilateral lower leg swelling and increased shortness of breath over the last week. She was sent in by [facility] and noted that her legs are more swollen than usual. She notes that she especially thinks the right 1 is more swollen than the left. She denies any fevers, chills, chest pain, abdominal pain, vomiting, or other concerns, but she does states that she does feel very short of air. She does not generally wear oxygen at home. She does note that she chronically has an issue with leg swelling, and she also has a history of cellulitis. Related Data Home Medications Medication Instructions Recorded Confirmed acetaminophen 500 mg tablet 500 mg PO Q8 PRN Pain 11/28/20 01/06/24 doxepin 10 mg capsule 10 mg PO TID PRN Anxiety 06/18/21 01/06/24 exemestane 25 mg tablet 25 mg PO DAILY 02/18/22 01/06/24 triamcinolone acetonide 0.1 % 1 applic topical DAILY 03/14/23 01/06/24 topical cream oxybutynin chloride 5 mg tablet 5 mg PO BID BLADDER 11/03/23 01/06/24 meclizine 12.5 mg tablet 12.5 mg PO NEEDED PRN Dizziness 01/06/24 01/06/24 Previous Rx's Medication Instructions Recorded pantoprazole 40 mg tablet,delayed 40 mg PO DAILY #90 tabs 07/23/23 release potassium chloride 20 mEq 20 meq PO DAILY #90 tabs 07/23/23 tablet,extended release(part/cryst) apixaban 5 mg tablet (Eliquis) 5 mg PO BID #60 tabs 10/17/23 metoprolol succinate 25 mg See Rx Instructions .Route 12/01/23 tablet,extended release 24 hr .COMPLEX #90 tabs duloxetine 30 mg capsule,delayed See Rx Instructions .Route 12/02/23 release .COMPLEX #90 caps levothyroxine 75 mcg tablet See Rx Instructions .Route 12/02/23 .COMPLEX #90 tabs bumetanide 1 mg tablet 1 mg PO DAILY #90 tabs 12/05/23 Allergies Allergy/AdvReac Type Severity Reaction Status Date / Time cephalexin [From KEFLEX] Allergy Intermediate I-RASH Verified 01/06/24 12:08 Sulfa (Sulfonamide Allergy Intermediate I-RASH Verified 01/06/24 12:08 Antibiotics) [SULFA (SULFONAMIDE ANTIBIOTICS)] doxycycline [DOXYCYCLINE] Allergy Unknown NA-NAUSEA Verified 01/06/24 12:08 Penicillins [PENICILLINS] Allergy Unknown LOCAL Verified 01/06/24 12:08 REACTION AT INJECTION SITE [facility] Disclaimer: The information contained in this section may have been updated after the patient was seen, as this information can be updated by other users. Medical History MRSA bacteremia Staphylococcus aureus bacteremia Gout attack Metabolic syndrome Thyroid disease Urinary tract infection History of gastroesophageal reflux (GERD) Hyperlipidemia Atrial fibrillation Morbid obesity Atypical angina Breast cancer Edema HTN (hypertension) Elevated coronary artery calcium score Abnormal EKG Preoperative clearance Dyspnea Surgical History History of colonoscopy History of mastectomy History of knee surgery Family History Father Heart attack Social History Smoking Status: Never smoker second hand exposure: No alcohol intake: never current occupational status: disabled Travel in the last 8 weeks: None household members: spouse and children housing: house ROS Obtained: Yes All systems reviewed & no additional complaints except as documented Physical Exam General General appearance: alert, in no apparent distress and obese Head Head exam: atraumatic and normocephalic Eye Eye exam: Present normal appearance, PERRL and EOMI ENT ENT exam: Present normal exam, normal oropharynx, mucous membranes moist and normal external ear exam Neck Neck exam: Present normal inspection, full ROM and trachea midline; Absent tenderness Chest Chest inspection: Present normal inspection and symmetric chest wall rise; Absent tenderness Respiratory Respiratory exam: Present respiratory distress (Mild with tachypnea), accessory muscle use and prolonged expiratory phase; Absent wheezes or stridor Cardiovascular Cardiovascular exam: Present regular rate and normal rhythm Abdominal Exam Abdominal exam: Present soft; Absent distention, tenderness or guarding Extremities Exam Extremities exam: Present full ROM, normal capillary refill and edema (Significant bilateral lower extremity edema, right slightly greater than left. Mild erythema to the right leg); Absent tenderness Back Exam Back exam: Present normal inspection and full ROM; Absent tenderness Neurological Exam Neurological exam: Present alert, oriented X3 and CN II-XII intact; Absent motor sensory deficit Psychiatric Psychiatric exam: Present normal affect and normal mood Skin Skin exam: Present warm and dry HEART Score HEART Score HEART Score assessment performed?: Yes History (anamnesis): Slightly suspicious ECG: Normal Age: >65 years Risk factors: Atherosclerosis history Troponin: </= normal limit HEART Score: 4 Critical Care Critical Care Time Critical Care Time: No Medical Decision Making Richard Inquiry Pt receiving controlled substance: No Vital Signs Vital Signs: 01/06/24 11:43 01/06/24 12:00 01/06/24 12:30 Pulse Rate 92 H 81 Pulse Rate [Right Brachial] 87 Respiratory Rate 18 Blood Pressure 144/76 H 143/74 H Blood Pressure [Right Arm] 151/77 H Blood Pressure Mean [Right Arm] 101 Blood Pressure Source [Right Arm] Automatic Cuff Blood Pressure Position [Right Arm] Sitting 02 Sat by Pulse Oximetry 98 99 98 Oxygen Delivery Method Room Air 01/06/24 13:00 01/06/24 13:30 01/06/24 14:00 Pulse Rate 88 96 H 72 Pulse Rate [Right Brachial] Respiratory Rate Blood Pressure 135/70 145/75 H 140/64 Blood Pressure [Right Arm] Blood Pressure Mean [Right Arm] Blood Pressure Source [Right Arm] Blood Pressure Position [Right Arm] 02 Sat by Pulse Oximetry 99 99 98 Oxygen Delivery Method 01/06/24 14:30 01/06/24 15:00 01/06/24 15:30 Pulse Rate 72 77 85 Pulse Rate [Right Brachial] Respiratory Rate Blood Pressure 125/64 145/77 H 142/76 H Blood Pressure [Right Arm] Blood Pressure Mean [Right Arm] Blood Pressure Source [Right Arm] Blood Pressure Position [Right Arm] 02 Sat by Pulse Oximetry 99 99 100 Oxygen Delivery Method Lab Data Labs: Lab Results 01/06/24 11:40: WBC 5.8, RBC 4.75, Hgb 14.9, Hct 45.4, MCV 95.7, MCH 31.5 H, MCHC 32.9, RDW 14.9, Plt Count 205, MPV 7.7, Neut % (Auto) 67.0, Lymph % (Auto) 21.2, [place] % (Auto) 7.4, Eos % (Auto) 3.0, Baso % (Auto) 1.4, Neut # (Auto) 3.9, Lymph # (Auto) 1.2, [place] # (Auto) 0.4, Eos # (Auto) 0.2, Baso # (Auto) 0.1, ESR 18, Sodium 141, Potassium 3.8, Chloride 103, Carbon Dioxide 32 H, Anion Gap 9.8, BUN 9, Creatinine 0.70, Estimated Creat Clear 48, Estimated GFR 82, Est GFR ( Amer) 99, Glucose 144 H, Calcium 9.5, Total Bilirubin 2.0 H, AST 43 H, ALT 24, Alkaline Phosphatase 166 H, Troponin I < 0.01, C-Reactive Protein 11.5 H , NT-Pro-B Natriuret Pep 504 H, Total Protein 7.0, Albumin 3.3 L, Globulin 3.7 H , Albumin/Globulin Ratio 0.9 L, TSH 3.78, Thyroxine (T4) 10.7 01/06/24 11:58: SARS-CoV-2 (PCR) Not detected, Influenza A Untype (PCR) Not detected, Influenza Type B (PCR) Not detected 01/06/24 14:05: PT 12.8 H, INR 1.20 H, APTT 28.7, D-Dimer 0.46, Troponin I < 0.01 01/06/24 11:40 01/06/24 11:40 Response Orders (Tests/Meds): ORDERS Category Date Time Status XR chest portable Stat Exams 01/06/24 11:44 Taken Activated Partial Thrombo Time Stat Lab 01/06/24 14:05 Completed BNP [NT Pro Brain Natriuretic Pep.] Stat Lab 01/06/24 11:40 Completed C-Reactive Protein Stat Lab 01/06/24 11:40 Completed Complete Blood Count Auto Diff Stat Lab 01/06/24 11:40 Completed Comprehensive Metabolic Panel Stat Lab 01/06/24 11:40 Completed D-Dimer Stat Lab 01/06/24 14:05 Completed Erythrocyte Sedimentation Rate Stat Lab 01/06/24 11:40 Completed Prothrombin Time INR Stat Lab 01/06/24 14:05 Completed Rapid PCR Covid and Flu A/B Stat Lab 01/06/24 11:58 Completed T4 (Thyroxine) Stat Lab 01/06/24 11:40 Completed Thyroid Stimulating Hormone Stat Lab 01/06/24 11:40 Completed Trop I [Troponin I] Stat Lab 01/06/24 11:40 Completed Troponin I Q3H Lab 01/06/24 14:05 Completed Troponin I Q3H Lab 01/06/24 17:45 Ordered ECG Data Tracing #1: Attestation: I reviewed this ECG and interpreted as documented below: ECG Narrative: Atrial fibrillation with a ventricular rate [address] changes concerning for ischemia. ECG initial impression date: 01/06/24 ECG initial impression time: 11:41 MDM Narrative Medical Decision Narrative: In summary, this patient is a 73-year-old female presenting to the Emergency Department for evaluation of shortness of breath and bilateral leg swelling. Differential diagnoses considered include but are not limited to CHF exacerbation, COLLEEN, cellulitis, PE, ACS. Ruling out the most morbid conditions drove assessment. It should be noted patient's history includes atrial fibrillation on Eliquis, hypothyroidism, hypertension, hyperlipidemia, lymphedema, renal insufficiency, and CAD which are likely not at goal therapy. This complicates all aspects of care by increasing patient's risk for morbidity. I reviewed patient's past medical records and noted previous evaluations in the past for general debility and leg swelling. On exam, the patient is in no acute distress. She has very mild increased work of breathing with tachypnea and prolonged expiratory phase, however vitals are reassuring on cardiac telemetry. She does have significant bilateral lower extremity swelling, right slightly greater than left with some mild right lower extremity erythema. Patient is anticoagulated with Eliquis, but cannot use PERC criteria to exclude DVT/PE given age. Workup included CBC, CMP, ESR, CRP, D- dimer, TSH, T4, BNP, troponin, PT, PTT, chest x-ray, viral swab. I independently interpreted x-ray prior to the radiologist read and noted focal consolidation, pulmonary edema, or other concern. Please see their read for final interpretation. Labs were obtained that demonstrated no acutely concerning abnormalities with no significant leukocytosis, no impressive inflammatory marker elevation, negative D-dimer, and no other acutely concerning abnormality. On reassessment, patient is resting comfortably on room air in no acute distress. No increased work of breathing. She notes that she typically only feels short of breath when she wakes up from sleep in the middle of the night and feels like she is gasping for air. This resolved spontaneously after waking up. She denies any prior sleep studies or diagnoses of YOCASTA, however I feel her history is most likely consistent with YOCASTA. I advised that she follow-up closely with her certified marine mechanic for this. At this time given reassuring workup and exam and the fact that the patient is resting comfortably on room air at her baseline, I feel that she department for discharge home with outpatient follow- up and continued home health evaluation. Strict and precautions were given, and the patient was discharged after all questions were answered.
[2024-01-06 11:52] LABS: Basophils # 0.1 K/mm3 (0-0.2); Basophils % 1.4 % (0.1-2.0); Eosinophils # 0.2 K/mm3 (0.0-0.4); Hematocrit 45.4 % (37.0-47.0); Hemoglobin 14.9 g/dL (12.2-16.2); Lymphocytes # 1.2 K/mm3 (0.7-4.5); Lymphocytes % 21.2 % (10-50); Mean Corpuscular HGB Conc 32.9 g/dL (31.8-35.4); Mean Corpuscular Hemoglobin 31.5 pg (27.0-31.2); Mean Corpuscular Volume 95.7 fl (81-99); Mean Platelet Volume 7.7 fl (7.4-10.4); Monocytes # 0.4 K/mm3 (0.1-1.0); Monocytes % 7.4 % (1.7-9.3); Neutrophils # 3.9 K/mm3 (1.8-7.8); Platelet Count 205 K/mm3 (142-424); Red Blood Count 4.75 M/mm3 (4.20-5.40); Red Cell Distribution Width 14.9 % (11.5-17.5); White Blood Count 5.8 K/mm3 (4.8-10.8)
[2024-01-06 11:54] LABS: Chloride 103 mmol/L (98-107); Potassium 3.8 mmoL/L (3.5-5.1); Sodium 141 mmol/L (136-145)
[2024-01-06 11:57] LABS: Alanine Aminotransferase 24 U/L (12-78); Albumin Level 3.3 g/dl (3.5-5.0); Albumin/Globulin Ratio 0.9 (1.1-1.8); Alkaline Phosphatase 166 U/L (38-126); Anion Gap 9.8 mEq/L (5-15); Aspartate Amino Transferase 43 U/L (14-36); Blood Urea Nitrogen 9 mg/dl (7-17); Calcium 9.5 mg/dl (8.4-10.2); Carbon Dioxide 32 mmol/L (22.0-30.0); Creatinine Clearance Estimated 48 mL/min (50-200); Estimated Glomerular Filt Rate 82 ml/min (>60); GFR (African American) 99 ML/MIN (>60); Globulin 3.7 g/dL (1.3-3.2); Glucose 144 mg/dl (74-100)
--- NOTE | 2024-01-06 11:57 | PC.NURSE ---
XR AT BEDSIDE
[2024-01-06 12:03] LABS: Coronavirus 19, PCR Not Detected (NotDetected); Influenza A, PCR Not Detected (NotDetected); Influenza B, PCR Not Detected (NotDetected)
[2024-01-06 12:08] LABS: NT Pro Brain Natriuretic Pep. 504 pg/mL (0-125)
[2024-01-06 12:09] LABS: C-Reactive Protein 11.5 mg/L (0-4)
[2024-01-06 12:11] LABS: Troponin I < 0.01 ng/ml (0.00-0.034)
[2024-01-06 12:15] LABS: T4 (Thyroxine) 10.7 ug/dl (5.53-11.0)
[2024-01-06 12:27] LABS: Erythrocyte Sedimentation Rate 18 mm/hr (0-30)
[2024-01-06 12:29] LABS: Thyroid Stimulating Hormone 3.78 uIU/mL (0.465-4.68)
[2024-01-06 14:30] LABS: Activated Partial Thrombo Time 28.7 seconds (22.8-30.6); Prothrombin Time 12.8 seconds (10.1-12.5)
[2024-01-06 14:51] LABS: D-Dimer 0.46 ug/mL (0.0-0.5)
--- NOTE | 2024-01-06 15:46 | PC.NURSE ---
PT AND FAMILY UPDATED AT THIS TIME
[2024-01-06 16:10] LABS: Troponin I < 0.01 ng/ml (0.00-0.034)
--- NOTE | 2024-01-06 16:34 | PC.NURSE ---
Pt's family updated on POC and awaiting EMS transport to pt's home.
--- NOTE | 2024-01-06 18:00 | PC.NURSE ---
Report given to EMS for report back to her home
== END 2024-01-06 18:07 | disposition home or self-care (01) ==
PROVIDERS: Emergency Provider Emergency Medicine; PCP Internal Medicine
DX: R06.02 Shortness of breath (principal); I89.0 Lymphedema, not elsewhere classified; G47.30 Sleep apnea, unspecified; I48.0 Paroxysmal atrial fibrillation; R62.7 Adult failure to thrive; E03.9 Hypothyroidism, unspecified; I11.9 Hypertensive heart disease without heart failure; I25.119 Atherosclerotic heart disease of native coronary artery with unspecified angina pectoris; E78.5 Hyperlipidemia, unspecified; Z79.01 Long term (current) use of anticoagulants
CPT/HCPCS: 36415; 71045; 80053; 83880; 84436; 84443; 84484; 85025; 85378; 85610; 85651; 85730; 86140; 87636; 93005; 99284

== ENCOUNTER 2024-02-26 23:37 | Observation (INO) | payer MEDICARE, SELFPAY ==
[2024-02-26 23:37] VITALS: BP 140/79; PULSE 96; RESP 18; TEMP 36.7; O2SAT 98; BMI 54.9
--- NOTE | 2024-02-26 23:38 | HMH.EDGENADL ---
Discharge Plan Disposition Patient Disposition: Admitted Clinical Impressions Clinical Impression: UTI (urinary tract infection), Lymphedema, Generalized weakness Discharge ED Provider: Germain Madrigal General Adult HPI General Chief complaint: Fall Stated complaint: R knee pain and weakness Time Seen by Provider: 02/26/24 23:37 History of Present Illness HPI narrative: 74-year-old female with extensive past medical history including morbid obesity, hypertension hyperlipidemia atrial fibrillation chronic lymphedema coronary artery disease presents with generalized weakness. She reports that her baseline functional status is that she is able to get up from a reclining chair to a bedside commode and back. She reports she is not able to form any other significant physical activity. Today they called the ambulance because she has been feeling generally weak and was unable to do that at all. She reports that her right leg has chronic issues from prior joint replacements including foot drop and she was unable to really use it today. She denies any weakness in her upper extremities. Denies any other neurologic symptoms. She reports no recent fever or illness, denies any urinary symptoms. Reports chronic shortness of breath but is unchanged from normal. She reports that when EMS was transferring her she felt like her right knee bent and her ankle bent, they normally do not bend and this caused her some discomfort. Related Data Home Medications Medication Instructions Recorded Confirmed acetaminophen 500 mg tablet 500 mg PO Q8 PRN Pain 11/28/20 01/06/24 doxepin 10 mg capsule 10 mg PO TID PRN Anxiety 06/18/21 01/06/24 exemestane 25 mg tablet 25 mg PO DAILY 02/18/22 01/06/24 triamcinolone acetonide 0.1 % 1 applic topical DAILY 03/14/23 01/06/24 topical cream oxybutynin chloride 5 mg tablet 5 mg PO BID BLADDER 11/03/23 01/06/24 meclizine 12.5 mg tablet 12.5 mg PO NEEDED PRN Dizziness 01/06/24 01/06/24 Previous Rx's Medication Instructions Recorded pantoprazole 40 mg tablet,delayed 40 mg PO DAILY #90 tabs 07/23/23 release potassium chloride 20 mEq 20 meq PO DAILY #90 tabs 07/23/23 tablet,extended release(part/cryst) metoprolol succinate 25 mg See Rx Instructions .Route 12/01/23 tablet,extended release 24 hr .COMPLEX #90 tabs duloxetine 30 mg capsule,delayed See Rx Instructions .Route 12/02/23 release .COMPLEX #90 caps levothyroxine 75 mcg tablet See Rx Instructions .Route 12/02/23 .COMPLEX #90 tabs miscellaneous medical supply #1 ea 01/06/24 apixaban 5 mg tablet (Eliquis) 5 mg PO BID #180 tabs 01/09/24 bumetanide 1 mg tablet 1 mg PO DAILY #90 tabs 01/13/24 Allergies Allergy/AdvReac Type Severity Reaction Status Date / Time cephalexin [From KEFLEX] Allergy Intermediate I-RASH Verified 01/06/24 12:08 Sulfa (Sulfonamide Allergy Intermediate I-RASH Verified 01/06/24 12:08 Antibiotics) [SULFA (SULFONAMIDE ANTIBIOTICS)] doxycycline [DOXYCYCLINE] Allergy Unknown NA-NAUSEA Verified 01/06/24 12:08 Penicillins [PENICILLINS] Allergy Unknown LOCAL Verified 01/06/24 12:08 REACTION AT INJECTION SITE [facility] Disclaimer: The information contained in this section may have been updated after the patient was seen, as this information can be updated by other users. Medical History MRSA bacteremia Staphylococcus aureus bacteremia Gout attack Metabolic syndrome Thyroid disease Urinary tract infection History of gastroesophageal reflux (GERD) Hyperlipidemia Atrial fibrillation Morbid obesity Atypical angina Breast cancer Edema HTN (hypertension) Elevated coronary artery calcium score Abnormal EKG Preoperative clearance Dyspnea Surgical History History of colonoscopy History of mastectomy History of knee surgery Family History Father Heart attack Social History Smoking Status: Unknown if ever smoked second hand exposure: No alcohol intake: never current occupational status: disabled Travel in the last 8 weeks: None household members: spouse and children housing: house ROS Obtained: Yes All systems reviewed & no additional complaints except as documented Physical Exam General General appearance: alert and in no apparent distress Head Head exam: atraumatic and normocephalic Eye Eye exam: Present normal appearance, PERRL and EOMI ENT ENT exam: Present normal oropharynx and normal external ear exam Neck Neck exam: Present normal inspection and full ROM Chest Chest inspection: Present normal inspection and symmetric chest wall rise; Absent tenderness Respiratory Respiratory exam: Present normal lung sounds bilaterally; Absent respiratory distress Cardiovascular Cardiovascular exam: Present regular rate and normal rhythm Abdominal Exam Abdominal exam: Present soft; Absent distention, tenderness or guarding Extremities Exam Extremities exam: Present other (Extensive bilateral lower extremity lymphedema) Back Exam Back exam: Present normal inspection; Absent tenderness Neurological Exam Neurological exam: Present alert, oriented X3, CN II-XII intact and other (Foot drop in the right lower extremity, decreased strength in the right lower extremity compared to left, patient reports this is chronic but somewhat worse than normal. Normal equal strength in upper extremities) Psychiatric Psychiatric exam: Present normal affect and normal mood Skin Skin exam: Present warm, dry and normal color Lymphatic Lymphatic Findings: no adenopathy Medical Decision Making Medical Records Medical records reviewed: Yes I reviewed the patient's medical records. Richard Inquiry Pt receiving controlled substance: No Richard was queried for this patient: No Vital Signs: 02/26/24 23:37 02/27/24 00:01 02/27/24 00:31 Temperature 98.1 F Temperature Source Oral Pulse Rate 85 67 Pulse Rate [Left] 96 H Respiratory Rate 18 Blood Pressure 146/75 H 127/68 Blood Pressure [Right Arm] 140/79 Blood Pressure Mean [Right Arm] 99 02 Sat by Pulse Oximetry 98 98 97 Oxygen Delivery Method Room Air 02/27/24 01:00 02/27/24 03:18 Temperature 98.1 F Temperature Source Oral Pulse Rate 76 82 Pulse Rate [Left] Respiratory Rate 18 Blood Pressure 129/75 153/74 H Blood Pressure [Right Arm] Blood Pressure Mean [Right Arm] 02 Sat by Pulse Oximetry 99 Oxygen Delivery Method Room Air Lab Data Lab results reviewed: Yes I reviewed the patient's lab results. Lab Results 02/27/24 00:14: WBC 5.0, RBC 5.19, Hgb 16.1, Hct 50.0 H, MCV 96.3, MCH 30.9, MCHC 32.1, RDW 14.9, Plt Count 161, MPV 8.0, Neut % (Auto) 70.5, Lymph % (Auto) 18.5, [place] % (Auto) 7.2, Eos % (Auto) 2.3, Baso % (Auto) 1.4, Neut # (Auto) 3.5, Lymph # (Auto) 0.9, [place] # (Auto) 0.4, Eos # (Auto) 0.1, Baso # (Auto) 0.1, Sodium 142, Potassium 4.0, Chloride 108 H, Carbon Dioxide 30, Anion Gap 8.0, BUN 15, Creatinine 0.80, Estimated Creat Clear 47, Estimated GFR 70, Est GFR ( Amer) 85, Glucose 140 H, Calcium 9.4, Magnesium 1.8, Total Bilirubin 2.7 H, AST 40 H, ALT 18, Alkaline Phosphatase 168 H, Troponin I < 0.01, NT-Pro-B Natriuret Pep 519 H, Total Protein 6.7, Albumin 3.4 L, Globulin 3.3 H, Albumin/Globulin Ratio 1.0 L, TSH 5.19 H, Thyroxine (T4) 12.1 H 02/27/24 01:30: Urine Color Yellow, Urine Appearance Clear, Urine pH 6.0, Ur Specific [place] >= 1.030, Urine Protein Trace, Urine Glucose (UA) Negative, Urine Ketones Negative, Urine Blood 3+, Urine Nitrate Positive, Urine Bilirubin 1+ A, Urine Urobilinogen 4.0, Ur Leukocyte Esterase Trace, Urine RBC 10-20, Urine WBC 5-10, Ur Squamous Epith Cells 5-10, Calcium Oxalate Crystal Trace, Urine Bacteria 3+, Hyaline Casts Occasional 02/27/24 00:14 02/27/24 00:14 Orders (Tests/Meds): ED MEDICATIONS Discontinued Medications Generic Name Dose Route Start Last Admin Trade Name Freq PRN Reason Stop Dose Admin Levofloxacin 750 mg 02/27/24 02:40 02/27/24 03:09 Levofloxacin 750 Mg Tablet PO 02/27/24 02:41 750 mg ONCE ONE Administration ORDERS Category Date Time Status CXR --portable [XR chest portable] Stat Exams 02/26/24 23:53 Taken Knee XR right 3 views [XR knee RT 3V] Stat Exams 02/26/24 23:53 Taken XR ankle RT min 3V Stat Exams 02/26/24 23:53 Taken BNP [NT Pro Brain Natriuretic Pep.] Stat Lab 02/26/24 23:53 Completed CBC w/Auto Diff [Complete Blood Count Auto Diff] Stat Lab 02/26/24 23:53 Completed CMP [Comprehensive Metabolic Panel] Stat Lab 02/26/24 23:53 Completed Magnesium Stat Lab 02/26/24 23:53 Completed T4 (Thyroxine) Stat Lab 02/26/24 23:53 Completed TSH [Thyroid Stimulating Hormone] Stat Lab 02/26/24 23:53 Completed Troponin I Q3H Lab 02/26/24 23:53 Completed Troponin I Q3H Lab 02/27/24 02:53 Ordered UA [Urinalysis and Microscopic] Stat Lab 02/27/24 01:30 Completed Urine Culture Stat Micro 02/27/24 01:30 Received ECG Data Tracing #1: I reviewed this ECG and interpreted as documented below: Atrial fibrillation, ventricular rate of 79, no concerning ST or T wave changes, inferior Q waves noted ECG initial impression date: 02/27/24 ECG initial impression time: 01:05 Medical Decision Narrative: 74-year-old female with history as documented above presents with generalized weakness today. She is unable to get back and forth between her chair and the bedside commode and so they called EMS. Denies any recent changes. History was obtained via interactive discussion with patient, family, EMS. On arrival, patient is [afebrile, hemodynamically stable, satting appropriately, alert, oriented x4, GCS 15], moving all extremities spontaneously. Full physical exam performed and significant for marked bilateral lower extremity lymphedema, chronic right foot drop with acute on chronic right lower extremity weakness compared to contralateral side. No other neurologic symptoms noted. Differential includes but is not limited to heart failure, electrolyte derangement, thyroid dysfunction, renal failure, UTI arrhythmia, injury to the right lower extremity. Workup initiated including CBC CMP UA mag TSH T4 troponin EKG radiographs of the right knee and right ankle. Heart score was not performed as there is no concern for ACS. On re-evaluation, patient [remains afebrile, HD stable.] Laboratory workup independently interpreted by me and significant for no significant electrolyte derangement, normal hemoglobin. Urinalysis consistent with infection with 10-20 RBCs, 5-10 WBCs, 3+ bacteria, positive nitrates. Imaging independently interpreted by me and significant for no focal opacity on chest x-ray, no obvious hardware failure or fracture on the limited images of the knee and ankle.. See radiology read for full review of final results. Given patient history, exam and workup, patient's presentation most likely represents generalized weakness and failure to thrive, in the setting of potential urinary tract infection. Given her antibiotic allergies, will treat with Levaquin. Interactive discussion was had with the hospitalist on-call for admission. Procedures Risk/Benefits of Procedure(s) Were Explained: Yes Critical Care Critical Care Time Critical Care Time: No
--- NOTE | 2024-02-26 23:53 | XR_ITS ---
PROCEDURE INFORMATION: Exam: XR Right Ankle Exam date and time: 02/26/2024 11:53 PM Age: 74 years old Clinical indication: Pain; Ankle; Right; Additional info: Ankle pain TECHNIQUE: Imaging protocol: Radiologic exam of the right ankle. Views: 3 or more views. COMPARISON: CR XR ANKLE RT MIN 3V 09/02/2023 2:28 PM FINDINGS: Bones/joints: Normal. Soft tissues: Normal. IMPRESSION: No acute findings.
--- NOTE | 2024-02-26 23:53 | XR_ITS ---
PROCEDURE INFORMATION: Exam: XR Right Knee Exam date and time: 02/26/2024 11:53 PM Age: 74 years old Clinical indication: Pain; Knee; Right; Additional info: Knee pain TECHNIQUE: Imaging protocol: Radiologic exam of the right knee. Views: 3 views. COMPARISON: CR XR KNEE RT 2V 11/04/2023 11:03 AM FINDINGS: Bones/joints: Prior knee replacement. There appears to be good anatomic alignment. No evidence of loosening or other abnormality noted. Soft tissues: Normal. IMPRESSION: Prior knee replacement. There appears to be good anatomic alignment. No evidence of loosening or other abnormality noted.
--- NOTE | 2024-02-26 23:53 | XR_ITS ---
PROCEDURE INFORMATION: Exam: XR Chest Exam date and time: 02/26/2024 11:53 PM Age: 74 years old Clinical indication: Other: Weakness; Additional info: Generalized weakness TECHNIQUE: Imaging protocol: Radiologic exam of the chest. Views: 1 view. COMPARISON: CR XR CHEST PORTABLE 01/06/2024 11:50 AM FINDINGS: Lungs: Unremarkable. No consolidation. Pleural spaces: Unremarkable. No pleural effusion. No pneumothorax. Heart/Mediastinum: Unremarkable. No cardiomegaly. Bones/joints: Unremarkable. IMPRESSION: No acute findings.
[2024-02-27] VITALS (8 sets, daily range): BP systolic 116–153; BP diastolic 68–77; PULSE 67–87; RESP 16–20; TEMP 36.6–36.9; O2SAT 97–100; BMI 52.4
[2024-02-27 00:39] LABS: Basophils # 0.1 K/mm3 (0-0.2); Basophils % 1.4 % (0.1-2.0); Eosinophils # 0.1 K/mm3 (0.0-0.4); Eosinophils % 2.3 % (0.1-12.0); Hemoglobin 16.1 g/dL (12.2-16.2); Lymphocytes # 0.9 K/mm3 (0.7-4.5); Lymphocytes % 18.5 % (10-50); Mean Corpuscular HGB Conc 32.1 g/dL (31.8-35.4); Mean Corpuscular Hemoglobin 30.9 pg (27.0-31.2); Mean Corpuscular Volume 96.3 fl (81-99); Monocytes # 0.4 K/mm3 (0.1-1.0); Monocytes % 7.2 % (1.7-9.3); Neutrophils # 3.5 K/mm3 (1.8-7.8); Neutrophils % 70.5 % (37.0-80.0); Platelet Count 161 K/mm3 (142-424); Red Blood Count 5.19 M/mm3 (4.20-5.40); Red Cell Distribution Width 14.9 % (11.5-17.5)
[2024-02-27 01:03] LABS: T4 (Thyroxine) 12.1 ug/dl (5.53-11.0)
--- NOTE | 2024-02-27 01:03 | ECG_ITS ---
APPROVED REPORT Exam: Resting ECG HR:79 bpm ECG Measurements Heart Rate 79 AXES QRSd 86 QRS -19 QT 373 T 17 QTc 407 Conclusion ATRIAL FIBRILLATION INFERIOR MYOCARDIAL INFARCTION , PROBABLY OLD [40+ ms Q WAVE AND/OR ST/T ABNORMALITY IN II/aVF] ABNORMAL ECG Electronically signed by : BRANT FOURNIER, 02/27/2024 12:49:14
[2024-02-27 01:05] LABS: Troponin I < 0.01 ng/ml (0.00-0.034)
[2024-02-27 01:17] LABS: Thyroid Stimulating Hormone 5.19 uIU/mL (0.465-4.68)
[2024-02-27 01:34] LABS: Chloride 108 mmol/L (98-107)
[2024-02-27 01:35] LABS: Sodium 142 mmol/L (136-145)
[2024-02-27 01:37] LABS: Alanine Aminotransferase 18 U/L (12-78); Alkaline Phosphatase 168 U/L (38-126); Aspartate Amino Transferase 40 U/L (14-36); Bilirubin,Total 2.7 mg/dl (0.2-1.3); Blood Urea Nitrogen 15 mg/dl (7-17); Carbon Dioxide 30 mmol/L (22.0-30.0); Creatinine Clearance Estimated 47 mL/min (50-200); Estimated Glomerular Filt Rate 70 ml/min (>60); GFR (African American) 85 ML/MIN (>60)
[2024-02-27 01:38] LABS: Albumin Level 3.4 g/dl (3.5-5.0); Calcium 9.4 mg/dl (8.4-10.2); Globulin 3.3 g/dL (1.3-3.2); Glucose 140 mg/dl (74-100); Magnesium 1.8 mg/dl (1.6-2.3); Total Protein,Serum 6.7 g/dl (6.3-8.2)
[2024-02-27 01:46] LABS: NT Pro Brain Natriuretic Pep. 519 pg/mL (0-450)
[2024-02-27 01:52] LABS: Microscopic, Urine URINE MICROSCOPIC (MICROSCOPIC)
[2024-02-27 01:54] LABS: Appearance,Urine CLEAR (Clear); Blood, Urine 3+ (Negative); Color,Urine YELLOW (Yellow); Glucose,Urine (UA) Negative (Negative); Ketones,Urine Negative (Negative); Leukocyte Esterase,Urine TRACE (Negative); Nitrate,Urine POSITIVE (Negative); Protein,Urine TRACE (Negative); Specific Gravity, Urine >= 1.030 (1.005-1.030)
[2024-02-27 01:59] LABS: Bilirubin,Urine 1+ (Negative)
[2024-02-27 02:02] LABS: Bacteria,Urine 3+ /lpf
[2024-02-27 02:03] LABS: Calcium Oxalate Crystals,Urine Trace /lpf; Hyaline Casts,Urine Occasional #/lpf (0)
--- NOTE | 2024-02-27 02:41 | PC.NURSE ---
Dr. Madrigal is s/w hospitalist for admission
--- NOTE | 2024-02-27 03:05 | PC.NURSE ---
Report given to Sravani RN
[2024-02-27] MEDS: levoFLOXacin 750 MG TABLET PO (03:09)
--- NOTE | 2024-02-27 03:45 | PC.NURSE ---
Patient arrived to floor via stretcher from ED at 03:22.
--- NOTE | 2024-02-27 03:49 | EXP.HP ---
History of Present Illness *Admission Date: 02/27/24 *Reason for visit:: Generalized weakness *History of present illness: Hannah Royal is a 74-year-old female past medical history significant for lymphedema, hypothyroid, CAD, A-fib on Eliquis, HTN, HLD who presents emergency room tonight with complaints of generalized weakness. Patient is basically bedbound at baseline. She transfers from a reclining chair to a bedside commode and then back. Does not walk at all. Apparently got on the commode today and was unable to get off of the commode and back into the chair. Multiple family members tried to assist her. They eventually had to call EMS and it took several people in order to get her off the commode. States she has felt weak over the last couple of days. Tells me that she has had a knee replacement on the right and then foot drop on the right as well and has been unable to use her foot. Is supposed to be getting set up with someone for her lymphedema in her legs. Does not have home health come to the house at all. No other symptoms noted. Denies any fever, cough, chest pain, shortness of breath, abdominal pain, bowel or bladder dysfunction. Denies any dysuria or hematuria. No focal neurodeficits noted. Does take Eliquis daily for her A-fib, reports compliance with this. Denies any tobacco use, alcohol use, illicit drug use. Lab work in the ER showed an elevated BNP of 519, AST slightly bumped at 40, T. bili 2.7. UA shows 5-10 WBCs, 3+ bacteria with positive nitrites, early UTI versus contaminant as there was 5-10 squamous epithelial cells noted. Formal read pending on x-rays that were obtained in the ER. She was given dose of Levaquin in an abundance of caution for possible acute cystitis. She will be in the hospitalist service for adult failure to thrive and severe impaired functional mobility. [facility] Disclaimer: The information contained in this section may have been updated after the patient was seen, as this information can be updated by other users. Medical History MRSA bacteremia Staphylococcus aureus bacteremia Gout attack Metabolic syndrome Thyroid disease Urinary tract infection History of gastroesophageal reflux (GERD) Hyperlipidemia Atrial fibrillation Morbid obesity Atypical angina Breast cancer Edema HTN (hypertension) Elevated coronary artery calcium score Abnormal EKG Preoperative clearance Dyspnea Surgical History History of colonoscopy History of mastectomy History of knee surgery Family History Father Heart attack Social History (Updated 02/27/24 @ 04:02 by Mallory Harvey RN) Smoking Status: Never smoker second hand exposure: No alcohol intake: never current occupational status: retired and disabled Travel in the last 8 weeks: None household members: spouse and children housing: house Review of Systems Review of Systems Review of systems:: pertinent systems reviewed and negative unless documented below Meds Home Medications and Allergies Home Medications Medication Instructions Recorded Confirmed Type exemestane 25 mg tablet 25 mg PO DAILY 02/18/22 02/27/24 History pantoprazole 40 mg tablet,delayed 40 mg PO DAILY #90 tabs 07/23/23 02/27/24 Rx release potassium chloride 20 mEq 20 meq PO DAILY #90 tabs 07/23/23 02/27/24 Rx tablet,extended release(part/cryst) oxybutynin chloride 5 mg tablet 5 mg PO BID 11/03/23 02/27/24 History miscellaneous medical supply #1 ea 01/06/24 02/27/24 Rx apixaban 5 mg tablet (Eliquis) 5 mg PO BID #180 tabs 01/09/24 02/27/24 Rx bumetanide 1 mg tablet 1 mg PO DAILY #90 tabs 01/13/24 02/27/24 Rx atorvastatin 20 mg tablet 20 mg PO HS 02/27/24 02/27/24 History duloxetine 30 mg capsule,delayed 30 mg PO DAILY 02/27/24 02/27/24 History release levothyroxine 75 mcg tablet 75 mcg PO DAILY 02/27/24 02/27/24 History metoprolol succinate 25 mg 25 mg PO DAILY 02/27/24 02/27/24 History tablet,extended release 24 hr New Prescriptions to Start Prescriptions: Allergies Allergy/AdvReac Type Severity Reaction Status Date / Time cephalexin [From KEFLEX] Allergy Intermediate I-RASH Verified 01/06/24 12:08 Sulfa (Sulfonamide Allergy Intermediate I-RASH Verified 01/06/24 12:08 Antibiotics) [SULFA (SULFONAMIDE ANTIBIOTICS)] doxycycline [DOXYCYCLINE] Allergy Unknown NA-NAUSEA Verified 01/06/24 12:08 Penicillins [PENICILLINS] Allergy Unknown LOCAL Verified 01/06/24 12:08 REACTION AT INJECTION SITE Exam Data for Last 24 hours Vital signs and Labs for Last 24 Hours: Temp Pulse Resp BP Pulse Ox O2 Del Method 98.1 F 82 18 153/74 H 99 Room Air 02/27/24 03:18 02/27/24 03:18 02/27/24 03:18 02/27/24 03:18 02/27/24 01:00 02/27/24 03:18 Laboratory Results - last 24 hr 02/27/24 00:14: WBC 5.0, RBC 5.19, Hgb 16.1, Hct 50.0 H, MCV 96.3, MCH 30.9, MCHC 32.1, RDW 14.9, Plt Count 161, MPV 8.0, Neut % (Auto) 70.5, Lymph % (Auto) 18.5, [place] % (Auto) 7.2, Eos % (Auto) 2.3, Baso % (Auto) 1.4, Neut # (Auto) 3.5, Lymph # (Auto) 0.9, [place] # (Auto) 0.4, Eos # (Auto) 0.1, Baso # (Auto) 0.1, Sodium 142, Potassium 4.0, Chloride 108 H, Carbon Dioxide 30, Anion Gap 8.0, BUN 15, Creatinine 0.80, Estimated Creat Clear 47, Estimated GFR 70, Est GFR ( Amer) 85, Glucose 140 H, Calcium 9.4, Magnesium 1.8, Total Bilirubin 2.7 H, AST 40 H, ALT 18, Alkaline Phosphatase 168 H, Troponin I < 0.01, NT-Pro-B Natriuret Pep 519 H, Total Protein 6.7, Albumin 3.4 L, Globulin 3.3 H, Albumin/Globulin Ratio 1.0 L, TSH 5.19 H, Thyroxine (T4) 12.1 H 02/27/24 01:30: Urine Color Yellow, Urine Appearance Clear, Urine pH 6.0, Ur Specific [place] >= 1.030, Urine Protein Trace, Urine Glucose (UA) Negative, Urine Ketones Negative, Urine Blood 3+, Urine Nitrate Positive, Urine Bilirubin 1+ A, Urine Urobilinogen 4.0, Ur Leukocyte Esterase Trace, Urine RBC 10-20, Urine WBC 5-10, Ur Squamous Epith Cells 5-10, Calcium Oxalate Crystal Trace, Urine Bacteria 3+, Hyaline Casts Occasional I & O for Last 24 hours: Intake & Output 02/24/24 02/25/24 02/26/24 02/27/24 23:59 23:59 23:59 23:59 Weight 159.029 kg *Routine HEENT Exam Head: Present normocephalic and atraumatic Eye: Present EOMI and PERRL ENT: Present mucous membranes moist *Routine Neck Exam Neck: Present supple *Routine Respiratory Exam Respiratory: Present decreased breath sounds and CTA bilaterally *Routine Cardiovascular Exam Cardiovascular: Present irregular rhythm and irregularly irregular Comments: A-fib with rate in the 80s *Routine Abdominal Exam Abdominal: Present soft and normoactive bowel sounds *Routine Rectal Exam Rectal:: deferred *Routine Genitalia Exam Genitalia:: deferred *Routine Extremities Exam Extremities: Present edema, pulses intact and normal capillary refill Comments: 4+ pitting edema BLE *Routine Skin Exam Skin: Present intact *Routine Neurological Exam Neurological: Present alert and oriented X3 Assessment and Plan *Assessment and plan (1) Generalized weakness: Status: Acute Category: Medical Code(s): R53.1 - Weakness (2) Lymphedema: Status: Acute Category: Medical Code(s): I89.0 - Lymphedema, not elsewhere classified (3) UTI (urinary tract infection): Status: Acute Qualifiers: Hematuria presence: with hematuria Category: Medical Code(s): N39.0 - Urinary tract infection, site not specified (4) Hypothyroidism: Status: Chronic Qualifiers: Hypothyroidism type: unspecified Qualified Code(s): E03.9 - Hypothyroidism, unspecified Category: Medical Code(s): E03.9 - Hypothyroidism, unspecified (5) Atrial fibrillation: Status: Chronic Qualifiers: Atrial fibrillation type: unspecified chronic Qualified Code(s): I48.20 - Chronic atrial fibrillation, unspecified Category: Medical Code(s): I48.91 - Unspecified atrial fibrillation (6) HLD (hyperlipidemia): Status: Acute Qualifiers: Hyperlipidemia type: mixed hyperlipidemia Qualified Code(s): E78.2 - Mixed hyperlipidemia Category: Medical Code(s): E78.5 - Hyperlipidemia, unspecified (7) HTN (hypertension): Status: Chronic Qualifiers: Hypertension type: essential hypertension Qualified Code(s): I10 - Essential (primary) hypertension Category: Medical Code(s): I10 - Essential (primary) hypertension Plan Assessment: This is a 74-year-old female being admitted to the hospital for severe impaired mobility and adult failure to thrive. On my exam, patient is lying in bed in no acute distress. No complaints this time. Plan: Admit to observation -MedSurg Generalized weakness Adult failure to thrive Severe impaired mobility Morbid obesity with excessive BMI -Diurese with Lasix 40 mg IV x 1 due to edema on exam. -Will consult PT -Would likely benefit from home health versus rehab. It appears she went to [place] after her last admission back in October of this year. Acute cystitis vs contaminant -Pt recieved levaquin in the ER. Holding on further treatment. Patient has normal white count. Urine was a clean-catch, not cath specimen. A-fib -Continue metoprolol, Eliquis Hypothyroid -Continue Synthroid Anxiety Depression -Continue doxepin as needed -Continue Cymbalta daily Overactive bladder -Continue oxybutynin DVT prophylaxis: Eliquis Code status: full code Surrogate decision maker: Armida [phone] Skin: High risk Rounded on patient after nurse practitioner. Personally examined and interviewed patient. Agree with exam findings and care plan as documented.
[2024-02-27 04:59] LABS: Troponin I < 0.01 ng/ml (0.00-0.034)
--- NOTE | 2024-02-27 05:02 | P.DS_ITS ---
General Admission date:: 02/26/24 Discharge date: 02/26/24 HPI HPI HPI: Hannah Royal is a 74-year-old female past medical history significant for lymphedema, hypothyroid, CAD, A-fib on Eliquis, HTN, HLD who presents emergency room tonight with complaints of generalized weakness. Patient is basically bedbound at baseline. She transfers from a reclining chair to a bedside commode and then back. Does not walk at all. Apparently got on the commode today and was unable to get off of the commode and back into the chair. Multiple family members tried to assist her. They eventually had to call EMS and it took several people in order to get her off the commode. States she has felt weak over the last couple of days. Tells me that she has had a knee replacement on the right and then foot drop on the right as well and has been unable to use her foot. Is supposed to be getting set up with someone for her lymphedema in her legs. Does not have home health come to the house at all. No other symptoms noted. Denies any fever, cough, chest pain, shortness of breath, abdominal pain, bowel or bladder dysfunction. Denies any dysuria or hematuria. No focal neurodeficits noted. Does take Eliquis daily for her A-fib, reports compliance with this. Denies any tobacco use, alcohol use, illicit drug use. Lab work in the ER showed an elevated BNP of 519, AST slightly bumped at 40, T. bili 2.7. UA shows 5-10 WBCs, 3+ bacteria with positive nitrites, early UTI versus contaminant as there was 5-10 squamous epithelial cells noted. Formal read pending on x-rays that were obtained in the ER. She was given dose of Levaquin in an abundance of caution for possible acute cystitis. She will be in the hospitalist service for adult failure to thrive and severe impaired functional mobility. Exam Data for Last 24 hours Vital signs and Labs for Last 24 Hours: Temp Pulse Resp BP Pulse Ox O2 Del Method 98.1 F 82 18 153/74 H 97 Room Air 02/27/24 03:18 02/27/24 03:18 02/27/24 03:18 02/27/24 03:18 02/27/24 04:00 02/27/24 04:00 Laboratory Results - last 24 hr 02/27/24 00:14: WBC 5.0, RBC 5.19, Hgb 16.1, Hct 50.0 H, MCV 96.3, MCH 30.9, MCHC 32.1, RDW 14.9, Plt Count 161, MPV 8.0, Neut % (Auto) 70.5, Lymph % (Auto) 18.5, [place] % (Auto) 7.2, Eos % (Auto) 2.3, Baso % (Auto) 1.4, Neut # (Auto) 3.5, Lymph # (Auto) 0.9, [place] # (Auto) 0.4, Eos # (Auto) 0.1, Baso # (Auto) 0.1, Sodium 142, Potassium 4.0, Chloride 108 H, Carbon Dioxide 30, Anion Gap 8.0, BUN 15, Creatinine 0.80, Estimated Creat Clear 47, Estimated GFR 70, Est GFR ( Amer) 85, Glucose 140 H, Calcium 9.4, Magnesium 1.8, Total Bilirubin 2.7 H, AST 40 H, ALT 18, Alkaline Phosphatase 168 H, Troponin I < 0.01, NT-Pro-B Natriuret Pep 519 H, Total Protein 6.7, Albumin 3.4 L, Globulin 3.3 H, Albumin/Globulin Ratio 1.0 L, TSH 5.19 H, Thyroxine (T4) 12.1 H 02/27/24 01:30: Urine Color Yellow, Urine Appearance Clear, Urine pH 6.0, Ur Specific [place] >= 1.030, Urine Protein Trace, Urine Glucose (UA) Negative, Urine Ketones Negative, Urine Blood 3+, Urine Nitrate Positive, Urine Bilirubin 1+ A, Urine Urobilinogen 4.0, Ur Leukocyte Esterase Trace, Urine RBC 10-20, Urine WBC 5-10, Ur Squamous Epith Cells 5-10, Calcium Oxalate Crystal Trace, Urine Bacteria 3+, Hyaline Casts Occasional 02/27/24 04:20: Troponin I < 0.01 I & O for Last 24 hours: Intake & Output 02/24/24 02/25/24 02/26/24 02/27/24 23:59 23:59 23:59 23:59 Weight 159.029 kg 151.698 kg Results Data Completed and Pending Labs on day of discharge: Labs from last 24 hours 07/02/27/24 02/27/24 04:20 01:30 00:14 WBC 5.0 RBC 5.19 Hgb 16.1 Hct 50.0 H MCV 96.3 MCH 30.9 MCHC 32.1 RDW 14.9 Plt Count 161 MPV 8.0 Neut % (Auto) 70.5 Lymph % (Auto) 18.5 [place] % (Auto) 7.2 Eos % (Auto) 2.3 Baso % (Auto) 1.4 Neut # (Auto) 3.5 Lymph # (Auto) 0.9 [place] # (Auto) 0.4 Eos # (Auto) 0.1 Baso # (Auto) 0.1 Sodium 142 Potassium 4.0 Chloride 108 H Carbon Dioxide 30 Anion Gap 8.0 BUN 15 Creatinine 0.80 Estimated Creat Clear 47 Estimated GFR 70 Est GFR ( Amer) 85 Glucose 140 H Calcium 9.4 Magnesium 1.8 Total Bilirubin 2.7 H AST 40 H ALT 18 Alkaline Phosphatase 168 H Troponin I < 0.01 < 0.01 NT-Pro-B Natriuret Pep 519 H Total Protein 6.7 Albumin 3.4 L Globulin 3.3 H Albumin/Globulin Ratio 1.0 L TSH 5.19 H Thyroxine (T4) 12.1 H Urine Color Yellow Urine Appearance Clear Urine pH 6.0 Ur Specific [place] >= 1.030 Urine Protein Trace Urine Glucose (UA) Negative Urine Ketones Negative Urine Blood 3+ Urine Nitrate Positive Urine Bilirubin 1+ A Urine Urobilinogen 4.0 Ur Leukocyte Esterase Trace Urine RBC 10-20 Urine WBC 5-10 Ur Squamous Epith Cells 5-10 Calcium Oxalate Crystal Trace Urine Bacteria 3+ Hyaline Casts Occasional DS: Diagnosis Discharge Diagnosis (1) Generalized weakness: Status: Acute Code(s): R53.1 - Weakness (2) Lymphedema: Status: Acute Code(s): I89.0 - Lymphedema, not elsewhere classified (3) UTI (urinary tract infection): Status: Acute Code(s): N39.0 - Urinary tract infection, site not specified Qualifiers: Hematuria presence: with hematuria (4) Hypothyroidism: Status: Chronic Code(s): E03.9 - Hypothyroidism, unspecified Qualifiers: Hypothyroidism type: unspecified Qualified Code(s): E03.9 - Hypothyro idism, unspecified (5) Atrial fibrillation: Status: Chronic Code(s): I48.91 - Unspecified atrial fibrillation Qualifiers: Atrial fibrillation type: unspecified chronic Qualified Code(s): I48.20 - Chronic atrial fibrillation, unspecified (6) HLD (hyperlipidemia): Status: Acute Code(s): E78.5 - Hyperlipidemia, unspecified Qualifiers: Hyperlipidemia type: mixed hyperlipidemia Qualified Code(s): E78.2 - M ixed hyperlipidemia (7) HTN (hypertension): Status: Chronic Code(s): I10 - Essential (primary) hypertension Qualifiers: Hypertension type: essential hypertension Qualified Code(s): I10 - Essential (primary) hypertension Meds Home Medications and Allergies Home Medications Medication Instructions Recorded Confirmed Type doxepin 10 mg capsule 10 mg PO TID PRN Anxiety 06/18/21 02/27/24 History exemestane 25 mg tablet 25 mg PO DAILY 02/18/22 02/27/24 History pantoprazole 40 mg tablet,delayed 40 mg PO DAILY #90 tabs 07/23/23 02/27/24 Rx release potassium chloride 20 mEq 20 meq PO DAILY #90 tabs 07/23/23 02/27/24 Rx tablet,extended release(part/cryst) oxybutynin chloride 5 mg tablet 5 mg PO BID BLADDER 11/03/23 02/27/24 History metoprolol succinate 25 mg See Rx Instructions .Route 12/01/23 02/27/24 Rx tablet,extended release 24 hr .COMPLEX #90 tabs duloxetine 30 mg capsule,delayed See Rx Instructions .Route 12/02/23 02/27/24 Rx release .COMPLEX #90 caps levothyroxine 75 mcg tablet See Rx Instructions .Route 12/02/23 02/27/24 Rx .COMPLEX #90 tabs miscellaneous medical supply #1 ea 01/06/24 Rx apixaban 5 mg tablet (Eliquis) 5 mg PO BID #180 tabs 01/09/24 02/27/24 Rx bumetanide 1 mg tablet 1 mg PO DAILY #90 tabs 01/13/24 02/27/24 Rx atorvastatin 20 mg tablet 20 mg PO HS 02/27/24 02/27/24 History New Prescriptions to Start Prescriptions: Allergies Allergy/AdvReac Type Severity Reaction Status Date / Time cephalexin [From KEFLEX] Allergy Intermediate I-RASH Verified 01/06/24 12:08 Sulfa (Sulfonamide Allergy Intermediate I-RASH Verified 01/06/24 12:08 Antibiotics) [SULFA (SULFONAMIDE ANTIBIOTICS)] doxycycline [DOXYCYCLINE] Allergy Unknown NA-NAUSEA Verified 01/06/24 12:08 Penicillins [PENICILLINS] Allergy Unknown LOCAL Verified 01/06/24 12:08 REACTION AT INJECTION SITE Discharge Plan Follow up Plan Prescriptions/Medication Reconciliation: No Action doxepin 10 mg capsule 10 mg PO TID PRN (Reason: Anxiety) exemestane 25 mg tablet 25 mg PO DAILY potassium chloride 20 mEq tablet,ER particles/crystals 20 meq PO DAILY Qty: 90 1RF pantoprazole 40 mg tablet,delayed release (DR/EC) 40 mg PO DAILY Qty: 90 3RF metoprolol succinate 25 mg tablet extended release 24 hr See Rx Instructions .ROUTE .COMPLEX Qty: 90 3RF Dose Instruction: TAKE 1 TABLET EVERY DAY Rx Instructions: TAKE 1 TABLET EVERY DAY duloxetine 30 mg capsule,delayed release(DR/EC) See Rx Instructions .ROUTE .COMPLEX Qty: 90 3RF Dose Instruction: TAKE 1 CAPSULE EVERY DAY FOR DEPRESSION Rx Instructions: TAKE 1 CAPSULE EVERY DAY FOR DEPRESSION levothyroxine 75 mcg tablet See Rx Instructions .ROUTE .COMPLEX Qty: 90 3RF Dose Instruction: TAKE 1 TABLET EVERY DAY FOR THYROID Rx Instructions: TAKE 1 TABLET EVERY DAY FOR THYROID Eliquis 5 mg tablet 5 mg PO BID Qty: 180 1RF bumetanide 1 mg tablet 1 mg PO DAILY Qty: 90 3RF (DME) miscellaneous medical supply [facility] See Rx Instructions .Route Qty: 1 0RF Rx Instructions: extra large wheelchair for transfers to prevent falls and injury, as well as to and from medical appointments. atorvastatin 20 mg Tablet 20 mg PO HS oxybutynin chloride 5 mg tablet 5 mg PO BID Patient Discharge Instructions Patient Instructions: DI for Urinary Tract Infection (UTI), DI for Acute Cystitis, DI for Lymphedema, DI for Muscle Weakness Providers Primary Care Provider: Brennan Calloway Admit Provider: Lenny Jules Attending Provider: Lenny Jules
--- NOTE | 2024-02-27 06:05 | PC.NURSE ---
Mrs Royal was newly admitted this shift and arrived from the ED at around 03:45. She was admitted for complaints of weakness, unable to bear weight in legs, and functional decline. Patient is alert and oriented x4. Patient's lung sounds were clear upon auscultation during admission and her bowel sounds were active in all quadrants. Patient has a history of afib. She has very significant edema in both of her lower extremities and complains of significant weakness in them as well. She requires vast assistance during transfers. She also has a history of a right mastectomy; limb alert bracelet is in place. Patient was placed on a purewick this shift; her urine was noticed to be very dark and yellow-orange in color with a foul odor. During a brief change, patient started complaining of having trouble breathing; patient is currently on 2 L NC and is tolerating it well thus far. Patient complains of generalized soreness in her body and pain in her neck. Patient was swabbed for CRE this shift. Med rec was completed this shift. Patient has not had any further complaints at this time and is currently resting in bed. Bed alarm is on and call light is within reach.
--- NOTE | 2024-02-27 08:36 | HMH.PHAINT1 ---
Pharmacy Intervention Comments: MEDICATION RECONCILIATION COMPLETED ON PATIENT USING EXTERNAL FILL HISTORY FROM PHARMACY. -DIONTE MARTELL, CHRISTOPHERD
[2024-02-27] MEDS: METOPROLOL SUCCINATE XL 25MG TABLET 25 MG PO (08:51)
[2024-02-27] MEDS: BUMETANIDE 1 MG TABLET PO (08:51)
[2024-02-27] MEDS: APIXABAN 5MG TABLET 5 MG PO ×2 (08:51→20:31)
[2024-02-27] MEDS: PANTOPRAZOLE 40MG TABLET 40 MG PO (08:52)
[2024-02-27] MEDS: OXYBUTYNIN 5MG TAB 5 MG PO ×2 (08:52→20:31)
[2024-02-27] MEDS: DULOXETINE 30MG CAPSULE.DR 30 MG PO (08:52)
--- NOTE | 2024-02-27 08:52 | HMH.OTEV ---
OT Inpatient Evaluation Rehab OT IP Evaluation Start: 02/27/24 07:55 Freq: ONCE Status: Active Protocol: Document 02/27/24 08:46 JULIARICHELLE (Rec: 02/27/24 08:52 RAZA [id number]) Rehab OT IP Assessment Subjective History Hannah Royal is a 74-year-old female past medical history significant for lymphedema, hypothyroid, CAD, A-fib on Eliquis, HTN, HLD who presents emergency room tonight with complaints of generalized weakness. Patient is basically bedbound at baseline . She transfers from a reclining chair to a bedside commode and then back. Does not walk at all. Apparently got on the commode today and was unable to get off of the commode and back into the chair. Multiple family members tried to assist her. They eventually had to call EMS and it took several people in order to get her off the commode. States she has felt weak over the last couple of days. Tells me that she has had a knee replacement on the right and then foot drop on the right as well and has been unable to use her foot. Is supposed to be getting set up with someone for her lymphedema in her legs. Does not have home health come to the house at all. No other symptoms noted. Denies any fever, cough, chest pain, shortness of breath, abdominal pain, bowel or bladder dysfunction. Denies any dysuria or hematuria. No focal neurodeficits noted. Does take Eliquis daily for her A-fib, reports compliance with this. Denies any tobacco use, alcohol use, illicit drug use. Lab work in the ER showed an elevated BNP of 519, AST slightly bumped at 40, T. bili 2.7. UA shows 5-10 WBCs, 3+ bacteria with positive nitrites, early UTI versus contaminant as there was 5-10 squamous epithelial cells noted. Formal read pending on x-rays that were obtained in the ER. She was given dose of Levaquin in an abundance of caution for possible acute cystitis. She will be in the hospitalist service for adult failure to thrive and severe impaired functional mobility. Patient lives in 1 story home with family (daughter, grand- son and .) Patient stated that she normally stays in a lift chair at home and transfers independently from recliner<->[facility]. Patient has not ambulated since November 2023 . Family assist with ADLs and transportation at needed. Subjective I can try to sit up. Instructed Patient on proper hand and foot placement to complete bed mobility from supine->sit @ EOB requiring Max A. Patient sat at EOB with SBA for safety. Unable to assist with standing with patient at this time due to safety concerns. Will attempt with standing with other therapist later this date. Patient required Max A from EOB->supine and TD x2 to be repositioned up in bed. Objective Patient Orientation Person,Place,Name,Birthday, Month,Year Right Upper Extremity Gross ROM WFL Left Upper Extremity Gross ROM WFL Bed Mobility bed mobility-scooting,bed mobility - supine/sit Assist Level Maximum x 1 (75% assist) Lower Body Dressing Ability Unable/dependent Rehab OT IP prob,goals,plan Problems Date of Evaluation: 02/27/24 OT IP Problems Bed Mobility,Transfers,Balance ,Self care,Safety Rehab Potential Rehab Potential Good Equipment Needs Assistive Devices Wheelchair Plan OT intervention Plan Bed Mobility,Transfers,Balance ,Self care,Safety,Therapeutic Exercise OT Plan Frequency Daily Duration LOS Discharge Goals Bed Mobility Ability Assistance x2 Lower Body Dressing Ability Maximum Assistance Discharge Plan OT Discharge Plan Family is unable to provide care for patient at this time. Patient will require assistance of 2 for proper fx' l mobility for safety. Recommend placement for rehabilitation prior to returning home. Patient to continue skilled OT IP services while here at [facility]. Eval Complexity Eval Charge Codes 60880 - Low Complexity PHYSICIAN CERTIFICATION: I certify the specified therapy services for Hannah Royal are required, authorized, and reviewed every 30 days.
--- NOTE | 2024-02-27 10:32 | CA_ITS ---
APPROVED REPORT EXAM: Comprehensive 2D, Doppler, and color-flow Echocardiogram Music Teacher: ARIEL Cash, RVS Ht: 5 ft 6 in Wt: 334lbs BSA: 2.49 BP: 153/74 mmHg Indications: Weakness, Afib, CHF, CAD, MR, HTN, HLD Echo Enhancing Agent Comments: Poor Acoustics throughout exam due to patient factors 2D Dimensions Left Atrium 3.58 cm LA Volume 86.80 mL LA Volume Index 34.00 mL/m2 (M/F) 16-34 M-Mode Dimensions RVDd 3.49 cm (0.9-2.6) LA Diam 4.19 cm (1.9-4.0) LVDd 5.50 cm (3.5-5.7) LVDs 3.79 cm (3.5-5.7) IVSd 0.91 cm (0.6-1.1) PWd 1.06 cm (0.6-1.1) EF (Teich) 58.20% EPSs 0.53 cm FS 31.10% EDV (Teich) 147.40 mL TAPSE 1.65 (<1.7) ESV (Teich) 61.60 mL LV Diastology E Decel Time 220 (160-240 msec) E/A Ratio 2.51 MED A' 5.20 cm/s LAT A' 3.40 cm/s Aortic Valve JOSEPH Index 0.80 cm2/m2 AoV Peak Vu. 111.0 (50-130 cm/s) AO Peak GR. 5.00 mmHg AO Mean GR. 2.50 (<5 mmHg) AO VTI 20.9 (18-25 cm) JOSEPH (VTI) 2.03 (2.5-4.5 cm2) Mitral Valve MV A Velocity 32.0 (40-130 cm/s) E/A Ratio 2.51 Pulmonary Valve PV Peak Velocity 89.0 (50-150 cm/s) MT End VMAX 159.0 cm/s Tricuspid Valve TR P. Velocity 218.00 cm/s RAP Estimate 10.00 mmHg RVSP 29.00 mmHg Left Ventricle The left ventricle is normal size. The left ventricular systolic function is normal. The left ventricular ejection fraction is within the normal range. There is increased LV wall thickness. There is normal LV segmental wall motion. Diastolic function is indeterminate. LVEF is 55%. Right Ventricle Right ventricle is mildly dilated. The right ventricular systolic function is normal. Atria The left atrium is mildly dilated. The right atrium size is normal. There is no Doppler evidence of interatrial shunt. Aortic Valve The aortic valve is mildly thickened. There is no aortic valvular stenosis. Trace aortic regurgitation. Mitral Valve The mitral valve leaflets are mildly thickened. No evidence of mitral valve stenosis. Mild mitral regurgitation. Tricuspid Valve The tricuspid valve leaflets are thin and pliable. Mild tricuspid regurgitation. RVSP is 20-25 mmHg. Pulmonic Valve The pulmonary valve is normal in structure. Mild pulmonic regurgitation. Great Vessels The aortic root is normal in size. The ascending aorta is not well-visualized. IVC is normal in size and collapses >50% with inspiration. Pericardium There is no pericardial effusion. Other Information Study Quality: Fair Conclusion Normal biventricular systolic function. Mild RV dilation. Mild LA dilation. Mild MR, mild TR, mild PI. Electronically signed by : Abiola Ricketts MD 03/01/2024 00:31:15
--- NOTE | 2024-02-27 10:41 | HMH.PTEV ---
Physical Therapy Evaluation Rehab PT IP Evaluation Start: 02/27/24 03:41 Freq: ONCE Status: Active Protocol: Document 02/27/24 09:49 PHOLESTER (Rec: 02/27/24 10:41 PHORNE [id number]) Subjective/History History History Patient Hannah Royal is a 74- year-old female with the chief complaint of generalized weakness. Her past medical history significant for lymphedema, hypothyroid, CAD, A-fib on Eliquis, HTN, and HLD . Patient has had the following surgeries in the past colonoscopy, mastectomy, and R knee surgery. Her functional capabilities are baseline bed bound, however she is normally able to transfer herself with a walker from a reclining chair to a bedside commode. She normally has someone at home like a family member to help her if and when needed. Patient mentioned that she does not walk. Patient does have stairs upon entering her home but she stated are normally not an issue as she doesn't leave her home a lot. She currently did not have any complaints with pain at this current time , just fearful of falling. Subjective Subjective Patient was willing to participate in PT session during this visit, she was able to get to the EOB with assistance and eventually demonstrate a STS transfer. It is apparent that the patient does have some overall weakness but that did not keep her from being engaged and trying to help PT as much as possible. With bed mobility and transfer's the patient did expressed some discomfort due to positioning but was alleviated with correction. New diagnosis of cancer in past 12 No months? Rehab PT IP Eval Objective Appearance Patient Behavior Appropriate,Cooperative Patient Orientation Person,Place,Name,Age, Situation Speech Pattern Clear,Appropriate Ambulation Patient Able to Ambulate No Balance Ability to Arise Able, uses arms to help Sitting Balance Leans or slides in chair Standing Balance Steady, wide stance Dynamic Sitting Balance Ability Good Dynamic Standing Balance Ability Good Transfers Bed Transfer Ability Minimal x 2 (25% assist) Sit to Stand Bed Transfer Ability Minimal x 2 (25% assist) Rehab PT IP prob,goals,plan Problems Date of Evaluation: 02/27/24 PT IP Problems Bed Mobility,Transfers,Safety Rehab Potential Rehab Potential Good Equipment Needs Assistive Devices Standard Walker Plan PT Intervention Plan Bed Mobility,Transfers,Safety PT Plan Frequency Daily Duration LOS Discharge Goals Bed Transfer Ability Minimal x 1 (25% assist) Sit to Stand Chair Transfer Ability Minimal x 1 (25% assist) Ambulation Assistive Device Standard Walker Discharge Plan PT Discharge Plan Patient is appropriate for PT services with the recommendation to be placed with in a rehab facility or home health at this time. She would greatly benefit from PT to address safety concerns with transfers and promote more functional mobility. Eval Complexity Eval Charge Codes 41450 - High Complexity PHYSICIAN CERTIFICATION: I certify the specified therapy services for Hannah Royal are required, authorized, and reviewed every 30 days.
--- NOTE | 2024-02-27 11:00 | SW/DCPLANNER ---
Addendum entered by Jackie Coleman 02/27/24 15:14: Meena chen/ [facility] stated that precert will be started today. Addendum entered by Jackie Coleman 02/27/24 13:48: Meena chen/ [facility] will be onsite today to evaluate this patient. Original Note: I spoke w/ this patient regarding discharge plans for this patient. PT/OT evaluated patient and recommended SNF level of care. Patient is agreeable to placement at this time. Patient request that information be faxed to Meena chen/ [facility]. Patient stated that if [facility] is unable to accept her she would be agreeable to placement at [facility] or [facility]. Patient information has been faxed to [facility], [facility] and [facility] at this time. I will continue to follow up w/ patient and facilities.
[2024-02-27] MEDS: BUMETANIDE 1MG/4ML VIAL 1 MG IV (11:35)
--- NOTE | 2024-02-27 18:17 | PC.NURSE ---
Pt has done well today. VSS. No c/o SOB, pain, or N/V. She has diuresed well this shift. Purewick in place.
[2024-02-28 04:00] VITALS: BP 120/61; PULSE 90; RESP 16; TEMP 36.7; O2SAT 100; BMI 51.7
--- NOTE | 2024-02-28 05:58 | PC.NURSE ---
Patient alert and oriented x4 this shift. Patient has rested most of shift. Has been weaned from 2L NC and is currently on 1L NC and tolerating well with O2 stats >90%. Patient has bilateral +4 pitting edema in both lower extremities. Lung sounds clear. Bowel sounds active in all quadrants. Patient has not expressed any needs or complaints this shift. VSS. Bed alarm active for patient safety. Call light within reach.
--- NOTE | 2024-02-28 06:14 | PC.NURSE ---
nurse changed to 1L
[2024-02-28 07:17] LABS: Alanine Aminotransferase 14 U/L (12-78); Albumin Level 2.5 g/dl (3.5-5.0); Albumin/Globulin Ratio 0.9 (1.1-1.8); Alkaline Phosphatase 134 U/L (38-126); Anion Gap 5.8 mEq/L (5-15); Aspartate Amino Transferase 30 U/L (14-36); Bilirubin,Total 2.8 mg/dl (0.2-1.3); Blood Urea Nitrogen 13 mg/dl (7-17); Calcium 8.9 mg/dl (8.4-10.2); Carbon Dioxide 30 mmol/L (22.0-30.0); Chloride 106 mmol/L (98-107); Creatinine Clearance Estimated 46 mL/min (50-200); Estimated Glomerular Filt Rate 82 ml/min (>60); GFR (African American) 99 ML/MIN (>60); Globulin 2.9 g/dL (1.3-3.2); Glucose 112 mg/dl (74-100); Potassium 3.8 mmoL/L (3.5-5.1); Sodium 138 mmol/L (136-145); Total Protein,Serum 5.4 g/dl (6.3-8.2)
[2024-02-28 07:21] LABS: Basophils # 0.1 K/mm3 (0-0.2); Eosinophils # 0.1 K/mm3 (0.0-0.4); Eosinophils % 2.5 % (0.1-12.0); Hematocrit 44.5 % (37.0-47.0); Hemoglobin 14.5 g/dL (12.2-16.2); Lymphocytes # 1.4 K/mm3 (0.7-4.5); Lymphocytes % 28.1 % (10-50); Mean Corpuscular HGB Conc 32.5 g/dL (31.8-35.4); Mean Corpuscular Hemoglobin 31.3 pg (27.0-31.2); Mean Corpuscular Volume 96.3 fl (81-99); Mean Platelet Volume 8.1 fl (7.4-10.4); Monocytes # 0.4 K/mm3 (0.1-1.0); Monocytes % 8.1 % (1.7-9.3); Neutrophils # 2.9 K/mm3 (1.8-7.8); Neutrophils % 60.4 % (37.0-80.0); Platelet Count 137 K/mm3 (142-424); Red Blood Count 4.62 M/mm3 (4.20-5.40); Red Cell Distribution Width 14.8 % (11.5-17.5); White Blood Count 4.8 K/mm3 (4.8-10.8)
[2024-02-28 07:52] VITALS: BP 138/76; PULSE 90; RESP 19; TEMP 36.3; O2SAT 100
[2024-02-28 08:00] VITALS: O2SAT 99
--- NOTE | 2024-02-28 08:02 | P.PN_ITS ---
Subjective *Date: 02/28/24 *Time: 08:02 Medical Exam Vital signs and Labs for Last 24 Hours: Vital Signs Temp Pulse Resp BP Pulse Ox O2 Del Method O2 Flow Rate 02/28/24 07:52 97.4 F L 90 19 138/76 100 Nasal Cannula 1 02/28/24 06:54 Nasal Cannula 1 02/28/24 05:00 Nasal Cannula 1 02/28/24 04:00 98.0 F 90 16 120/61 100 Nasal Cannula 1 02/28/24 03:00 Nasal Cannula 1 02/28/24 00:56 Nasal Cannula 1 02/27/24 23:00 Nasal Cannula 1 02/27/24 21:00 Nasal Cannula 2 02/27/24 20:00 98.5 F 76 18 128/70 100 Nasal Cannula 2 02/27/24 20:00 100 Nasal Cannula 2 02/27/24 18:55 Nasal Cannula 2 02/27/24 17:00 Nasal Cannula 2 02/27/24 15:39 98 F 87 16 116/69 100 Nasal Cannula 02/27/24 15:00 Nasal Cannula 2 02/27/24 13:00 Nasal Cannula 2 02/27/24 11:00 Nasal Cannula 2 02/27/24 09:06 Nasal Cannula 2 02/27/24 09:00 Nasal Cannula 2 Intake and Output 02/27/24 02/28/24 02/28/24 23:59 07:59 15:59 Intake Total 480 / 960 Output Total 800 / 2800 300 / 300 Balance -320 / -1840 -300 / -300 Intake: Intake, Oral Amount 480 / 960 Output: Output, Urine Amount 800 / 2800 300 / 300 Other: Number of Unmeasured Voids 0 0 Weight 149.459 kg Patient Weight 02/28/24 23:59 Weight 149.459 kg Laboratory Results - last 24 hr 02/27/24 01:30: Urine Color Yellow, Urine Appearance Clear, Urine pH 6.0, Ur Specific [place] >= 1.030, Urine Protein Trace, Urine Glucose (UA) Negative, Urine Ketones Negative, Urine Blood 3+, Urine Nitrate Positive, Urine Bilirubin 1+ A, Urine Urobilinogen 4.0, Ur Leukocyte Esterase Trace, Urine RBC 10-20, Urine WBC 5-10, Ur Squamous Epith Cells 5-10, Calcium Oxalate Crystal Trace, Urine Bacteria 3+, Hyaline Casts Occasional 02/28/24 06:35: WBC 4.8, RBC 4.62, Hgb 14.5, Hct 44.5, MCV 96.3, MCH 31.3 H, MCHC 32.5, RDW 14.8, Plt Count 137 L, MPV 8.1, Neut % (Auto) 60.4, Lymph % (Auto) 28.1, [place] % (Auto) 8.1, Eos % (Auto) 2.5, Baso % (Auto) 1.0, Neut # (Auto) 2.9, Lymph # (Auto) 1.4, [place] # (Auto) 0.4, Eos # (Auto) 0.1, Baso # (Auto) 0.1, Sodium 138, Potassium 3.8, Chloride 106, Carbon Dioxide 30, Anion Gap 5.8, BUN 13, Creatinine 0.70, Estimated Creat Clear 46, Estimated GFR 82, Est GFR ( Amer) 99, Glucose 112 H, Calcium 8.9, Total Bilirubin 2.8 H, AST 30, ALT 14, Alkaline Phosphatase 134 H, Total Protein 5.4 L, Albumin 2.5 L D , Globulin 2.9, Albumin/Globulin Ratio 0.9 L I & O for Labs for Last 24 Hours: Intake & Output 02/25/24 02/26/24 02/27/24 02/28/24 23:59 23:59 23:59 23:59 Intake Total 960 / 960 Output Total 2800 / 2800 300 / 300 Balance -1840 / -1840 -300 / -300 Weight 159.029 kg 151.7 kg 149.459 kg Microbiology Reports for the Last 24 Hours: Microbiology 02/27/24 01:30 Urine,Clean Catch Urine Culture - Preliminary Gram Negative Rods
[2024-02-28] MEDS: METOPROLOL SUCCINATE XL 25MG TABLET 25 MG PO (08:37)
[2024-02-28] MEDS: DULOXETINE 30MG CAPSULE.DR 30 MG PO (08:37)
[2024-02-28] MEDS: PANTOPRAZOLE 40MG TABLET 40 MG PO (08:37)
[2024-02-28] MEDS: OXYBUTYNIN 5MG TAB 5 MG PO (08:37)
[2024-02-28] MEDS: APIXABAN 5MG TABLET 5 MG PO (08:37)
[2024-02-28] MEDS: BUMETANIDE 1 MG TABLET PO (08:37)
--- NOTE | 2024-02-28 08:44 | P.DS_ITS ---
General Admission date:: 02/27/24 Discharge date: 02/28/24 HPI HPI HPI: Hannah Royal is a 74-year-old female past medical history significant for lymphedema, hypothyroid, CAD, A-fib on Eliquis, HTN, HLD who presents emergency room tonight with complaints of generalized weakness. Patient is basically bedbound at baseline. She transfers from a reclining chair to a bedside commode and then back. Does not walk at all. Apparently got on the commode today and was unable to get off of the commode and back into the chair. Multiple family members tried to assist her. They eventually had to call EMS and it took several people in order to get her off the commode. States she has felt weak over the last couple of days. Tells me that she has had a knee replacement on the right and then foot drop on the right as well and has been unable to use her foot. Is supposed to be getting set up with someone for her lymphedema in her legs. Does not have home health come to the house at all. No other symptoms noted. Denies any fever, cough, chest pain, shortness of breath, abdominal pain, bowel or bladder dysfunction. Denies any dysuria or hematuria. No focal neurodeficits noted. Does take Eliquis daily for her A-fib, reports compliance with this. Denies any tobacco use, alcohol use, illicit drug use. Lab work in the ER showed an elevated BNP of 519, AST slightly bumped at 40, T. bili 2.7. UA shows 5-10 WBCs, 3+ bacteria with positive nitrites, early UTI versus contaminant as there was 5-10 squamous epithelial cells noted. Formal read pending on x-rays that were obtained in the ER. She was given dose of Levaquin in an abundance of caution for possible acute cystitis. She will be in the hospitalist service for adult failure to thrive and severe impaired functional mobility. Hospital Course Hospital Course Hospital Course: This is a 74-year-old female being admitted to the hospital for severe impaired mobility and adult failure to thrive. On my exam, patient is lying in bed in no acute distress. No complaints this time. Admitted to medicine for other management. Has remained hemodynamically stable. Tolerating diuretics. On antibiotics for UTI. Stable to discharge to rehab for further management. Problems addressed as follows: Generalized weakness Adult failure to thrive Severe impaired mobility Morbid obesity with excessive BMI -Patient was evaluated by therapy. Recommend placement for rehab due to her significant mobility issues. Has been referred to [facility] and graciously excepted. Will discharge today for further management with PT, OT. Acute cystitis vs contaminant -Urine obtained on admission via clean-catch. Concern for UTI versus contaminant however culture growing gram-negative rods within 24 hours. Was treated empirically with Levaquin on arrival. Will continue Levaquin to complete 5 days total of antibiotics. Dose given prior to discharge. Will need 3 more days of Levaquin orally. A-fib: Continue metoprolol, Eliquis Hypothyroid: Continue Synthroid Anxiety Depression -Continue home medications with Cymbalta 30 mg daily Overactive bladder: Continue oxybutynin Chronic constipation: Will initiate bowel regimen, reports having a bowel movement every 2 to 3 days. Last bowel movement on Friday per her report. Exam Data for Last 24 hours Vital signs and Labs for Last 24 Hours: Temp Pulse Resp BP Pulse Ox O2 Del Method O2 Flow Rate 97.4 F L 90 19 138/76 100 Nasal Cannula 1 02/28/24 07:52 02/28/24 07:52 02/28/24 07:52 02/28/24 07:52 02/28/24 07:52 02/28/24 07:52 02/28/24 07:52 Laboratory Results - last 24 hr 02/27/24 01:30: Urine Color Yellow, Urine Appearance Clear, Urine pH 6.0, Ur Specific [place] >= 1.030, Urine Protein Trace, Urine Glucose (UA) Negative, Urine Ketones Negative, Urine Blood 3+, Urine Nitrate Positive, Urine Bilirubin 1+ A, Urine Urobilinogen 4.0, Ur Leukocyte Esterase Trace, Urine RBC 10-20, Urine WBC 5-10, Ur Squamous Epith Cells 5-10, Calcium Oxalate Crystal Trace, Urine Bacteria 3+, Hyaline Casts Occasional 02/28/24 06:35: WBC 4.8, RBC 4.62, Hgb 14.5, Hct 44.5, MCV 96.3, MCH 31.3 H, MCHC 32.5, RDW 14.8, Plt Count 137 L, MPV 8.1, Neut % (Auto) 60.4, Lymph % (Auto) 28.1, [place] % (Auto) 8.1, Eos % (Auto) 2.5, Baso % (Auto) 1.0, Neut # (Auto) 2.9, Lymph # (Auto) 1.4, [place] # (Auto) 0.4, Eos # (Auto) 0.1, Baso # (Auto) 0.1, Sodium 138, Potassium 3.8, Chloride 106, Carbon Dioxide 30, Anion Gap 5.8, BUN 13, Creatinine 0.70, Estimated Creat Clear 46, Estimated GFR 82, Est GFR ( Amer) 99, Glucose 112 H, Calcium 8.9, Total Bilirubin 2.8 H, AST 30, ALT 14, Alkaline Phosphatase 134 H, Total Protein 5.4 L, Albumin 2.5 L D , Globulin 2.9, Albumin/Globulin Ratio 0.9 L I & O for Last 24 hours: Intake & Output 02/25/24 02/26/24 02/27/24 02/28/24 23:59 23:59 23:59 23:59 Intake Total 960 / 960 360 / 360 Output Total 2800 / 2800 300 / 300 Balance -1840 / -1840 60 / 60 Weight 159.029 kg 151.7 kg 149.459 kg Microbiology Reports for the Last 24 Hours: Microbiology 02/27/24 01:30 Urine,Clean Catch Urine Culture - Preliminary Gram Negative Rods Constitutional Constitutional: no acute distress, morbidly obese and cooperative *Routine HEENT Exam Head: Present normocephalic Eye: Present EOMI and PERRL ENT: Present mucous membranes moist *Routine Neck Exam Neck: Present supple; Absent lymphadenopathy *Routine Respiratory Exam Respiratory: Present CTA bilaterally, distant breath sounds and diminished air movement; Absent rhonchi, wheezes or crackles *Routine Cardiovascular Exam Cardiovascular: Present RRR *Routine Abdominal Exam Abdominal: Present soft and normoactive bowel sounds; Absent tenderness *Routine Rectal Exam Patient deferred: visual exam *Routine Exam Patient deferred: external exam *Routine Extremities Exam Extremities: Present edema (Chronic lymphedema with superimposed edema that pits); Absent cyanosis or clubbing *Routine Skin Exam Skin: Present intact, warm and rash (Lesions on lower legs, no active concern for infection.) *Routine Neurological Exam Neurological: Present alert, oriented X3 and moving all extremities; Absent altered mental status Comments: Limited strength in bilateral lower extremities Routine Psychiatric Exam Psychiatric: Present normal affect Results Data Completed and Pending Labs on day of discharge: Labs from last 24 hours 02/28/24 02/27/24 06:35 01:30 WBC 4.8 RBC 4.62 Hgb 14.5 Hct 44.5 MCV 96.3 MCH 31.3 H MCHC 32.5 RDW 14.8 Plt Count 137 L MPV 8.1 Neut % (Auto) 60.4 Lymph % (Auto) 28.1 [place] % (Auto) 8.1 Eos % (Auto) 2.5 Baso % (Auto) 1.0 Neut # (Auto) 2.9 Lymph # (Auto) 1.4 [place] # (Auto) 0.4 Eos # (Auto) 0.1 Baso # (Auto) 0.1 Sodium 138 Potassium 3.8 Chloride 106 Carbon Dioxide 30 Anion Gap 5.8 BUN 13 Creatinine 0.70 Estimated Creat Clear 46 Estimated GFR 82 Est GFR ( Amer) 99 Glucose 112 H Calcium 8.9 Total Bilirubin 2.8 H AST 30 ALT 14 Alkaline Phosphatase 134 H Total Protein 5.4 L Albumin 2.5 L D Globulin 2.9 Albumin/Globulin Ratio 0.9 L Urine Color Yellow Urine Appearance Clear Urine pH 6.0 Ur Specific [place] >= 1.030 Urine Protein Trace Urine Glucose (UA) Negative Urine Ketones Negative Urine Blood 3+ Urine Nitrate Positive Urine Bilirubin 1+ A Urine Urobilinogen 4.0 Ur Leukocyte Esterase Trace Urine RBC 10-20 Urine WBC 5-10 Ur Squamous Epith Cells 5-10 Calcium Oxalate Crystal Trace Urine Bacteria 3+ Hyaline Casts Occasional Preliminary micro results at discharge 02/27/24 01:30 Urine Culture - Preliminary Urine,Clean Catch Gram Negative Rods DS: Diagnosis Discharge Diagnosis (1) Generalized weakness: Status: Acute Code(s): R53.1 - Weakness (2) Lymphedema: Status: Acute Code(s): I89.0 - Lymphedema, not elsewhere classified (3) UTI (urinary tract infection): Status: Acute Code(s): N39.0 - Urinary tract infection, site not specified Qualifiers: Hematuria presence: with hematuria (4) Hypothyroidism: Status: Chronic Code(s): E03.9 - Hypothyroidism, unspecified Qualifiers: Hypothyroidism type: unspecified Qualified Code(s): E03.9 - Hypothyroidism, unspecified (5) Atrial fibrillation: Status: Chronic Code(s): I48.91 - Unspecified atrial fibrillation Qualifiers: Atrial fibrillation type: unspecified chronic Qualified Code(s): I48.20 - Chronic atrial fibrillation, unspecified (6) HLD (hyperlipidemia): Status: Acute Code(s): E78.5 - Hyperlipidemia, unspecified Qualifiers: Hyperlipidemia type: mixed hyperlipidemia Qualified Code(s): E78.2 - Mixed hyperlipidemia (7) HTN (hypertension): Status: Chronic Code(s): I10 - Essential (primary) hypertension Qualifiers: Hypertension type: essential hypertension Qualified Code(s): I10 - Essential (primary) hypertension Meds Home Medications and Allergies Home Medications Medication Instructions Recorded Confirmed Type miscellaneous medical supply #1 ea 01/06/24 02/27/24 Rx apixaban 5 mg tablet (Eliquis) 5 mg PO BID 30 days #60 tabs 02/28/24 Rx atorvastatin 20 mg tablet 20 mg PO HS 30 days #30 tabs 02/28/24 Rx bumetanide 1 mg tablet 1 mg PO BIDL 30 days #60 tabs 02/28/24 Rx duloxetine 30 mg capsule,delayed 30 mg PO DAILY 30 days #30 caps 02/28/24 Rx release exemestane 25 mg tablet 25 mg PO DAILY 30 days #30 tabs 02/28/24 Rx levofloxacin 750 mg tablet 750 mg PO DAILY 3 days #3 tabs 02/28/24 Rx levothyroxine 75 mcg tablet 75 mcg PO DAILY 30 days #30 tabs 02/28/24 Rx metoprolol succinate 25 mg 25 mg PO DAILY 30 days #30 tabs 02/28/24 Rx tablet,extended release 24 hr oxybutynin chloride 5 mg tablet 5 mg PO BID 30 days #60 tabs 02/28/24 Rx pantoprazole 40 mg tablet,delayed 40 mg PO DAILY 30 days #30 tabs 02/28/24 Rx release potassium chloride 20 mEq 20 meq PO DAILY 30 days #30 tabs 02/28/24 Rx tablet,extended release(part/cryst) sennosides 8.6 mg-docusate sodium 1 tab-cap PO HS 30 days #30 tabs 02/28/24 Rx 50 mg tablet (Senna with Docusate Sodium) New Prescriptions to Start Prescriptions: apixaban [Eliquis] Jorge A,Lenny atorvastatin Jorge A,Lenny bumetanide Jorge A,Lenny duloxetine Jorge A,Lenny exemestane Jorge A,Lenny levofloxacin Jorge A,Lenny levothyroxine Jorge A,Lenny metoprolol succinate Jorge A,Lenny oxybutynin chloride Jorge A,Lenny pantoprazole Jorge A,Lenny potassium chloride Jorge A,Lenny sennosides-docusate sodium [Senna with Docusate Sodium] Lenny Jules Allergies Allergy/AdvReac Type Severity Reaction Status Date / Time cephalexin [From KEFLEX] Allergy Intermediate I-RASH Verified 01/06/24 12:08 Sulfa (Sulfonamide Allergy Intermediate I-RASH Verified 01/06/24 12:08 Antibiotics) [SULFA (SULFONAMIDE ANTIBIOTICS)] doxycycline [DOXYCYCLINE] Allergy Unknown NA-NAUSEA Verified 01/06/24 12:08 Penicillins [PENICILLINS] Allergy Unknown LOCAL Verified 01/06/24 12:08 REACTION AT INJECTION SITE Discharge Plan Disposition Patient Disposition: Xfer [facility] Condition: Fair Discharge Order Discharge Orders: Discharge Order (Routine); Ordered 02/28/24 Ordered By: Lenny Jules Follow up Plan Prescriptions/Medication Reconciliation: New levofloxacin 750 mg tablet 750 mg PO DAILY 3 Days Qty: 3 0RF sennosides-docusate sodium [Senna with Docusate Sodium] 8.6-50 mg tablet 1 tab-cap PO HS 30 Days Qty: 30 0RF Continued (DME) miscellaneous medical supply Misc See Rx Instructions .Route Qty: 1 0RF Rx Instructions: extra large wheelchair for transfers to prevent falls and injury, as well as to and from medical appointments. atorvastatin 20 mg Tablet 20 mg PO HS 30 Days Qty: 30 0RF levothyroxine 75 mcg tablet 75 mcg PO DAILY 30 Days Qty: 30 0RF potassium chloride 20 mEq tablet,ER particles/crystals 20 meq PO DAILY 30 Days Qty: 30 1RF exemestane 25 mg tablet 25 mg PO DAILY 30 Days Qty: 30 0RF pantoprazole 40 mg tablet,delayed release (DR/EC) 40 mg PO DAILY 30 Days Qty: 30 3RF metoprolol succinate 25 mg tablet extended release 24 hr 25 mg PO DAILY 30 Days Qty: 30 0RF oxybutynin chloride 5 mg tablet 5 mg PO BID 30 Days Qty: 60 0RF duloxetine 30 mg capsule,delayed release(DR/EC) 30 mg PO DAILY 30 Days Qty: 30 0RF Eliquis 5 mg tablet 5 mg PO BID 30 Days Qty: 60 1RF Changed bumetanide 1 mg tablet 1 mg PO BIDL 30 Days Qty: 60 3RF Problem Reconciliation Problems Reviewed?: Yes Patient Discharge Instructions ACTIVITY: Continue current activity DIET: continue same diet Patient Instructions: DI for Urinary Tract Infection (UTI), DI for Acute Cystitis, DI for Lymphedema, DI for Muscle Weakness Providers Primary Care Provider: Brennan Calloway Admit Provider: Lenny Jules Attending Provider: Lenny Jules
== END 2024-02-28 11:25 ==
LOC: ER 23:42 → 2ND 02-27 02:58
PROVIDERS: Nurse Practitioner Acute Care; Admitting Provider Internal Medicine Adolescent Medicine; Emergency Provider Emergency Medicine; PCP Internal Medicine; Visit Provider Internal Medicine Adolescent Medicine
DX: N30.00 Acute cystitis without hematuria (principal); I89.0 Lymphedema, not elsewhere classified; E03.9 Hypothyroidism, unspecified; I48.20 Chronic atrial fibrillation, unspecified; E78.2 Mixed hyperlipidemia; I10 Essential (primary) hypertension; I25.10 Atherosclerotic heart disease of native coronary artery without angina pectoris; I48.91 Unspecified atrial fibrillation; Z79.01 Long term (current) use of anticoagulants; E78.5 Hyperlipidemia, unspecified; Z74.01 Bed confinement status; E66.01 Morbid (severe) obesity due to excess calories; Z68.43 Body mass index [BMI] 50.0-59.9, adult; F41.9 Anxiety disorder, unspecified; F32.A Depression, unspecified; N32.81 Overactive bladder
CPT/HCPCS: 36415; 71045; 73562; 73610; 80053; 81001; 83735; 83880; 84436; 84443; 84484; 85025; 87081; 87086; 87088; 87186; 93005; 93306; 97163; 97165; 97530; 99221; 99285; G0378

== ENCOUNTER 2024-03-11 16:34 | Emergency (ER) | payer MEDICARE, SELFPAY ==
[2024-03-11 16:34] VITALS: BP 131/76; PULSE 95; RESP 20; TEMP 36.9; O2SAT 97; BMI 49.3
--- NOTE | 2024-03-11 16:49 | XR_ITS ---
PROCEDURE INFORMATION: Exam: XR Chest Exam date and time: 03/11/2024 4:50 PM Age: 74 years old Clinical indication: Shortness of breath; Additional info: SOA TECHNIQUE: Imaging protocol: Radiologic exam of the chest. Views: 1 view. COMPARISON: 1. CR XR CHEST PORTABLE 02/26/2024 11:53 PM 2. CR XR CHEST PORTABLE 01/06/2024 11:50 AM 3. CR XR CHEST PORTABLE 10/21/2023 2:[address] ANGIO CHEST 11/03/2023 6:01 PM FINDINGS: Lungs: Unremarkable. No consolidation. Stable bandlike opacities lateral left mid to lower lung field compatible with fibro atelectatic changes. Lungs are otherwise clear. Pleural spaces: Unremarkable. No pleural effusion. No pneumothorax. Heart/Mediastinum: Unremarkable. No cardiomegaly. Bones/joints: Unremarkable. IMPRESSION: Stable chest x-ray with no acute disease.
--- NOTE | 2024-03-11 16:51 | HMH.EDGENADL ---
Discharge Plan Disposition Patient Disposition: Xfer SNF Condition: Good Prescriptions Prescriptions: No Action (DME) miscellaneous medical supply Misc See Rx Instructions .Route Qty: 1 0RF Rx Instructions: extra large wheelchair for transfers to prevent falls and injury, as well as to and from medical appointments. levofloxacin 750 mg tablet 750 mg PO DAILY 3 Days Qty: 3 0RF atorvastatin 20 mg Tablet 20 mg PO HS 30 Days Qty: 30 0RF levothyroxine 75 mcg tablet 75 mcg PO DAILY 30 Days Qty: 30 0RF potassium chloride 20 mEq tablet,ER particles/crystals 20 meq PO DAILY 30 Days Qty: 30 1RF exemestane 25 mg tablet 25 mg PO DAILY 30 Days Qty: 30 0RF pantoprazole 40 mg tablet,delayed release (DR/EC) 40 mg PO DAILY 30 Days Qty: 30 3RF bumetanide 1 mg tablet 1 mg PO BIDL 30 Days Qty: 60 3RF metoprolol succinate 25 mg tablet extended release 24 hr 25 mg PO DAILY 30 Days Qty: 30 0RF oxybutynin chloride 5 mg tablet 5 mg PO BID 30 Days Qty: 60 0RF duloxetine 30 mg capsule,delayed release(DR/EC) 30 mg PO DAILY 30 Days Qty: 30 0RF Eliquis 5 mg tablet 5 mg PO BID 30 Days Qty: 60 1RF sennosides-docusate sodium [Senna with Docusate Sodium] 8.6-50 mg tablet 1 tab-cap PO HS 30 Days Qty: 30 0RF Referrals Follow up/Referrals: Brennan Calloway DO [Primary Care Provider] - See instructions Activity Restrictions/Add. Instructions Additional Instructions/Restrictions: You were evaluated in the emergency department today. Please follow-up closely outpatient. Return to the emergency department for new or worsening symptoms Clinical Impressions Clinical Impression: BRBPR (bright red blood per rectum), Hypokalemia Print Language Print Language: Latvian Discharge ED Provider: Zulma Bell General Adult HPI General Chief complaint: Recheck/Abnormal Lab/Rx Stated complaint: Weakness Time Seen by Provider: 03/11/24 16:39 History of Present Illness HPI narrative: This patient is a 74-year-old female well-known to the hospital with history of hypertension, hyperlipidemia, lymphedema, thyroid disease, atrial fibrillation, morbid obesity, mobility issues, and chronic respiratory failure intermittently on oxygen as needed for shortness of breath [place] [facility] [place] Patient states that she is unsure why she is here because she is in her usual state of health. She states that she has been doing very well lately and has not needed her home as needed oxygen. She states that today, she was lying in bed watching TV when the nurse came and checked her and told her she had to go to the hospital. She did not want, and she is not sure why they sent her. She asked me if I could reach out to them and find out why she is here. Per report called from the nursing facility, the patient had high heart rate, low oxygen saturation, and had swelling that was concerning for fluid overload. According to EMS, patient appeared to be at her baseline and was satting well on room air en route. Patient currently states that she is feeling great and has no concerns or complaints. She states that she had an enema recently for constipation, and she had a little bit of rectal bleeding since then, but she states that they are keeping an eye on that at the nursing facility. She denies fevers, chills, chest pain, shortness of breath, cough, abdominal pain, vomiting, increase in swelling, or other concerns. Related Data Previous Rx's ?Medication ?Instructions ?Recorded miscellaneous medical supply #1 ea 01/06/24 apixaban 5 mg tablet (Eliquis) 5 mg PO BID 30 days #60 tabs 02/28/24 atorvastatin 20 mg tablet 20 mg PO HS 30 days #30 tabs 02/28/24 bumetanide 1 mg tablet 1 mg PO BIDL 30 days #60 tabs 02/28/24 duloxetine 30 mg capsule,delayed 30 mg PO DAILY 30 days #30 caps 02/28/24 release exemestane 25 mg tablet 25 mg PO DAILY 30 days #30 tabs 02/28/24 levofloxacin 750 mg tablet 750 mg PO DAILY 3 days #3 tabs 02/28/24 levothyroxine 75 mcg tablet 75 mcg PO DAILY 30 days #30 tabs 02/28/24 metoprolol succinate 25 mg 25 mg PO DAILY 30 days #30 tabs 02/28/24 tablet,extended release 24 hr oxybutynin chloride 5 mg tablet 5 mg PO BID 30 days #60 tabs 02/28/24 pantoprazole 40 mg tablet,delayed 40 mg PO DAILY 30 days #30 tabs 02/28/24 release potassium chloride 20 mEq 20 meq PO DAILY 30 days #30 tabs 02/28/24 tablet,extended release(part/cryst) sennosides 8.6 mg-docusate sodium 1 tab-cap PO HS 30 days #30 tabs 02/28/24 50 mg tablet (Senna with Docusate Sodium) Allergies Allergy/AdvReac Type Severity Reaction Status Date / Time cephalexin [From KEFLEX] Allergy Intermediate I-RASH Verified 01/06/24 12:08 Sulfa (Sulfonamide Allergy Intermediate I-RASH Verified 01/06/24 12:08 Antibiotics) [SULFA (SULFONAMIDE ANTIBIOTICS)] doxycycline [DOXYCYCLINE] Allergy Unknown NA-NAUSEA Verified 01/06/24 12:08 Penicillins [PENICILLINS] Allergy Unknown LOCAL Verified 01/06/24 12:08 REACTION AT INJECTION SITE [facility] Disclaimer: The information contained in this section may have been updated after the patient was seen, as this information can be updated by other users. Medical History MRSA bacteremia Staphylococcus aureus bacteremia Gout attack Metabolic syndrome Thyroid disease Urinary tract infection History of gastroesophageal reflux (GERD) Hyperlipidemia Atrial fibrillation Morbid obesity Atypical angina Breast cancer Edema HTN (hypertension) Elevated coronary artery calcium score Abnormal EKG Preoperative clearance Dyspnea Surgical History History of colonoscopy History of mastectomy History of knee surgery Family History Father Heart attack Social History Smoking Status: Never smoker second hand exposure: No alcohol intake: never current occupational status: retired and disabled Travel in the last 8 weeks: None household members: spouse and children housing: house ROS Obtained: Yes All systems reviewed & no additional complaints except as documented Physical Exam General General appearance: alert, in no apparent distress and obese Head Head exam: atraumatic and normocephalic Eye Eye exam: Present normal appearance, PERRL and EOMI ENT ENT exam: Present normal exam, normal oropharynx, mucous membranes moist and normal external ear exam Neck Neck exam: Present normal inspection, full ROM and trachea midline; Absent tenderness Chest Chest inspection: Present normal inspection and symmetric chest wall rise; Absent tenderness Respiratory Respiratory exam: Present normal lung sounds bilaterally; Absent respiratory distress, wheezes, stridor or accessory muscle use Cardiovascular Cardiovascular exam: Present regular rate and normal rhythm Abdominal Exam Abdominal exam: Present soft; Absent distention, tenderness or guarding Extremities Exam Extremities exam: Present full ROM, normal capillary refill and edema (Chronic bilateral lower extremity lymphedema that actually appears improved on my assessment); Absent tenderness Back Exam Back exam: Present normal inspection and full ROM; Absent tenderness Neurological Exam Neurological exam: Present alert, oriented X3, CN II-XII intact and normal gait; Absent motor sensory deficit Psychiatric Psychiatric exam: Present normal affect and normal mood Skin Skin exam: Present warm and dry Medical Decision Making Medical Records Medical records reviewed: Yes I reviewed the patient's medical records. Richard Inquiry Pt receiving controlled substance: No Vital Signs: 03/11/24 16:34 03/11/24 17:00 03/11/24 17:30 Temperature 98.4 F Temperature Source Oral Pulse Rate 89 87 Pulse Rate [Right Radial] 95 H Respiratory Rate 20 22 22 Blood Pressure 128/83 122/76 Blood Pressure [Right Arm] 131/76 Blood Pressure Mean Blood Pressure Mean [Right Arm] 94 02 Sat by Pulse Oximetry 97 97 98 Oxygen Delivery Method Room Air 03/11/24 18:00 03/11/24 19:00 Temperature 98.0 F Temperature Source Pulse Rate 88 93 H Pulse Rate [Right Radial] Respiratory Rate 20 20 Blood Pressure 141/80 H 141/80 H Blood Pressure [Right Arm] Blood Pressure Mean 100 Blood Pressure Mean [Right Arm] 02 Sat by Pulse Oximetry 97 Oxygen Delivery Method Room Air Lab Data Lab results reviewed: Yes I reviewed the patient's lab results. Lab Results 03/11/24 17:15: WBC 6.5, RBC 5.39, Hgb 17.0 H, Hct 50.5 H, MCV 93.7, MCH 31.6 H, MCHC 33.8, RDW 14.6, Plt Count 182, MPV 8.2, Neut % (Auto) 58.3, Lymph % (Auto) 28.0, [place] % (Auto) 8.8, Eos % (Auto) 3.5, Baso % (Auto) 1.4, Neut # (Auto) 3.8, Lymph # (Auto) 1.8, [place] # (Auto) 0.6, Eos # (Auto) 0.2, Baso # (Auto) 0.1, Sodium 137, Potassium 3.2 L, Chloride 96 L, Carbon Dioxide 37 H, Anion Gap 7.2, BUN 18 H, Creatinine 0.90, Estimated Creat Clear 47, Estimated GFR 61, Est GFR ( Amer) 74, Glucose 118 H, Calcium 9.1, Total Bilirubin 4.9 H, AST 46 H, ALT 19, Alkaline Phosphatase 166 H, NT-Pro-B Natriuret Pep 369, Total Protein 7.1 D, Albumin 3.4 L, Globulin 3.7 H, Albumin/Globulin Ratio 0.9 L 03/11/24 17:15 03/11/24 17:15 Orders (Tests/Meds): ED MEDICATIONS Discontinued Medications Generic Name Dose Route Start Last Admin Trade Name Freq PRN Reason Stop Dose Admin Potassium Chloride 40 meq 03/11/24 17:59 03/11/24 18:05 Potassium Chloride 20meq Tab PO 03/11/24 18:00 40 meq ONCE ONE Administration ORDERS Category Date Time Status XR chest portable Stat Exams 03/11/24 16:49 Completed BNP [NT Pro Brain Natriuretic Pep.] Stat Lab 03/11/24 17:15 Completed Complete Blood Count Auto Diff Stat Lab 03/11/24 17:15 Completed Comprehensive Metabolic Panel Stat Lab 03/11/24 17:15 Completed ECG Data Tracing #1: I reviewed this ECG and interpreted as documented below: Atrial fibrillation with a ventricular rate of [address] changes concerning for ischemia. No significant changes from prior EKG. ECG initial impression date: 03/11/24 ECG initial impression time: 17:24 Medical Decision Narrative: In summary, this patient is a 74-year-old female presenting to the Emergency Department for evaluation. She is not sure why she is here and has no concerns or complaints, but she does note that she had some rectal bleeding after an enema recently. Per nursing facility, she had low oxygen saturation, high heart rate, and they were concerned for volume overload. Per EMS, patient stable en route. Differential diagnoses considered include but are not limited to chronic respiratory failure, chronic shortness of breath, obesity hypoventilation syndrome, lymphedema, CHF exacerbation, anemia, pneumonia. Ruling out the most morbid conditions drove assessment. It should be noted patient's history includes CAD, hypertension, hyperlipidemia, atrial fibrillation, obesity, and lymphedema which he or may not be at goal therapy. This complicates all aspects of care by increasing patient's risk for morbidity. I reviewed patient's past medical records and noted his admission recently for severe impaired functional mobility, at which point she was actually discharged to [place]. On exam, the patient is lying in bed in no acute distress. She actually appears improved from the last time that I saw her. Vitals are normal on cardiac telemetry with atrial fibrillation with a heart rate in the 90s, O2 saturation of 99%, and normal blood pressure. She is afebrile. Given reported rectal bleeding, I will evaluate for anemia. Workup included CBC, CMP, chest x-ray, EKG. Given that the patient has no other symptoms or complaints, I do not feel that other labs or imaging are indicated at this time.. I independently interpreted x-ray prior to the radiologist read and noted focal consolidation. Please see their read for final interpretation. Labs were obtained that demonstrated no significant changes from prior labs. She does have mild hypokalemia, for which oral replacement was ordered. This is chronic. She also has chronic hyperbilirubinemia. Hemoglobin is stable, no significant leukocytosis. On multiple subsequent reassessments, she is resting comfortably and is tolerating oral intake without difficulty. Vitals are normal on cardiac telemetry on room air, and she has no concerns or complaints. Cardiopulmonary and abdominal exams remain benign. Given this, I feel that she is appropriate for discharge back to her nursing facility. Patient's ED stay was prolonged because she was waiting for transport back to the nursing facility. Ultimately, she was transported back in stable condition. Critical Care Critical Care Time Critical Care Time: No
[2024-03-11 17:00] VITALS: BP 128/83; PULSE 89; RESP 22; O2SAT 97
--- NOTE | 2024-03-11 17:22 | ECG_ITS ---
APPROVED REPORT Exam: Resting ECG HR:98 bpm ECG Measurements Heart Rate 98 AXES QRSd 82 QRS -33 QT 356 T 50 QTc 411 Conclusion ATRIAL FIBRILLATION INFERIOR MYOCARDIAL INFARCTION , PROBABLY OLD [40+ ms Q WAVE AND/OR ST/T ABNORMALITY IN II/aVF] ANTEROLATERAL MYOCARDIAL INFARCTION , PROBABLY OLD [40+ ms Q WAVE IN I/aVL/V3-V6] ABNORMAL ECG Electronically signed by : ALMAZ CORONADO, 03/11/2024 23:56:07
[2024-03-11 17:24] LABS: Basophils # 0.1 K/mm3 (0-0.2); Basophils % 1.4 % (0.1-2.0); Eosinophils # 0.2 K/mm3 (0.0-0.4); Eosinophils % 3.5 % (0.1-12.0); Hematocrit 50.5 % (37.0-47.0); Lymphocytes # 1.8 K/mm3 (0.7-4.5); Mean Corpuscular HGB Conc 33.8 g/dL (31.8-35.4); Mean Corpuscular Hemoglobin 31.6 pg (27.0-31.2); Mean Corpuscular Volume 93.7 fl (81-99); Mean Platelet Volume 8.2 fl (7.4-10.4); Monocytes # 0.6 K/mm3 (0.1-1.0); Monocytes % 8.8 % (1.7-9.3); Neutrophils # 3.8 K/mm3 (1.8-7.8); Neutrophils % 58.3 % (37.0-80.0); Platelet Count 182 K/mm3 (142-424); Red Blood Count 5.39 M/mm3 (4.20-5.40); Red Cell Distribution Width 14.6 % (11.5-17.5); White Blood Count 6.5 K/mm3 (4.8-10.8)
[2024-03-11 17:30] VITALS: BP 122/76; PULSE 87; RESP 22; O2SAT 98
[2024-03-11 17:45] LABS: Alanine Aminotransferase 19 U/L (12-78); Albumin Level 3.4 g/dl (3.5-5.0); Albumin/Globulin Ratio 0.9 (1.1-1.8); Alkaline Phosphatase 166 U/L (38-126); Anion Gap 7.2 mEq/L (5-15); Aspartate Amino Transferase 46 U/L (14-36); Bilirubin,Total 4.9 mg/dl (0.2-1.3); Blood Urea Nitrogen 18 mg/dl (7-17); Calcium 9.1 mg/dl (8.4-10.2); Carbon Dioxide 37 mmol/L (22.0-30.0); Chloride 96 mmol/L (98-107); Creatinine Clearance Estimated 47 mL/min (50-200); Estimated Glomerular Filt Rate 61 ml/min (>60); GFR (African American) 74 ML/MIN (>60); Globulin 3.7 g/dL (1.3-3.2); Glucose 118 mg/dl (74-100); Potassium 3.2 mmoL/L (3.5-5.1); Sodium 137 mmol/L (136-145); Total Protein,Serum 7.1 g/dl (6.3-8.2)
[2024-03-11 17:54] LABS: NT Pro Brain Natriuretic Pep. 369 pg/mL (0-450)
[2024-03-11 18:00] VITALS: BP 141/80; PULSE 88; RESP 20; O2SAT 97
--- NOTE | 2024-03-11 18:00 | PC.NURSE ---
provided patient with a dietary tray
[2024-03-11] MEDS: POTASSIUM CHLORIDE 20MEQ TAB 40 MEQ PO (18:05)
--- NOTE | 2024-03-11 18:54 | PC.NURSE ---
Called report to [facility] staff and ems aware of trasnfer
[2024-03-11 19:00] VITALS: BP 141/80; PULSE 93; RESP 20; TEMP 36.7; O2SAT 97
--- NOTE | 2024-03-11 19:00 | PC.NURSE ---
EMS called to take pt to go back to [facility]
--- NOTE | 2024-03-11 19:30 | PC.NURSE ---
EMS is unfortunately toned out for a call. Pt & her family updated on the delay. no needs at this time.
--- NOTE | 2024-03-11 20:00 | PC.NURSE ---
pt still awaiting for ambulance availability [facility], pt is resting comfortably and vitals WNL
--- NOTE | 2024-03-11 21:00 | PC.NURSE ---
pt used the restroom and cleaned and provided with clean brief and kaleigh pads
--- NOTE | 2024-03-11 22:00 | PC.NURSE ---
pt resting quietly and still awaiting trasnfer, pt and family updated about ems status
--- NOTE | 2024-03-11 22:51 | PC.NURSE ---
EMS here for transport for pt to go back to [facility]
== END 2024-03-11 23:03 ==
PROVIDERS: Emergency Provider Emergency Medicine; PCP Internal Medicine
DX: K62.5 Hemorrhage of anus and rectum (principal); E87.6 Hypokalemia; E03.9 Hypothyroidism, unspecified; I48.0 Paroxysmal atrial fibrillation; I10 Essential (primary) hypertension; E78.5 Hyperlipidemia, unspecified; Z79.01 Long term (current) use of anticoagulants
CPT/HCPCS: 71045; 80053; 83880; 85025; 93005; 99284

== ENCOUNTER 2024-03-31 11:52 | Emergency (ER) | payer MEDICARE, SELFPAY ==
[2024-03-31] VITALS (8 sets, daily range): BP systolic 91–158; BP diastolic 64–90; PULSE 84–102; RESP 16–20; TEMP 36.6; O2SAT 91–100; BMI 48.4
--- NOTE | 2024-03-31 11:56 | ECG_ITS ---
APPROVED REPORT Exam: Resting ECG HR:101 bpm ECG Measurements Heart Rate 101 AXES QRSd 75 QRS -36 QT 331 T 38 QTc 389 Conclusion ATRIAL FIBRILLATION WITH RAPID VENTRICULAR RESPONSE ANTERIOR MYOCARDIAL INFARCTION , PROBABLY OLD [40+ ms Q WAVE AND/OR ST/T ABNORMALITY IN V3/V4] INFERIOR MYOCARDIAL INFARCTION , PROBABLY OLD [40+ ms Q WAVE AND/OR ST/T ABNORMALITY IN II/aVF] ABNORMAL ECG Electronically signed by : BRANT FOURNIER, 04/02/2024 23:25:00
--- NOTE | 2024-03-31 11:58 | ED_ITS ---
Discharge Plan Disposition Patient Disposition: Home, Self-Care Prescriptions Prescriptions: New doxycycline hyclate 100 mg capsule 100 mg PO BID 7 Days Qty: 14 0RF ondansetron 4 mg tablet,disintegrating 4 mg PO Q6H PRN (Reason: nausea and vomiting) Qty: 10 0RF ipratropium-albuterol 0.5 mg-3 mg(2.5 mg base)/3 mL solution for nebulization 3 ml inhalation Q4H PRN (Reason: wheezing) Qty: 90 0RF No Action (DME) miscellaneous medical supply Misc See Rx Instructions .Route Qty: 1 0RF Rx Instructions: extra large wheelchair for transfers to prevent falls and injury, as well as to and from medical appointments. levofloxacin 750 mg tablet 750 mg PO DAILY 3 Days Qty: 3 0RF atorvastatin 20 mg Tablet 20 mg PO HS 30 Days Qty: 30 0RF levothyroxine 75 mcg tablet 75 mcg PO DAILY 30 Days Qty: 30 0RF potassium chloride 20 mEq tablet,ER particles/crystals 20 meq PO DAILY 30 Days Qty: 30 1RF exemestane 25 mg tablet 25 mg PO DAILY 30 Days Qty: 30 0RF pantoprazole 40 mg tablet,delayed release (DR/EC) 40 mg PO DAILY 30 Days Qty: 30 3RF bumetanide 1 mg tablet 1 mg PO BIDL 30 Days Qty: 60 3RF metoprolol succinate 25 mg tablet extended release 24 hr 25 mg PO DAILY 30 Days Qty: 30 0RF oxybutynin chloride 5 mg tablet 5 mg PO BID 30 Days Qty: 60 0RF duloxetine 30 mg capsule,delayed release(DR/EC) 30 mg PO DAILY 30 Days Qty: 30 0RF Eliquis 5 mg tablet 5 mg PO BID 30 Days Qty: 60 1RF sennosides-docusate sodium [Senna with Docusate Sodium] 8.6-50 mg tablet 1 tab-cap PO HS 30 Days Qty: 30 0RF Referrals Follow up/Referrals: Brennan Calloway DO [Primary Care Provider] - See instructions Activity Restrictions/Add. Instructions Additional Instructions/Restrictions: Call your family doctor to establish care for this visit to the emergency department and schedule follow-up within 48 hours to ensure improvement. If you have any worsening of your condition or any other concerning signs or symptoms, return to the emergency department or your primary care doctor for further evaluation. Truong sent to the pharmacy, take this about 15 minutes prior to your doxycycline. Take doxycycline twice daily for 7 days. Continue taking your bumetanide (water pill) as prescribed. Clinical Impressions Clinical Impression: Acute dyspnea, Pneumonia Print Language Print Language: [place] Discharge ED Provider: Jonathan Beasley General Adult HPI <Kings Hunter MD - Last Filed: 04/01/24 18:57> General Chief complaint: Shortness of Breath/Dyspnea Stated complaint: Low 02 Sats Time Seen by Provider: 03/31/24 11:58 History of Present Illness HPI narrative: Patient presents for evaluation of shortness of breath, symptoms were gradual in onset starting approximately 1 week ago, constant, stable in course, she reports she has had similar symptoms before but denies any chronic lung conditions. Denies any history of COPD, CHF. Denies any blood thinner usage. Reports history of atrial fibrillation. Reports sick contacts of family members in daycare. No previous therapies. No fevers or chills. No nausea or vomiting. Patient reports she is largely bedbound. Please note that above description of symptoms, in this electronic medical record under categorization of recalled from ER triage doctor by RN are reflective of an initial nursing assessment, however, is not reflective of my full history and physical exam that was personally taken and clarified. Consequentially, this preceding description of symptoms, which may include the patient's categorized chief complaint in the EMR, do not reflect my personal clinical impression, and the ultimate description of history of present illness and patient stated complaints should be deferred to this section of the note. Unless stated otherwise or congruent with this section of the note, additional signs, symptoms, or incongruence should be interpreted as inaccurate with my clinical impression. Related Data Previous Rx's ?Medication ?Instructions ?Recorded miscellaneous medical supply #1 ea 01/06/24 apixaban 5 mg tablet (Eliquis) 5 mg PO BID 30 days #60 tabs 02/28/24 atorvastatin 20 mg tablet 20 mg PO HS 30 days #30 tabs 02/28/24 bumetanide 1 mg tablet 1 mg PO BIDL 30 days #60 tabs 02/28/24 duloxetine 30 mg capsule,delayed 30 mg PO DAILY 30 days #30 caps 02/28/24 release exemestane 25 mg tablet 25 mg PO DAILY 30 days #30 tabs 02/28/24 levofloxacin 750 mg tablet 750 mg PO DAILY 3 days #3 tabs 02/28/24 levothyroxine 75 mcg tablet 75 mcg PO DAILY 30 days #30 tabs 02/28/24 metoprolol succinate 25 mg 25 mg PO DAILY 30 days #30 tabs 02/28/24 tablet,extended release 24 hr oxybutynin chloride 5 mg tablet 5 mg PO BID 30 days #60 tabs 02/28/24 pantoprazole 40 mg tablet,delayed 40 mg PO DAILY 30 days #30 tabs 02/28/24 release potassium chloride 20 mEq 20 meq PO DAILY 30 days #30 tabs 02/28/24 tablet,extended release(part/cryst) sennosides 8.6 mg-docusate sodium 1 tab-cap PO HS 30 days #30 tabs 02/28/24 50 mg tablet (Senna with Docusate Sodium) doxycycline hyclate 100 mg capsule 100 mg PO BID 7 days #14 caps 03/31/24 ipratropium 0.5 mg-albuterol 3 mg 3 ml inhalation Q4H PRN wheezing 03/31/24 (2.5 mg base)/3 mL nebulization #90 mL soln ondansetron 4 mg disintegrating 4 mg PO Q6H PRN nausea and 03/31/24 tablet vomiting #10 tabs Allergies Allergy/AdvReac Type Severity Reaction Status Date / Time cephalexin [From KEFLEX] Allergy Intermediate I-RASH Verified 01/06/24 12:08 Sulfa (Sulfonamide Allergy Intermediate I-RASH Verified 01/06/24 12:08 Antibiotics) [SULFA (SULFONAMIDE ANTIBIOTICS)] Penicillins [PENICILLINS] Allergy Unknown LOCAL Verified 01/06/24 12:08 REACTION AT INJECTION SITE [facility], [facility] <Kings Hunter MD - Last Filed: 04/01/24 18:57> [facility] Disclaimer: The information contained in this section may have been updated after the patient was seen, as this information can be updated by other users. Medical History MRSA bacteremia Staphylococcus aureus bacteremia Gout attack Metabolic syndrome Thyroid disease Urinary tract infection History of gastroesophageal reflux (GERD) Hyperlipidemia Atrial fibrillation Morbid obesity Atypical angina Breast cancer Edema HTN (hypertension) Elevated coronary artery calcium score Abnormal EKG Preoperative clearance Dyspnea Surgical History History of colonoscopy History of mastectomy History of knee surgery Family History Father Heart attack Social History Smoking Status: Never smoker second hand exposure: No alcohol intake: never current occupational status: retired and disabled Travel in the last 8 weeks: None household members: spouse and children housing: house <Kings Hunter MD - Last Filed: 04/01/24 18:57> ROS Obtained: Yes other As per HPI Physical Exam <Kings Hunter MD - Last Filed: 04/01/24 18:57> General General appearance: alert Comment: Chronically ill-appearing, obese, extensive bilateral lower extremity edema. Tachypnea, speaking in partial sentences. Head Head exam: atraumatic and normocephalic Eye Eye exam: Present normal appearance Neck Neck exam: Present normal inspection Chest Chest inspection: Present normal inspection and symmetric chest wall rise Respiratory Respiratory exam: Present accessory muscle use Cardiovascular Cardiovascular exam: Present regular rate and normal rhythm Abdominal Exam Abdominal exam: Present soft Neurological Exam Neurological exam: Present alert and oriented X3 Psychiatric Psychiatric exam: Present normal affect and normal mood Skin Skin exam: Present warm and dry Medical Decision Making <Kings Hunter MD - Last Filed: 04/01/24 18:57> Medical Records Medical records reviewed: Yes I reviewed the patient's medical records. Richard Inquiry Pt receiving controlled substance: No Vital Signs: 03/31/24 11:52 03/31/24 12:02 03/31/24 14:22 Temperature 97.8 F Temperature Source Oral Pulse Rate 84 102 H Pulse Rate [Left Radial] 89 Respiratory Rate 20 Blood Pressure 133/90 91/66 L Blood Pressure [Right Arm] 129/89 Blood Pressure Mean [Right Arm] 102 Blood Pressure Source Blood Pressure Position 02 Sat by Pulse Oximetry 98 98 99 Oxygen Delivery Method Room Air 03/31/24 15:58 03/31/24 16:32 03/31/24 17:01 Temperature Temperature Source Pulse Rate 88 97 H 88 Pulse Rate [Left Radial] Respiratory Rate Blood Pressure 135/77 158/76 H 126/88 Blood Pressure [Right Arm] Blood Pressure Mean [Right Arm] Blood Pressure Source Blood Pressure Position 02 Sat by Pulse Oximetry 100 97 98 Oxygen Delivery Method 03/31/24 17:31 03/31/24 18:18 Temperature 97.9 F Temperature Source Oral Pulse Rate 93 H 88 Pulse Rate [Left Radial] Respiratory Rate 16 Blood Pressure 91/64 L 126/88 Blood Pressure [Right Arm] Blood Pressure Mean [Right Arm] Blood Pressure Source Automatic Cuff Blood Pressure Position Sitting 02 Sat by Pulse Oximetry 91 L Oxygen Delivery Method Room Air Lab Data Lab Results 03/31/24 12:18: VBG pH 7.35, VBG pCO2 60.3 H, VBG pO2 41.0 H, VBG HCO3 32.8 H, V BG Total CO2 34.7 H, VBG O2 Saturation 74.8 H, VBG Base Excess 7.3 H, VBG Lactic Acid 2.4 H 03/31/24 12:20: WBC 5.4, RBC 5.18, Hgb 16.0, Hct 50.7 H, MCV 97.8, MCH 30.9, M CHC 31.6 L, RDW 14.4, Plt Count 139 L, MPV 8.4, Neut % (Auto) 61.2, Lymph % (Auto) 26.4, [place] % (Auto) 7.1, Eos % (Auto) 2.8, Baso % (Auto) 2.4 H, Neut # (Auto) 3.3, Lymph # (Auto) 1.4, [place] # (Auto) 0.4, Eos # (Auto) 0.2, Baso # (Auto) 0.1, Sodium 139, Potassium 4.2, Chloride 99, Carbon Dioxide 40 H, Anion Gap 4.2 L, BUN 17, Creatinine 0.80, Estimated Creat Clear 47, Estimated GFR 70, Est GFR ( Amer) 85, Glucose 119 H, Calcium 8.8, Total Bilirubin 3.4 H, A ST 60 H, ALT 24, Alkaline Phosphatase 118, Troponin I < 0.01, NT-Pro-B Natriuret Pep 406, Total Protein 6.8, Albumin 3.3 L, Globulin 3.5 H, Albumin/Globulin Ratio 0.9 L, Procalcitonin 0.338 03/31/24 12:22: SARS-CoV-2 (PCR) Not detected, Influenza A Untype (PCR) Not detected, Influenza Type B (PCR) Not detected 03/31/24 15:58: Troponin I < 0.01 03/31/24 12:20 03/31/24 12:20 Orders (Tests/Meds): ED MEDICATIONS Discontinued Medications Generic Name Dose Route Start Last Admin Trade Name Deniz PRN Reason Stop Dose Admin Albuterol/Ipratropium 3 ml 03/31/24 15:44 03/31/24 16:29 Ipratropium/Albuterol 3 Ml Neb IH 03/31/24 15:45 3 ml ONCE ONE Administration Doxycycline Hyclate 100 mg 03/31/24 16:48 03/31/24 17:22 Doxycycline Hycl 100 Mg Tablet PO 03/31/24 16:49 100 mg ONCE ONE Administration Lactated Ringer's 1,850 mls @ 925 mls/hr 03/31/24 15:56 03/31/24 16:59 Lactated Ringer's 1000 Ml Bag 30 ml/kg infuse over 2 hr (1850 ml) 03/31/24 17:55 Not Given IV .Q2H ONE Cefepime HCl 2 gm/ Sodium 100 mls @ 200 mls/hr 03/31/24 15:56 03/31/24 16:46 Chloride IV 03/31/24 16:25 Not Given ONCE ONE Vancomycin HCl 2,500 mg/ 250 mls @ 125 mls/hr 03/31/24 16:30 03/31/24 16:59 Sodium Chloride IV 03/31/24 18:29 Not Given ONCE ONE Levofloxacin/Dextrose 750 mg in 150 mls @ 100 mls/hr 03/31/24 16:02 03/31/24 16:59 Levofloxacin 750mg/150ml Premix IV 03/31/24 17:31 Not Given ONCE ONE Iopamidol 70 ml 03/31/24 13:40 03/31/24 13:45 Iopamidol-370 (76%);100ml Bottle IV 03/31/24 13:41 70 ml ONCE ONE Administration Miscellaneous 1 each 03/31/24 16:00 03/31/24 16:45 Vancomycin Consult Request NOTAPPLIC 04/30/24 15:59 1 each CONSULT PHARMACY LARISSA Administration Ondansetron HCl 4 mg 03/31/24 16:48 03/31/24 17:03 Ondansetron 4mg/2ml Vial IV 03/31/24 16:49 Not Given ONCE ONE Ondansetron HCl 4 mg 03/31/24 17:00 03/31/24 17:22 Ondansetron 4mg Odt SL 03/31/24 17:01 4 mg ONCE ONE Administration Sodium Chloride 50 ml 03/31/24 13:40 03/31/24 13:45 0.9 % Sodium Chloride 50 Ml Vial IV 03/31/24 13:41 50 ml ONCE ONE Administration Sodium Chloride 10 ml 03/31/24 13:40 03/31/24 13:45 Sodium Chloride 0.9% 10ml Syr (Rad Only) IV 03/31/24 13:41 10 ml ONCE ONE Administration ORDERS Category Date Time Status CTA Chest [CT angio chest PE protocol] Stat Cat Scan 03/31/24 13:18 Completed XR chest portable Stat Exams 03/31/24 12:18 Completed BNP [NT Pro Brain Natriuretic Pep.] Stat Lab 03/31/24 12:20 Completed CBC w/Auto Diff [Complete Blood Count Auto Diff] Stat Lab 03/31/24 12:20 Completed CMP [Comprehensive Metabolic Panel] Stat Lab 03/31/24 12:20 Completed Procalcitonin Stat Lab 03/31/24 12:20 Completed Rapid PCR Covid and Flu A/B Stat Lab 03/31/24 12:22 Completed Troponin I Q3H Lab 03/31/24 12:20 Completed Troponin I Q3H Lab 03/31/24 15:58 Completed Blood Culture Stat Micro 03/31/24 Results VBG [Venous Blood Gas] Stat RT 03/31/24 12:18 Completed Medical Decision Narrative: Patient with history and exam per above presenting for evaluation of shortness of breath Diagnoses considered include COPD, CHF, pulmonary embolism, ACS, pneumonia, obesity hypoventilation syndrome, among others ED workup and treatment included: ED MEDICATIONS Discontinued Medications Generic Name Dose Route Start Last Admin Trade Name Freq PRN Reason Stop Dose Admin Albuterol/Ipratropium 3 ml 03/31/24 15:44 03/31/24 16:29 Ipratropium/Albuterol 3 Ml Neb IH 03/31/24 15:45 3 ml ONCE ONE Administration Doxycycline Hyclate 100 mg 03/31/24 16:48 03/31/24 17:22 Doxycycline Hycl 100 Mg Tablet PO 03/31/24 16:49 100 mg ONCE ONE Administration Lactated Ringer's 1,850 mls @ 925 mls/hr 03/31/24 15:56 03/31/24 16:59 Lactated Ringer's 1000 Ml Bag 30 ml/kg infuse over 2 hr (1850 ml) 03/31/24 17:55 Not Given IV .Q2H ONE Cefepime HCl 2 gm/ Sodium 100 mls @ 200 mls/hr 03/31/24 15:56 03/31/24 16:46 Chloride IV 03/31/24 16:25 Not Given ONCE ONE Vancomycin HCl 2,500 mg/ 250 mls @ 125 mls/hr 03/31/24 16:30 03/31/24 16:59 Sodium Chloride IV 03/31/24 18:29 Not Given ONCE ONE Levofloxacin/Dextrose 750 mg in 150 mls @ 100 mls/hr 03/31/24 16:02 03/31/24 16:59 Levofloxacin 750mg/150ml Premix IV 03/31/24 17:31 Not Given ONCE ONE Iopamidol 70 ml 03/31/24 13:40 03/31/24 13:45 Iopamidol-370 (76%);100ml Bottle IV 03/31/24 13:41 70 ml ONCE ONE Administration Miscellaneous 1 each 03/31/24 16:00 03/31/24 16:45 Vancomycin Consult Request NOTAPPLIC 04/30/24 15:59 1 each CONSULT PHARMACY LARISSA Administration Ondansetron HCl 4 mg 03/31/24 16:48 03/31/24 17:03 Ondansetron 4mg/2ml Vial IV 03/31/24 16:49 Not Given ONCE ONE Ondansetron HCl 4 mg 03/31/24 17:00 03/31/24 17:22 Ondansetron 4mg Odt SL 03/31/24 17:01 4 mg ONCE ONE Administration Sodium Chloride 50 ml 03/31/24 13:40 03/31/24 13:45 0.9 % Sodium Chloride 50 Ml Vial IV 03/31/24 13:41 50 ml ONCE ONE Administration Sodium Chloride 10 ml 03/31/24 13:40 03/31/24 13:45 Sodium Chloride 0.9% 10ml Syr (Rad Only) IV 03/31/24 13:41 10 ml ONCE ONE Administration ORDERS Category Date Time Status CTA Chest [CT angio chest PE protocol] Stat Cat Scan 03/31/24 13:18 Completed XR chest portable Stat Exams 03/31/24 12:18 Completed BNP [NT Pro Brain Natriuretic Pep.] Stat Lab 03/31/24 12:20 Completed CBC w/Auto Diff [Complete Blood Count Auto Diff] Stat Lab 03/31/24 12:20 Completed CMP [Comprehensive Metabolic Panel] Stat Lab 03/31/24 12:20 Completed Procalcitonin Stat Lab 03/31/24 12:20 Completed Rapid PCR Covid and Flu A/B Stat Lab 03/31/24 12:22 Completed Troponin I Q3H Lab 03/31/24 12:20 Completed Troponin I Q3H Lab 03/31/24 15:58 Completed Blood Culture Stat Micro 03/31/24 Results VBG [Venous Blood Gas] Stat RT 03/31/24 12:18 Completed Labs were independently interpreted by me, significant for compensated respiratory acidosis, no leukocytosis, other labs pending at this time. Imaging is pending at this time. Please refer to radiology report for full details. Care was transferred to incoming physician. Gale: I assumed primary responsibility for this patient after signout from previous physician. I independently interviewed and examined patient. Patient states she is feeling much better than when she came in. Blood pressure significantly improved. Patient was placed on continuous monitoring engineer and continuous pulse oximetry with initial blood pressure 158/76, saturatin 97% on 2.5 L nasal cannula (this is what she wears at [facility]). Lungs are clear to auscultation, however decreased breath sounds inferior lung alexander on the right side comparatively. She does have nonpitting lower extremity edema she says this has not been getting any worse. Independent rotation of workup demonstrates no leukocytosis, nonactionable CBC overall. Patient's VBG is compensated chronic respiratory acidosis likely secondary to obesity hypoventilation syndrome. pH 7.35, CO2 60, bicarb 32.8, mildly evaded lactic acid 2.4. Nonactionable chemistry. Patient's troponin negative, BNP 406. Chest x-ray without acute cardiopulmonary airspace disease. CTA independently interpreted and significant for no pulmonary embolus, but she does have developing airspace disease versus interstitial fluid right lower lung alexander. See radiology read for further interpretation. On repeat evaluation, patient states she feels great. Zofran and doxycycline were given after patient states that her reactions doxycycline is nausea. Because patient at baseline without signs or symptoms of clinical decompensation, deemed appropriate for discharge. Results were relayed to patient who voiced understanding and were agreeable to outpatient management and follow up. I discussed my clinical impression with patient and answered all questions. At this time, the evidence for any other entities in the differential is insufficient to warrant any further testing or ED observation. This was explained as well. Advisory was given that persistent or worsening symptoms require further evaluation. I confirmed the understanding of this discussion. <Jonathan Beasley MD - Last Filed: 03/31/24 17:28> Vital Signs: 03/31/24 11:52 03/31/24 12:02 03/31/24 14:22 Temperature 97.8 F Temperature Source Oral Pulse Rate 84 102 H Pulse Rate [Left Radial] 89 Respiratory Rate 20 Blood Pressure 133/90 91/66 L Blood Pressure [Right Arm] 129/89 Blood Pressure Mean [Right Arm] 102 Blood Pressure Source Blood Pressure Position 02 Sat by Pulse Oximetry 98 98 99 Oxygen Delivery Method Room Air 03/31/24 15:58 03/31/24 16:32 03/31/24 17:01 Temperature Temperature Source Pulse Rate 88 97 H 88 Pulse Rate [Left Radial] Respiratory Rate Blood Pressure 135/77 158/76 H 126/88 Blood Pressure [Right Arm] Blood Pressure Mean [Right Arm] Blood Pressure Source Blood Pressure Position 02 Sat by Pulse Oximetry 100 97 98 Oxygen Delivery Method 03/31/24 17:31 03/31/24 18:18 Temperature 97.9 F Temperature Source Oral Pulse Rate 93 H 88 Pulse Rate [Left Radial] Respiratory Rate 16 Blood Pressure 91/64 L 126/88 Blood Pressure [Right Arm] Blood Pressure Mean [Right Arm] Blood Pressure Source Automatic Cuff Blood Pressure Position Sitting 02 Sat by Pulse Oximetry 91 L Oxygen Delivery Method Room Air Lab Data Lab Results 03/31/24 12:18: VBG pH 7.35, VBG pCO2 60.3 H, VBG pO2 41.0 H, VBG HCO3 32.8 H, V BG Total CO2 34.7 H, VBG O2 Saturation 74.8 H, VBG Base Excess 7.3 H, VBG Lactic Acid 2.4 H 03/31/24 12:20: WBC 5.4, RBC 5.18, Hgb 16.0, Hct 50.7 H, MCV 97.8, MCH 30.9, M CHC 31.6 L, RDW 14.4, Plt Count 139 L, MPV 8.4, Neut % (Auto) 61.2, Lymph % (Auto) 26.4, [place] % (Auto) 7.1, Eos % (Auto) 2.8, Baso % (Auto) 2.4 H, Neut # (Auto) 3.3, Lymph # (Auto) 1.4, [place] # (Auto) 0.4, Eos # (Auto) 0.2, Baso # (Auto) 0.1, Sodium 139, Potassium 4.2, Chloride 99, Carbon Dioxide 40 H, Anion Gap 4.2 L, BUN 17, Creatinine 0.80, Estimated Creat Clear 47, Estimated GFR 70, Est GFR ( Amer) 85, Glucose 119 H, Calcium 8.8, Total Bilirubin 3.4 H, A ST 60 H, ALT 24, Alkaline Phosphatase 118, Troponin I < 0.01, NT-Pro-B Natriuret Pep 406, Total Protein 6.8, Albumin 3.3 L, Globulin 3.5 H, Albumin/Globulin Ratio 0.9 L, Procalcitonin 0.338 03/31/24 12:22: SARS-CoV-2 (PCR) Not detected, Influenza A Untype (PCR) Not detected, Influenza Type B (PCR) Not detected 03/31/24 15:58: Troponin I < 0.01 Orders (Tests/Meds): ED MEDICATIONS Discontinued Medications Generic Name Dose Route Start Last Admin Trade Name Freq PRN Reason Stop Dose Admin Albuterol/Ipratropium 3 ml 03/31/24 15:44 03/31/24 16:29 Ipratropium/Albuterol 3 Ml Neb IH 03/31/24 15:45 3 ml ONCE ONE Administration Doxycycline Hyclate 100 mg 03/31/24 16:48 03/31/24 17:22 Doxycycline Hycl 100 Mg Tablet PO 03/31/24 16:49 100 mg ONCE ONE Administration Lactated Ringer's 1,850 mls @ 925 mls/hr 03/31/24 15:56 03/31/24 16:59 Lactated Ringer's 1000 Ml Bag 30 ml/kg infuse over 2 hr (1850 ml) 03/31/24 17:55 Not Given IV .Q2H ONE Cefepime HCl 2 gm/ Sodium 100 mls @ 200 mls/hr 03/31/24 15:56 03/31/24 16:46 Chloride IV 03/31/24 16:25 Not Given ONCE ONE Vancomycin HCl 2,500 mg/ 250 mls @ 125 mls/hr 03/31/24 16:30 03/31/24 16:59 Sodium Chloride IV 03/31/24 18:29 Not Given ONCE ONE Levofloxacin/Dextrose 750 mg in 150 mls @ 100 mls/hr 03/31/24 16:02 03/31/24 16:59 Levofloxacin 750mg/150ml Premix IV 03/31/24 17:31 Not Given ONCE ONE Iopamidol 70 ml 03/31/24 13:40 03/31/24 13:45 Iopamidol-370 (76%);100ml Bottle IV 03/31/24 13:41 70 ml ONCE ONE Administration Miscellaneous 1 each 03/31/24 16:00 03/31/24 16:45 Vancomycin Consult Request NOTAPPLIC 04/30/24 15:59 1 each CONSULT PHARMACY LARISSA Administration Ondansetron HCl 4 mg 03/31/24 16:48 03/31/24 17:03 Ondansetron 4mg/2ml Vial IV 03/31/24 16:49 Not Given ONCE ONE Ondansetron HCl 4 mg 03/31/24 17:00 03/31/24 17:22 Ondansetron 4mg Odt SL 03/31/24 17:01 4 mg ONCE ONE Administration Sodium Chloride 50 ml 03/31/24 13:40 03/31/24 13:45 0.9 % Sodium Chloride 50 Ml Vial IV 03/31/24 13:41 50 ml ONCE ONE Administration Sodium Chloride 10 ml 03/31/24 13:40 03/31/24 13:45 Sodium Chloride 0.9% 10ml Syr (Rad Only) IV 03/31/24 13:41 10 ml ONCE ONE Administration ORDERS Category Date Time Status CTA Chest [CT angio chest PE protocol] Stat Cat Scan 03/31/24 13:18 Completed XR chest portable Stat Exams 03/31/24 12:18 Completed BNP [NT Pro Brain Natriuretic Pep.] Stat Lab 03/31/24 12:20 Completed CBC w/Auto Diff [Complete Blood Count Auto Diff] Stat Lab 03/31/24 12:20 Completed CMP [Comprehensive Metabolic Panel] Stat Lab 03/31/24 12:20 Completed Procalcitonin Stat Lab 03/31/24 12:20 Completed Rapid PCR Covid and Flu A/B Stat Lab 03/31/24 12:22 Completed Troponin I Q3H Lab 03/31/24 12:20 Completed Troponin I Q3H Lab 03/31/24 15:58 Completed Blood Culture Stat Micro 03/31/24 Results VBG [Venous Blood Gas] Stat RT 03/31/24 12:18 Completed Medical Decision Narrative: Patient with history and exam per above presenting for evaluation of Diagnoses considered include ED workup and treatment included: Labs were independently interpreted by me, significant for Imaging was independently visualized and interpreted by me, significant for Please refer to radiology report for full details. My clinical impression at this time is most consistent with I discussed my clinical impression with patient and answered all questions. At this time, the evidence for any other entities in the differential is insufficient to warrant any further testing or ED observation. This was explained to the patient. The patient was advised that persistent or worsening symptoms require further evaluation. Gale: I assumed primary responsibility for this patient after signout from previous physician. I independently interviewed and examined patient. Patient states she is feeling much better than when she came in. Blood pressure significantly improved. Patient was placed on continuous monitoring engineer and continuous pulse oximetry with initial blood pressure 158/76, saturatin 97% on 2.5 L nasal cannula (this is what she wears at [facility]). Lungs are clear to auscultation, however decreased breath sounds inferior lung alexander on the right side comparatively. She does have nonpitting lower extremity edema she says this has not been getting any worse. Independent rotation of workup demonstrates no leukocytosis, nonactionable CBC overall. Patient's VBG is compensated chronic respiratory acidosis likely secondary to obesity hypoventilation syndrome. pH 7.35, CO2 60, bicarb 32.8, mildly evaded lactic acid 2.4. Nonactionable chemistry. Patient's troponin negative, BNP 406. Chest x-ray without acute cardiopulmonary airspace disease. CTA independently interpreted and significant for no pulmonary embolus, but she does have developing airspace disease versus interstitial fluid right lower lung alexander. See radiology read for further interpretation. On repeat evaluation, patient states she feels great. Zofran and doxycycline were given after patient states that her reactions doxycycline is nausea. Because patient at baseline without signs or symptoms of clinical decompensation, deemed appropriate for discharge. Results were relayed to patient who voiced understanding and were agreeable to outpatient management and follow up. I discussed my clinical impression with patient and answered all questions. At this time, the evidence for any other entities in the differential is insufficient to warrant any further testing or ED observation. This was explained as well. Advisory was given that persistent or worsening symptoms require further evaluation. I confirmed the understanding of this discussion. Critical Care <Kings Hunter MD - Last Filed: 04/01/24 18:57> Critical Care Time Critical Care Time: No
--- NOTE | 2024-03-31 12:18 | XR_ITS ---
FINAL REPORT CLINICAL HISTORY: Shortness of breath COMPARISON: 03/11/2024 FINDINGS: The heart size is normal. The mediastinum is normal. There is scarring and atelectasis at the lung bases. There are no pleural effusions. There is no pneumothorax. Surgical clips are noted in the right axilla. There are ossific densities inferior to the humeral head measuring up to 10 mm which may represent intra-articular loose bodies. IMPRESSION: Scarring and atelectasis at the bases. Intra-articular loose bodies inferior to the humeral head. Reviewed, Interpreted and Dictated by Jordon Moser MD Transcribed by Gwen Weinberg Authenticated and [facility]
[2024-03-31 12:29] LABS: Coronavirus 19, PCR Not Detected (NotDetected); Influenza A, PCR Not Detected (NotDetected); Influenza B, PCR Not Detected (NotDetected)
[2024-03-31 12:33] LABS: Basophils # 0.1 K/mm3 (0-0.2); Basophils % 2.4 % (0.1-2.0); Eosinophils # 0.2 K/mm3 (0.0-0.4); Eosinophils % 2.8 % (0.1-12.0); Hematocrit 50.7 % (37.0-47.0); Lymphocytes # 1.4 K/mm3 (0.7-4.5); Lymphocytes % 26.4 % (10-50); Mean Corpuscular HGB Conc 31.6 g/dL (31.8-35.4); Mean Corpuscular Hemoglobin 30.9 pg (27.0-31.2); Mean Corpuscular Volume 97.8 fl (81-99); Mean Platelet Volume 8.4 fl (7.4-10.4); Monocytes # 0.4 K/mm3 (0.1-1.0); Monocytes % 7.1 % (1.7-9.3); Neutrophils # 3.3 K/mm3 (1.8-7.8); Neutrophils % 61.2 % (37.0-80.0); Platelet Count 139 K/mm3 (142-424); Red Blood Count 5.18 M/mm3 (4.20-5.40); Red Cell Distribution Width 14.4 % (11.5-17.5); White Blood Count 5.4 K/mm3 (4.8-10.8)
[2024-03-31 12:44] LABS: Albumin Level 3.3 g/dl (3.5-5.0); Chloride 99 mmol/L (98-107); Potassium 4.2 mmoL/L (3.5-5.1); Sodium 139 mmol/L (136-145)
[2024-03-31 12:47] LABS: Alanine Aminotransferase 24 U/L (12-78); Albumin/Globulin Ratio 0.9 (1.1-1.8); Alkaline Phosphatase 118 U/L (38-126); Anion Gap 4.2 mEq/L (5-15); Aspartate Amino Transferase 60 U/L (14-36); Bilirubin,Total 3.4 mg/dl (0.2-1.3); Blood Urea Nitrogen 17 mg/dl (7-17); Carbon Dioxide 40 mmol/L (22.0-30.0); Creatinine Clearance Estimated 47 mL/min (50-200); Estimated Glomerular Filt Rate 70 ml/min (>60); GFR (African American) 85 ML/MIN (>60); Globulin 3.5 g/dL (1.3-3.2); Total Protein,Serum 6.8 g/dl (6.3-8.2)
[2024-03-31 12:48] LABS: Calcium 8.8 mg/dl (8.4-10.2); Glucose 119 mg/dl (74-100)
[2024-03-31 12:52] LABS: NT Pro Brain Natriuretic Pep. 406 pg/mL (0-450)
[2024-03-31 12:55] LABS: Troponin I < 0.01 ng/ml (0.00-0.034)
[2024-03-31 13:12] LABS: VBG Base Excess 7.3 mmol/L (-2.4-2.3); VBG HCO3 32.8 mmol/L (23-30); VBG Oxygen Saturation 74.8 % (50-70); VBG PH 7.35 mmol/L (7.31-7.41); VBG Total CO2 34.7 mmol/L (23-27)
[2024-03-31 13:16] LABS: Lactate Venous 2.4 mmol/L (0.4-2.0); VBG PCO2 60.3 mmol/L (35-51)
--- NOTE | 2024-03-31 13:17 | PC.NURSE ---
[facility] results given to Dr. Hunter.
--- NOTE | 2024-03-31 13:18 | CT_ITS ---
FINAL REPORT TECHNIQUE: The patient was injected with IV contrast. Axial images were obtained through the chest in a PE protocol. 3-D reconstruction images were also performed. Individualized dose reduction techniques using automated exposure control or adjustment of the MA and/or KV according to patient's size were employed. CLINICAL HISTORY: acute on chronic respiratory failure COMPARISON: 11/03/2023 FINDINGS: Mediastinal vasculature is adequately opacified. No pulmonary artery filling defects are identified to suggest PE. There is no aortic dissection. There is no axillary adenopathy. There is no hilar or mediastinal adenopathy. The heart size is normal. There is no pericardial or pleural effusion. Mild ground-glass opacities in both lungs are stable. There is increased linear scar or atelectasis at the bases. Limited images of the upper abdomen demonstrate a splenic artery aneurysm measuring 10 mm in greatest dimension. Finding is best seen on image 97 of series 13. This is stable since the previous. IMPRESSION: No pulmonary embolus or dissection. Stable ground-glass opacities in both lungs concerning for pneumonitis. Increased atelectasis at the bases. Splenic artery aneurysm. Reviewed, Interpreted and Dictated by Jordon Moser MD Transcribed by Genoveva Ahuja Authenticated and [facility]
[2024-03-31 13:33] LABS: Procalcitonin 0.338 ng/mL (0.0-2.0)
[2024-03-31] MEDS: IOPAMIDOL-370 (76%);100ML BOTTLE 70 ML IV (13:45)
[2024-03-31] MEDS: SODIUM CHLORIDE 0.9% 10ML SYR (RAD ONLY) 10 ML IV (13:45)
[2024-03-31] MEDS: 0.9 % SODIUM CHLORIDE 50 ML VIAL IV (13:45)
[2024-03-31] MEDS: IPRATROPIUM/ALBUTEROL 3 ML NEB IH (16:29)
[2024-03-31 16:31] LABS: Troponin I < 0.01 ng/ml (0.00-0.034)
[2024-03-31] MEDS: VANCOMYCIN CONSULT REQUEST 1 EACH NOTAPPLIC (16:45)
--- NOTE | 2024-03-31 16:47 | PC.NURSE ---
Per Dr. Beasley we will hold off on IV antibiotics.
[2024-03-31 17:15] LABS: Reflex Lactic Add Lactic Reflex
[2024-03-31] MEDS: ONDANSETRON 4MG ODT 4 MG SL (17:22)
[2024-03-31] MEDS: DOXYCYCLINE HYCL 100 MG TABLET PO (17:22)
--- NOTE | 2024-03-31 17:49 | PC.NURSE ---
Report given to Theo at [facility].
== END 2024-03-31 19:43 | disposition home or self-care (01) ==
PROVIDERS: Emergency Medicine; Emergency Provider Emergency Medicine; PCP Internal Medicine
DX: J18.9 Pneumonia, unspecified organism (principal); R06.02 Shortness of breath; I48.0 Paroxysmal atrial fibrillation; E78.5 Hyperlipidemia, unspecified; I10 Essential (primary) hypertension
CPT/HCPCS: 71045; 71275; 80053; 82803; 83880; 84145; 84484; 85025; 87040; 87636; 93005; 99285; J7620; Q0162; Q9967